=== PATIENT | male | born 1965 | race Caucasian/White ===

== ENCOUNTER → 2020-09-21 14:02 | Outpatient (BNVA) | payer MEDICAID, SELFPAY | PROVIDERS: PCP Family Medicine; Referring Provider Family Medicine; Visit Provider Nurse Practitioner | DX: Z76.89 Persons encountering health services in other specified circumstances (principal) ==

== ENCOUNTER → 2021-01-20 10:07 | Outpatient (BNVA) | payer MEDICAID, SELFPAY | PROVIDERS: PCP Family Medicine; Visit Provider Nurse Practitioner ==

== ENCOUNTER → 2021-02-10 10:04 | Outpatient (BNVA) | payer MEDICAID, SELFPAY | PROVIDERS: Visit Provider Nurse Practitioner ==

== ENCOUNTER 2021-04-21 14:21 | Outpatient (RCR) | payer MEDICAID, SELFPAY | END 2021-06-10 12:30 | disposition home or self-care (01) | LOC: HO.WCC 14:21 | PROVIDERS: Visit Provider Surgery | DX: I87.312 Chronic venous hypertension (idiopathic) with ulcer of left lower extremity (principal); L97.822 Non-pressure chronic ulcer of other part of left lower leg with fat layer exposed; Z79.899 Other long term (current) drug therapy | CPT/HCPCS: 11042; 29580; 97597; 99212; 99213 ==

== ENCOUNTER → 2021-07-19 10:28 | Outpatient (BNVA) | payer MEDICAID, SELFPAY | PROVIDERS: Visit Provider Nurse Practitioner | DX: K21.9 Gastro-esophageal reflux disease without esophagitis (principal); K59.00 Constipation, unspecified; R14.0 Abdominal distension (gaseous) | CPT/HCPCS: 99212 ==

== ENCOUNTER 2021-07-19 11:57 | Outpatient (REF) | payer MEDICAID, SELFPAY ==
[2021-07-19 12:26] LABS: COVID-19 Test Negative (Negative)
== END 2021-07-19 11:58 | disposition home or self-care (01) ==
LOC: HO.LAB 11:57
PROVIDERS: Visit Provider Internal Medicine
DX: Z20.822 Contact with and (suspected) exposure to COVID-19 (principal)
CPT/HCPCS: 36415; 87635; C9803

== ENCOUNTER → 2022-01-10 10:38 | Outpatient (BNVA) | payer MEDICAID, SELFPAY | PROVIDERS: PCP Nurse Practitioner Primary Care; Referring Provider Nurse Practitioner Primary Care; Visit Provider Nurse Practitioner | DX: K21.9 Gastro-esophageal reflux disease without esophagitis (principal); R14.0 Abdominal distension (gaseous); K59.00 Constipation, unspecified; Z79.899 Other long term (current) drug therapy | CPT/HCPCS: 99212 ==

== ENCOUNTER → 2022-02-15 10:46 | Outpatient (REF) | payer MEDICAID, SELFPAY ==
--- NOTE | 2022-02-15 10:57 | ECG_ITS ---
Test Reason : HTN Blood Pressure : / mmHG Vent. Rate : 063 BPM Atrial Rate : 063 BPM P-R Int : 146 ms QRS Dur : 082 ms QT Int : 400 ms P-R-T Axes : 043 074 043 degrees QTc Int : 409 ms Normal sinus rhythm Nonspecific ST abnormality Abnormal ECG When compared with ECG of 03-OCT-2019 05:08, Vent. rate has decreased BY [address] less depressed in Inferior leads T wave inversion no longer evident in Inferior leads T wave inversion no longer evident in Lateral leads Referred By: Lizabeth Felder Electronically Signed By:GILBERTO MILAN MD
== END ==
LOC: HO.CARD 10:46
PROVIDERS: PCP Nurse Practitioner Primary Care; Visit Provider Nurse Practitioner Primary Care
DX: I10 Essential (primary) hypertension (principal)
CPT/HCPCS: 93005

== ENCOUNTER 2022-03-02 15:41 | Emergency (ER) | payer MEDICAID, SELFPAY ==
--- NOTE | 2022-03-02 | ECG_ITS ---
Test Reason : syncope Blood Pressure : / mmHG Vent. Rate : 095 BPM Atrial Rate : 095 BPM P-R Int : 164 ms QRS Dur : 080 ms QT Int : 332 ms P-R-T Axes : 048 068 003 degrees QTc Int : 417 ms Normal sinus rhythm Nonspecific ST and T wave abnormality Abnormal ECG When compared with ECG of 15-FEB-2022 10:57, Vent. rate has increased BY 32 BPM Nonspecific T wave abnormality, worse in Inferior leads T wave amplitude has decreased in Anterior leads Referred By: Generic ED Physician Electronically Signed By:Logan Harrell
--- NOTE | ~2022-03-02 | CT_ITS ---
EXAMINATION: CT HEAD WITHOUT CONTRAST CT CERVICAL SPINE WITHOUT CONTRAST CLINICAL INFORMATION: Trauma. COMPARISON: None available. TECHNIQUE: Contiguous axial imaging was performed from the skull base to vertex without intravenous administration of contrast. Contiguous axial imaging was performed from the upper chest through the skull base without intravenous administration of contrast. Coronal and sagittal reformats were obtained at the acquisition workstation. This CT examination was performed using dose optimization techniques as appropriate, variously including the following: *Automated exposure control. *Adjustment of mA and/or kV according to patient size (this includes techniques or standardized protocols for targeted exams where dose is matched to indication/reason for exam; i.e. extremities or head). *Use of iterative reconstruction technique. DLP: 1266 mGy-cm FINDINGS: Head: There is no evidence of acute intracranial hemorrhage or edematous territorial infarction. There is no abnormal attenuation within the brain parenchyma. Fajardo-white matter differentiation is preserved. The ventricles are normal in size and configuration. Persistent cavums septum pellucidum, vergae, veli interpositi. No evidence for obstructive hydrocephalus. No abnormal mass effect or midline shift. No extra-axial fluid collections. Mild subgaleal hematoma along the right aspect of the frontal bone, measuring up to 0.3 cm in depth. No associated osseous abnormalities. Mild mucosal thickening of the paranasal sinuses. Moderate leftward nasal septal deviation. The mastoid air cells and middle ear cavities are clear. Moderate to advanced degenerative arthropathy of the temporomandibular joints. 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 The fracture fragment of the odontoid is fused to the anterior arch of C1. The atlantooccipital and atlantoaxial articulations remain relatively well aligned. There is anatomic alignment of the vertebral bodies and posterior elements. No evidence of acute fracture or subluxation. Bridging anterior osteophytosis from C3 to C5 and at C6-C7. Degenerative loss of the C3-C6 vertebral body heights. Advanced degenerative disc disease at C4-C5 and C6-C7. Moderate degenerative disc disease at all additional cervical levels. Facet and uncovertebral joint arthropathy leads osseous encroachment on the neural foramina from C2-C7. There is no prevertebral soft tissue swelling. The thyroid gland and remaining cervical soft tissues are normal in appearance. The lung apices demonstrate no abnormalities. CT/CT cervical spine wo con IMPRESSION: 1. No evidence of acute intracranial hemorrhage or edematous territorial infarction. 2. No evidence of acute fracture or traumatic subluxation of the cervical spine. 3. 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 The atlantooccipital and atlantoaxial articulations remain well aligned. 4. Moderate to advanced multilevel degenerative spondyloarthropathy of the cervical spine. 5. Small right frontal scalp hematoma. No associated osseous abnormalities.
[2022-03-02 15:47] VITALS: BP 116/65; BP 143/93; PULSE 107; PULSE 99; RESP 20; TEMP 37; O2SAT 100; O2SAT 98; BMI 31.3
--- NOTE | 2022-03-02 16:10 | ED.SEIZURE ---
HPI - Seizure General Chief Complaint: Syncope Stated Complaint: fall syncopal Time Seen by Provider: 03/02/22 15:58 Source: EMS Mode of arrival: EMS History of Present Illness HPI Narrative: This is 56 yo with hx of epilepsy on keppra/phenobarbital and valproic acid presented after seizure .EMS reported syncope but pt has sign of seizure (tongue biting),he was waiting for the bus then had seizure activity and fell to the ground. He feels well now,he is asking to go home. MD complaint: seizure Onset (ago): hour(s) (1) Description of Episode: tonic-clonic movement Witnessed: Yes - by Bystander Trauma: Yes (head /tongue) Seizure History: Yes Place: street Possible Precipitating Event: none Associated symptoms: denies other symptoms Related Data Home Medications Medication Instructions Recorded Confirmed folic acid 1 mg tablet 1 mg PO DAILY 01/20/21 levetiracetam 750 mg tablet 750 mg PO BID 01/20/21 (Keppra) loratadine 10 mg capsule 10 mg PO DAILY 01/20/21 phenobarbital 97.2 mg tablet 97.2 mg PO BID 01/20/21 prazosin 2 mg capsule 2 mg PO BEDTIME 01/20/21 spironolactone 100 mg tablet 100 mg PO DAILY 01/20/21 divalproex 500 mg tablet,delayed 1 tab PO BID 03/02/22 release docusate sodium 100 mg capsule 100 mg PO DAILY 03/02/22 (Colace) Previous Rx's Medication Instructions Recorded omeprazole 20 mg capsule,delayed 20 mg PO DAILY 30 Days #30 cap 01/10/22 release sennosides 8.6 mg tablet (Maryana-floyd) 17.2 mg PO BEDTIME #60 tab 01/10/22 simethicone 180 mg capsule 180 mg PO TID 30 Days #90 cap 01/10/22 Allergies Allergy/AdvReac Type Severity Reaction Status Date / Time No Known Drug Allergies Allergy Unknown UNKNOWN Verified 01/10/22 10:47 Review of Systems Review of Systems: Yes all other systems are reviewed and are negative Constitutional: Constitutional: Reports no additional constitutional complaints Cardiovascular: Cardiovascular: Reports no additional cardiovascular complaints Respiratory: Respiratory: Reports no additional respiratory complaints Musculoskeletal: Musculoskeletal: Reports no additional musculoskeletal complaints Neurologic: Reports system reviewed and no additional complaints, except as documented and Reports Abnormal speech present [facility] Past Medical History [facility] Narrative: HX of epilepsy Surgical History No significant past surgical history Family History Family History Family/Other Epilepsy Social History Social History Household Members: None Alcohol intake: current Alcohol intake frequency: does not drink Smoked in Last 30 Days: No Use of substances other than those prescribed or required for medical reasons: No Advance Directives: No Advance Directives Information Provided: No Current occupational status: disabled Physical Exam Vital Signs: Vital Signs: Last Vital Signs Temp 98.6 F 03/02/22 15:47 Pulse 88 03/02/22 18:37 Resp 16 03/02/22 18:37 BP 124/74 03/02/22 18:37 Pulse Ox 97 03/02/22 18:37 BMI result Body Mass Index 31.3 Const: General: cooperative, comfortable, no acute distress, well developed and alert Nutritional Appearance: average body habitus Orientation/consciousness: patient oriented x3 HEENT: Head: Yes other (Abrasion scalp present) Face and sinus: Yes normal facial exam Mouth: Normal oral and palatal mucosa present Teeth and gingiva: dentition normal and other (tongue biting present) Throat: Yes posterior oropharynx normal Neck: Neck: Yes normal visual inspection and Yes full ROM Thyroid: Thyroid normal Chest: Chest palpation & inspection: normal inspection of the chest Resp: Effort & Inspection: normal respiratory effort and able to speak in complete sentences Auscultation: clear to auscultation bilaterally Cardio: Jugular venous distension: no JVD Rate: regular rate Rhythm: regular rhythm GI: Inspection: Yes normal to inspection Palpation (GI): Soft to palpation, not firm, nontender and no guarding : General: Yes no CVA tenderness Back/Spine/Pelvis: Back: no CVA tenderness Skin: General skin exam: no rashes or lesions noted, elasticity normal and turgor normal Lesions: no lesions Rashes: no rashes Neuro: General: patient oriented x3 Cranial nerves: Yes CN's II-XII intact bilaterally Speech: Abnormal speech present Extrem: General: Yes normal to inspection Course Reevaluation(s) Reevaluation #1: ct negative,phenobarbital subtherapeutic extra dose given,will d/c home with follow up with his neurologist,I told the pt to take antiepileptic medicine as prescribe and no to miss doses MDM - Seizure MDM Narrative Medical decision making narrative: pt presented with seizure,states that did not take his meds Yesterday night,he is on depakote 500 BID,Keppra 750 BID and phenobarbital 97.2 daily.Will check labs I will give extra 500 keppra iv and 1 mg of ativan. Anticipate discharge if labs OK and pt continue to be asymptomatic Lab Data Result diagrams: 03/02/22 17:05 03/02/22 17:05 Labs: Lab Results 03/02/22 03/02/22 03/02/22 Range/Units 17: 17:05 17:05 WBC 4.9 (4.8-10.8) X10*3/uL RBC 3.71 L (4.60-5.80) X10*6/uL Hgb 12.2 L (14.0-18.0) g/dl Hct 36.4 L (42.0-52.0) % MCV 98.1 H (80.0-98.0) fL MCH 32.9 (27.0-33.0) pg MCHC 33.5 (31.0-36.0) g/dl RDW 12.3 (11.0-16.0) % Plt Count 149 L (160-400) X10*3/uL MPV 11.0 (9.4-12.4) fL Immature Gran % (Auto) 0.2 (0.0-0.4) % Neut % (Auto) 66.3 (45-73) % Lymph % (Auto) 22.0 (20-40) % Mcnairy % (Auto) 10.5 (2-11) % Eos % (Auto) 0.4 (0-4) % Baso % (Auto) 0.6 (0-2) % Lymph # (Auto) 1.1 L (1.2-4.9) X10*3/uL Mcnairy # (Auto) 0.5 (0.1-1.2) X10*3/uL Eos # (Auto) 0.0 (0.0-0.4) X10*3/uL Baso # (Auto) 0.0 (0.0-0.2) X10*3/uL Abs Immat Gran (auto) 0.01 (0.00-0.03) X10*3/uL Absolute Neuts (auto) 3.2 (2.0-8.3) x10*3/uL Absolute Nucleated RBC 0.000 (0.0-0.012) X10*3/uL Nucleated RBC % (auto) 0.0 (0.0-0.2) /100WBC Sodium 138 (135-145) mmol/L Potassium 4.0 (3.3-5.1) mmol/L Chloride 107 (96-108) mmol/L Carbon Dioxide 19 L (22-29) mmol/L Anion Gap 16 (12-20) BUN 17 H (9-16) mg/dL Creatinine 0.82 (0.5-1.4) mg/dL Estim Creat Clear Calc 107.0 Estimated GFR > 60 Random Glucose 85 (60-115) mg/dL Calcium 8.9 (8.4-10.2) mg/dL Magnesium 2.0 Cancelled (1.6-2.6) mg/dL Total Bilirubin 0.3 (0.0-1.0) mg/dL AST 19 (5-37) U/L ALT 18 (0-40) U/L Alkaline Phosphatase 53 (39-117) U/L Total Protein 7.4 (6.5-8.0) g/dL Albumin 4.2 (3.5-5.0) g/dL Valproic Acid 65.7 (50.0-100.0) mcg/mL Phenobarbital Cancelled 3.[address] head/cspine: Radiologist's impression: al soft tissue swelling. The thyroid gland and remaining cervical soft tissues are normal in appearance. The lung apices demonstrate no abnormalities. CT/CT head/brain wo con IMPRESSION: 1. No evidence of acute intracranial hemorrhage or edematous territorial infarction. ? 2. No evidence of acute fracture or traumatic subluxation of the cervical spine. ? 3. 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 The atlantooccipital and atlantoaxial articulations remain well aligned. ? 4. Moderate to advanced multilevel degenerative spondyloarthropathy of the cervical spine. ? 5. Small right frontal scalp hematoma. No associated osseous abnormalities. Dictated By: Juve Voss DO Signed By: <Electronically signed by Juve Voss DO in OV> 03/02/22 190 Discharge Plan Discharge Clinical Impression: Seizure disorder Patient Disposition: Home, Self-Care Instructions: Epilepsy (DC) Additional Instructions: Make sure you take your seizure meds every day,do not drive or operate machine for 6 Months Prescriptions: No Action divalproex 500 mg tablet,delayed release (DR/EC) 1 tab PO BID 0RF docusate sodium [Colace] 100 mg capsule 100 mg PO DAILY 0RF levetiracetam [Keppra] 750 mg tablet 750 mg PO BID 0RF phenobarbital 97.2 mg tablet 97.2 mg PO BID 0RF loratadine 10 mg capsule 10 mg PO DAILY 0RF folic acid 1 mg tablet 1 mg PO DAILY 0RF prazosin 2 mg capsule 2 mg PO BEDTIME 0RF spironolactone 100 mg tablet 100 mg PO DAILY 0RF omeprazole 20 mg capsule,delayed release(DR/EC) 20 mg PO DAILY 30 Days Qty: 30 6RF simethicone 180 mg capsule 180 mg PO TID 30 Days Qty: 90 6RF Rx Instructions: after meals sennosides [Maryana-floyd] 8.6 mg tablet 17.2 mg PO BEDTIME Qty: 60 6RF Referrals: Anita Jones MD [Physician] - Interventions: ED Discharge Assessment Last Done: 03/02/22 19:14 Discharge Date/Time: 03/02/22 19:14
[2022-03-02] MEDS: levETIRAcetam in NaCl (iso-os) 500 MG/100 ML PIGGYBACK 400 MG IV (16:41)
[2022-03-02] MEDS: LORazepam 1 MG TABLET PO (16:41)
[2022-03-02 17:10] LABS: MANUAL DIFF FLAG NO
[2022-03-02 17:17] LABS: Basophils Percent Auto 0.6 % (0-2); Eosinophils Percent Auto 0.4 % (0-4); Hematocrit 36.4 % (42.0-52.0); Hemoglobin 12.2 g/dl (14.0-18.0); Imm Gran Abs Auto 0.01 X10*3/uL (0.00-0.03); Imm Gran Pct Auto 0.2 % (0.0-0.4); Lymphocytes Absolute Auto 1.1 X10*3/uL (1.2-4.9); Mean Corpuscular HGB Conc 33.5 g/dl (31.0-36.0); Mean Corpuscular Hemoglobin 32.9 pg (27.0-33.0); Mean Corpuscular Volume 98.1 fL (80.0-98.0); Monocytes Absolute Auto 0.5 X10*3/uL (0.1-1.2); Monocytes Percent Auto 10.5 % (2-11); Neutrophils Absolute Auto 3.2 x10*3/uL (2.0-8.3); Neutrophils Percent Auto 66.3 % (45-73); Platelet Count 149 X10*3/uL (160-400); Red Blood Count 3.71 X10*6/uL (4.60-5.80); Red Cell Distribution Width 12.3 % (11.0-16.0); White Blood Count 4.9 X10*3/uL (4.8-10.8)
[2022-03-02 17:40] LABS: Alanine Aminotransferase 18 U/L (0-40); Albumin Level 4.2 g/dL (3.5-5.0); Alkaline Phosphatase 53 U/L (39-117); Anion Gap 16 (12-20); Aspartate Amino Transferase 19 U/L (5-37); Bilirubin Total 0.3 mg/dL (0.0-1.0); Blood Urea Nitrogen 17 mg/dL (9-16); Calcium 8.9 mg/dL (8.4-10.2); Carbon Dioxide 19 mmol/L (22-29); Chloride 107 mmol/L (96-108); Estimated Glomerular Filt Rate > 60; Glucose Random 85 mg/dL (60-115); Sodium 138 mmol/L (135-145); Total Protein 7.4 g/dL (6.5-8.0)
[2022-03-02 18:28] LABS: Valproate 65.7 mcg/mL (50.0-100.0)
[2022-03-02 18:37] VITALS: BP 124/74; PULSE 88; RESP 16; O2SAT 97
[2022-03-07 08:57] LABS: Levetiracetam Keppra 24.5 mcg/mL (12.0-46.0)
== END 2022-03-02 19:14 | disposition home or self-care (01) ==
PROVIDERS: Emergency Provider Emergency Medicine
DX: G40.909 Epilepsy, unspecified, not intractable, without status epilepticus (principal); Z79.899 Other long term (current) drug therapy
CPT/HCPCS: 36415; 70450; 72125; 80053; 80164; 80177; 80184; 83735; 85025; 93005; 96374; 99284; J1953

== ENCOUNTER → 2022-04-05 08:45 | Outpatient (BNVA) | payer MEDICAID, SELFPAY | PROVIDERS: PCP Nurse Practitioner Primary Care; Referring Provider Nurse Practitioner Primary Care; Visit Provider Internal Medicine Cardiovascular Disease | DX: R06.02 Shortness of breath (principal) | CPT/HCPCS: 99202 ==

== ENCOUNTER → 2022-04-28 08:03 | Outpatient (REF) | payer MEDICAID, SELFPAY ==
--- NOTE | ~2022-04-28 | NM_ITS ---
Exercise Myocardial perfusion study Indication: Chest pain to evaluate for myocardial ischemia Technique: The patient was brought in for an exercise perfusion study on 04/28/2022. Patient performed exercise as per Raul protocol and was injected 30 mCi of sestamibi was given intravenously one target HR was achieved. Images were obtained using the SPECT gamma camera interlaced with the gating device. Images were obtained in supine position. Resting perfusion study was performed on 05/02/2022. Patient was administered 30 mCi of sestamibi intravenously at rest. Images were then obtained in supine position. Images obtained with and without CT attenuation. Total DLP 96 mGy-cm. Images were processed with the software and compared side to side in short axis, horizontal long axis and vertical long axis views. Findings: The stress perfusion study showed non attenuated images show mildly reduced uptake in the basal. Wall of the LV myocardium. Remainder of the LV myocardium normally perfused. Attenuation corrected images show minimally reduced uptake in the apex of the LV myocardium.. The gated study shows normal LV systolic function with calculated LVEF of 60%. LV cavity is normal in size. The gated study shows normal systolic wall thickening and contraction of all segments. There is no transient ischemic dilation. Resting study shows intense subdiaphragmatic uptake interfering with nontender images show mildly to moderately reduced uptake in the inferior wall of the LV myocardium. Impression corrected images show mildly reduced uptake in the apex of the LV myocardium.. Gating at rest reveals normal systolic wall motion with ejection fraction at 56%. The findings are consistent with no clear reversible defect suggestive of ischemia. Likely normal myocardial perfusion. NM/NM cardiolite stress test Impression: 1. Normal myocardial perfusion 2. Gated LVEF is 60% 3. Transient ischemic dilatation not present Stress EKG is suggestive of ischemia
--- NOTE | 2022-04-28 08:06 | CA_ITS ---
Acquisition Time: 2022-04-28 08:18:19 Total Exercise Time: 00:06:00 Test Indications: ABN EKG Medications: SEE CHART Protocol: GOLDEN Max HR: 151 BPM 91% of Pred: 165 BPM Max BP: 148/048 mmHG Max Work Load: 7.2 METS Exercise stress test with exercise 6 min of Golden protocol, without anginal symptoms, with isolated PAC, with normotensive response to exercise, with EKG changes meeting criteria for ischemia: Horizontal ST depression, 2 mm inferiorly, 1 mm V4-V6 which becomes downsloping ST depression with gradual improvement back to baseline. Nuclear images pending. Test reviewed with Dr Bhatia Referred By: Abhinav Sanches Overread By: LEISA MOTLEY
== END ==
LOC: HO.CARD 08:03
PROVIDERS: Visit Provider Internal Medicine Cardiovascular Disease
DX: R06.02 Shortness of breath (principal); R07.9 Chest pain, unspecified
CPT/HCPCS: 78452; 93017; A9500

== ENCOUNTER 2022-05-10 14:03 | Outpatient (RCR) | payer MEDICAID, SELFPAY | END 2022-05-22 14:06 | disposition home or self-care (01) | LOC: HO.WCC 14:03 | PROVIDERS: Visit Provider Surgery | DX: I87.302 Chronic venous hypertension (idiopathic) without complications of left lower extremity (principal); I10 Essential (primary) hypertension; I73.9 Peripheral vascular disease, unspecified; Z87.891 Personal history of nicotine dependence; Z86.718 Personal history of other venous thrombosis and embolism; Z86.19 Personal history of other infectious and parasitic diseases | CPT/HCPCS: 99213 ==

== ENCOUNTER → 2022-07-11 11:44 | Outpatient (BNVA) | payer MEDICAID, SELFPAY | PROVIDERS: PCP Nurse Practitioner Primary Care; Visit Provider Nurse Practitioner | DX: R14.0 Abdominal distension (gaseous) (principal); K21.9 Gastro-esophageal reflux disease without esophagitis; K59.00 Constipation, unspecified | CPT/HCPCS: 99212 ==

== ENCOUNTER 2022-07-17 23:27 | Emergency (ER) | payer MEDICAID, SELFPAY ==
--- NOTE | ~2022-07-17 | CT_ITS ---
EXAMINATION: CT HEAD WITHOUT CONTRAST CLINICAL INFORMATION: Seizure, head trauma. COMPARISON: CT head dated from 03/02/2022. TECHNIQUE: Contiguous axial imaging was performed from the skull base to vertex without intravenous administration of contrast. This CT examination was performed using dose optimization techniques as appropriate, variously including the following: *Automated exposure control *Adjustment of mA and/or kV according to patient size (this includes techniques or standardized protocols for targeted exams where dose is matched to indication/reason for exam; i.e. extremities or head) *Use of iterative reconstruction technique DLP: 734 mGy-cm FINDINGS: There is no evidence of acute intracranial hemorrhage or edematous territorial infarction. There is no abnormal attenuation within the brain parenchyma. Fajardo-white matter differentiation is preserved. The ventricles are normal in size and configuration. No evidence for obstructive hydrocephalus. Persistent cavum septum pellucidum, vergae, veli interpositi. No abnormal mass effect or midline shift. No extra-axial fluid collections. No acute soft tissue or osseous abnormalities. The mastoid air cells and paranasal sinuses are clear. Degenerative changes of the temporomandibular joints. CT/CT head/brain wo IV con IMPRESSION: No evidence of acute intracranial hemorrhage or edematous territorial infarction.
--- NOTE | 2022-07-17 23:32 | ED_ITS ---
HPI - Headache General Chief Complaint: Seizure Stated Complaint: Headache Time Seen by Provider: 07/17/22 23:32 Source: patient and EMS Mode of arrival: EMS Limitations: language barrier History of Present Illness HPI Narrative: 57-year-old male presents via EMS for headache that he has had for 2 days, seizure activity and question of head trauma. Patient states he has has taking his medications as prescribed. Yesterday when he had the seizure, he did bite his tongue, and states that he is having a difficult time swallowing because of the tongue injuries. He does not report chest pain or pressure, palpitations, shortness of breath, abdominal pain, abdominal distention, dysuria, hematuria, changes in vision, or weakness. MD elicited complaint: headache Pertinent past history: other (Seizure disorder) Onset (ago): day(s) (2) Onset description: gradually Location: diffuse Severity: severe Pain scale (0-10): 9 Quality & Timing: throbbing and constant Exacerbating factors: light Relieving factors: nothing Context: recent head injury Associated symptoms: none and photophobia Treatments prior to arrival: none Related Data Home Medications Medication Instructions Recorded Confirmed folic acid 1 mg tablet 1 mg PO DAILY 01/20/21 04/05/22 levetiracetam 750 mg tablet 750 mg PO BID 01/20/21 04/05/22 (Keppra) loratadine 10 mg capsule 10 mg PO DAILY 01/20/21 04/05/22 phenobarbital 97.2 mg tablet 97.2 mg PO BID 01/20/21 04/05/22 prazosin 2 mg capsule 2 mg PO BEDTIME 01/20/21 04/05/22 spironolactone 100 mg tablet 100 mg PO DAILY 01/20/21 04/05/22 divalproex 500 mg tablet,delayed 1 tab PO BID 03/02/22 04/05/22 release ergocalciferol (vitamin D2) 1,250 1,250 mcg PO QWEEK 07/11/22 mcg (50,000 unit) capsule (Vitamin D2) ibuprofen 800 mg tablet 800 mg PO TID 07/11/22 Previous Rx's Medication Instructions Recorded docusate sodium 100 mg capsule 100 mg PO DAILY #30 caps 07/11/22 (Colace) omeprazole 20 mg capsule,delayed 20 mg PO DAILY 30 days #30 caps 07/11/22 release sennosides 8.6 mg tablet (Maryana-floyd) 17.2 mg PO BEDTIME #60 tabs 07/11/22 simethicone 180 mg capsule 180 mg PO TID 30 days #90 caps 07/11/22 Allergies Allergy/AdvReac Type Severity Reaction Status Date / Time No Known Drug Allergies Allergy Unknown UNKNOWN Verified 07/11/22 11:47 Review of Systems Review of Systems: Constitutional: Positive seizure disorder, No Fever, No Chills ENT/Mouth: Positive tongue pain, No Ear Pain, No Hoarseness, No sore throat Eyes: No Eye Pain, No Swelling, No Redness, No Foreign Body Cardiovascular: No Chest Pain, No SOB Respiratory: No Cough, No Dyspnea Gastrointestinal: No Nausea, No Vomiting, No Diarrhea, No abdominal Pain Genitourinary: No Dysuria, No Hematuria Musculoskeletal: No joint pain, No Myalgias, No Joint Swelling Skin: No Skin lacerations, No rash Neuro: No Weakness, No Numbness, No Paresthesias, No Loss of Consciousness, No Dizziness, positive Headache Psych: No Anxiety/Panic, No Depression Heme/Lymph: no easy bruising, no Lymphadenopathy Endocrine: No Polyuria, No Polydipsia Yes all other systems are reviewed and are negative PMFSH Past Medical History Attestation statement: The following information was validated with the patient. Source: old records reviewed Medical History Seizure disorder Surgical History No significant past surgical history Family History Family History Family/Other Epilepsy Social History Social History Household Members: None Alcohol intake: current Alcohol intake frequency: does not drink Patient Tobacco Use Status: Never used Tobacco Use of substances other than those prescribed or required for medical reasons: No Advance Directives: No Current occupational status: disabled Physical Exam Vital Signs: Vital Signs: Last Vital Signs Temp 98.2 F 07/18/22 00:03 Pulse 79 07/18/22 00:03 Resp 12 07/18/22 00:03 BP 122/59 L 07/18/22 00:03 Pulse Ox 97 07/18/22 00:03 O2 Del Method 07/18/22 00:03 BMI result Body Mass Index 24.2 Appearance: Alert. Oriented X3. No acute distress. Eyes: Pupils equal, round and reactive to light. No pain on extraocular movement. EOMI. ENT: Pharynx normal. Bite sparks to lateral aspects of the tongue on each side. Neck: Normal inspection. Neck supple. No vertebral tenderness or step-offs. No nuchal rigidity. No mastoid tenderness. CVS: Normal heart rate and rhythm. Pulses normal. Respiratory: No respiratory distress. Breath sounds normal. Abdomen: Soft and nontender. Skin: Skin warm and dry. Normal skin color. Normal skin turgor. Extremities: No lower extremity edema. Moves all extremities against resistance . Neuro: No motor deficit. No sensory deficit. Cranial nerves 2-12 intact. NIH Stroke Scale Internal: Initial- Upon Arrival Level of Consciousness: Alert Level of Consciousness Questions: Answers both questions correctly Level of Consciousness Commands: Performs both tasks correctly Best Gaze: Normal Visual: No visual loss Facial Palsy: Normal Motor Arm (Right): No drift Motor Arm (Left): No drift Motor Leg (Right): No drift Motor Leg (Left): No drift Limb Ataxia: Absent Sensory: Normal Best Language: No aphasia Dysarthia: Normal Extinction and Inattention: No abnormality Score: 0 Course Course Course Narrative: 57-year-old male presents via EMS for 2 days of headache, tongue pain, seizure activity with suspected head trauma. Patient stated he had a seizure yesterday, suspected to hit his head bit his tongue on both sides, and has not had any rel ief from his headache since. He has been taking his medications as directed. He does not report any ETOH or illicit drug use. Patient has a known seizure disorder, and takes Keppra, Depakote and phenobarbital. Patient is alert oriented x4, moves all extremities against resistance, NIH stroke scale is 0. Will order CT scan of the head, give lidocaine swish to assist with the tongue pain. Will give Keppra and order COVID and strep 00:56 CT scan of the head is negative, Keppra infusion complete, COVID and strep is negative. Will give Fioricet and discharged home. Patient verbalized under standing of and agrees to plan of care discharge home. Verbalized understanding of signs and symptoms indicating need for emergent intervention. MDM - Headache Differential Diagnosis Differential diagnosis: Likely migraine, tension headache, subarachnoid hemorrhage and headache Medical Records Attestation: I reviewed the patient's medical records. Lab Data Attestation: I reviewed the patient's lab results. Labs: Lab Results 07/18/22 07/18/22 Range/Units 00:11 00:16 COVID-19 ([facility]) Negative (Negative) COVID-19 Clin Com See Note S. pyogenes GrpA LESLEY Negative (Negative) Imaging Data CT scan - head: Attestation: I personally reviewed and interpreted this imaging study as follows: Radiologist's impression: EXAMINATION: CT HEAD WITHOUT CONTRAST CLINICAL INFORMATION: Seizure, head trauma.? COMPARISON: CT head dated from 03/02/2022. TECHNIQUE: Contiguous axial imaging was performed from the skull base to vertex without intravenous administration of contrast. This CT examination was performed using dose optimization techniques as appropriate, variously including the following: *Automated exposure control *Adjustment of mA and/or kV according to patient size (this includes techniques or standardized protocols for targeted exams where dose is matched to indication/reason for exam; i.e. extremities or head) *Use of iterative reconstruction technique DLP: 734 mGy-cm FINDINGS: There is no evidence of acute intracranial hemorrhage or edematous territorial infarction. There is no abnormal attenuation within the brain parenchyma. Fajardo-white matter differentiation is preserved. The ventricles are normal in size and configuration. No evidence for obstructive hydrocephalus. Persistent cavum septum pellucidum, vergae, veli interpositi. No abnormal mass effect or midline shift. No extra-axial fluid collections. No acute soft tissue or osseous abnormalities. The mastoid air cells and paranasal sinuses are clear. Degenerative changes of the temporomandibular joints. ? CT/CT head/brain wo IV con IMPRESSION: No evidence of acute intracranial hemorrhage or edematous territorial infarction. ? Discharge Plan Discharge Clinical Impression: Seizure, Headache Patient Disposition: Home, Self-Care Instructions: Acute Headache (ED), Recurrent Seizures in Adults (ED) Additional Instructions: Se le evalu? por dolor de beka y trastorno convulsivo. Contin?e tomando jason medicamentos seg?n las indicaciones. Le dimos 1000 mg de Keppra mientras estaba en el departamento de emergencias. Para tu dolor de beka te dimos Fioricet. Por favor, kalyan muchos l?quidos. Seguimiento con m?dico de atenci?n primaria. Kosta por elegir domenic departamento de emergencias para ojeda evaluaci?n. Por favor, colt un seguimiento con el m?dico de atenci?n primaria seg?n sea necesario. Regrese al departamento de emergencias por cualquier s?ntoma nuevo, preocupante o que empeore. You were evaluated for headache and seizure disorder. Continue to take her medications as directed. We gave you 1000 mg of Keppra while you were in the emergency department. For your headache we gave you Fioricet. Please drink plenty of fluids. Follow-up with primary care physician. Thank you for choosing this emergency department for evaluation. Please follow-up with primary care physician as needed. Return to the emergency department for any new, concerning, or worsening symptoms. Prescriptions: No Action divalproex 500 mg tablet,delayed release (DR/EC) 1 tab PO BID levetiracetam [Keppra] 750 mg tablet 750 mg PO BID phenobarbital 97.2 mg tablet 97.2 mg PO BID loratadine 10 mg capsule 10 mg PO DAILY folic acid 1 mg tablet 1 mg PO DAILY prazosin 2 mg capsule 2 mg PO BEDTIME spironolactone 100 mg tablet 100 mg PO DAILY ibuprofen 800 mg tablet 800 mg PO TID ergocalciferol (vitamin D2) [Vitamin D2] 1,250 mcg (50,000 unit) capsule 1,250 mcg PO QWEEK simethicone 180 mg capsule 180 mg PO TID 30 Days Qty: 90 6RF Rx Instructions: after meals sennosides [Maryana-floyd] 8.6 mg tablet 17.2 mg PO BEDTIME Qty: 60 6RF docusate sodium [Colace] 100 mg capsule 100 mg PO DAILY Qty: 30 6RF omeprazole 20 mg capsule,delayed release(DR/EC) 20 mg PO DAILY 30 Days Qty: 30 6RF
[2022-07-17 23:45] VITALS: PULSE 88; RESP 12; TEMP 36.8; O2SAT 97; BMI 24.2
[2022-07-17] MEDS: levETIRAcetam in NaCl (iso-os) 1,000 MG/100 ML PIGGYBACK 400 MG IV (23:56)
[2022-07-17] MEDS: Lidocaine HCl Viscous 2 % 15 ML SOLUTION MUCOUS MEM (23:57)
[2022-07-18 00:03] VITALS: BP 122/59; PULSE 79; RESP 12; TEMP 36.8; O2SAT 97
--- NOTE | 2022-07-18 00:19 | PC.NURSE ---
Pt aox4. Breaths are even and unlabored. Regular heart sounds. Abd is soft and nontender. [place] is warm pink and dry. Bilateral leg discoloration noted. Multiple lacerations noted on the tongue. Pt reports having a hx of seizures and having a seizure last night. Seizure precautions in place. MD at bedside. Pt aware of plan of care.
[2022-07-18 00:41] LABS: COVID-19 Test Negative (Negative); IDNOW Serial# 16C4AD1C
[2022-07-18 00:50] LABS: Strep A Nucleic Acid Negative (Negative)
[2022-07-18] MEDS: Butalb/Acetamin/Caff 50/325/40 TABLET 1 TAB PO (01:01)
--- NOTE | 2022-07-18 01:21 | PC.NURSE ---
Discharge instructions provided to pt. Pt verbalizes understanding.
== END 2022-07-18 01:22 | disposition home or self-care (01) ==
PROVIDERS: Nurse Practitioner Family; Emergency Provider Internal Medicine
DX: R56.9 Unspecified convulsions (principal); R51.9 Headache, unspecified; Z79.899 Other long term (current) drug therapy; Z20.822 Contact with and (suspected) exposure to COVID-19
CPT/HCPCS: 36415; 70450; 87635; 87651; 96365; 99284; J1953

== ENCOUNTER → 2022-09-19 08:50 | Outpatient (BNVA) | payer MEDICAID, SELFPAY | PROVIDERS: PCP Nurse Practitioner Primary Care; Referring Provider Nurse Practitioner Primary Care; Visit Provider Internal Medicine Cardiovascular Disease | DX: R94.31 Abnormal electrocardiogram [ECG] [EKG] (principal); G40.909 Epilepsy, unspecified, not intractable, without status epilepticus | CPT/HCPCS: 99212 ==

== ENCOUNTER 2022-11-30 09:31 | Outpatient (REF) | payer MEDICAID, SELFPAY ==
--- NOTE | ~2022-11-30 | US_ITS ---
EXAMINATION: US ABDOMEN COMPLETE CLINICAL INFORMATION: Chronic hepatitis C without hepatic coma. COMPARISON: Ultrasound of the abdomen complete 01/09/2019 and 04/01/2018. CT of the abdomen and pelvis without contrast 03/13/2016. MRI of the abdomen without and with contrast 11/06/2014. TECHNIQUE: Real-time imaging of the abdominal viscera. FINDINGS: PANCREAS: The pancreas appears unremarkable, without masses or ductal dilatation, with the exception of the tail which is obscured by bowel gas. ABDOMINAL AORTA: The proximal, mid, and distal segments are normal in caliber. INFERIOR VENA CAVA: Visualized portions are normal. LIVER: The liver is normal in size. The liver contour is normal. There is diffuse increased liver parenchymal echogenicity, consistent with hepatic steatosis. No focal hepatic lesion. There is no intrahepatic biliary duct dilatation seen. GALLBLADDER: The gallbladder is physiologically distended without evidence of stones, sludge, polyps, wall thickening or pericholecystic fluid. COMMON BILE DUCT: Normal in caliber measuring 0.3 cm in diameter. RIGHT KIDNEY: No hydronephrosis. No renal calculi or focal parenchymal lesions. The kidney measures 10.2 cm in maximum dimension. LEFT KIDNEY: A benign 1.2 cm simple cyst is present at the upper pole. No solid renal masses. No hydronephrosis or renal calculi. The kidney measures 10.1 cm in maximum dimension. SPLEEN: Normal. The spleen measures 9.3 cm in maximum dimension. FREE FLUID: None. US/US abdomen complete IMPRESSION: Hepatic steatosis. No focal liver mass.
== END 2022-11-30 09:32 | disposition home or self-care (01) ==
LOC: HO.US 09:31
PROVIDERS: Visit Provider Nurse Practitioner Primary Care
DX: B18.2 Chronic viral hepatitis C (principal)
CPT/HCPCS: 76700

== ENCOUNTER → 2023-04-12 14:10 | Outpatient (BNVA) | payer MEDICAID, SELFPAY | PROVIDERS: PCP Nurse Practitioner Primary Care; Visit Provider Nurse Practitioner | DX: R14.0 Abdominal distension (gaseous) (principal); K21.9 Gastro-esophageal reflux disease without esophagitis; K59.04 Chronic idiopathic constipation | CPT/HCPCS: 99212 ==

== ENCOUNTER 2023-05-09 08:44 | Outpatient (REF) | payer MEDICAID, SELFPAY ==
[2023-05-09 11:22] LABS: MANUAL DIFF FLAG NO
[2023-05-09 11:44] LABS: Basophils Absolute Auto 0.1 X10*3/uL (0.0-0.2); Eosinophils Absolute Auto 0.1 X10*3/uL (0.0-0.4); Hematocrit 36.8 % (42.0-52.0); Hemoglobin 12.3 g/dl (14.0-18.0); Imm Gran Abs Auto 0.01 X10*3/uL (0.00-0.03); Imm Gran Pct Auto 0.2 % (0.0-0.4); Lymphocytes Percent Auto 42.3 % (20-40); Mean Corpuscular HGB Conc 33.4 g/dl (31.0-36.0); Mean Corpuscular Hemoglobin 31.9 pg (27.0-33.0); Mean Corpuscular Volume 95.6 fL (80.0-98.0); Mean Platelet Volume 10.7 fL (9.4-12.4); Monocytes Absolute Auto 0.6 X10*3/uL (0.1-1.2); Monocytes Percent Auto 12.9 % (2-11); Neutrophils Absolute Auto 2.1 x10*3/uL (2.0-8.3); Neutrophils Percent Auto 42.6 % (45-73); Platelet Count 173 X10*3/uL (160-400); Red Blood Count 3.85 X10*6/uL (4.60-5.80); Red Cell Distribution Width 12.8 % (11.0-16.0); White Blood Count 4.8 X10*3/uL (4.8-10.8)
[2023-05-09 12:19] LABS: Alanine Aminotransferase 13 U/L (0-40); Albumin Level 4.1 g/dL (3.5-5.0); Alkaline Phosphatase 59 U/L (39-117); Aspartate Amino Transferase 16 U/L (5-37); Bilirubin Direct < 0.2 mg/dL (0.0-0.5); Bilirubin Total 0.2 mg/dL (0.0-1.0); Total Protein 7.5 g/dL (6.5-8.0)
[2023-05-09 12:25] LABS: Creatinine Urine 240.86 mg/dL; Microalbum/Creatinine Ratio Ur 4.9 ug/mg cr
== END 2023-05-09 08:45 | disposition home or self-care (01) ==
LOC: HO.HHCL 08:44
PROVIDERS: Visit Provider Nurse Practitioner Primary Care
DX: I10 Essential (primary) hypertension (principal); G40.909 Epilepsy, unspecified, not intractable, without status epilepticus
CPT/HCPCS: 36415; 80076; 82043; 85025

== ENCOUNTER 2023-12-31 13:25 | Outpatient (AMB) | payer MEDICAID, SELFPAY ==
--- NOTE | 2023-12-31 13:50 | A.OFFVIS_ITS ---
Intake Vital Signs 12/31/23 13:51 Height 5 ft 6 in Weight 213 lb 13.574 oz BMI 34.5 BP 110/70 Blood Pressure Location Lt brachial Position Sitting Pulse 62 Intake Visit Reasons: Follow up per PCP Intake Note: Over do follow-up Marine Services Technician Required: Yes Marine Services Technician Name: [facility] [place] Allergies No Known Drug Allergies Allergy (Unknown, Verified 11/07/23 17:16) UNKNOWN Medication List - Last Reconciled 12/31/23 by Abhinav Sanches MD divalproex 500 mg PO BID docusate sodium 100 mg PO DAILY ergocalciferol (vitamin D2) (Vitamin D2) 1,250 mcg PO QWEEK folic acid 1 mg PO DAILY ibuprofen 800 mg PO TID levetiracetam (Keppra) 750 mg PO BID loratadine 10 mg PO DAILY omeprazole 20 mg PO DAILY phenobarbital 97.2 mg PO BID prazosin 2 mg PO BEDTIME sennosides (Maryana-floyd) 17.2 mg (2 x 8.6 mg) PO BEDTIME simethicone 180 mg PO TID 30 days spironolactone 100 mg PO DAILY HPI HPI Comments History of Present Illness Details Jerome was referred here by your office. Patient is not sure as to why he is referred here. He has a poor historian despite use of mill oiler in the room. On further questioning he said he does occasionally get retrosternal chest discomfort when he is in stressful situation. Denies any clear chest discomfort with exercise. Denies any palpitations. Continues to have exertional shortness of breath. Takes all his medications. He said he had a seizure about couple of days ago. Does not remember the name of his neurologist. [facility] Medical History Seizure disorder Surgical History No significant past surgical history Family History Family/Other Epilepsy Social History Household Members: None Alcohol intake: current Alcohol intake frequency: does not drink Patient Tobacco Use Status: Never used Tobacco Current occupational status: disabled Review of Systems Const Denies chills, Denies fatigue, Denies fever(s), Denies frequent falls, Denies weakness, Denies weight gain and Denies weight loss ENT Denies dizziness Card Denies chest pain, Denies leg edema, Denies lightheadedness, Denies palpitations, Denies dyspnea, Denies dyspnea on exertion, Denies orthopnea and Denies other (loss of consciousness) Resp Denies cough, Denies dyspnea and Denies dyspnea on exertion GI Denies hematochezia and Denies change in stool character Musc Denies abnormal gait, Denies muscle weakness, Denies numbness, Denies radiating pain into limb and Denies tingling Neuro Denies Abnormal speech present, Denies abnormal gait, Denies dizziness, Denies frequent falls, Denies numbness, Denies tingling and Denies weakness Endo Denies fatigue and Denies palpitations Physical Exam Vital Signs: Last Vital Signs Pulse 62 12/31/23 13:51 BP 110/70 12/31/23 13:51 BMI result Body Mass Index 34.5 Const General: cooperative, comfortable, no acute distress, alert and awake Nutritional Appearance: overweight Limitations: no limitations Neck Neck: Yes trachea midline, Yes supple and Yes no JVD Resp Effort & Inspection: normal respiratory effort Auscultation: clear to auscultation bilaterally Cardio Jugular venous distension: no JVD Palpation: normal PMI Rate: regular rate Rhythm: regular rhythm Heart sounds: S1 normal heart sound present, S2 normal heart sound present, no click, no gallops, no murmurs and no rubs GI Auscultation: normal bowel sounds Neuro Speech: No Abnormal speech present Extrem General: No no clubbing, cyanosis or edema and Yes venous stasis dermatitis Assessment & Plan Assessment & Plan (1) Atypical chest pain: Code(s): R07.89 - Other chest pain Plan: Atypical chest pain with chest pain under stressful situation this middle-aged man with probable history of hypertension. He has a very poor historian. Very difficult to obtain history. EKG does not show any new changes. Would suggest a coronary CTA to evaluate for coronary artery disease as well as an echocardiogram to evaluate for hypertensive heart disease. These tests will be scheduled in near future. Follow up in the clinic after the same. His blood pressure is currently well optimized advised to continue current therapy. Thank you for allowing us to partake in his care Orders: Orders CA echo transthoracic complete Today R07.89 - Other chest pain CT Cardiac Coronary Angio 1 Week R07.89 - Other chest pain Coding Level of Care Code Est Pt Level 3 (30669) Diagnoses Atypical chest pain R07.89
[2023-12-31 13:51] VITALS: BP 110/70; PULSE 62; BMI 34.5
== END 2023-12-31 14:38 | disposition home or self-care (01) ==
PROVIDERS: PCP Nurse Practitioner Primary Care; Visit Provider Internal Medicine Cardiovascular Disease
DX: R07.89 Other chest pain (principal)
CPT/HCPCS: 99213

== ENCOUNTER → 2023-12-31 13:25 | Outpatient (BNVA) | payer MEDICAID, SELFPAY | PROVIDERS: PCP Nurse Practitioner Primary Care; Visit Provider Internal Medicine Cardiovascular Disease | DX: R07.89 Other chest pain (principal) | CPT/HCPCS: 99212 ==

== ENCOUNTER → 2024-01-15 12:53 | Outpatient (REF) | payer MEDICAID, SELFPAY ==
--- NOTE | 2024-01-15 12:55 | CA_ITS ---
Transthoracic Echocardiogram Patient (Last, First, Middle): Jerome Ledezma, Gender: Male Date of : 1965 Age: 58 Procedure Date: 01/15/2024 Procedure Type: Transthoracic Echocardiogram Location: OP Height: 172.72 cm Weight: 96.62 kg BSA: 2.10 m2 Heart Rate: bpm BP: 124 / 66 mmHg Shelter Director: LUZ Referring MD: Abhinav Sanches MD Granulating Blender: Abhinav Sanches MD Symptoms: R07.89 - Other chest pain Study Quality: Adequate with contrast ECG Rhythm: Sinus Conclusions: - Essentially normal study Findings Procedure Information Contrast agent, definity, is being given per protocol without apparent complications. Left Ventricle Normal left ventricular size, thickness, and systolic function. The visually estimated ejection fraction is between 55-60%. Diastolic function is normal for age. Right Ventricle Normal right ventricular cavity size and systolic function. Atria Both atria are normal in size. Interatrial shunt cannot be excluded. Aortic Valve The aortic valve structure and function is likely normal. There is no aortic valve stenosis. There is no aortic valve regurgitation. Mitral Valve Normal mitral valve structure and function. There is trace mitral valve regurgitation. There is no mitral valve stenosis. Pulmonic Valve The pulmonic valve is likely normal. There is trace pulmonic valve regurgitation. Tricuspid Valve Normal tricuspid valve structure. There is trace tricuspid valve regurgitation. The right ventricular systolic pressure is normal. The right ventricular systolic pressure is 22 mmHg. Normal right atrial pressure. There is no evidence of pulmonary hypertension. Great Vessels All visible segments of the aorta are normal in size. The pulmonary artery was not well visualized. Venous The inferior vena cava is normal in size and collapses greater than 50% with inspiration. Pericardium/Pleural There is no evidence of pericardial effusion. Measurements 2D Linear Measurements IVSd: 0.87 0.6-0.9/0.6-1.0 cm LVIDd: 4.62 3.9-5.3/4.2-5.9 cm LVIDd Index: 2.20 2.4-3.2/2.2-3.1 cm/m2 LVIDs: 2.87 2.0-3.6 cm LVPWd: 0.92 0.7-1.1 cm LA Diam: 3.00 2.7-3.8/3.0-4.0 cm LAIDs Index: 1.43 1.5-2.3 cm/m2 LV Mass: 171.23 67-162/88-224 g LV Mass Index: 81.54 43-95/49-115 g/m2 LVOT Diam: 2.30 3.0+(-)1.3 cm 2D Systolic Function EF 4C: 59.40 >55% EF 2C: 50.20 >55% EF BiP: 55.00 >55% Mitral Valve MV Pk E: 1.08 MV PK A: 0.76 MV Decel Time: 224.00 E/A: 1.40 E'Lateral: 10.00 E'Medial: 7.83 E/E' Med: 13.80 E/E' Lat: 10.80 PHT: 65.00 MVA PHT: 3.38 Decel Milam: 4.85 Aortic Valve AoV Pk Atul: 1.11 AoV Mn Atul: 0.75 AoV VTI: 0.23 AoV Pk Grad: 5.00 Aov Mn Grad: 3.00 HENRRY Cont.VTI: 3.75 LVOT LVOT Pk Atul: 1.01 LVOT Mn Atul: 0.69 LVOT VTI: 0.21 LVOT Pk Grad: 4.00 LVOT Mn Grad: 2.00 LVOT Diam: 2.30 LVOT Area: 4.15 Diastolic Function MV Pk E: 1.08 MV Pk A: 0.76 E/A: 1.40 E'Medial: 7.83 E/E' Med: 13.80 E' Laterial: 10.00 E/E' Lat: 10.80 Right Ventricle TAPSE (mm): 23.50 TVS' Atul: 12.30 Tricuspid Valve TR Pk Atul: 2.19 TR Pk Grad: 19.00 RA Press: 3.00 RVSP: 22.00 Great Vessels Aorta Sinus of Valsalva: 3.53 2.0-3.[address] [place]: 2.81 1.7-3.4 cm Ao Asc: 3.00 2.1-3.4 cm Updated in Other Vendor System with Status of Final Abhinav Sanches MD electronically signed on 01/16/2024 2:27:43 PM with status of Final
== END ==
LOC: HO.CARD 12:53
PROVIDERS: PCP Nurse Practitioner Primary Care; Visit Provider Internal Medicine Cardiovascular Disease
DX: R07.89 Other chest pain (principal)
CPT/HCPCS: 93306; Q9957

== ENCOUNTER → 2024-01-15 12:55 | Outpatient (BNV) | payer MEDICAID, SELFPAY | PROVIDERS: PCP Nurse Practitioner Primary Care; Visit Provider Internal Medicine Cardiovascular Disease | DX: R07.89 Other chest pain (principal) | CPT/HCPCS: 93306 ==

== ENCOUNTER 2024-02-04 15:15 | Outpatient (REF) | payer MEDICAID, SELFPAY ==
[2024-02-04 16:18] LABS: MANUAL DIFF FLAG NO
[2024-02-04 16:35] LABS: Estimated Average Glucose 120 mg/dL; Hemoglobin A1c % 5.8 % (<6.0)
[2024-02-04 16:46] LABS: Basophils Percent Auto 0.7 % (0-2); Eosinophils Percent Auto 0.7 % (0-4); Hematocrit 37.8 % (42.0-52.0); Imm Gran Abs Auto 0.01 X10*3/uL (0.00-0.03); Imm Gran Pct Auto 0.2 % (0.0-0.4); Lymphocytes Absolute Auto 2.1 X10*3/uL (1.2-4.9); Lymphocytes Percent Auto 38.8 % (20-40); Mean Corpuscular HGB Conc 34.4 g/dl (31.0-36.0); Mean Corpuscular Hemoglobin 32.7 pg (27.0-33.0); Mean Platelet Volume 10.2 fL (9.4-12.4); Monocytes Absolute Auto 0.7 X10*3/uL (0.1-1.2); Monocytes Percent Auto 12.6 % (2-11); Neutrophils Absolute Auto 2.5 x10*3/uL (2.0-8.3); Platelet Count 186 X10*3/uL (160-400); Red Blood Count 3.98 X10*6/uL (4.60-5.80); Red Cell Distribution Width 12.2 % (11.0-16.0); White Blood Count 5.4 X10*3/uL (4.8-10.8)
[2024-02-04 17:54] LABS: Valproate 67.1 mcg/mL (50.0-100.0)
[2024-02-04 18:23] LABS: Cholesterol 220 mg/dL (<200); HDL Cholesterol 40 mg/dL (>40); LDL Cholesterol Calculated 148 mg/dL (<100); Triglycerides 161 mg/dL (<150)
== END 2024-02-04 15:16 | disposition home or self-care (01) ==
LOC: HO.HHCL 15:15
PROVIDERS: Visit Provider Nurse Practitioner Primary Care
DX: Z00.00 Encounter for general adult medical examination without abnormal findings (principal); G40.909 Epilepsy, unspecified, not intractable, without status epilepticus; E78.5 Hyperlipidemia, unspecified; Z79.899 Other long term (current) drug therapy
CPT/HCPCS: 36415; 80061; 80164; 80184; 83036; 85025

== ENCOUNTER 2024-02-20 17:53 | Emergency (ER) | payer MEDICAID, SELFPAY ==
[2024-02-20 18:19] VITALS: BP 134/85; PULSE 110
--- NOTE | 2024-02-20 18:28 | ED.GENADULT ---
HPI - General Adult General Chief complaint: Seizure Stated complaint: 2 WITNESSED SEIZURES Time Seen by Provider: 02/20/24 18:26 History of Present Illness HPI narrative: This is a 58-year-old man with a past medical history of GERD, constipation, seizure disorder (on Keppra, Depakote and phenobarbital) who presents via EMS for evaluation of seizure. History obtained with in-person exhibit builder (Katiana). Patient states name, location. He states that he had 2 seizures today. He states that he believes his sister's called for an ambulance. He reports that he slid out of a recliner. He states that he did miss his epilepsy medications this morning. He states he sometimes otherwise forgets his medications. He states no fever, chills or cough. He states no chest pain or dyspnea. He states no headache, neck pain, vision changes, hearing changes or paresthesias. He states no neck pain. He states no extremity weakness. He states no changes in his bowel habits or any urinary symptoms. Patient states he does not drink alcohol, use drugs or smoke. Related Data Home Medications ?Medication ?Instructions ?Recorded ?Confirmed folic acid 1 mg tablet 1 mg PO DAILY 01/20/21 12/31/23 levetiracetam 750 mg tablet 750 mg PO BID 01/20/21 12/31/23 (Keppra) loratadine 10 mg capsule 10 mg PO DAILY 01/20/21 12/31/23 phenobarbital 97.2 mg tablet 97.2 mg PO BID 01/20/21 12/31/23 prazosin 2 mg capsule 2 mg PO BEDTIME 01/20/21 12/31/23 spironolactone 100 mg tablet 100 mg PO DAILY 01/20/21 12/31/23 ergocalciferol (vitamin D2) 1,250 1,250 mcg PO QWEEK 07/11/22 12/31/23 mcg (50,000 unit) capsule (Vitamin D2) ibuprofen 800 mg tablet 800 mg PO TID 07/11/22 12/31/23 divalproex 500 mg tablet,delayed 500 mg PO BID 09/19/22 12/31/23 release Previous Rx's ?Medication ?Instructions ?Recorded sennosides 8.6 mg tablet (Maryana-floyd) 17.2 mg (2 x 8.6 mg) PO BEDTIME 04/12/23 #60 tabs simethicone 180 mg capsule 180 mg PO TID 30 days #90 caps 04/12/23 docusate sodium 100 mg capsule 100 mg PO DAILY #30 ea 10/30/23 omeprazole 20 mg capsule,delayed 20 mg PO DAILY #30 caps 12/14/23 release Allergies Allergy/AdvReac Type Severity Reaction Status Date / Time No Known Drug Allergies Allergy Unknown UNKNOWN Verified 02/20/24 18:43 Review of Systems Review of Systems: ROS as per HPI [facility] Past Medical History Medical History Seizure disorder Surgical History No significant past surgical history Family History Family History Family/Other Epilepsy Social History Social History Household Members: None Alcohol intake: current Alcohol intake frequency: does not drink Patient Tobacco Use Status: Never used Tobacco Advance Directives: No Advance Directives Information Provided: No Current occupational status: disabled Physical Exam ED Vital Signs: Vital Signs - 24 hr 02/20/24 18:35 02/20/24 19:21 Temperature 98.3 F Pulse Rate 106 H 91 Respiratory Rate 15 18 Blood Pressure 138/82 143/89 H Pulse Oximetry 97 97 Oxygen Delivery Method Room Air Room Air BMI result Body Mass Index 33.2 Gen: NAD, AOx3 HEENT: NCAT, EOMI, normal conjunctiva, no periorbital or postauricular ecchymosis, superficial hemostatic bilateral lingual abrasion, no lingual laceration CV: RRR Pulm: CTAB, no increased work of breathing GI: Soft, NTND, no rebound, guarding or rigidity MSK: No midline vertebral tenderness to palpation, full range of motion with active neck flexion/extension and 45? lateral rotation Neuro: Cranial nerves 2-12 assessed individually and are intact, 5/5 bilateral upper and lower extremity strength, intact sensation to light touch in bilateral upper extremity and lower extremity dermatomes, no truncal ataxia, no dysmetria, no dysdiadochokinesia Medications Administered Discontinued Medications Generic Name Dose Route Start Last Admin Trade Name Freq PRN Reason Stop Dose Admin Levetiracetam 1,000 mg in 100 mls @ 400 mls/hr 02/20/24 18:57 02/20/24 19:35 Keppra IV 02/20/24 19:11 400 mls/hr ONCE ONE Administration Medical Decision Making Medical Decision Making [facility] Narrative: Differential diagnosis includes, but is not limited to seizure, medication noncompliance, hypoglycemia, electrolyte abnormality. Patient is afebrile and hemodynamically stable on room air. Exam is benign and reassuring. Patient has no focal neurological deficits. Patient does not have evidence of head trauma, is not less than 16 years of age, not take blood thinning medications. Neuro exam is reassuring as above. He does not have a suspected open or depressed skull fracture, signs of basilar skull fracture, greater than or equal to 2 episodes of vomiting and is not greater than or equal to 65 years of age. For this reason, CT imaging of the head/brain is not obtained. Patient was not breathing and equal to 67 years of age, does not have extremity paresthesias or dangerous mechanism. He has no risk factors of sitting position in the ED, no neck pain, no midline vertebral tenderness. He is able to actively rotate the neck 45? left and right. For these reasons, CT imaging of the cervical spine is not obtained. I reviewed and interpreted labs, which are noncontributory. Of note, patient demonstrates baseline anemia with hemoglobin 13.6 (previous 13.0), platelet 158 (per chart review patient ranges from 144 to 186). This is not secondary to hypoglycemia or hyponatremia. Patient is provided additional Keppra with 1 g IV Keppra. Valproic acid level is subtherapeutic and for this reason the patient is provided additional 500 mg p.o. valproic acid here in the ED. He is additionally provided 975mg po Tylenol for mild headache. I reviewed and interpreted EKG as below, which is unremarkable for any acute findings. On re-examination, patient is well-appearing and in no acute distress. There is no indication for further emergent evaluation in this otherwise well-appearing patient as above. ?Discharge instructions provided using in-person exhibit builder (Katiana). Patient is provided written and verbal instructions, educational materials, recommendations for outpatient follow-up, strict return precautions and teach back is performed. ?Patient states understanding and agreement with plan of care. ?Patient is discharged home in stable and improved condition. Admission/Observation Consideration of admission/observation: Escalation of care including admission/observation considered Lab Data MDM Lab Attestation statement: I reviewed the patient's lab results. 02/20/24 19:07 02/20/24 19:07 Labs: Lab Results 02/20/24 Range/Units 19:07 WBC 5.8 (4.8-10.8) X10*3/uL RBC 4.14 L (4.60-5.80) X10*6/uL Hgb 13.6 L (14.0-18.0) g/dl Hct 38.8 L (42.0-52.0) % MCV 93.7 (80.0-98.0) fL MCH 32.9 (27.0-33.0) pg MCHC 35.1 (31.0-36.0) g/dl RDW 12.3 (11.0-16.0) % Plt Count 158 L (160-400) X10*3/uL MPV 10.3 (9.4-12.4) fL Immature Gran % (Auto) 0.2 (0.0-0.4) % Neut % (Auto) 66.2 (45-73) % Lymph % (Auto) 18.0 L (20-40) % [place] % (Auto) 14.4 H (2-11) % Eos % (Auto) 0.5 (0-4) % Baso % (Auto) 0.7 (0-2) % Lymph # (Auto) 1.1 L (1.2-4.9) X10*3/uL [place] # (Auto) 0.8 (0.1-1.2) X10*3/uL Eos # (Auto) 0.0 (0.0-0.4) X10*3/uL Baso # (Auto) 0.0 (0.0-0.2) X10*3/uL Abs Immat Gran (auto) 0.01 (0.00-0.03) X10*3/uL Absolute Neuts (auto) 3.9 (2.0-8.3) x10*3/uL Absolute Nucleated RBC 0.000 (0.0-0.012) X10*3/uL Nucleated RBC % (auto) 0.0 (0.0-0.2) /100WBC Sodium 138 (135-145) mmol/L Potassium 4.1 (3.3-5.1) mmol/L Chloride 104 (96-108) mmol/L Carbon Dioxide 25 (22-29) mmol/L Anion Gap 13 (12-20) BUN 9 (9-16) mg/dL Creatinine 0.81 (0.5-1.4) mg/dL Estim Creat Clear Calc 112.5 Estimated GFR > 60 Random Glucose 101 (60-115) mg/dL Lactic Acid 1.8 (0.5-2.0) mmol/L Calcium 9.1 (8.4-10.2) mg/dL Valproic Acid 23.0 L (50.0-100.0) mcg/mL Independent Interpretation I performed an independent interpretation of an: EKG Interpretation: EKG demonstrates normal sinus rhythm at 90 beats per minute, normal axis, CO 156, QRS 82, QTC 423, no Brugada morphology, no epsilon wave, no dagger-like Q-waves Independent Historian History obtained using in person exhibit builder Discharge Plan Discharge Clinical Impression: Seizure Patient Disposition: Home, Self-Care Instructions: Recurrent Seizures in Adults (ED) Additional Instructions: You were seen and evaluated in the emergency room. Your blood work was reassuring. However, we did find your Depakote level to be low. You were given additional doses of Keppra and Depakote. Please continue taking your home medication as prescribed. Please follow-up with your primary care doctor in the next 5-7 days. ? Please return to the emergency room if you develop any worsening symptoms including, but not limited to seizures, headache, vomiting. Fue atendido y evaluado en la lori de emergencias. Tu an?lisis de vikash fue tranquilizador. Sin embargo, encontramos que ojeda nivel de Depakote es bajo. Le administraron dosis adicionales de Keppra y Depakote. Contin?e tomando jason medicamentos en casa seg?n lo recetado. Ashley un seguimiento con ojeda m?dico de atenci?n primaria en los pr?ximos 5 a 7 d?as. Regrese a la lori de emergencias si presenta alg?n s?ntoma que empeore, incluidos, entre otros, convulsiones, dolor de beka y v?mitos. Prescriptions: No Action docusate sodium 100 mg capsule 100 mg PO DAILY Qty: 30 6RF omeprazole 20 mg capsule,delayed release(DR/EC) 20 mg PO DAILY Qty: 30 6RF divalproex 500 mg tablet,delayed release (DR/EC) 500 mg PO BID levetiracetam [Keppra] 750 mg tablet 750 mg PO BID phenobarbital 97.2 mg tablet 97.2 mg PO BID loratadine 10 mg capsule 10 mg PO DAILY folic acid 1 mg tablet 1 mg PO DAILY prazosin 2 mg capsule 2 mg PO BEDTIME spironolactone 100 mg tablet 100 mg PO DAILY ibuprofen 800 mg tablet 800 mg PO TID ergocalciferol (vitamin D2) [Vitamin D2] 1,250 mcg (50,000 unit) capsule 1,250 mcg PO QWEEK sennosides [Maryana-floyd] 8.6 mg tablet 17.2 mg PO BEDTIME Qty: 60 6RF simethicone 180 mg capsule 180 mg PO TID 30 Days Qty: 90 6RF Rx Instructions: after meals Print Language: Greek
[2024-02-20 18:35] VITALS: BP 138/82; PULSE 106; RESP 15; O2SAT 97; BMI 33.2
--- NOTE | 2024-02-20 19:04 | ECG_ITS ---
Test Reason : SEIZURE Blood Pressure : / mmHG Vent. Rate : 090 BPM Atrial Rate : 090 BPM P-R Int : 156 ms QRS Dur : 082 ms QT Int : 346 ms P-R-T Axes : 050 074 034 degrees QTc Int : 423 ms Normal sinus rhythm Nonspecific ST abnormality Abnormal ECG When compared to the previous EKG of No significant changes seen Referred By: Wisam Liang Electronically Signed By:GILBERTO MILAN MD
[2024-02-20 19:19] LABS: MANUAL DIFF FLAG NO
[2024-02-20 19:21] VITALS: BP 143/89; PULSE 91; RESP 18; TEMP 36.8; O2SAT 97
[2024-02-20 19:27] LABS: Lactic Acid 1.8 mmol/L (0.5-2.0)
[2024-02-20 19:30] LABS: Anion Gap 13 (12-20); Blood Urea Nitrogen 9 mg/dL (9-16); Calcium 9.1 mg/dL (8.4-10.2); Carbon Dioxide 25 mmol/L (22-29); Chloride 104 mmol/L (96-108); Creatinine Clr Calc Pharmacy 112.5; Estimated Glomerular Filt Rate > 60; Glucose Random 101 mg/dL (60-115); Potassium 4.1 mmol/L (3.3-5.1); Sodium 138 mmol/L (135-145)
[2024-02-20] MEDS: levETIRAcetam in NaCl (iso-os) 1,000 MG/100 ML PIGGYBACK 400 MG IV (19:35)
[2024-02-20 19:40] LABS: Basophils Percent Auto 0.7 % (0-2); Eosinophils Percent Auto 0.5 % (0-4); Hematocrit 38.8 % (42.0-52.0); Hemoglobin 13.6 g/dl (14.0-18.0); Imm Gran Abs Auto 0.01 X10*3/uL (0.00-0.03); Imm Gran Pct Auto 0.2 % (0.0-0.4); Lymphocytes Absolute Auto 1.1 X10*3/uL (1.2-4.9); Mean Corpuscular HGB Conc 35.1 g/dl (31.0-36.0); Mean Corpuscular Hemoglobin 32.9 pg (27.0-33.0); Mean Corpuscular Volume 93.7 fL (80.0-98.0); Mean Platelet Volume 10.3 fL (9.4-12.4); Monocytes Absolute Auto 0.8 X10*3/uL (0.1-1.2); Monocytes Percent Auto 14.4 % (2-11); Neutrophils Absolute Auto 3.9 x10*3/uL (2.0-8.3); Neutrophils Percent Auto 66.2 % (45-73); Platelet Count 158 X10*3/uL (160-400); Red Blood Count 4.14 X10*6/uL (4.60-5.80); Red Cell Distribution Width 12.3 % (11.0-16.0); White Blood Count 5.8 X10*3/uL (4.8-10.8)
[2024-02-20] MEDS: Divalproex Sodium 500 MG TABLET.DR PO (21:16)
[2024-02-20] MEDS: Acetaminophen 325 MG TABLET 975 MG PO (21:16)
[2024-02-20 21:33] VITALS: BP 129/85; PULSE 91; RESP 17; TEMP 36.4; O2SAT 96
[2024-02-20 21:34] VITALS: BP 129/85; PULSE 91; RESP 17; TEMP 36.4; O2SAT 96
[2024-02-24 20:08] LABS: Levetiracetam Keppra 3.6 mcg/mL (6.0-46.0)
== END 2024-02-20 21:35 | disposition home or self-care (01) ==
PROVIDERS: Emergency Provider Emergency Medicine
DX: G40.909 Epilepsy, unspecified, not intractable, without status epilepticus (principal); Z79.899 Other long term (current) drug therapy; Z91.148 Patient's other noncompliance with medication regimen for other reason
CPT/HCPCS: 36415; 80048; 80164; 80177; 83605; 85025; 87255; 93005; 96365; 99284; 99285; J1953

== ENCOUNTER → 2024-02-20 19:04 | Outpatient (BNV) | payer MEDICAID, SELFPAY | PROVIDERS: Emergency Provider Emergency Medicine; Visit Provider Internal Medicine Cardiovascular Disease | DX: R94.31 Abnormal electrocardiogram [ECG] [EKG] (principal) | CPT/HCPCS: 93010 ==

== ENCOUNTER 2024-09-22 15:34 | Outpatient (REF) | payer MEDICAID, SELFPAY ==
--- OUTSIDE RECORDS SUMMARY | 2024-09-22 15:36 | XMS_ITS | Continuity of Care Document ---
Author Organization [facility] Address [address] [place] [address] Phone Care Team Providers Care Material Handling Supervisor Name Role Phone Meek QUILES FACS RVT Marylin BOBO Unavailable Unavailable Allergies, Adverse Reactions, Alerts Substance Reaction Status Criticality No Known Allergies Active No Inform ation Medications Medication Instructions Dosage Effective Dates (start - stop) Status Comments spironolactone 100 mg tablet - Active levetiracetam 750 mg tablet - Ac tive phenobarbital 97.2 mg tablet - Active Claritin Liqui-Gel 10 mg capsule - Active folic acid 1 mg tablet - Active divalproex 500 mg tablet,delayed release - Active Vitamin D2 1,250 mcg (50,000 unit) capsule - Active omeprazole 20 mg capsule,delayed release - Active prazosin 2 mg capsule - Active simethicone 180 mg capsule - Act jason docusate sodium 100 mg capsule - Active Maryana-floyd 8.6 mg tablet - Active Procedures Procedure Date Office/Outpt E&M Established 15 Mins Nov Advance Directives Directive Yes / No Effective Date File Name No Information Encounters Encounter Description Practice Location Reason(s) For Visit Diagnoses Date Provider Providers Copied on Encounter Office/Outpt E&M Established 15 Mins [facility], [address], [id number], [place] tel:[phone] [facility] Body mass index (BMI) 33.0-33.9, adultChronic venous hypertension w oth comp of l low extrem 3 Meek QUILES FACS RVT JERAMIE Metz. [address], [address], [facility] [place], [address], [place]. tel:[phone] Referring Provider: Katherine Painter, [address] [place] [address], [place], [address]. tel:[phone] Family History Family Member Type Diagnosis Age At Onset No Information Payers Payer name Insurance type Covered green party ID Authoriza tiallan(s) Medical Assistance [facility] [id number] Social History Type Description Quantity Date Captured Comments Alcohol Use Details No Caffeine Use Details Unknown Tobacco Use Status Current non-smoker Smoking Status Never smoker Non-Smoking Tobacco Use Details : No Details Available : No Details Available Sex Male Vital Signs Date / Time: Height Weight BMI Pulse Rate Blood Pressure Temperature Respiratory Rate Body Surface Area Head Circumference Head Circ. Percentile Wt./Kalpesh. Percentile BMI percentile Pulse Ox Inhaled Ox 11:53 AM 66.00 in 122/82 mm[Hg] Chief Complaint And Reason For Visit No Information Reason For Referral Reason For Referral No Information Plan Of Treatment Date Type Action Status Goal Weight-reducing diet educati on completed History Of Present Illness Encounter Date Complaint History Of Prese nt Illness No Information Functional Status Date Functional Assessmen t No Information Instructions Date Instruction Additional Infor mation Weight-reducing diet education R elated to Body mass index [BMI] 33.0-33.9, adult Assessments Type Assessment Date assessment Body mass index [BMI] 33.0-33.9, adult assessment Chronic venous hypertension w ot h comp of l low extrem Patient Care Teams Name Effective Dates (start - stop) Status Members No Information
[2024-09-22 16:25] LABS: MANUAL DIFF FLAG NO
[2024-09-22 16:35] LABS: Basophils Absolute Auto 0.1 X10*3/uL (0.0-0.2); Basophils Percent Auto 1.2 % (0-2); Eosinophils Absolute Auto 0.1 X10*3/uL (0.0-0.4); Eosinophils Percent Auto 1.3 % (0-4); Hematocrit 38.6 % (42.0-52.0); Hemoglobin 14.2 g/dl (14.0-18.0); Imm Gran Abs Auto 0.01 X10*3/uL (0.00-0.03); Imm Gran Pct Auto 0.2 % (0.0-0.4); Lymphocytes Absolute Auto 2.1 X10*3/uL (1.2-4.9); Lymphocytes Percent Auto 40.6 % (20-40); Mean Corpuscular HGB Conc 36.8 g/dl (31.0-36.0); Mean Corpuscular Hemoglobin 34.8 pg (27.0-33.0); Mean Corpuscular Volume 94.6 fL (80.0-98.0); Mean Platelet Volume 10.3 fL (9.4-12.4); Monocytes Absolute Auto 0.7 X10*3/uL (0.1-1.2); Monocytes Percent Auto 13.1 % (2-11); Neutrophils Absolute Auto 2.3 x10*3/uL (2.0-8.3); Neutrophils Percent Auto 43.6 % (45-73); Platelet Count 198 X10*3/uL (160-400); Red Blood Count 4.08 X10*6/uL (4.60-5.80); Red Cell Distribution Width 12.8 % (11.0-16.0); White Blood Count 5.2 X10*3/uL (4.8-10.8)
[2024-09-22 17:05] LABS: Estimated Average Glucose 123 mg/dL; Hemoglobin A1C 139.5963 umol/L; Hemoglobin A1c % 5.9 % (<6.0); Total Hemoglobin (HGBA1C) 3449.1442 umol/L
[2024-09-22 17:11] LABS: Alanine Aminotransferase 31 U/L (0-40); Albumin Level 4.2 g/dL (3.5-5.0); Alkaline Phosphatase 53 U/L (39-117); Aspartate Amino Transferase 36 U/L (5-37); Bilirubin Direct < 0.2 mg/dL (0.0-0.5); Bilirubin Total 0.1 mg/dL (0.0-1.0); Cholesterol 218 mg/dL (<200); HDL Cholesterol 41 mg/dL (>40); LDL Cholesterol Calculated 128 mg/dL (<100); Total Protein 7.8 g/dL (6.5-8.0); Triglycerides 246 mg/dL (<150)
[2024-09-22 17:28] LABS: TSH reflex Free T4 1.84 uIU/mL (0.32-4.0)
[2024-09-23 07:57] LABS: HIV AB/AG Nonreactive (Nonreactive); HIV Num 1 0.07 S/CO (0.00-0.99)
[2024-09-24 10:07] LABS: RPR Rapid Plasma Reagin NON-REACTIVE (NON-REACTIVE)
[2024-09-25 20:58] LABS: Levetiracetam Keppra 14.7 mcg/mL (6.0-46.0)
== END 2024-09-22 15:35 | disposition home or self-care (01) ==
LOC: HO.HHCL 15:34
PROVIDERS: Visit Provider Nurse Practitioner Primary Care
DX: F20.9 Schizophrenia, unspecified (principal); E78.00 Pure hypercholesterolemia, unspecified; G40.909 Epilepsy, unspecified, not intractable, without status epilepticus; K70.30 Alcoholic cirrhosis of liver without ascites; E03.9 Hypothyroidism, unspecified; Z11.3 Encounter for screening for infections with a predominantly sexual mode of transmission
CPT/HCPCS: 36415; 80061; 80076; 80164; 80177; 83036; 84443; 85025; 86592; 87389

== ENCOUNTER 2024-10-09 14:38 | Outpatient (AMB) | payer MEDICAID, SELFPAY ==
--- NOTE | 2024-10-09 14:43 | A.OFFVIS_ITS ---
Vital Signs 10/09/24 14:44 Height 5 ft 7 in Weight 216 lb 0.848 oz BMI 33.8 BP 120/68 Blood Pressure Location Lt brachial Position Sitting Pulse 89 Pulse Source Pulse Oximeter Intake Visit Reasons: followup Plastics Engineering Teacher Required: Yes Plastics Engineering Teacher Services: Plastics Engineering Teacher Offered & Declined Accompanied by: Spouse Allergies No Known Drug Allergies Allergy (Unknown, Verified 10/09/24 15:10) UNKNOWN Medication List - Last Reconciled 10/09/24 by Qasim Schuler NP divalproex 500 mg PO BID docusate sodium 100 mg PO DAILY ergocalciferol (vitamin D2) (Vitamin D2) 1,250 mcg PO QWEEK folic acid 1 mg PO DAILY ibuprofen 800 mg PO TID levetiracetam (Keppra) 750 mg PO BID loratadine 10 mg PO DAILY omeprazole 20 mg PO DAILY phenobarbital 97.2 mg PO BID prazosin 2 mg PO BEDTIME simethicone 180 mg PO TID 30 days spironolactone 100 mg PO DAILY HPI Comments Details: This is a 59-year-old male patient presenting for a follow-up visit. He declined a professional educational sign language interpreter and was accompanied by his girlfriend, who interpreted during the visit. The patient was previously seen in the office for shortness of breath and atypical chest pain. He reports experiencing mild shor tness of breath with exercise, which he attributes to recent weight gain. The patient also mentions having another seizure episode the day before but does not recall the name of his neurologist. Patient states he is compliant with all his medications. Today, he denies any exertional chest pain, dizziness, palpitations, presyncope, or syncope. [facility] Medical History Seizure disorder Surgical History No significant past surgical history Family History Family/Other Epilepsy Social History Household Members: None Alcohol intake: current Alcohol intake frequency: does not drink Patient Tobacco Use Status: Never used Tobacco Current occupational status: disabled Review of Systems Const Denies weakness ENT Denies dizziness Card Denies chest pain, Denies chest pain with activity, Denies syncope, Denies rapid heart rate, Denies pedal edema, Denies edema, Denies leg edema, Denies lightheadedness, Denies palpitations, Denies dyspnea, Denies dyspnea on exertion and Denies orthopnea Resp Denies cough, Denies dyspnea and Denies dyspnea on exertion GI Denies hematochezia and Denies change in stool character Musc Denies abnormal gait, Denies muscle cramps, Denies muscle weakness, Denies numbness, Denies radiating pain into limb and Denies tingling Neuro Denies abnormal gait, Denies dizziness, Denies syncope, Denies numbness, Denies tingling and Denies weakness Endo Denies palpitations Physical Exam Vital Signs: Last Vital Signs Pulse 89 10/09/24 14:44 BP 120/68 10/09/24 14:44 BMI result Body Mass Index 33.8 Const General: cooperative, healthy appearing, comfortable and no acute distress Orientation/consciousness: patient oriented x3 HEENT Head: Yes normal to inspection Neck Neck: Yes normal visual inspection, Yes trachea midline and Yes supple Chest Chest palpation & inspection: normal inspection of the chest Resp Effort & Inspection: normal respiratory effort Auscultation: clear to auscultation bilaterally, no crackles, no rales, no rhonchi and no wheezes Cardio Jugular venous distension: no JVD Palpation: normal PMI Rate: regular rate Rhythm: regular rhythm Heart sounds: S1 normal heart sound present, S2 normal heart sound present, no click, no gallops, no murmurs and no rubs Peripheral pulses: Peripheral pulses 2+ throughout GI Inspection: Yes normal to inspection Palpation (GI): Soft to palpation Auscultation: normal bowel sounds Skin General skin exam: no rashes or lesions noted Neuro General: patient oriented x3 Extrem General: Yes normal to inspection, No no pedal edema and No calf tenderness Psych Appearance: grossly normal Mental Status: mental status grossly normal Speech and movement: Normal speech and movement present Assessment & Plan Assessment & Plan (1) Hyperlipemia: Code(s): E78.5 - Hyperlipidemia, unspecified Category: Medical Qualifiers: Hyperlipidemia type: mixed hyperlipidemia Qualified Code(s): E78.2 - Mixed hyperlipidemia Plan 01/15/2024- echo showed normal EF 55-60%. 04/30/2024-CTA showed no significant coronary artery disease. Patient on spironolactone and prazosin, unclear why these medicines were pr escribed to him. Blood pressure today well-controlled. Patient's recent lipid panel showed elevated LDL 128, patient states this was nonfasting, would like to repeat before starting medication therapy. Discussed diet, exercise, and weight management. Patient will follow-up as needed. In the interim understands to call the office with any symptoms of exertional chest pain, worsening shortness of breath, palpitations, dizziness, presyncope, or syncope. Orders: Orders Lipid Panel Today E78.5 - Hyperlipidemia, unspecified Coding Level of Care Code Est Pt Level 3 (71379) Diagnoses Mixed hyperlipidemia E78.2 Hyperlipidemia type: mixed hyperlipidemia Time Spent (min) 24 Comment Time spent in reviewing the chart, test results, assessment, counseling and documentation.
[2024-10-09 14:44] VITALS: BP 120/68; PULSE 89; BMI 33.8
--- OUTSIDE RECORDS SUMMARY | 2024-10-09 16:12 | XMS_ITS | Continuity of Care Document ---
Author Organization [facility] Address [address] [place] [phone] Phone Care Team Providers Care Self Propelled Dredge Operator Name Role Phone Meek QUILES FACS RVT [...] E&M Established 15 Mins [facility], [address], [id number], [place] tel:[phone] [facility] Body mass index (BMI) 33.0-33.9, adultChronic venous hypertension w oth comp of l low extrem 3 Meek QUILES FACS RVT JERAMIE Metz. [address], [address], [facility] [place], [address], [place]. tel:[phone] Referring Provider: Katherine Painter, [address] [place] [address], [place], [address]. tel:[phone] Family History Family Member Type Diagnosis Age At Onset No Information Payers Payer name Insurance type Covered democrat ID Authoriza tiallan(s) Medical Assistance [facility] [id number] Social History Type Description Quantity Date Captured [...]
== END 2024-10-09 15:10 | disposition home or self-care (01) ==
LOC: HO.HCS 14:38
DX: E78.2 Mixed hyperlipidemia (principal)
CPT/HCPCS: 99213

== ENCOUNTER → 2024-10-09 14:38 | Outpatient (BNVA) | payer MEDICAID, SELFPAY | DX: E78.2 Mixed hyperlipidemia (principal) | CPT/HCPCS: 99212 ==

== ENCOUNTER 2024-10-13 13:12 | Outpatient (REF) | payer MEDICAID, SELFPAY ==
[2024-10-13 14:51] LABS: Cholesterol 213 mg/dL (<200); HDL Cholesterol 54 mg/dL (>40); LDL Cholesterol Calculated 134 mg/dL (<100); Triglycerides 126 mg/dL (<150)
--- OUTSIDE RECORDS SUMMARY | 2024-10-13 15:26 | XMS_ITS | Continuity of Care Document ---
Author Organization [facility] Address [address] [place] [phone] Phone Care Team Providers Care Resource Room Teacher Name Role Phone Meek QUILES FACS RVT [...] E&M Established 15 Mins [facility], [address], [id number], [place] tel:[phone] [facility] [facility] Body mass index (BMI) 33.0-33.9, adultChronic venous hypertension w oth comp of l low extrem 3 Meek QUILES FACS RVT JERAMIE Metz. [address], [address], [facility] [place], [address], [place]. tel:[phone] Referring Provider: Katherine Painter, [address] [place] [address], [place], [address]. tel:[phone] Family History Family Member Type Diagnosis Age At Onset No Information Payers Payer name Insurance type Covered libertarian ID Authoriza tiallan(s) Medical Assistance [facility] [id number] Social History Type Description Quantity Date Captured [...]
== END 2024-10-13 13:13 | disposition home or self-care (01) ==
LOC: HO.LAB 13:12
PROVIDERS: PCP Nurse Practitioner Primary Care
DX: E78.5 Hyperlipidemia, unspecified (principal)
CPT/HCPCS: 36415; 80061

== ENCOUNTER 2024-11-11 12:07 | Emergency (ER) | payer MEDICAID, SELFPAY ==
--- NOTE | ~2024-11-11 | XR_ITS ---
EXAMINATION: XR KNEE, RIGHT CLINICAL INFORMATION: atraumatic posterior knee pain COMPARISON: None available. TECHNIQUE: Four views of the right knee. FINDINGS: No fracture, dislocation, or suspicious bone lesion. Normal alignment. No subluxation. Minimal spurring of the tibial spines. Preservation of the joint spaces with minimal marginal osteophytic spurs. No evidence of joint effusion. Normal soft tissues. No popliteal fossa abnormalities. XR/XR knee RT 4V IMPRESSION: No acute findings right knee. Electronically signed by: Akash Ellington MD 11/11/2024 02:48 PM [facility]
--- NOTE | ~2024-11-11 | US_ITS ---
EXAMINATION: US TRIPLEX LOWER EXTREMITY, RIGHT CLINICAL INFORMATION: Right calf and posterior knee pain. COMPARISON: 01/30/2019. TECHNIQUE: Color-flow triplex imaging with spectral analysis and compression Doppler were performed on the right lower extremity. FINDINGS: Noncompressive partially occlusive thrombus is present within the right distal femoral vein, extending into the popliteal vein and gastrocnemius veins, as well as the anterior and mid posterior tibial vein. The right peroneal vein could not be visualized. The remainder of the deep venous structures are patent. There is no Santamaria's cyst. There is calf edema. US/US venous duplex LE RT IMPRESSION: Examination POSITIVE for DVT right lower extremity, involving the distal femoral vein, popliteal vein, and deep calf veins. Findings communicated to Kimmy Lockwood PA-C of the [facility] via secure text 5:08 PM, 11/11/2024. Electronically signed by: Akash Ellington MD 11/11/2024 05:09 PM [facility]
[2024-11-11 13:58] VITALS: BP 129/75; PULSE 78; RESP 16; TEMP 37; O2SAT 98; BMI 34.4
--- NOTE | 2024-11-11 14:00 | ED.LOWEXIN ---
HPI - Extremity Injury (Lower) General Chief Complaint: Extremity Problem Stated Complaint: Knee pain Time Seen by Provider: 11/11/24 17:27 Source: patient, RN notes reviewed, old records reviewed and interpreter translator Mode of arrival: ambulatory Limitations: language barrier History of Present Illness ED Provider: Niki HPI Narrative: 59-year-old male presents for evaluation of right lower leg pain. The patient reports his pain started about 3 or 4 days ago. He denies any injury to the pain pain His pain is worse to the upper calf and behind the knee History is somewhat difficult to obtain as the patient is not quite familiar with his medical history but states that he had some sort of surgery to his left lower leg after a trauma. He states that the surgery was ?for my circulation. ? It is unclear if he had a DVT previously but is not currently anticoagulated Related Data Home Medications ?Medication ?Instructions ?Recorded ?Confirmed folic acid 1 mg tablet 1 mg PO DAILY 01/20/21 12/31/23 levetiracetam 750 mg tablet 750 mg PO BID 01/20/21 12/31/23 (Keppra) loratadine 10 mg capsule 10 mg PO DAILY 01/20/21 12/31/23 phenobarbital 97.2 mg tablet 97.2 mg PO BID 01/20/21 12/31/23 prazosin 2 mg capsule 2 mg PO BEDTIME 01/20/21 12/31/23 spironolactone 100 mg tablet 100 mg PO DAILY 01/20/21 12/31/23 ergocalciferol (vitamin D2) 1,250 1,250 mcg PO QWEEK 07/11/22 12/31/23 mcg (50,000 unit) capsule (Vitamin D2) ibuprofen 800 mg tablet 800 mg PO TID 07/11/22 12/31/23 divalproex 500 mg tablet,delayed 500 mg PO BID 09/19/22 12/31/23 release Previous Rx's ?Medication ?Instructions ?Recorded simethicone 180 mg capsule 180 mg PO TID 30 days #90 caps 04/12/23 docusate sodium 100 mg capsule 100 mg PO DAILY #30 caps 06/30/24 omeprazole 20 mg capsule,delayed 20 mg PO DAILY #30 caps 08/29/24 release atorvastatin 20 mg tablet 20 mg PO BEDTIME #90 tabs 10/13/24 apixaban 5 mg (74 tabs) tablets in 5 mg PO BID #74 ea 11/11/24 a dose pack (Eliquis DVT-PE Treat 30D Start) Allergies Allergy/AdvReac Type Severity Reaction Status Date / Time No Known Drug Allergies Allergy Unknown UNKNOWN Verified 11/11/24 14:02 Review of Systems Constitutional: Constitutional: Denies body ache(s), Denies chills and Denies fever(s) Cardiovascular: Cardiovascular: Denies chest pain, Denies rapid heart rate and Denies dyspnea Respiratory: Respiratory: Denies cough and Denies dyspnea Musculoskeletal: Musculoskeletal: Denies back pain, Reports arthralgias, Reports joint swelling, Reports limited range of motion and Reports radiating pain into limb Integumentary/Breasts: Skin/Breast: Denies rash PMFSH Past Medical History Medical History (Updated 11/11/24 @ 18:47 by Scottie Prince) Hyperlipemia Seizure disorder Surgical History No significant past surgical history Family History Family History Family/Other Epilepsy Social History Social History Household Members: None Alcohol intake: current Alcohol intake frequency: does not drink Patient Tobacco Use Status: Never used Tobacco Smoked in Last 30 Days: No Use of substances other than those prescribed or required for medical reasons: No Advance Directives: No Advance Directives Information Provided: No Current occupational status: disabled Physical Exam Vital Signs: Vital Signs: Last Vital Signs Temp 98.6 F 11/11/24 19:03 Pulse 78 11/11/24 19:03 Resp 16 11/11/24 19:03 BP 129/75 11/11/24 19:03 Pulse Ox 98 11/11/24 19:03 O2 Del Method Room Air 11/11/24 19:03 BMI result Body Mass Index 34.4 Const: General: healthy appearing, comfortable, no acute distress, alert and awake Nutritional Appearance: well nourished Orientation/consciousness: patient oriented x3 HEENT: Head: Yes normocephalic and Yes atraumatic Eyes: Eyelids: Yes eyelids normal Conjunctivae: conjunctivae normal Sclerae: sclerae normal Corneas: corneas normal Pupils: Equal, round and reactive pupils present EOM: EOMs intact bilaterally Neck: Neck: Yes full ROM Resp: Effort & Inspection: normal respiratory effort, able to speak in complete sentences and not labored Cardio: Rate: regular rate Rhythm: regular rhythm Skin: General skin exam: elasticity normal Neuro: General: patient oriented x3 Cranial nerves: Yes Equal, round and reactive pupils present and Yes Bilaterally intact EOM present Cognition (Neuro): normal cognition Extrem: Other: Patient's right lower extremity is edematous up to the knee compared to the left, about 1+. He was tenderness to the right calf and popliteal fossa. Posterior tibialis pulses 2+ Course Course Course Narrative: This is a Rapid Medical Examination (RME) performed by Shanika Lockwood PA-C in triage. Full HPI, ROS, assessment and treatment plan per primary provider in the Main ED. 59 yo male hx of GERD, epilepsy, HDL here for eval of right calf pain radiating to posterior right knee which began last night while resting. No known fall, injury or trauma. No recent travel or long car rides. No history VTE. Denies chest pain, shortness of breath, palpitations. not on thinners. Plan: Venous duplex and x-ray ordered 1720 -- received message from radiology that patient has positive DVT to right lower extremity involving the distal femoral vein, popliteal vein and deep calf veins. scrap charger aware, patient will be brought back to main ED bed. Medications Administered Discontinued Medications Generic Name Dose Route Start Last Admin Trade Name Freq PRN Reason Stop Dose Admin Tramadol HCl 50 mg 11/11/24 17:52 11/11/24 18:02 Tramadol Hcl 50 Mg Tablet PO 11/11/24 17:53 50 mg ONCE ONE Administration Medical Decision Making Medical Decision Making [facility] Narrative: 59-year-old male presents for evaluation of atraumatic right knee pain. X-ray shows no evidence of fracture, ultrasound shows DVT in the right distal femoral, popliteal, gastrocnemius veins. I did discuss with vascular surgery, Dr. Avila. He feels that this is too distal to require surgical intervention and recommends discharge with [facility]. I did check basic labs, the patient has a very mild anemia but otherwise renal function within normal limits. He was sent from [facility] Differential Diagnosis Differential Diagnoses: The differential diagnosis associated with the presentation includes DVT Right knee pain Arthritis Cellulitis Santamaria's cyst Admission/Observation Consideration of admission/observation: Escalation of care including admission/observation considered Patient did not require surgical intervention for the right lower extremity DVT Lab Data MDM Lab Attestation statement: I reviewed the patient's lab results. 11/11/24 18:10 11/11/24 18:10 Labs: Lab Results 11/11/24 Range/Units 18:10 WBC 6.3 (4.8-10.8) X10*3/uL RBC 3.95 L (4.60-5.80) X10*6/uL Hgb 13.0 L (14.0-18.0) g/dl Hct 38.0 L (42.0-52.0) % MCV 96.2 (80.0-98.0) fL MCH 32.9 (27.0-33.0) pg MCHC 34.2 (31.0-36.0) g/dl RDW 12.7 (11.0-16.0) % Plt Count 145 L D (160-400) X10*3/uL MPV 9.7 (9.4-12.4) fL Immature Gran % (Auto) 0.3 (0.0-0.4) % Neut % (Auto) 45.9 (45-73) % Lymph % (Auto) 37.1 (20-40) % [place] % (Auto) 13.0 H (2-11) % Eos % (Auto) 2.9 (0-4) % Baso % (Auto) 0.8 (0-2) % Lymph # (Auto) 2.3 (1.2-4.9) X10*3/uL [place] # (Auto) 0.8 (0.1-1.2) X10*3/uL Eos # (Auto) 0.2 (0.0-0.4) X10*3/uL Baso # (Auto) 0.1 (0.0-0.2) X10*3/uL Abs Immat Gran (auto) 0.02 (0.00-0.03) X10*3/uL Absolute Neuts (auto) 2.9 (2.0-8.3) x10*3/uL Absolute Nucleated RBC 0.000 (0.0-0.012) X10*3/uL Nucleated RBC % (auto) 0.0 (0.0-0.2) /100WBC PT 12.8 H (10.9-12.4) SEC INR 1.1 (0.9-1.1) APTT 29.3 (26.0-36.8) SEC Sodium 143 (135-145) mmol/L Potassium 4.8 (3.3-5.1) mmol/L Chloride 104 (96-108) mmol/L Carbon Dioxide 28 (22-29) mmol/L Anion Gap 16 (12-20) BUN 13 (9-16) mg/dL Creatinine 0.80 (0.5-1.4) mg/dL Estim Creat Clear Calc 118.3 Estimated GFR > 60 Random Glucose 91 (60-115) mg/dL Calcium 8.7 (8.4-10.2) mg/dL Total Bilirubin 0.3 (0.0-1.0) mg/dL AST 38 H (5-37) U/L ALT 34 (0-40) U/L Alkaline Phosphatase 60 (39-117) U/L Total Protein 8.0 (6.5-8.0) g/dL Albumin 4.1 (3.5-5.0) g/dL Tests considered The following testing was considered but not selected: Consider CT angiography of the chest, however the patient has no chest pain, no shortness of breath or cough. He was not hypoxic, tachypneic or tachycardic. Discharge Plan Discharge Clinical Impression: Acute deep vein thrombosis (DVT) of right lower extremity Patient Disposition: Home, Self-Care Instructions: Deep Vein Thrombosis (ED), Blood Thinners (ED) Additional Instructions: The x-ray of your kne did not show any concerning abnormalities. The ultrasound of your right leg showed a blood clot in your leg For this reason we are starting you on a medication called Eliquis This is a blood thinner that will increase your chance of bleeding. It is important that you seek medical care if you have any black or bloody stool You may require a CT scan of your brain if you hit your head due to risk of bleeding Follow-up with your primary doctor regarding your blood clot Prescriptions: New Eliquis DVT-PE Treat 30D Start 5 mg (74 tabs) tablets,dose pack 5 mg PO BID Qty: 74 0RF No Action docusate sodium 100 mg capsule 100 mg PO DAILY Qty: 30 6RF omeprazole 20 mg capsule,delayed release(DR/EC) 20 mg PO DAILY Qty: 30 6RF atorvastatin 20 mg tablet 20 mg PO BEDTIME Qty: 90 1RF divalproex 500 mg tablet,delayed release (DR/EC) 500 mg PO BID levetiracetam [Keppra] 750 mg tablet 750 mg PO BID phenobarbital 97.2 mg tablet 97.2 mg PO BID loratadine 10 mg capsule 10 mg PO DAILY folic acid 1 mg tablet 1 mg PO DAILY prazosin 2 mg capsule 2 mg PO BEDTIME spironolactone 100 mg tablet 100 mg PO DAILY ibuprofen 800 mg tablet 800 mg PO TID ergocalciferol (vitamin D2) [Vitamin D2] 1,250 mcg (50,000 unit) capsule 1,250 mcg PO QWEEK simethicone 180 mg capsule 180 mg PO TID 30 Days Qty: 90 6RF Rx Instructions: after meals Interventions: ED Discharge Assessment Last Done: 11/11/24 19:03 Discharge Date/Time: 11/11/24 19:05 Print Language: Kyrgyz
[2024-11-11] MEDS: traMADoL HCL 50 MG TABLET PO (18:02)
[2024-11-11 18:14] LABS: MANUAL DIFF FLAG NO
[2024-11-11 18:15] LABS: Basophils Absolute Auto 0.1 X10*3/uL (0.0-0.2); Basophils Percent Auto 0.8 % (0-2); Eosinophils Absolute Auto 0.2 X10*3/uL (0.0-0.4); Eosinophils Percent Auto 2.9 % (0-4); Imm Gran Abs Auto 0.02 X10*3/uL (0.00-0.03); Imm Gran Pct Auto 0.3 % (0.0-0.4); Lymphocytes Absolute Auto 2.3 X10*3/uL (1.2-4.9); Lymphocytes Percent Auto 37.1 % (20-40); Mean Corpuscular HGB Conc 34.2 g/dl (31.0-36.0); Mean Corpuscular Hemoglobin 32.9 pg (27.0-33.0); Mean Corpuscular Volume 96.2 fL (80.0-98.0); Mean Platelet Volume 9.7 fL (9.4-12.4); Monocytes Absolute Auto 0.8 X10*3/uL (0.1-1.2); Neutrophils Absolute Auto 2.9 x10*3/uL (2.0-8.3); Neutrophils Percent Auto 45.9 % (45-73); Platelet Count 145 X10*3/uL (160-400); Red Blood Count 3.95 X10*6/uL (4.60-5.80); Red Cell Distribution Width 12.7 % (11.0-16.0); White Blood Count 6.3 X10*3/uL (4.8-10.8)
[2024-11-11 18:21] LABS: INTERNATIONAL NORM RATIO 1.1 (0.9-1.1); Prothrombin Time 12.8 SEC (10.9-12.4)
[2024-11-11 18:24] LABS: Partial Thromboplastin Time 29.3 SEC (26.0-36.8)
[2024-11-11 18:30] LABS: Alanine Aminotransferase 34 U/L (0-40); Albumin Level 4.1 g/dL (3.5-5.0); Alkaline Phosphatase 60 U/L (39-117); Anion Gap 16 (12-20); Aspartate Amino Transferase 38 U/L (5-37); Bilirubin Total 0.3 mg/dL (0.0-1.0); Blood Urea Nitrogen 13 mg/dL (9-16); Calcium 8.7 mg/dL (8.4-10.2); Carbon Dioxide 28 mmol/L (22-29); Chloride 104 mmol/L (96-108); Creatinine Clr Calc Pharmacy 118.3; Estimated Glomerular Filt Rate > 60; Glucose Random 91 mg/dL (60-115); Potassium 4.8 mmol/L (3.3-5.1); Sodium 143 mmol/L (135-145)
[2024-11-11 19:03] VITALS: BP 129/75; PULSE 78; RESP 16; TEMP 37; O2SAT 98
== END 2024-11-11 19:05 | disposition home or self-care (01) ==
PROVIDERS: Physician Assistant; Emergency Provider Emergency Medicine; PCP Nurse Practitioner Primary Care
DX: I82.412 Acute embolism and thrombosis of left femoral vein (principal); I82.462 Acute embolism and thrombosis of left calf muscular vein; I82.432 Acute embolism and thrombosis of left popliteal vein; M79.661 Pain in right lower leg; R60.0 Localized edema; E78.5 Hyperlipidemia, unspecified; Z79.899 Other long term (current) drug therapy
CPT/HCPCS: 36415; 73564; 80053; 85025; 85610; 85730; 93971; 99284

== ENCOUNTER → 2024-11-11 13:59 | Outpatient (BNV) | payer MEDICAID, SELFPAY | PROVIDERS: PCP Nurse Practitioner Primary Care; Visit Provider Radiology Diagnostic Radiology | DX: I82.411 Acute embolism and thrombosis of right femoral vein (principal); I82.431 Acute embolism and thrombosis of right popliteal vein; I82.461 Acute embolism and thrombosis of right calf muscular vein; M25.561 Pain in right knee | CPT/HCPCS: 73564; 93971 ==

== ENCOUNTER 2024-12-08 10:01 | Emergency (ER) | payer MEDICAID, SELFPAY ==
--- NOTE | ~2024-12-08 | XR_ITS ---
.EXAMINATION: XR SHOULDER, RIGHT CLINICAL INFORMATION: pain s/p fall COMPARISON: Right humerus x-ray dated May 01, 2008. TECHNIQUE: AP external rotation, Grashey, scapular Y, and axillary views of the right shoulder. FINDINGS: Degenerative changes in the acromioclavicular joint with a diagonally oriented cortical irregularity in the clavicle at the acromioclavicular joint. No malalignment. The scapula and humerus are intact. XR/XR shoulder RT min 2V IMPRESSION: Degenerative changes in the acromioclavicular joint with questionable nondisplaced fracture at the distal clavicle. Electronically signed by: Justus Lanier MD 12/08/2024 11:33 AM [facility]
--- NOTE | ~2024-12-08 | CT_ITS ---
EXAMINATION: CT HEAD WITHOUT IV CONTRAST HISTORY: fall, on AC. TECHNIQUE: Unenhanced helical CT of the head was performed per standard departmental protocol. Coronal and sagittal reformats of the head were also evaluated. One or more of the following techniques was used for dose reduction: Automated exposure control, adjustment of the mA and/or kV according to patient size, use of iterative reconstruction technique. DLP: 767.95 mGy-cm COMPARISON: Comparison is made with the prior examination dated 07/17/2022. FINDINGS: BRAIN: The brain parenchyma is unremarkable. There is normal schneider/white differentiation. The ventricular system is normal in size and configuration. There is a cavum septum pellucidum and cavum septum vergae, both normal variants. There is no mass effect or midline shift. No intra- or extra-axial fluid collections are identified. SINUSES: The visualized paranasal sinuses are clear. The mastoid air cells and middle ear cavities are well pneumatized. ORBITS: The visualized orbits are unremarkable. BONES/SOFT TISSUES: The extracranial soft tissues are unremarkable. The calvarium is intact. No suspicious lytic or sclerotic lesions. CT/CT head/brain wo IV con IMPRESSION: No acute intracranial abnormality. Electronically signed by: Moe Thompson MD 12/08/2024 12:48 PM [facility]
--- NOTE | ~2024-12-08 | CT_ITS ---
EXAMINATION: CT CERVICAL SPINE WITHOUT IV CONTRAST HISTORY: fall, on AC. TECHNIQUE: Helical CT of the cervical spine was performed per standard departmental protocol. Coronal and sagittal reformatted images were also evaluated. One or more of the following techniques was used for dose reduction: Automated exposure control, adjustment of the mA and/or kV according to patient size, use of iterative reconstruction technique. DLP: 582.72 mGy-cm COMPARISON: There is an is made with the prior examination dated 03/02/2022. FINDINGS: CERVICAL SPINE: Osseous mineralization is normal. Again seen is an old ununited fracture of the odontoid process of C2. No acute fracture is seen. There is no subluxation. There is diffuse moderate to severe degenerative disc disease with disc space narrowing and osteophyte formation. There is diffuse facet osteoarthritis and uncovertebral joint hypertrophy causing multilevel bilateral neural foraminal stenosis. Evaluation for disc pathology is limited by lack of intrathecal contrast material, however. BRAIN: The visualized portion of the brain is unremarkable. SINUSES: The visualized paranasal sinuses, mastoid air cells and middle ear cavities are unremarkable. LUNG APICES: The visualized lung apices are clear. SOFT TISSUES: The visualized paraspinal soft tissues are unremarkable. 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 No evidence of acute fracture or subluxation. Moderate to severe degenerative disc disease. Electronically signed by: Moe Thompson MD 12/08/2024 12:55 PM [facility]
[2024-12-08 10:12] VITALS: BP 174/92; PULSE 80; O2SAT 98
[2024-12-08 10:33] VITALS: BP 130/79; PULSE 76; RESP 18; TEMP 36; O2SAT 98; BMI 33.4
--- NOTE | 2024-12-08 20:40 | ED_ITS ---
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 Patient states that he turned wrong and fell out of bed this morning, hitting his right sided on the ground. Patient states that his right shoulder, upper arm, and head hurt. Patient denies any loss of consciousness with the incident. Patient denies any dizziness, lightheadedness, abdominal pain, nausea, vomiting, fever, chills, blurry vision, double vision, loss of vision, chest pain, difficulty breathing, shortness of breath, back pain, night sweats, pain with urination, increased urinary frequency, increased urinary urgency, blood in his urine or stool, syncope or a near syncopal episode, bowel incontinence, bladder incontinence, or any other complaints at this time. Location: head, right and upper extremity Relieving factors: none Exacerbating factors: movement (of the right shoulder / arm) Associated symptoms: denies other symptoms Treatments prior to arrival: none Related Data Home Medications ?Medication ?Instructions ?Recorded ?Confirmed folic acid 1 mg tablet 1 mg PO DAILY 01/20/21 12/01/24 levetiracetam 750 mg tablet 750 mg PO BID 01/20/21 12/01/24 (Keppra) loratadine 10 mg capsule 10 mg PO DAILY 01/20/21 12/01/24 phenobarbital 97.2 mg tablet 97.2 mg PO BID 01/20/21 12/01/24 prazosin 2 mg capsule 2 mg PO BEDTIME 01/20/21 12/01/24 spironolactone 100 mg tablet 100 mg PO DAILY 01/20/21 12/01/24 ergocalciferol (vitamin D2) 1,250 1,250 mcg PO QWEEK 07/11/22 12/01/24 mcg (50,000 unit) capsule (Vitamin D2) ibuprofen 800 mg tablet 800 mg PO TID 07/11/22 12/01/24 divalproex 500 mg tablet,delayed 500 mg PO BID 09/19/22 12/01/24 release Previous Rx's ?Medication ?Instructions ?Recorded simethicone 180 mg capsule 180 mg PO TID 30 days #90 caps 04/12/23 docusate sodium 100 mg capsule 100 mg PO DAILY #30 caps 06/30/24 omeprazole 20 mg capsule,delayed 20 mg PO DAILY #30 caps 08/29/24 release atorvastatin 20 mg tablet 20 mg PO BEDTIME #90 tabs 10/13/24 apixaban 5 mg (74 tabs) tablets in 5 mg PO BID #74 ea 11/11/24 a dose pack (Eliquis DVT-PE Treat 30D Start) Allergies Allergy/AdvReac Type Severity Reaction Status Date / Time No Known Drug Allergies Allergy Unknown UNKNOWN Verified 12/08/24 10:37 Review of Systems Constitutional: Constitutional: Reports no additional constitutional complaints, Denies chills, Denies fever(s), Reports headache(s) and Denies night sweats Eyes: Eyes: Reports no additional eye complaints, Denies blurry vision, Denies change in vision, Denies diplopia, Denies eye discharge, Denies loss of vision and Denies eye pain ENT: Denies dizziness and Reports headache(s) Cardiovascular: Cardiovascular: Reports no additional cardiovascular complaints, Denies chest pain, Denies lightheadedness, Denies Loss of Consciousness and Denies dyspnea Respiratory: Respiratory: Reports no additional respiratory complaints and Denies dyspnea Gastrointestinal: Gastrointestinal: Reports no additional gastrointestinal complaints, Denies abdominal pain, Denies melena, Denies hematochezia, Denies change in bowel habits and Denies change in stool character Genitourinary: Genitourinary: Reports no additional male genitourinary complaints, Denies hematuria, Denies oliguria, Denies difficulty urinating, Denies dysuria, Denies urinary frequency, Denies urinary hesitancy, Denies urinary incontinence and Denies urinary urgency Musculoskeletal: Musculoskeletal: Reports no additional musculoskeletal complaints, Denies numbness and Denies tingling Comments: right shoulder pain Neurologic: Denies dizziness, Reports headache(s), Denies loss of vision, Denies numbness and Denies tingling Psychiatric: Psychiatric: Reports no additional psychiatric complaints Endocrine: Endocrine: Reports no additional endocrine complaints Hematologic/Lymphatic: Hematologic/Lymphatic: Reports no additional hematologic/lymphatic complaints Allergic/Immunologic: Allergic/Immunologic: Reports no additional allergic/immunologic complaints PMFSH Past Medical History Attestation statement: The following information was validated with the patient. Source: old records reviewed and nursing notes reviewed Medical History Hyperlipemia Seizure disorder Surgical History No significant past surgical history Family History Family History Family/Other Epilepsy Social History Social History Household Members: None Housing: Apartment Are you a primary health care sanitary technician to a significant other at home: No Do you presently have visiting nurse or other home services: No Alcohol intake: current Alcohol intake frequency: does not drink Patient Tobacco Use Status: Never used Tobacco service: No Current occupational status: disabled Physical Exam ED Vital Signs: Vital Signs - 24 hr 12/08/24 20:45 Temperature 98.3 F Pulse Rate 71 Respiratory Rate 18 Blood Pressure 144/79 H Pulse Oximetry 98 Oxygen Delivery Method Room Air BMI result Body Mass Index 33.4 Const General: cooperative, no acute distress, alert and awake Nutritional Appearance: well nourished Orientation/consciousness: patient oriented x3 Limitations: no limitations HENMT Head: Yes normal to inspection and Yes atraumatic Ears: hearing grossly normal bilaterally and external ears normal General nose exam: Normal external nose present, no nasal discharge noted and no epistaxis Face and sinus: Yes normal facial exam, No abrasion and No laceration Mouth: Normal oral and palatal mucosa present, no drooling and no muffled voice Eyes General: appearance normal, both eyes and all related structures Periorbital: periorbital findings normal Eyelids: Yes eyelids normal Conjunctivae: conjunctivae normal Pupils: Equal, round and reactive pupils present EOM: EOMs intact bilaterally Neck Neck: Yes normal visual inspection, Yes full ROM and Yes no lymphadenopathy Chest Chest palpation & inspection: normal inspection of the chest Resp Effort & Inspection: normal respiratory effort and able to speak in complete sentences GI Inspection: Yes normal to inspection Neuro General: patient oriented x3, moves all extremities and CN's II-XI intact bilaterally Cranial nerves: Yes Equal, round and reactive pupils present Cognition (Neuro): normal cognition Extrem Other: decreased ROM of the right shoulder secondary to pain Pain with palpation of the right distal clavicle General: Yes normal to inspection and Yes capillary refill normal Psych Appearance: grossly normal Mental Status: mental status grossly normal Affect: normal affect Attitude: cooperative Thought process: Normal thought process present Thought content: Normal thought content present Insight: Good insight present (Psych) Procedures Orthopedic Splinting/Casting Injury #1: Side: right Upper Extremity Injury Location: clavicle Upper Extremity Immobilizer: sling/shoulder immobilizer Medical Decision Making Medical Decision Making MDM Narrative: Patient is a 59 year old assigned male at with a history of GERD, HLD, and seizures presenting to the emergency department today with a headache and right shoulder / arm pain after a fall. Patient's physical exam was as noted in the physical exam portion of this note. Patient's head and c-spine CTs showed no acute process. Patient's shoulder XR showed evidence of a non displaced fracture of the distal clavicle. I explained my physical exam findings as well as all test results to the patient. I answered all questions asked by the patient. Patient's right upper extremity was placed in a sling, without incident. Patient's PMS was intact prior to and after sling placement. I stressed the importance of the patient taking his medication as directed (either prescribed or as the over the counter packaging recommends). I stressed the importance of the patient following up with his primary care provider and an orthopedic provider. I stressed the importance of the patient returning to the emergency department immediately if his symptoms were to worsen or if he were to develop any dizziness, shortness of breath, difficulty breathing, chest pain, blurry vision, loss of vision, nausea, vomiting, abdominal pain, fever, chills, back pain, or any other complaints. Patient verbalized agreement and understanding with this treatment plan and discharge. Differential Diagnosis Differential Diagnoses: The differential diagnosis associated with the presentation includes R clavicle fracture Fall Admission/Observation Consideration of admission/observation: Escalation of care including admission/observation considered Patient would have been admitted to the hospital had his work up had any findings where hospital admission was appropriate and his clinical presentation warranted hospital admission. Independent Interpretation I performed an independent interpretation of an: Plain X-Ray and CT Scan Interpretation: My interpretation is in agreement with the radiologist's impression of these imaging studies. Report Number: [id number]: Total DLP = 777.00 mGy-cm EXAMINATION: CT HEAD WITHOUT IV CONTRAST HISTORY: fall, on AC. TECHNIQUE: Unenhanced helical CT of the head was performed per standard departmental protocol. Coronal and sagittal reformats of the head were also evaluated. One or more of the following techniques was used for dose reduction: Automated exposure control, adjustment of the mA and/or kV according to patient size, use of iterative reconstruction technique. DLP: 767.95 mGy-cm COMPARISON: Comparison is made with the prior examination dated 07/17/2022. FINDINGS: BRAIN: The brain parenchyma is unremarkable. There is normal schneider/white differentiation. The ventricular system is normal in size and configuration. There is a cavum septum pellucidum and cavum septum vergae, both normal variants. There is no mass effect or midline shift. No intra- or extra-axial fluid collections are identified. SINUSES: The visualized paranasal sinuses are clear. The mastoid air cells and middle ear cavities are well pneumatized. ORBITS: The visualized orbits are unremarkable. BONES/SOFT TISSUES: The extracranial soft tissues are unremarkable. The calvarium is intact. No suspicious lytic or sclerotic lesions. CT/CT head/brain wo IV con IMPRESSION: No acute intracranial abnormality. Electronically signed by: Moe Thompson MD 12/08/2024 12:48 PM [facility] Dictated By: Moe Thompson MD Signed By: Electronically signed by Moe Thompson MD 12/08/24 1248 EXAMINATION: XR SHOULDER, RIGHT CLINICAL INFORMATION: pain s/p fall COMPARISON: Right humerus x-ray dated May 01, 2008. TECHNIQUE: AP external rotation, Grashey, scapular Y, and axillary views of the right shoulder. FINDINGS: Degenerative changes in the acromioclavicular joint with a diagonally oriented cortical irregularity in the clavicle at the acromioclavicular joint. No malalignment. The scapula and humerus are intact. XR/XR shoulder RT min 2V IMPRESSION: Degenerative changes in the acromioclavicular joint with questionable nondisplaced fracture at the distal clavicle. Electronically signed by: Justus Lanier MD 12/08/2024 11:33 AM [facility] Dictated By: Justus Duggan MD Signed By: Electronically signed by Justus Solis MD 12/08/24 1133 Report Number: [id number]: Total DLP = 582.00 mGy-cm EXAMINATION: CT CERVICAL SPINE WITHOUT IV CONTRAST HISTORY: fall, on AC. TECHNIQUE: Helical CT of the cervical spine was performed per standard departmental protocol. Coronal and sagittal reformatted images were also evaluated. One or more of the following techniques was used for dose reduction: Automated exposure control, adjustment of the mA and/or kV according to patient size, use of iter ative reconstruction technique. DLP: 582.72 mGy-cm COMPARISON: There is an is made with the prior examination dated 03/02/2022. FINDINGS: CERVICAL SPINE: Osseous mineralization is normal. Again seen is an old ununited fracture of the odontoid process of C2. No acute fracture is seen. There is no subluxation. There is diffuse moderate to severe degenerative disc disease with disc space narrowing and osteophyte formation. There is diffuse facet osteoarthritis and uncovertebral joint hypertrophy causing multilevel bilateral neural foraminal stenosis. Evaluation for disc pathology is limited by lack of intrathecal contrast material, however. BRAIN: The visualized portion of the brain is unremarkable. SINUSES: The visualized paranasal sinuses, mastoid air cells and middle ear cavities are unremarkable. LUNG APICES: The visualized lung apices are clear. SOFT TISSUES: The visualized paraspinal soft tissues are unremarkable. 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 No evidence of acute fracture or subluxation. Moderate to severe degenerative disc disease. Electronically signed by: Moe Thompson MD 12/08/2024 12:55 PM EST Dictated By: Moe Thompson MD Signed By: Electronically signed by Moe Thompson MD 12/08/24 1255 Radiology Impression Discussion of test interpretation with radiology: I have reviewed the radiologist's reading. Discharge Plan Discharge Clinical Impression: Fall, Clavicle fracture Patient Disposition: Home, Self-Care Instructions: Clavicle Fracture (ED), Fall Prevention (ED) Additional Instructions: Follow up with your primary care provider and an orthopedic provider. Every 1 hour, take your sling off to move your right ELBOW for 10 minutes to avoid nega tive effects to your elbow. Return to the emergency department immediately if your symptoms worsen or if you develop any dizziness, shortness of breath, difficulty breathing, chest pain, blurry vision, loss of vision, nausea, vomiting, abdominal pain, fever, chills, back pain, or any other complaints. Colt un seguimiento con ojeda m?dico de cabecera y un traumat?logo. Cada 1 hora, qu?tese el cabestrillo para station supervisor el CODO derecho ren 10 minutos para evitar efectos negativos en el codo. Acuda inmediatamente al servicio de urgencias si jason s?ntomas empeoran o si presenta mareos, falta de aliento, dificultad para respirar, dolor tor?cico, visi?n borrosa, p?rdida de visi?n, n?useas, v?mitos, dolor abdominal, fiebre, escalofr?os, dolor de espalda o cualquier otra molestia. Prescriptions: No Action docusate sodium 100 mg capsule 100 mg PO DAILY Qty: 30 6RF omeprazole 20 mg capsule,delayed release(DR/EC) 20 mg PO DAILY Qty: 30 6RF atorvastatin 20 mg tablet 20 mg PO BEDTIME Qty: 90 1RF divalproex 500 mg tablet,delayed release (DR/EC) 500 mg PO BID Eliquis DVT-PE Treat 30D Start 5 mg (74 tabs) tablets,dose pack 5 mg PO BID Qty: 74 0RF levetiracetam [Keppra] 750 mg tablet 750 mg PO BID phenobarbital 97.2 mg tablet 97.2 mg PO BID loratadine 10 mg capsule 10 mg PO DAILY folic acid 1 mg tablet 1 mg PO DAILY prazosin 2 mg capsule 2 mg PO BEDTIME spironolactone 100 mg tablet 100 mg PO DAILY ibuprofen 800 mg tablet 800 mg PO TID ergocalciferol (vitamin D2) [Vitamin D2] 1,250 mcg (50,000 unit) capsule 1,250 mcg PO QWEEK simethicone 180 mg capsule 180 mg PO TID 30 Days Qty: 90 6RF Rx Instructions: after meals Referrals: [facility] [Provider Group] (Call to establish and follow up with a primary care provider. If you already have a primary care provider, please follow up with them. Llame para establecer y hacer un seguimiento con un proveedor de atenci?n primaria. Si ya tiene un proveedor de atenci?n primaria, colt un seguimiento con ?l.) [facility], [facility] [Provider Group] (Call to establish and follow up with a primary care provider. If you already have a primary care provider, please follow up with them. Llame para establecer y hacer un seguimiento con un proveedor de atenci?n primaria. Si ya tiene un proveedor de atenci?n primaria, colt un seguimiento con ?l.) [facility] Care[facility] [Provider Group] (Call to establish and follow up with a primary care provider. If you already have a primary care provider, please follow up with them. Llame para establecer y hacer un seguimiento con un proveedor de atenci?n primaria. Si ya tiene un proveedor de atenci?n primaria, colt un seguimiento con ?l.) [facility] Care, Nawaf Barriga [Provider Group] (Call to establish and follow up with a primary care provider. If you already have a primary care provider, please follow up with them. Llame para establecer y hacer un seguimiento con un proveedor de atenci?n primaria. Si ya tiene un proveedor de atenci?n primaria, colt un seguimiento con ?l.) [facility] [Provider Group] (Call to establish and follow up with an orthopedic provider for you right clavicle fracture. Llame para establecer y seguir con un proveedor de ortopedia para ojeda fractura de clav?cula derecha.) Interventions: ED Discharge Assessment Last Done: 12/08/24 20:45 Discharge Date/Time: 12/08/24 20:57 Print Language: Paraguayan
[2024-12-08 20:45] VITALS: BP 144/79; PULSE 71; RESP 18; TEMP 36.8; O2SAT 98
== END 2024-12-08 20:57 | disposition home or self-care (01) ==
LOC: HO.ED 20:54
PROVIDERS: Emergency Provider Student in an Organized Health Care Education/Training Program
DX: S42.009A Fracture of unspecified part of unspecified clavicle, initial encounter for closed fracture (principal); M25.511 Pain in right shoulder; M79.601 Pain in right arm; W06.XXXA Fall from bed, initial encounter; Y93.9 Activity, unspecified; Y92.003 Bedroom of unspecified non-institutional (private) residence as the place of occurrence of the external cause; Y99.9 Unspecified external cause status
CPT/HCPCS: 70450; 72125; 73030; 99282; 99284

== ENCOUNTER → 2024-12-08 10:39 | Outpatient (BNV) | payer MEDICAID, SELFPAY | PROVIDERS: Visit Provider Radiology Diagnostic Radiology | DX: M54.2 Cervicalgia (principal); R51.9 Headache, unspecified; M25.511 Pain in right shoulder; W06.XXXA Fall from bed, initial encounter | CPT/HCPCS: 70450; 72125; 73030 ==

== ENCOUNTER 2024-12-24 10:23 | Outpatient (AMB) | payer MEDICAID, SELFPAY ==
--- NOTE | 2024-12-24 10:44 | MHC.OFFVIS ---
Vital Signs 12/24/24 10:58 Height 5 ft 8 in Weight 220 lb BMI 33.4 Intake Visit Reasons: FC-nondisplaced distal clavicle, FX R shoulder Intake Note: Jerome is a 59 year old right hand dominant male who present today as a new patient for a fracture care visit of his right clavicle fx s/p fall. Patient presented to [facility] ED on 12/08/24 s/p fall out of bed. States that he turned wrong causing him to fall on the floor out of his bed, landing on his right side. Currently his pain radiates down his arm from his shoulder. His pain level is a 9 out of 10. No numbness or tingling. Finds relief with Tylenol. Bearingizer Required: Yes Bearingizer Services: Bearingizer Present Bearingizer Name: Zac ID#[id number] Allergies No Known Drug Allergies Allergy (Unknown, Verified 12/24/24 11:02) UNKNOWN HPI HPI FC-nondisplaced distal clavicle, FX R shoulder: Details: 59-year-old gentleman presents to the office today for an injury he sustained to his right clavicle on 12/08/2024. He states he fell out of bed injuring the arm. He was seen in the emergency department where he was found to have a nondisplaced distal clavicle fracture. He was placed in a sling and referred to our office for ortho eval. Patient complains of minimal discomfort. [facility] Medical History Hyperlipemia Seizure disorder Surgical History No significant past surgical history Family History Family/Other Epilepsy Social History Household Members: None Housing: Apartment Are you a primary senior care specialist to a significant other at home: No Do you presently have visiting nurse or other home services: No Alcohol intake: current Alcohol intake frequency: does not drink Patient Tobacco Use Status: Never used Tobacco service: No Current occupational status: disabled Current occupation: right hand dominant Review of Systems Const All systems reviewed & are unremarkable except as noted in HPI and below Physical Exam Vital Signs: BMI result Body Mass Index 33.4 Const General: cooperative and no acute distress Orientation/consciousness: patient oriented x3 Resp Effort & Inspection: normal respiratory effort and able to speak in complete sentences Cardio Peripheral pulses: Peripheral pulses 2+ throughout Neuro General: patient oriented x3 Extrem Other: Right Clavicle No tenting. No skin breakdown. There is scant tenderness over the fracture site. Neurovascularly intact. Office Procedures AMB Fracture Care Fracture Billing Code: Fracture Billing Code Results Reviewed Results Reviewed: X-rays of the right shoulder obtained in the emergency department on 12/08/2024 show a nondisplaced distal clavicle fracture. Assessment & Plan Assessment & Plan (1) Right clavicle fracture: Code(s): S42.001A - Fracture of unspecified part of right clavicle, initial encounter for closed fracture Category: Medical Plan: He can progress activities as tolerated however I recommend he avoid overhead reaching or lifting in the setting of pain. I explained overall this can take 6-12 weeks to fully recover. I did recommend a course of physical therapy to work on scapular stabilization and gentle motion. We will see me back in 8 weeks with x-rays, sooner if needed. Coding Level of Care Code New Pt Level 3 (25593) Complex EM visit Add On G2211 Diagnoses Right clavicle fracture S42.001A CPT Codes Fracture Care - Fracture Billing Code: Fracture Billing Code ([id number])
[2024-12-24 10:58] VITALS: BMI 33.4
== END 2024-12-24 11:35 | disposition home or self-care (01) ==
LOC: HO.HOS 10:24
PROVIDERS: Visit Provider Physician Assistant
DX: S42.001A Fracture of unspecified part of right clavicle, initial encounter for closed fracture (principal)
CPT/HCPCS: 99203

== ENCOUNTER → 2024-12-24 10:23 | Outpatient (BNVA) | payer MEDICAID, SELFPAY | PROVIDERS: Visit Provider Physician Assistant | DX: S42.001A Fracture of unspecified part of right clavicle, initial encounter for closed fracture (principal) | CPT/HCPCS: 99212 ==

== ENCOUNTER 2025-01-06 10:52 | Outpatient (AMB) | payer MEDICAID, SELFPAY ==
--- NOTE | 2025-01-06 11:11 | A.OFFVIS_ITS ---
Vital Signs 01/06/25 11:13 Height 5 ft 8 in Weight 231 lb 7.766 oz BMI 35.2 BP 117/72 Blood Pressure Location Rt brachial Position Sitting Pulse 70 Intake Visit Reasons: Follow up medication Sulfonation Equipment Operator Required: Yes Allergies No Known Drug Allergies Allergy (Unknown, Verified 01/06/25 11:14) UNKNOWN HPI HPI Follow up medication: Details: Assessment & Plan (1) GERD (gastroesophageal reflux disease): Code(s): K21.9 - Gastro-esophageal reflux disease without esophagitis Plan: ARGENTINE #[id number] Denise He tells me that he continues to do well with his GI regimen. He uses senna/colace for CIC bloating with simethicone and has had no subjective bloating. He takes omeprazole with good control of his GERD. Currently, he is having a problem because his neurologist stopped prescribing one of his seizure medications r/t missed appointments. He says that his PCP and the [facility] are working to get him a new neurologist. His PCP is prescribing it in the meantime. ROV 6 mos. DUe for rescope in 2023 (2) Constipation: Code(s): K59.00 - Constipation, unspecified (3) Abdominal bloating: Code(s): R14.0 - Abdominal distension (gaseous) Medications: Refilled docusate sodium (Colace) 100 mg PO DAILY 30 caps 6RF omeprazole 20 mg PO DAILY 30 days 30 caps 6RF K21.9 - Gastro-esophageal reflux disease without esophagitis sennosides (Maryana-floyd) 17.2 mg (2 x 8.6 mg) PO BEDTIME 60 tabs 6RF K59.00 - Constipation, unspecified simethicone after meals 180 mg PO TID 30 days 90 caps 6RF R14.0 - Abdominal distension (gaseous) Laboratory Tests 12/01/24 12/01/24 00:13 11:33 WBC 5.3 RBC 3.81 L Hgb 12.6 L Hct 36.1 L MCV 94.8 MCH 33.1 H Plt Count 170 Estimated GFR > 60 Total Bilirubin 0.2 AST 31 ALT 27 Alkaline Phosphatase 53 TODAY'S VISIT ARGENTINE #AKOSUA live He tells me that he continues to do well with his GI regimen. He uses senna/colace for CIC bloating with simethicone and has had no subjective bloating. He takes omeprazole with good control of his GERD. He is due for a repeat colonoscopy this year. BUT he just was dx'ed with a DVT a few weeks ago and is not on Eliquis. Since he needs to stay on this for 6 mos we will discuss this again later. It is prescribed by the ER so far as I can tell, the patient has seen his PCP after the clot so I assume they are the prescriber. ROV 6 mos. The patient has memory problems and has trouble with the history. PFSH Medical History Hyperlipemia Seizure disorder Surgical History No significant past surgical history Family History Family/Other Epilepsy Social History Household Members: None Housing: Apartment Are you a primary care transitions nurse to a significant other at home: No Do you presently have visiting nurse or other home services: No Alcohol intake: current Alcohol intake frequency: does not drink Patient Tobacco Use Status: Never used Tobacco service: No Current occupational status: disabled Current occupation: right hand dominant Review of Systems Const Denies fatigue, Denies fever(s), Denies night sweats, Denies poor appetite and Denies weight loss ENT Reports Normal hearing present, Denies dental pain, Denies dysphagia, Denies hearing loss, Denies mouth pain, Denies odynophagia, Denies throat swelling, Denies tongue swelling and Reports other (Dentition adequate) Card Reports no additional complaints Resp Reports no additional complaints GI Details: Denies abdominal pain, Denies melena, Denies bloating, Denies hematochezia, Reports constipation, Denies GI cramping, Denies dysphagia, Denies excessive flatus, Denies early satiety, Reports heartburn, Denies diarrhea, Denies nausea, Denies odynophagia, Denies vomiting and Denies hematemesis Skin/Breast Denies pruritus, Denies lesions, Denies rash and Denies jaundice Neuro Reports Normal hearing present and Denies Abnormal speech present Endo Denies fatigue Aller/Immun Denies throat swelling and Denies tongue swelling Physical Exam Vital Signs: Last Vital Signs Pulse 70 01/06/25 11:13 BP 117/72 01/06/25 11:13 BMI result Body Mass Index 35.2 Const General: cooperative, no acute distress, well developed and well groomed Nutritional Appearance: well nourished and overweight Orientation/consciousness: oriented to person, oriented to place and oriented to time Limitations: language barrier HEENT Head: Yes normocephalic and Yes atraumatic Eyes General: appearance normal, both eyes and all related structures Pupils: Equal, round and reactive pupils present Neck Neck: Yes normal visual inspection and Yes no lymphadenopathy Thyroid: Thyroid normal Resp Effort & Inspection: normal respiratory effort and able to speak in complete sentences Auscultation: clear to auscultation bilaterally Cardio Rate: regular rate Rhythm: regular rhythm Heart sounds: Normal, physiologic split S2 sound present Peripheral pulses: radial pulses present and posterior tibial pulses present GI Inspection: No distended, No Abdominal panniculus present and Yes obesity Palpation (GI): Soft to palpation, nontender, no guarding, not rigid and No hepatosplenomegaly present Percussion: Yes normal to percussion Auscultation: normal bowel sounds Rectal Exam - Male: Yes deferred Skin General skin exam: no rashes or lesions noted, turgor normal, skin not dry, no jaundice, No spider nevi and no striae Rashes: no rashes Nails: normal Neuro General: oriented to person, oriented to place and oriented to time Cranial nerves: Yes Equal, round and reactive pupils present and Yes Normal hearing present Speech: No Abnormal speech present Extrem General: Yes normal to inspection Psych Appearance: grossly normal and well kempt Mental Status: mental status grossly normal Speech and movement: Normal speech and movement present Affect: normal affect Attitude: cooperative Thought process: not confabulating and Impoverished thought process present Thought content: Normal thought content present Insight: Limited insight present (Psych) Judgement: Limited judgement present (Psych) Assessment & Plan Assessment & Plan (1) GERD (gastroesophageal reflux disease): Code(s): K21.9 - Gastro-esophageal reflux disease without esophagitis Category: Medical (2) Constipation: Code(s): K59.00 - Constipation, unspecified Category: Medical (3) Colon cancer screening: Comment: FIT test was negative. Due for rescope in 2023. Delayed because of diagnose of DVT and on Eliquis Code(s): Z12.11 - Encounter for screening for malignant neoplasm of colon Category: Medical (4) Abdominal bloating: Code(s): R14.0 - Abdominal distension (gaseous) Category: Medical Plan ARGENTINE #AKOSUA live He tells me that he continues to do well with his GI regimen. He uses marlin a/colace for CIC bloating with simethicone and has had no subjective bloating. He takes omeprazole with good control of his GERD. He is due for a repeat colonoscopy this year. BUT he just was dx'ed with a DVT a few weeks ago and is not on Eliquis. Since he needs to stay on this for 6 mos we will discuss this again later. It is prescribed by the ER so far as I can tell, the patient has seen his PCP after the clot so I assume they are the prescriber. ROV 6 mos. The patient has memory problems and has trouble with the history. Medications: New bisacodyl (Dulcolax (bisacodyl)) 10 mg (2 x 5 mg) PO BEDTIME 4 tabs 0RF 2 days sennosides (senna) 17.2 mg (2 x 8.6 mg) PO BEDTIME 60 tabs 6RF peg 3350-electrolytes 236-22.74-6.74 -5.86 gram (Golytely) until fecal effluent is clear; do not exceed a total volume of 2,000 mL 240 mL PO Q10M 4,000 mL 0RF 1 day Z12.11 - Encounter for screening for malignant neoplasm of colon Refilled omeprazole 20 mg PO DAILY 30 caps 6RF K21.9 - Gastro-esophageal reflux disease without esophagitis simethicone after meals 180 mg PO TID 90 caps 6RF 30 days R14.0 - Abdominal distension (gaseous) Coding Level of Care Code Est Pt Level 3 (87586) Diagnoses GERD (gastroesophageal reflux disease) K21.9 Constipation K59.00 Colon cancer screening Z12.11 Abdominal bloating R14.0
[2025-01-06 11:13] VITALS: BP 117/72; PULSE 70; BMI 35.2
--- OUTSIDE RECORDS SUMMARY | 2025-01-06 13:04 | XMS_ITS | Clinical Summary ---
Author Organization [facility] Address [address] [place] [address] Care Team Providers Care Colorman Name Role Phone Unavailable Primary Care Provider Unavailabl e Source Comments PLEASE NOTE, if this patient is a minor, it may be UNLAWFUL to discuss sensitive information that is contained in these records (such as FAMILY PLANNING, MENTAL HEALTH or SUBSTANCE ABUSE) with the minor patient's parent or other person without the patient's specific authorization.[facility] Immunizations Immunization Administration Dates Next Due Moderna COVID-19 Vaccine, re d cap blue label, 12+ Primary Series 02/22/2021,01/25/2021 Social History Tobacco Use Types Packs/Day Years Used Date Smoking Tobacco: Never Assessed Social Connections Answer Date Recorded Social Connections and Isolation 0 01/25/2021 Financial Resource Strain Answer Date R ecorded Financial Resource Strain 0 2020 Stress Answer Date Recorded Stress 0 01/25/2021 Physical Activity Answer Date Recorded Physical Activity 0 01/25/2021 Food Insecurity Answer Date Recorded Food 0 01/25/2021 Transportation Needs Answer Date Record ed Transportation 0 01/25/2021 Housing Stability Answer Date Recorded Housing 0 01/25/2021 Safety and Environment Answer Date Gurpreet rded Safety 0 01/25/2021 Utilities Answer Date Recorded Utilities 0 01/25/2021 Employment Answer Date Recorded Employment 0 01/25/2021 Sex and Gender Information Value Date Recorded Sex Assigned at Not on file Legal Sex Male 8:28 AM PDT Gender Identity Not on file Sexual Orientation Not on file Plan of Treatment Health Maintenance Due Date Last Done Comments Diabetes Screening 1967 Hepatitis C Screening 1967 Lipid Screening 1967 Tobacco Screening 1967 HIV Screening 1982 Hypertension Screening (#1) 1985 CT Colonography 2012 Colonoscopy 2012 Colorectal Cancer Screening 2012 FIT/gFOBT 2012 Fecal DNA 2012 Flexible Sigmoidoscopy 2012 Imm-Hepatitis B (2 of 3 - He p B Twinrix 3-dose series) 01/29/2013 01/01/2013 Imm-Zoster, Recombinant (1 of 2) 2017 Imm-DTaP/Tdap/Td (3 - Td or Tdap) 11/03/2020 011, 11/03/2010 [id number] ( - season) 2024 021, 01/25/2021 Imm-Influenza (#1) 2024 08/06/2020, 0 07/03/2019, 07/08/2018, Additional history exists Alcohol and Drug Screen 10/08/2024 Depression Annual Screen 10/08/[address] [employer]
== END 2025-01-06 12:31 | disposition home or self-care (01) ==
LOC: HO.HGI 10:53
PROVIDERS: Visit Provider Nurse Practitioner
DX: K21.9 Gastro-esophageal reflux disease without esophagitis (principal); K59.00 Constipation, unspecified; R14.0 Abdominal distension (gaseous)
CPT/HCPCS: 99213

== ENCOUNTER → 2025-01-06 10:52 | Outpatient (BNVA) | payer MEDICAID, SELFPAY | PROVIDERS: Visit Provider Nurse Practitioner | DX: Z12.11 Encounter for screening for malignant neoplasm of colon (principal); K21.9 Gastro-esophageal reflux disease without esophagitis; K59.00 Constipation, unspecified; R14.0 Abdominal distension (gaseous) | CPT/HCPCS: 99212 ==

== ENCOUNTER 2025-02-03 13:07 | Outpatient (REF) | payer MEDICAID, SELFPAY ==
--- NOTE | ~2025-02-03 | US_ITS ---
EXAMINATION: US TRIPLEX LOWER EXTREMITY, BILATERAL CLINICAL INFORMATION: Positive DVT from the distal right femoral vein to the popliteal vein. Edema right lower extremity. COMPARISON: None available. TECHNIQUE: Color-flow triplex imaging with spectral analysis and compression Doppler were performed on the bilateral lower extremities. FINDINGS: Respiratory variation, normal compression and augmented flow are noted throughout the interrogated visualized common femoral vein, superficial femoral vein, profunda femoral vein, popliteal vein and midcalf peroneal and posterior tibial venous segments in the left lower extremity. There is an intraluminal hyperechoic abnormality in the right popliteal vein with partial compressibility and partial and augmentation. The remaining interrogated veins, right lower extremity demonstrated normal phasic flow and compressibility. There is no Santamaria's cyst. US/US venous duplex LE BI IMPRESSION: Persistent nonocclusive thrombus, right popliteal vein. Overall improved since prior exam. No acute DVT left lower extremity. Findings communicated to the requesting provided by the technologist at the time of the examination, 2:30 PM on February 03, 2025. Electronically signed by: Justus Lanier MD 02/03/2025 03:43 PM EDT
--- OUTSIDE RECORDS SUMMARY | 2025-02-03 15:08 | XMS_ITS | Encounter Summary ---
Author Organization [employer] Address [address] [place] [address] Care Team Providers Care Java Designer Name Role Phone Lizabeth Felder Primary Care Provider [phone] Reason for Visit * Reason Onset Date Comments CHART PREP 01/29/2025 Encounter Details Date Type Department Care Team (Late st Contact Info) Description 01/29/2025 Telephone [facility] MED[facility]INE [address] [place] [address] Kandy Flores MA CHART PREP Social History Tobacco Use Types Packs/Day Years Used Date Smoking Tobacco: Never Passive Smoke Exposure: Never Smokeless Tobacco: Never Alcohol Use Standard Drinks/Week Comments Never 0 (1 standard drink = 0.6 oz pur e alcohol) Depression Answer Date Recorded Patient Health Questionnaire-9 Score 0 12/16/2024 Patient Health Questionnaire-9 Score 0 12/16/2024 Last PHQ-9: Questionnaire Data Not on file 0 12/16/2024 Housing Stability Answer Date Recorded What is your housing situation today? I have bridgette mena 07/24/[address] you li ve. Do you have problems with any of the following? None of the above 07/24/2023 Food Insecurity Answer Date Recorded Within the past 12 months, y ou worried that your food would run out before you got money to buy more: Never True 2024 Within the past 12 months,th e food you bought just didn't last and you didn't have enough money to get more: Sometimes True 12/16/2024 Transportation Answer Date Recorded In the past 12 months, has l ack of transportation kept you from medical appts, meetings, work or from getting things needed for daily living? No 07/24/2023 Utilities Answer Date Recorded In the past 12 months, has t he electric, gas, oil or water company threatened to shut off services in your home? No 07/24/2023 Depression Answer Date Recorded Patient Health Questionnaire-2 Score 0 12/16/2024 Internet Access Answer Date Recorded Internet Access Q1 Yes 08/21/2024 Internet Access Q2 Not on file 08/21/2024 Sex and Gender Information Value Date Recorded Sex Assigned at Male 08/07/2022 10:14 AM EDT Legal Sex Male 10:14 AM EDT Gender Identity Male 08/07/2022 10:14 AM EDT Sexual Orientation Straight 08/07/2022 10 :14 AM EDT documented as of this encounter Miscellaneous Notes * Telephone Encounter - Kandy Flores MA - 01/29/2025 3:44 PM EDT ..Chart Prep Labs: done Images: done Vaccines due: Shingles in pharmacy Due Referrals: Oncology Requested notes by Fax. Waiting for notes. Screenings: Colonoscopy Overdue care gaps: Disability documented in this encounter Plan of Treatment Upcoming Encounters Date Type Department Care Team (Late st Contact Info) Description 03/20/2025 11:15 AM EDT Office Visit [facility] MEDICINE [address] [place] [address] Lizabeth Felder ANP [address] [place] [address] documented as of this encounter Visit Diagnoses Not on filedocumented in this encounter Additional Health Concerns Assessment Noted Time PHQ-9 Depression Total Score: 0 12/17/19 25 11:38 AM EDT documented as of this encounter Care Teams Java Designer Relationship Specialty Start Date End Date Lizabeth Felder ANP [address] [place] [address] PCP - General Family Medicine 05/04/21 [facility] 08/22/24 documented as of this encounter
--- OUTSIDE RECORDS SUMMARY | 2025-02-03 15:08 | XMS_ITS ---
Author Organization [employer] Address [address] [place] [address] Care Team Providers Care Regional Climate Change Analyst Name Role Phone Lizabeth Felder Primary Care Provider [phone] Complex Status:Outreach In Progress (Enrolling) Start date:01/28/2025 Enrollment reason:ADT Feed Overview ED- Pt went to [facility] ED on 01/27/25. Case Team Name Relationship Phone Gail Mendes RN Registered Nurse(Responsible S taff) Continued Care and Services Coordination
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
--- OUTSIDE RECORDS SUMMARY | 2025-02-03 15:08 | XMS_ITS | Clinical Summary ---
Author Organization [facility] Address [address] [place] [address] Care Team Providers Care Icing Maker Name Role Phone Unavailable Primary Care Provider [...] Health Maintenance Due Date Last Done Comments Anxiety Screening 1965 Diabetes Screening 1965 Hepatitis C Screening 1965 [...] - Td or Tdap) 11/03/2020 011, 11/03/2010 [id number] ( season) 2024 021, 01/25/2021 Imm-Influenza (#1) 2024 08/06/2020, 0 07/03/2019, 07/08/2018, Additional history exists Alcohol and Drug Screen 10/08/2024 Depression Annual Screen 10/08/[address] [employer]
--- OUTSIDE RECORDS SUMMARY | 2025-02-03 15:08 | XMS_ITS | Clinical Summary ---
Author Organization [employer] Address [address] [facility] [address] [place] [address] Care Team Providers Care Port Captain Name Role Phone Mauricio Coulter Primary Care Provider [phone] Allergies No known active allergies Medications fluticasone (Flonase) 50 MCG/ACT nasal spray spray 1 spray by nasal route 2 times every day as needed 1 Active Simethicone Ultra Strength 180 MG capsule TAKE 1 CAPSULE BY MOUTH 3 (THREE) TIMES A DAY AFTER MEALS Active omeprazole (PriLOSEC) [address] capsuleIndication s:Heartburn TAKE 1 CAPSULE BY MOUTH ONCE DAILY 30 capsule 6 4 Active atorvastatin (Lipitor) 20 MG tabletIndications :High cholesterol,Cardi ovascular event risk Take 1 tablet (20 mg) by mouth Once per day. 90 tablet 3 4 09/22/20 25 Active ibuprofen 800 MG tabletIndications :Pain TAKE 1 TABLET BY MOUTH THREE TIMES A DAY NEEDED FOR PAIN TAKE WITH FOOD 60 tablet 2 5 Active spironolactone (Aldactone) 100 MG tabletIndications :Venous insufficiency of lower extremity, unspecified laterality TAKE 1 TABLET BY MOUTH ONCE DAILY NEEDED 90 tablet 1 5 Active folic acid (Folvite) 1 MG tabletIndications :Chronic alcoholism in remission (CMS/HCC) TAKE 1 TABLET BY MOUTH EVERY MORNING 90 tablet 1 5 Active prazosin (Minipress) 2 MG capsuleIndication s:Benign hypertension TAKE 1 CAPSULE BY MOUTH EVERY NIGHT AT BEDTIME 90 capsule 1 5 Active acetaminophen (Tylenol 8 Hour) 650 MG ER tabletIndications :Pain TAKE 2 TABLETS BY MOUTH EVERY 8 HOUR NEEDED 30 tablet 2 5 Active loratadine (Claritin) 10 MG tabletIndications :Seasonal allergies TAKE 1 TABLET BY MOUTH ONCE DAILY NEEDED FOR ALLERGY 90 tablet 1 5 Active divalproex (Depakote) 500 MG EC tabletIndications :Epilepsy, not refractory (CMS/HCC) TAKE 1 TABLET BY MOUTH two (2) times a day 60 tablet 4 5 Active levETIRAcetam (Keppra) 750 MG tabletIndications :Epilepsy, not refractory (CMS/HCC) TAKE 1 TABLET BY MOUTH two (2) times a day 60 tablet 3 5 Active PHENobarbital 97.2 MG tabletIndications :Epilepsy, not refractory (CMS/HCC) Take 1 tablet by mouth once daily at bedtime 30 tablet 3 5 Active apixaban (Eliquis) 5 MG tabletIndications :Acute deep vein thrombosis (DVT) of distal vein of right lower extremity (CMS/HCC) Take 1 tablet (5 mg) by mouth 2 times daily. 60 tablet 1 5 Active lidocaine (Lidoderm) 5 % patchIndications: Acute midline low back pain without sciatica Apply 1 patch topically Once per day. Remove & discard patch within 12 hours or as directed by MD. 30 patch 2 5 Active mupirocin (Bactroban) 2 % ointmentIndicatio ns:Cellulitis of left lower extremity Apply topically in the morning, at noon, and at bedtime for 10 days. 60 g 5 01/27/20 25 triamcinolone (Kenalog) 0.1 % cream Apply topically if needed in the morning and at bedtime (pain and swelling) for up to 14 days. 30 g 5 01/31/20 25 Active Problems Problem Noted Date Diagnosed Date Left leg pain 01/16/2025 Cellulitis of left lower extremity 01/16/2025 Assessment & Plan (01/16/2025 1:59 PM EDT): Hx of surgical repair (per pt estimated 4 years ago) thickening and slough visible on anterior martin No exudate Minimal tenderness Colon cancer screening 09/24/2024 Overview (09/24/2024): Referred to GI 05/2024 and gave info to schedule again 09/2024 Positive cardiac stress test 04/17/2024 Overview (09/24/2024): Did have visit 12/31/[address] Sanches who ordered coronary CTA to evaluate for coronary artery disease as well as an echocardiogram to evaluate for hypertensive heart disease. CTA was done at [facility] 04/30/24 and showed no hemodynamically significant CAD. [facility] [place] outreach pt for follow-up. High cholesterol 02/04/2024 Cardiovascular event risk 05/07/2023 Overview (04/17/2024): ASCVD risk 10.6. Declined statin despite discussion and h/o positive stress test. 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 Does not follow w/ neurologist, have referred 10/2023. Meds incl phenobarbital 97.2 at bedtime, depakote 500mg BID, keppra 750mg BID Periodically needs depakote level and phenobarb monitoring, LFTs, renal function, CBC, & monitor for any skin issues. Schizophrenia 07/08/2018 Seasonal allergies 07/08/2018 Venous insufficiency of leg 07/08/2018 Viral hepatitis C 07/08/2018 Encounters Date Type Department Care Team Description 02/03/2025 Telephone [facility] PEDIATR[facility] [address] [place] [address] Mauricio Coulter ANP ultrasound report/ DVT 02/03/2025 Patient Outreach [facility] MEDICINE [address] [place] [address] Mauricio Coulter ANP Care Coordination (CM/CHW outreach) 01/30/2025 11:30 AM EDT Office Visit [address] [address] Mauricio Coulter ANP Acute pain of right shoulder (Primary Dx); Edema of both legs; Daytime somnolence; Acute midline low back pain without sciatica; Onychomycosis 01/30/2025 11:15 AM EDT Office Visit [address] [address] Mauricio Coulter ANP Acute pain of right shoulder (Primary Dx); Acute midline low back pain without sciatica 01/30/2025 Travel 01/29/[address] [address] Kandy Flores [place] CHART PREP 01/29/[address] [address] Mauricio Coulter ANP 01/29/[address] [address] Mauricio Coulter ANP ER Follow-up 01/29/2025 Patient Outreach [address] [address] Mauricio Coulter ANP Care Coordination (CM/CHW outreach) 01/28/2025 Patient Outreach [address] [address] Mauricio Coulter ANP Care Coordination (CHW Chart Review) 01/28/2025 Patient Outreach [address] [address] Mauricio Coulter ANP Care Management (C3CM- chart review) 01/28/2025 Patient Outreach [address] [address] Mauricio Coulter ANP 01/16/2025 1:40 PM EDT Office Visit [facility] WALK-IN CENTER [address] [place] [address] Karyn Walker NP Left leg pain (Primary Dx); Cellulitis of left lower extremity 01/16/2025 Travel 01/09/2025 1:30 PM EDT Office Visit [facility] ADULT DENTAL [address] [place] [address] Elieser Erwin, KADY 01/07/2025 9:00 AM EDT Office Visit [facility] ADULT [facility] [address] [place] [address] Christopher Patel, TATIANNA 12/19/2024 Population Health Risk Score [facility] () Department [address] [place] [phone] Provider, Population Health Generic 12/16/2024 11:15 AM EDT Office Visit [facility] MEDICINE [address] [place] [address] Mauricio Coulter ANP Closed nondisplaced fracture of acromial end of right clavicle with routine healing, subsequent encounter (Primary Dx); Epilepsy, not refractory (CMS/HCC); Acute deep vein thrombosis (DVT) of distal vein of right lower extremity (CMS/HCC) 12/16/2024 Travel 12/08/2024 Telephone [facility] MEDICINE [address] [place] [address] Mauricio Coulter ANP FYI 11/19/2024 Refill [facility] [address] [place] [address] Mauricio Coulter ANP Seasonal allergies 11/17/2024 Telephone [facility] [address] [place] [address] Mauricio Coulter ANP ER Follow-up 11/13/2024 Orders Only [facility] [address] [place] [address] Mauricio Coulter ANP Acute deep vein thrombosis (DVT) of other specified vein of right lower extremity (CMS/HCC) (Primary Dx) 11/12/2024 Telephone [facility] [address] [place] [address] Mauricio Coulter ANP ER Follow-up 11/11/2024 Orders Only [facility] External Provider, [facility] 11/11/2024 Refill [facility] MED[facility] [address] [place] [address] Mauricio Coulter ANP Chronic alcoholism in remission (CMS/HCC); Benign hypertension; Pain from Last 3 Months Immunizations Name Administration Dates Next Due DTaP 11/03/2010 Hep A / Hep B 01/01/2013 Hep A, Adult 07/08/2018,06/03/2014 Hep B, adult 07/08/2018,06/03/2014 Influenza Injectable Quadriv alant Preservative Free IIV4 MDCK 08/06/2020 Influenza injectable quadriv alent IIV4 with preservative 06/26/2016,06/29/2015 Influenza injectable quadriv alent preservative free 08/20/2023,09/21/2022,07/03/2019,07/08 Influenza, IIV3, injectable 06/16/2011, 0 Influenza, Split (incl. sangeetha fied surface antigen) 06/27/2013,10/18/2012 Influenza, intradermal, quad rivalent, preservative free 07/17/2017,07/09/2014 Influenza, seasonal, injecta ble, preservative free 07/10/2024,07/17/2017,07/09/2014 Moderna Covid-19 Vaccine 12+ 10/18/2021, 02/22/2021,01/25/2021,12/06 Pfizer Covid-19 Vaccine 12+ 07/10/2024, Pfizer Covid-19 Vaccine 12+ Bivalent 07/28/2022 Pneumococcal Conjugate PCV 13 11/04/2013 Pneumococcal Conjugate PCV 20 11/02/2023 Pneumococcal Polysaccharide PPSV23 11/04/2013 TD (adult), 2 Lf tetanus tox oid, preservative free, adsorbed 05/03/2021 Tdap 11/03/2010 Zoster, Recombinant 09/23/2024 Social History Tobacco Use Types Packs/Day Years Used Date Smoking Tobacco: Never Passive Smoke Exposure: Never Smokeless Tobacco: Never Tobacco Cessation:Counseling Given: Not Answered Alcohol Use Standard Drinks/Week Comments Never 0 [...] Orientation Straight 08/07/2022 10 :14 AM EDT Last Filed Vital Signs Vital Sign Reading Time Taken Comments Blood Pressure 142/80 01/30/2025 12:03 PM EDT Pulse 74 01/30/2025 12:03 PM EDT Temperature 35.7 ??C (96.3 ??F) 01/16/2025 1:35 PM ED T Respiratory Rate 20 01/30/2025 12:03 PM EDT Oxygen Saturation 98% 01/16/2025 1:35 PM EDT Inhaled Oxygen Concentration - - Weight 108 kg (237 lb) 01/30/2025 12:03 PM EDT Height 167.6 cm (5' 6 ) 01/30/2025 12:03 PM EDT Body Mass Index 38.25 01/30/2025 12:03 PM EDT Plan of Treatment Upcoming Encounters Date Type Department Care Team (Late st Contact Info) Description 03/20/2025 11:15 AM EDT Office Visit [facility] MEDICINE [address] [place] [address] Mauricio Coulter ANP [address] [place] [address] Health Maintenance Due Date Last Done Comments CT Colonography 1965 Colonoscopy 1965 FIT DNA/Cologuard 1965 FOBT 1965 Sigmoidoscopy 1965 Colorectal Cancer Screening 09/21/2024 FIT 09/21/2024 09/21/2020 Zoster Vaccines (2 of 2) 11/18/2024 09/23/2024 Dental Oral Exam 12/11/2024 06/12/2024, 08/11/2020 Dental Prophylaxis 12/11/2024 06/12/2024 Dental X-Ray: Bitewings 06/13/2025 06/12/20 24, 09/27/2023, 05/18/2021, Additional history exists Alcohol/Substance Use Screening 09/22/2025 09/22/2024 Diabetes: Hemoglobin A1C 09/22/2025 09/22/2024, 042 06/2024 Depression Screening 12/16/2025 12/16/2024, 12/17/19 SDOH Screening 12/16/2025 12/16/2024 Tobacco Screening 01/30/2026 01/30/2025 Dental X-Ray: Full Mouth 06/13/2027 06/12/2024, 01/2020 Lipid Panel 10/13/2029 10/13/2024, 09/07, 02/04/2024, Additional history exists DTaP/Tdap/Td Vaccines (4 - Td or Tdap) 05/03/2031 05/03/2021, 11/03/2010, 11/03/2010 RSV Patients and Patients Aged 60 years or older (1 - 1-dose 75+ series) 2042 Hepatitis A Vaccines Completed 07/08/2018, 06/03/2014, 01/01/2013 Hepatitis B Vaccines Completed 07/08/2018, 06/03/2014, 01/01/2013 Pneumococcal Vaccine: 50+ Years Completed 11/02/2023, 11/04/2013, 11/04/2013 COVID-19 Vaccine Completed 07/10/2024, , 07/28/2022, Additional history exists Influenza Vaccine Completed 07/10/2024, , 09/21/2022, Additional history exists HIV Screening Completed 09/22/2024 HIB Vaccines Aged Out No longer eligi ble based on patient's age to complete this topic HPV Vaccines Aged Out No longer eligi ble based on patient's age to complete this topic IPV Vaccines Aged Out No longer eligi ble based on patient's age to complete this topic Meningococcal Vaccine Aged Out No natalie tom eligible based on patient's age to complete this topic RSV under 20 months Aged Out No longe r eligible based on patient's age to complete this topic Rotavirus Vaccines Aged Out No longer eligible based on patient's age to complete this topic Procedures Procedure Name Priority Date/Time Associated Diagnosis Comments NO CHARGE VISIT Routine 01/09/2025 1:30 PM EDT LIMITED ORAL EVALUATION - PROBLEM FOCUSED Routine 01/07/2025 9:00 AM EDT COMPREHENSIVE METABOLIC PANEL Routine 11/11/2024 6:10 PM EST APTT Routine 11/11/2024 6:10 PM EST PROTHROMBIN TIME-INR Routine 11/11/2024 6:10 PM EST CBC WITH AUTO DIFFERENTIAL Routine 11/11/2024 6:10 PM EST US VENOUS DUPLEX LE RT Routine 5 4:08 PM EST XR KNEE 4+ VIEWS RIGHT Routine 5 1:59 PM EST LIPID PANEL, STANDARD Routine 10/13/2024 1:45 PM EST HIV 1/2 ANTIGEN/ANTIBODY, FOURTH GENERATION W/RFL Routine 09/22/2024 3:37 PM EST Screening examination for STI HEMOGLOBIN A1C Routine 09/22/2024 3:37 PM EST High cholesterol PROPHYLAXIS - ADULT Routine 06/12/2024 1 1:00 AM EDT INTRAORAL - COMPLETE SERIES OF RADIOGRAPHIC IMAGES Routine 06/12/2024 11:00 AM EDT PERIODIC ORAL EVALUATION - ESTABLISHED PATIENT Routine 06/12/2024 11:00 AM EDT FECAL IMMUNOCHEMICAL TEST Routine 09/21/2020 from Last 3 Months or Most Recently Relevant to Health Maintenance Results * (ABNORMAL) CBC auto differential (11/11/2024 6:10 PM EST) White Blood Count 6.3 4.8 - 10.8 X10*3/uL [facility] Red Blood Count 3.95(L) 4.60 - 5.80 X10*6/uL [facility] Hemoglobin 13.0(L) 14.0 - 18.0 g/dl [facility] Hematocrit 38.0(L) 42.0 - 52.0 % [facility] Mean Corpuscular Volume 96.2 80.0 - 98.0 fL [facility] Mean Corpuscular Hemoglobin 32.9 27.0 - 33.0 pg [facility] Mean Corpuscular HGB Conc 34.2 31.0 - 36.0 g/dl [facility] Red Cell Distribution Width 12.7 11.0 - 16.0 % [facility] Platelet Count 145(L) 160 - 400 X10*3/uL [facility] Mean Platelet Volume 9.7 9.4 - 12.4 fL [facility] Neutrophils Percent Auto 45.9 45 - 73 % [facility] Imm Gran Pct Auto 0.3 0.0 - 0.4 % [facility] Lymphocytes Percent Auto 37.1 20 - 40 % [facility] Monocytes Percent Auto 13.0(H) 2 - 11 % [facility] Eosinophils Percent Auto 2.9 0 - 4 % [facility] Basophils Percent Auto 0.8 0 - 2 % [facility] NRBC Pct Auto 0.0 0.0 - 0.2 /100WBC [facility] Neutrophils Absolute Auto 2.9 2.0 - 8.3 x10*3/uL [facility] Imm Gran Abs Auto 0.02 0.00 - 0.03 X10*3/uL [facility] Lymphocytes Absolute Auto 2.3 1.2 - 4.9 X10*3/uL [facility] Monocytes Absolute Auto 0.8 0.1 - 1.2 X10*3/uL [facility] Eosinophils Absolute Auto 0.2 0.0 - 0.4 X10*3/uL [facility] Basophils Absolute Auto 0.1 0.0 - 0.2 X10*3/uL [facility] NRBC Abs Auto 0.000 0.0 - 0.012 X10*3/uL [facility] 11/11/2024 6:10 PM EST 11/11/2024 6:13 PM EST Generic External Data Provider LAB BLOOD ORDERAB LES Final Result Performing Organization Address [facility] Co de Phone Number [facility] [address] [place] [phone] * Partial Thromboplastin Time, Activated (APTT) (11/11/2024 6:10 PM EST) Partial Thromboplastin Time 29.3 26.0 - 36.8 SEC [facility] Comment:For information rega rding the monitoring of direct thrombininhibitors, please refer to Pharmacy. 11/11/2024 6:10 PM EST 11/11/2024 6:13 PM EST Generic External Data Provider LAB BLOOD ORDERAB LES Final Result Performing Organization Address [facility] Co de Phone Number [facility] [address] [place] [phone] * (ABNORMAL) Prothrombin Time-INR (11/11/2024 6:10 PM EST) Prothrombin Time 12.8(H) 10.9 - 12.4 SEC [facility] INTERNATIONAL NORM RATIO 1.1 0.9 - 1.1 [facility] Comment:INTERNATIONAL NORMAL IZED RATIO (INR) REFERENCE RANGES Reference RangeFor patients not on anticoagulant therapy: 0.9 - 1.1INR ranges for oral anticoagulanttherapy:For prevention and treatment of venous thrombosis and pulmonary embolism: 2.0 - 3.0For acute myocardial infarction with aspirin therapy: 2.0 - 3.0For acute myocardial infarction without aspirin therapy: 3.0 - 4.0For patients with mechanical prosthetic heart valves: 2.5 - 3.5 11/11/2024 6:10 PM EST 11/11/2024 6:13 PM EST us Generic External Data Provider LAB BLOOD ORDERAB LES Final Result [facility] [address] [place], [place] [phone] * (ABNORMAL) Comprehensive Metabolic Panel (11/11/2024 6:10 PM EST) Sodium 143 135 - 145 mmol/L [facility] Potassium 4.8 3.3 - 5.1 mmol/L [facility] Chloride 104 96 - 108 mmol/L [facility] Carbon Dioxide 28 22 - 29 mmol/L [facility] Anion Gap 16 12 - 20 [facility] Urea Nitrogen (BUN) 13 9 - 16 mg/dL [facility] Creatinine, Serum 0.80 0.5 - 1.4 mg/dL [facility] Creatinine Clr Calc Pharmacy 118.3 [facility] Comment:eGFR (calculated fro m the MDRD study equation) and eCrCl(calculated from the Cockcroft-Gault equation) are based ondifferent parameters and may not yield comparable results.If eCrCl result is absurd, please check patient'sheight/weight. Estimated Glomerular Filt Rate >60 [facility] Comment:Chronic Kidney Disea se: Estimated GFR < 60 mL/min/1.04x1Jilzfm Kidney Disease: Estimated GFR < 15 mL/min/1.73m2 Glucose 91 60 - 115 mg/dL [facility] Calcium 8.7 8.4 - 10.2 mg/dL [facility] Bilirubin, Total 0.3 0.0 - 1.0 mg/dL [facility] Aspartate Amino Transferase 38(H) 5 - 37 U/L [facility] Alanine Aminotransferase 34 0 - 40 U/L [facility] Total Protein 8.0 6.5 - 8.0 g/dL [facility] Albumin Level 4.1 3.5 - 5.0 g/dL [facility] Alkaline Phosphatase 60 39 - 117 U/L [facility] 11/11/2024 6:10 PM EST 11/11/2024 6:13 PM EST us Generic External Data Provider LAB BLOOD ORDERAB LES Final Result [facility] [address] [place] [address] [phone] * US VENOUS DUPLEX LE RT (11/11/2024 4:08 PM EST) Anatomical Region Laterality Modality Abdomen Ultrasound 11/11/2024 4:08 PM EST Narrative 11/11/2024 5:13 PM EST ? [facility] ?[address] ?[place] [address] ? Ultrasound Report ? Signed ? Patient: Jerome Ledezma ?MR#: ?? [id number] ? : 1965 ?Acct:[id number] ? Age/Sex: 59 / M ?ADM Date: 11/11/24 ? Loc: HO.ED ? Attending Dr: ? Ordering Physician: Kimmy Lockwood ?? Date of Service: 11/11/24 ?? Procedure(s): US venous duplex LE RT ?? Accession Number(s): [id number] ? cc: Kimmy Lockwood; MAURICIO COULTER NP ? EXAMINATION: ?? US TRIPLEX LOWER EXTREMITY, RIGHT ? CLINICAL INFORMATION: ?? Right calf and posterior knee pain. ? COMPARISON: ?? 01/30/2019. ? TECHNIQUE: ?? Color-flow triplex imaging with spectral analysis and compression ?? Doppler were performed on the right lower extremity. ? FINDINGS: ?? Noncompressive partially occlusive thrombus is present within the right ?? distal femoral vein, extending into the popliteal vein and ?? gastrocnemius veins, as well as the anterior and mid posterior tibial ?? vein. ?? The right peroneal vein could not be visualized. ? The remainder of the deep venous structures are patent. ? There is no Santamaria's cyst. There is calf edema. ? US/ venous duplex LE RT ?? IMPRESSION: ?? Examination POSITIVE for DVT right lower extremity, involving the ?? distal femoral vein, popliteal vein, and deep calf veins. ? Findings communicated to Kimmy Lockwood PA-C of the [place] [facility] ?? Department via secure text 5:08 PM, 11/11/2024. ? Electronically signed by: ??Akash Ellington MD ??11/11/2024 05:09 PM EST RP ? Dictated By: ?Akash Ellington MD ? Signed By: ?<Electronically signed by Akash Ellington MD in OV> ?11/11/241708 ? DD/ 1608 ? TD/TT: 11/11/24 1626 ? Photographer'S Assistant: ? Procedure Note Teri López - 11/11/2024 [place] [address] Ultrasound Report Signed Patient: Tolu LedezmaR#: [id number] : 1965Acct:[id number] Age/Sex: 59 / MADM Date: 11/11/24 Loc: HO.ED Attending Dr: Ordering Physician: Kimmy Lockwood Date of Service: 11/11/24 Procedure(s): US venous duplex LE RT Accession Number(s): [id number] cc: Kimmy Lockwood; MAURICIO COULTER NP EXAMINATION: US TRIPLEX LOWER EXTREMITY, RIGHT CLINICAL INFORMATION: Right calf and posterior knee pain. COMPARISON: 01/30/2019. TECHNIQUE: Color-flow triplex imaging with spectral analysis and compression Doppler were performed on the right lower extremity. FINDINGS: Noncompressive partially occlusive thrombus is present within the right distal femoral vein, extending into the popliteal vein and gastrocnemius veins, as well as the anterior and mid posterior tibial vein. The right peroneal vein could not be visualized. The remainder of the deep venous structures are patent. There is no Santamaria's cyst. There is calf edema. US/US venous duplex LE RT IMPRESSION: Examination POSITIVE for DVT right lower extremity, involving the distal femoral vein, popliteal vein, and deep calf veins. Findings communicated to Kimmy Lockwood PA-C of the [place] [facility] via secure text 5:08 PM, 11/11/2024. Electronically signed by: Akash Ellington MD 11/11/2024 05:09 PM EST RP Dictated By: kAash Ellington MD Signed By: <Electronically signed by Akash Ellington MD in OV> 11/11/24 1709 DD/ 1608 TD/TT: 11/11/24 1626 Photographer'S Assistant: [facility] External Provider IMG US PROCEDURES Final Result * XR Knee 4+ Views Right (11/11/2024 1:59 PM EST) Anatomical Region Laterality Modality Lower Extremities, Knee Right Radiogra phic Imaging 11/11/2024 1:59 PM EST Narrative 11/11/2024 2:51 PM EST ? [facility] ?[address] ?[place] [address] ?XRay Report ? Signed ? Patient: Jerome Ledezma ?MR#: ?? [id number] ? : 1965 ?Acct:[id number] ? Age/Sex: 59 / M ?ADM Date: 11/11/24 ? Loc: HO.ED ? Attending Dr: ? Ordering Physician: Kimmy Lockwood ?? Date of Service: 11/11/24 ?? Procedure(s): XR knee RT 4V ?? Accession Number(s): [id number] ? cc: Kimmy Lockwood; MAURICIO COULTER NP ? EXAMINATION: ?? XR KNEE, RIGHT ? CLINICAL INFORMATION: ?? atraumatic posterior knee pain ? COMPARISON: ?? None available. ? TECHNIQUE: ?? Four views of the right knee. ? FINDINGS: ?? No fracture, dislocation, or suspicious bone lesion. Normal alignment. ?? No subluxation. ?? Minimal spurring of the tibial spines. ?? Preservation of the joint spaces with minimal marginal osteophytic ?? spurs. ? No evidence of joint effusion. Normal soft tissues. ??No popliteal fossa ?? abnormalities. ? XR/XR knee RT 4V ?? IMPRESSION: ?? No acute findings right knee. ? Electronically signed by: ??Akash Ellington MD ??11/11/2024 02:48 PM EST RP ? Dictated By: ?Akash Ellington MD ? Signed By: ?<Electronically signed by Akash Ellington MD in OV> ?11/11/24 1448 ? DD/ 1359 ? TD/TT: 11/11/24 1438 ? Photographer'S Assistant: ? Procedure Note Teri López - 11/11/[address] [address] XRay Report Signed Patient: Tolu LedezmaR#: [id number] : 1965Acct:[id number] Age/Sex: 59 / MADM Date: 11/11/24 Loc: HO.ED Attending Dr: Ordering Physician: Kimmy Lockwood Date of Service: 11/11/24 Procedure(s): XR knee RT 4V Accession Number(s): [id number] cc: Kimmy Lockwood; MAURICIO COULTER NP EXAMINATION: XR KNEE, RIGHT CLINICAL INFORMATION: atraumatic posterior knee pain COMPARISON: None available. TECHNIQUE: Four views of the right knee. FINDINGS: No fracture, dislocation, or suspicious bone lesion. Normal alignment. No subluxation. Minimal spurring of the tibial spines. Preservation of the joint spaces with minimal marginal osteophytic spurs. No evidence of joint effusion. Normal soft tissues. No popliteal fossa abnormalities. XR/XR knee RT 4V IMPRESSION: No acute findings right knee. Electronically signed by: Akash Ellington MD 11/11/2024 02:48 PM EST Dictated By: Akash Ellington MD Signed By: <Electronically signed by Akash Ellington MD in OV> 11/11/24 1448 DD/ 1359 TD/TT: 11/11/24 1438 Photographer'S Assistant: [facility] External Provider IMG XR PROCEDURES Final Result * (ABNORMAL) Lipid Panel, Standard (10/13/2024 1:45 PM EST) Triglycerides 126 <150 mg/dL [facility] Comment:Desirable Triglyceri de: less than 150 mg/dLBorderline High Triglyceride 150-199 mg/dLHigh Triglyceride: 200-499 mg/dLVery High Triglyceride: greater than or equal to 5OO mg/dL Cholesterol 213(H) <200 mg/dL [facility] Comment:Desirable Cholestero l: less than 200 mg/dLBorderline High Cholesterol: 200-239 mg/dLHigh Cholesterol: greater than 239 mg/dL LDL Cholesterol Calculated 134(H) <100 mg/dL [facility] Comment:Desirable LDL: less than 100 mg/dLNear Optimal/Above Optimal LDL: 110- 129 mg/dLBorderline High LDL: 130-159 mg/dLHigh LDL: 160-189 mg/dLVery High LDL: greater than or equal to 190 mg/dL HDL Cholesterol 54 >40 mg/dL [facility] Comment:Desirable HDL: great er than 40 mg/dL Note: This HDL assay may give artificially low results in patients with liver disease. 10/13/2024 1:45 PM EST 10/13/2024 1:45 PM EST Generic External Data Provider LAB BLOOD ORDERAB LES Final Result [facility] [address] [place] [address] [phone] * HIV-1/2 Antigen and Antibodies, Fourth Generation, with Reflexes (09/22/2024 3:37 PM EST) HIV AB/AG Nonreactive Nonreactive [facility] Comment:HIV-1 p24 Ag and/or HIV-1/HIV-2 Ab not detected.A test result that is nonreactive does not exclude thepossibility of exposure to or infection with HIV-1 and/orHIV-2. Nonreactive results in this assay for individualswith prior exposure to HIV-1 and/or HIV-2 may be due toantigen and antibody levels that are below the limit ofdetection of this assay.The [employer] HIV Ag/Ab Combo assay result andsupplemental assay results should be interpreted inconjunction with the patient's clinical presentation,history and other laboratory results. If the results areinconsistent with clinical evidence, additional testing issuggested to confirm the result. Blood Venous blood specimen / Unknown 09/22/2024 3:37 PM EST 09/22/2024 4:23 PM EST Mauricio Coulter [facility] BLOOD ORDERABLES Final Resul t Performing Organization Address [facility] de Phone Number [facility] [address] [place] [phone] * Hemoglobin A1c (09/22/2024 3:37 PM EST) Hemoglobin A1c 5.9 <6.0 % [facility] Comment:Hemoglobin A1C Refer ence Range Adults: 4.8 - 6.0 % Non diabetic: < 6.0 % Goal: < 7.0 %Additional Action Suggested: > 8.0 %Note: Hemoglobin A1c results are invalid for patients with abnormal amounts of HbF. Blood transfusions may impact the HbA1c concentration in the patient sample. Estimated Average Glucose 123 mg/dL [facility] Comment:eAG = Estimated ave rage glucose which is %A1C expressed asaverage glucose, using the formula of the S9A-FhnwpkzPbuavur Glucose study (ADAG), Diabetes Care, Vol.31,#8,May. 2007 Blood Venous blood specimen / Unknown 09/22/2024 3:37 PM EST 09/22/2024 4:23 PM EST Mauricio Coulter [facility] BLOOD ORDERABLES Final Resul t Performing Organization Address [facility] Co de Phone Number [facility] [address] [place] [phone] * HM Fecal Immunochemical Test (09/21/2020) Fecal Immunochemical Test Nonreactive Borderline, Nonreactive , Weakly Reactive Stool Rectal contents / Unknown 09/21/2020 Historical Provider MD HEALTH MAINTENANCE Final Result from Last 3 Months or Most Recently Relevant to Health Maintenance Insurance [facility] C3 DENTAL-[facility] MEDICAID ST[place] Care Teams [place] Relationship Specialty Start Date End Date Mauricio Coulter ANP [address] [place] [phone] PCP - General Family Medicine 05/04/21 Home Care [facility] 08/22/24
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
--- OUTSIDE RECORDS SUMMARY | 2025-02-03 15:08 | XMS_ITS | Encounter Summary ---
Author Organization [employer] Address [address] [facility] 7t [place] [address] Care Team Providers Care Psychiatric Technician Name Role Phone Lizabeth Felder Primary Care Provider [phone] Reason for Visit * Reason Onset Date Comments ultrasound report/ DVT 02/03/2025 Encounter Details Date Type Department Care Team ([facility] st Contact Info) Description 02/03/2025 Telephone [facility] [address] [place] [address] Lizabeth Felder ANP [address] [place] [address] ultrasound report/ DVT Social History Tobacco Use Types Packs/Day Years [...] encounter Miscellaneous Notes * Telephone Encounter - Clara Biswas RN - 02/03/2025 2:48 PM EDT TC received from Ultrasound dept, pt had ultrasound to r/o DVT. Tech states pt previously had DVT length of right leg, now still has DVT just in popliteal vein, she reports pt is taking his Elaquis twice a day, states she told pt to expect a call from pcp office with any further instructions. Will forward to pcp as FYI, since he is on vacation, unsure which provider is covering. documented in this encounter Plan of Treatment Upcoming Encounters Date Type Department Care Team (Late st Contact Info) Description 03/20/2025 11:15 AM EDT Office Visit [facility] [address] [place] [address] Lizabeth Felder ANP [address] [place] [address] documented as of this encounter Visit Diagnoses Not on filedocumented in this encounter Additional Health Concerns Assessment Noted Time PHQ-9 Depression Total Score: 0 12/17/19 25 11:38 AM EDT documented as of this encounter Care Teams Psychiatric Technician Relationship Specialty Start Date End Date Lizabeth Felder ANP [address] [place] [address] PCP - General Family Medicine 05/04/21 Home Care A 08/22/24 documented as of this encounter
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
--- OUTSIDE RECORDS SUMMARY | 2025-02-03 15:08 | XMS_ITS ---
Author Organization [employer] Address [address] [facility] 7[address] [place] [address] Care Team Providers Care Explosive Ordnance Specialist Name Role Phone Lizabeth Felder Primary Care Provider [phone] CHW Complex Status:Outreach In Progress (Enrolling) Start date:01/28/2025 Enrollment reason:ADT Feed Overview ED- Pt went to [facility] ED on 01/27/25. Please outreach for enrollment. Case Team Name Relationship Phone Isadora Aburto (Responsible Staff) Continued Care and Services Coordination
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
--- OUTSIDE RECORDS SUMMARY | 2025-02-03 15:08 | XMS_ITS | Encounter Summary ---
Author Organization [employer] Address [address] [facility] 7t [place] [address] Care Team Providers Care Cokeman Name Role Phone Lizabeth Felder Primary Care Provider [phone] Encounter Details Date Type Department Care Team (Latest Contact Info) Description 01/30/2025 Travel Social History Tobacco Use Types Packs/Day Years [...] AM EDT documented as of this encounter Plan of Treatment Upcoming Encounters Date Type Department Care Team (Late st Contact Info) Description 03/20/2025 11:15 AM EDT Office Visit [facility] MEDICINE [address] [place] [address] Lizabeth Felder ANP [address] [place] [address] documented as of this encounter Visit Diagnoses Not on filedocumented in this encounter Additional Health Concerns Assessment Noted Time PHQ-9 Depression Total Score: 0 12/17/19 25 11:38 AM EDT documented as of this encounter Care Teams Cokeman Relationship Specialty Start Date End Date Lizabeth Felder ANP [address] [place] [address] PCP - General Family Medicine 05/04/21 Home [facility] 08/22/24 documented as of this encounter
--- OUTSIDE RECORDS SUMMARY | 2025-02-03 15:08 | XMS_ITS | Encounter Summary ---
Author Organization [employer] Address [address] [facility] 7t [place] [address] Care Team Providers Care Hse Manager Name Role Phone Lizabeth Felder Primary Care Provider [phone] Encounter Details Date Type Department Care Team (Late st Contact Info) Description 04/03/2024 Telephone [facility] MEDICINE [address] [place] [address] Lizabeth Felder ANP [address] [place] [address] Social History Tobacco Use Types Packs/Day Years Used Date Smoking Tobacco: Never Passive Smoke Exposure: Never Smokeless Tobacco: Never Alcohol Use Standard Drinks/Week Comments Never 0 (1 standard drink = 0.6 oz pur e alcohol) Depression Answer Date Recorded Patient Health Questionnaire-9 Score 2 02/04/2024 Patient Health Questionnaire-9 Score 2 02/04/2024 Last PHQ-9: Questionnaire Data Not on file 0 02/04/2024 Housing Stability Answer Date Recorded What is [...] got money to buy more: Never True 07/24/2023 Within the past 12 months,th e food you bought just didn't last and you didn't have enough money to get more: Never True Transportation Answer Date Recorded In the past [...] Date Recorded Patient Health Questionnaire-2 Score 0 02/04/2024 Sex and Gender Information Value Date Recorded Sex Assigned at Male 08/07/2022 10:14 AM EDT Legal Sex Male 10:14 AM EDT Gender Identity Male 08/07/2022 10:14 AM EDT Sexual Orientation Straight 08/07/2022 10 :14 AM EDT documented as of this encounter Plan of Treatment Upcoming Encounters Date Type Department Care Team (Late st Contact Info) Description 03/20/2025 11:15 AM EDT Office Visit [facility] MEDICINE [address] [place] [address] Lizabeth Felder ANP [address] [place] [address] documented as of this encounter Visit Diagnoses Not on filedocumented in this encounter Additional Health Concerns Assessment Noted Time PHQ-9 Depression Total Score: 2 02/04/20 24 2:14 PM EDT documented as of this encounter Care Teams Hse Manager Relationship Specialty Start Date End Date Lizabeth Felder ANP [address] [place] [address] PCP - General Family Medicine 05/04/21 Home [facility] 08/22/24 documented as of this encounter
--- OUTSIDE RECORDS SUMMARY | 2025-02-03 15:08 | XMS_ITS | Encounter Summary ---
Author Organization [employer] Address 75 [facility] 7t [place] [address] Care Team Providers Care Doctor Of Naprapathic Medicine Name Role Phone Lizabteh Felder Primary Care Provider [phone] Reason for Visit * Reason Comments Care Coordination CM/CHW outreach Encounter Details Date Type Department Care Team (Latest Contact Info) Description 02/03/2025 Patient Outreach [facility] MEDICINE [address] [place] [address] Lizabeth Felder ANP [address] [place] [address] Care Coordination (CM/CHW outreach) Social History Tobacco Use Types Packs/Day Years [...] as of this encounter Progress Notes * Isadora Aburto - 02/03/2025 10:43 AM EDT CHW Isadora Aburto, placed outbound call to patient in regards to help with SDOH services and to introduce Adult Complex Care Program CHW LVM introducing herself from [facility] CM Department with CHW's name, department and direct contact number requesting call back. Will re-attempt to contact within 5 days. and address not confirmed. documented in this encounter Plan of Treatment Upcoming Encounters Date Type Department Care Team (Late st Contact Info) Description 03/20/2025 11:15 AM EDT Office Visit [facility] MEDICINE [address] [place] [address] Lizabeth Felder ANP [address] [place] [address] documented as of this encounter Visit Diagnoses Not on filedocumented in this encounter Additional Health Concerns Assessment Noted Time PHQ-9 Depression Total Score: 0 12/17/19 25 11:38 AM EDT documented as of this encounter Care Teams Doctor Of Naprapathic Medicine Relationship Specialty Start Date End Date Lizabeth Felder ANP [address] [place] [address] PCP - General Family Medicine 7/28/21 Home Care [facility] 08/22/24 documented as of this encounter
--- OUTSIDE RECORDS SUMMARY | 2025-02-03 15:08 | XMS_ITS | Encounter Summary ---
Author Organization [employer] Address 75 [facility] 7t [place] [address] Care Team Providers Care Nurse Transplant Name Role Phone Lizabeth Felder Primary Care Provider [phone] Reason for Visit * Reason Comments Med Refill Encounter Details Date Type Department Care Team ([facility] st Contact Info) Description 08/01/2023 Refill [facility] MEDICINE [address] [place] [address] Lizabeth Felder ANP [address] [place] [address] Pain Social History Tobacco Use Types Packs/Day Years Used Date Smoking Tobacco: Never Passive Smoke Exposure: Never Smokeless Tobacco: Never Alcohol Use Standard Drinks/Week Comments Not Currently 0 (1 standard drink = 0.6 oz pur e alcohol) PHQ-2 Answer Date Recorded Patient Health Questionnaire-2 Score 0 09/21/2022 Housing Stability Answer Date Recorded What is [...] Date Recorded Patient Health Questionnaire-2 Score 0 09/21/2022 Sex and Gender Information Value Date Recorded Sex Assigned at Male 08/07/2022 10:14 AM EDT Legal Sex Male 10:14 AM EDT Gender Identity Male 08/07/2022 10:14 AM EDT Sexual Orientation Straight 08/07/2022 10 :14 AM EDT documented as of this encounter Plan of Treatment Upcoming Encounters Date Type Department Care Team (Late st Contact Info) Description 03/20/2025 11:15 AM EDT Office Visit [facility] MEDICINE [address] [place] [address] Lizabeth Felder ANP [address] [place] [address] documented as of this encounter Visit Diagnoses Diagnosis Pain Generalized pain documented in this encounter Care Teams Nurse Transplant Relationship Specialty Start Date End Date Lizabeth Felder ANP [address] [place] [address] PCP - General Family Medicine 05/04/21 Home Care [facility] 08/22/24 documented as of this encounter
--- OUTSIDE RECORDS SUMMARY | 2025-02-03 15:08 | XMS_ITS | Encounter Summary ---
Author Organization [employer] Address [address] [facility] 7t [place] [address] Care Team Providers Care Auditor In Charge Name Role Phone Lizabeth Felder Primary Care Provider [phone] Reason for Visit * Reason Onset Date Comments case delivery appt 07/24/2024 Encounter Details Date Type Department Care Team ([facility] st Contact Info) Description 07/24/2024 Telephone [facility] ADULT DENTAL [address] [place], [place] [phone] Juan Carlos Mooney, DMD [address] [place], [place] [phone] case delivery appt Social History Tobacco Use Types Packs/Day Years [...] encounter Miscellaneous Notes * Telephone Encounter - Saadia James - 07/24/2024 9:12 AM EDT Patient called in confirming that he should be in the office today for 1pm for denture delivery. There is no appt scheduled for 1pm. Upon confirming with [facility] front end ui developer, it was explained that when case arrives from lab, he will receive a call to be scheduled. He was concerned about having been toldotherwise. I explained that sometimes days and times are projected but always arrival time and phone call is what patient must go by. Patient understood. DR documented in this encounter Plan of Treatment Upcoming Encounters Date Type Department Care Team (Late st Contact Info) Description 03/20/2025 11:15 AM EDT Office Visit [facility] MEDICINE [address] [place] [address] Lizabeth Felder ANP [address] [place] [address] documented as of this encounter Visit Diagnoses Not on filedocumented in this encounter Additional Health Concerns Assessment Noted Time PHQ-9 Depression Total Score: 2 02/04/20 24 2:14 PM EDT documented as of this encounter Care Teams Auditor In Charge Relationship Specialty Start Date End Date Lizabeth Felder ANP [address] [place] [address] PCP - General Family Medicine 7/28/21 Home [facility] 08/22/24 documented as of this encounter
--- OUTSIDE RECORDS SUMMARY | 2025-02-03 15:08 | XMS_ITS | Encounter Summary ---
Author Organization [employer] Address [address] [facility] 7t [place] [address] Care Team Providers Care Eyelet Maker Name Role Phone Lizabeth Felder Primary Care Provider [phone] Reason for Visit * Reason Comments Care Coordination CM/CHW outreach Encounter Details Date Type Department Care Team (Latest Contact Info) Description 01/29/2025 Patient Outreach [facility] MEDICINE [address] [place] [address] Lizabeth Felder ANP [address] [place] [address] Care Coordination (CM/CHW outreach) Social History Tobacco [...] encounter Progress Notes * Isadora Aburto - 01/29/2025 9:36 AM EDT CHW Isadora Aburto, placed outbound call to patient in regards to offer Adult Complex Care Program and SDOH services. No answer at this time. CHW LVM introducing herself from [facility] with CHW's name, department and direct contact number requesting call back. Will re-attempt to contact within 5 days. and address not confirmed documented in this encounter Plan of Treatment Upcoming Encounters Date Type Department Care Team (Late st Contact Info) Description 03/20/2025 11:15 AM EDT Office Visit [facility] MEDICINE [address] [place] [address] Lizabeth Felder ANP [address] [place] [address] documented as of this encounter Visit Diagnoses Not on filedocumented in this encounter Additional Health Concerns Assessment Noted Time PHQ-9 Depression Total Score: 0 12/17/19 25 11:38 AM EDT documented as of this encounter Care Teams Eyelet Maker Relationship Specialty Start Date End Date Lizabeth Felder ANP [address] [place] [address] PCP - General Family Medicine 05/04/21 Home Care [facility] 08/22/24 documented as of this encounter
--- OUTSIDE RECORDS SUMMARY | 2025-02-03 15:08 | XMS_ITS | Encounter Summary ---
Author Organization [employer] Address [address] [facility] 7t [place] [address] Care Team Providers Care Soldering Machine Operator Helper Name Role Phone Lizabeth Felder Primary Care Provider Reason for Visit * Reason Onset Date Comments returning call for os appt 10/29/2024 Encounter Details Date Type Department Care Team ([facility] st Contact Info) Description 10/29/2024 Telephone [facility] ADULT DENTAL [address] [place], [place] [phone] Christopher Patel, DMD [address] [place], [place] [phone] returning call for os appt Social History Tobacco Use Types Packs/Day [...] Recorded Patient Health Questionnaire-2 Score 0 02/04/2024 Internet Access Answer Date Recorded Internet Access [...] * Telephone Encounter - Saadia James - 10/29/2024 2:02 PM EST Patient is returning calling for rescheduling Oral Surgery appt because provider will be out on 10/29. He states a message was left offering 11/04.. However he has an appt on that same day and cannottake that appt time. Please reach out to patient with new appt date. documented in this encounter Plan of Treatment Upcoming Encounters Date Type Department Care Team (Late st Contact Info) Description 03/20/2025 11:15 AM EDT Office Visit [facility] MEDICINE [address] [place] [address] Lizabeth Felder ANP [address] [place] [address] documented as of this encounter Visit Diagnoses Not on filedocumented in this encounter Additional Health Concerns Assessment Noted Time PHQ-9 Depression Total Score: 2 02/04/20 24 2:14 PM EDT documented as of this encounter Care Teams Soldering Machine Operator Helper Relationship Specialty Start Date End Date Lizabeth Felder ANP [address] [place] [address] PCP - General Family Medicine 05/04/21 Home Care [facility] 08/22/24 documented as of this encounter
== END 2025-02-03 13:08 | disposition home or self-care (01) ==
LOC: HO.US 13:07
PROVIDERS: PCP Nurse Practitioner Primary Care; Visit Provider Nurse Practitioner Primary Care
DX: R60.0 Localized edema (principal)
CPT/HCPCS: 93970

== ENCOUNTER → 2025-02-03 13:11 | Outpatient (BNV) | payer MEDICAID, SELFPAY | PROVIDERS: PCP Nurse Practitioner Primary Care; Visit Provider Radiology Diagnostic Radiology | DX: I82.431 Acute embolism and thrombosis of right popliteal vein (principal) | CPT/HCPCS: 93970 ==

== ENCOUNTER → 2025-02-18 14:40 | Outpatient (BNV) | payer MEDICAID, SELFPAY | PROVIDERS: PCP Nurse Practitioner Primary Care; Visit Provider Nurse Practitioner Family | DX: Z86.718 Personal history of other venous thrombosis and embolism (principal) | CPT/HCPCS: 99204; 99213 ==

== ENCOUNTER 2025-02-19 09:41 | Outpatient (AMB) | payer MEDICAID, SELFPAY ==
--- NOTE | 2025-02-19 09:49 | MHC.OFFVIS ---
Vital Signs 02/19/25 09:49 Height 5 ft 8 in Intake Visit Reasons: 8wk f/u rt clavicle fx w xrays Intake Note: Jerome is a 59 year old right hand dominant male who present today for a follow up of right clavicle fx s/p fall. At patient last visit he was recommended to avoid overhead reaching or lifting in the setting of pain. He should attend physical therapy to work on scapular stabilization and gentle motion and follow up in office in 8 weeks with x-rays. Patient reports has not started PT. Still having pain(7-8) Strong pain that still can not left arm. Curb Attendant Required: Yes Curb Attendant Services: Curb Attendant Present Curb Attendant Name: Viry [id number] Information Interpreted: non-clinical & clinical Allergies No Known Drug Allergies Allergy (Unknown, Verified 02/19/25 09:54) UNKNOWN Medication List - Last Reconciled 02/19/25 by Ashley Paulino PA-C apixaban (Eliquis DVT-PE Treat 30D Start) 5 mg PO BID atorvastatin 20 mg PO BEDTIME bisacodyl (Dulcolax (bisacodyl)) 10 mg (2 x 5 mg) PO BEDTIME 2 days divalproex 500 mg PO BID ibuprofen 800 mg PO TID levetiracetam (Keppra) 750 mg PO BID loratadine 10 mg PO DAILY PRN omeprazole 20 mg PO DAILY peg 3350-electrolytes 236-22.74-6.74 -5.86 gram (Golytely) 240 mL PO Q10M 1 day phenobarbital 97.2 mg PO BID prazosin 2 mg PO BEDTIME sennosides (senna) 17.2 mg (2 x 8.6 mg) PO BEDTIME simethicone 180 mg PO TID 30 days spironolactone 100 mg PO DAILY [facility] Medical History Hyperlipemia Seizure disorder Surgical History No significant past surgical history Family History Family/Other Epilepsy Social History Household Members: None Housing: Apartment Are you a primary campground caretaker to a significant other at home: No Do you presently have visiting nurse or other home services: No Alcohol intake: current Alcohol intake frequency: does not drink Patient Tobacco Use Status: Never used Tobacco service: No Current occupational status: disabled Current occupation: right hand dominant Review of Systems Const All systems reviewed & are unremarkable except as noted in HPI and below Physical Exam Extrem Other: Right shoulder mild tenderness over the ac joint. FF to 140 deg. NVI. Results Reviewed Results Reviewed: Xrays were obtained in the office today and personally reviewed by me of the right clavicle show interval healing with acj oa Assessment & Plan Assessment & Plan (1) Right clavicle fracture: Code(s): S42.001A - Fracture of unspecified part of right clavicle, initial encounter for closed fracture Category: Medical Qualifiers: Encounter type: subsequent encounter Clavicle location: lateral end Fracture type: closed Fracture healing: with routine healing Plan: I did give him the information for PT to make an appt to work on ROM, RTC and periscap stabilization. 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 He will see me back prn unless symptoms persist or worsen. Orders: Orders PT Evaluation and Treatment Today S42.001A - Fracture of unspecified part of right clavicle, initial encounter for closed fracture XR clavicle RT Today S42.009A - Fracture of unspecified part of unspecified clavicle, initial encounter for closed fracture Coding Level of Care Code Global (38627) Diagnoses Right clavicle fracture S42.001A Encounter type: subsequent encounter Clavicle location: lateral end Fracture type: closed Fracture healing: with routine healing
--- OUTSIDE RECORDS SUMMARY | 2025-02-19 10:33 | XMS_ITS | Encounter Summary ---
Author Organization [employer] Address [address] [facility] 7t [place] [address] Care Team Providers Care Restaurant Inspector Name Role Phone Lizabeth Felder Primary Care Provider [phone] Reason for Referral * Consultation (Routine) - Pending Review Specialty Diagnoses / Procedures Referred By Aleksandr mcdowell Referred To Contact Wound Care Diagnoses Chronic ulcer of lower extremity, left, with unspecified severity (CMS/HCC) Lizabeth Felder ANP [address] [place] [address] Phone: tel: fax: Referral ID Status Reason Start Date Expiration Date Visits Requested Visits Authorized [id number] Pending Review Specialty Services Required 02/19/2025 02/19/2026 1 1 Reason for Visit * Reason Onset Date Comments Referral 02/17/2025 Encounter Details Date Type Department Care Team ([facility] st Contact Info) Description 02/17/2025 Telephone [facility] [address] [place] [address] Lizabeth Felder ANP [address], [place] [phone] Referral Social History Tobacco Use Types Packs/Day Years [...] your housing situation today? I have bridgette sing 07/24/[address] you li [...] encounter Miscellaneous Notes * Telephone Encounter - ABDIFATAH Forde - 02/19/2025 8:49 AM EDT Ah ok, will place referral to [facility] wound clinic * Telephone Encounter - ABDIFATAH Forde - 02/17/2025 4:48 PM EDT Yes, agree-patient is very much not medically literate. And requires lots of assistance. I can place referral for wound care as into the wound care clinic but does she mean to place VNA orders for wound care which would justify more frequent VNA visits? * Telephone Encounter - Orin Solis RN - 02/17/2025 1:33 PM EDT Telephone call returned to H[facility]ctor [facility]AArpit from [facility]. She reports that pt has recurrent vascular ulcer of left martin. She has been trying to provide wound care as best she can but pt's insurance cut his VNA days down so she no longer sees him everyday and he hasn't been very receptive to wound care teaching. She states that she feels he is forgetful and not very medically literate. He has ap pt with hematology tomorrow which she has been encouraging him to attend. He thinks that they will fix his leg wound at the appt and that the eliquis is for his leg wound. She states that she has explained multiple times that it is for his DVT. She is requesting referral to wound care as she feels like pt is unable to care for his wound on the days she doesn't see him. Informed I would send request. * Telephone Encounter - Kiya Membreno - 02/17/2025 12:01 PM EDT Tc from pt visitng nurse Héctor requesting a call back to discuss reoccurrence of vascular ulcer Contact héctor at [phone] documented in this encounter Plan of Treatment Upcoming Encounters Date Type Department Care Team (Late st Contact Info) Description 03/20/2025 11:15 AM EDT Office Visit [facility] [address] [place] [address] Lizabeth Felder ANP [address] [place] [address] Scheduled Referrals Name Type Priority Associated Diagnoses Orde r Schedule Referral to Wound Clinic Outpatient Referral Routine Chronic ulcer of lower extremity, left, with unspecified severity (CMS/HCC) Expected: 02/19/2025 (Approximate), Expires: 02/19/2026 documented as of this encounter Visit Diagnoses Diagnosis Chronic ulcer of lower extremity, left, with unspecified severity (CMS/HCC)- Primary documented in this encounter Additional Health Concerns Assessment Noted Time PHQ-9 Depression Total Score: 0 12/17/19 25 11:38 AM EDT documented as of this encounter Care Teams Restaurant Inspector Relationship Specialty Start Date End Date Lizabeth Felder ANP [address] [place] [address] PCP - General Family Medicine 05/04/21 Home Care VNA 08/22/24 documented as of this encounter
--- OUTSIDE RECORDS SUMMARY | 2025-02-19 10:33 | XMS_ITS | Encounter Summary ---
Author Organization [employer] Address [address] [facility] 7t [place] [address] Care Team Providers Care Pin Or Clip Fastener Name Role Phone Lizabeth Felder ABDIFATAH Primary Care Provider [phone] Reason for Visit * Reason Onset Date Comments returning call for os appt 10/29/2024 Encounter Details Date Type Department Care Team (Late st Contact Info) Description 10/29/2024 Telephone [facility] ADULT [facility] [address] [place], [place] [phone] Christopher Patel, DMD [address] [place], [place] [phone] returning call for os appt Social History [...] 11:15 AM EDT Office Visit [facility] [address] [place] [phone] Lizabeth Felder ANP [address] [place] [address] documented as of this encounter Visit Diagnoses Not on filedocumented in this encounter Additional Health Concerns Assessment Noted Time PHQ-9 Depression Total Score: 2 02/04/20 24 2:14 PM EDT documented as of this encounter Care Teams Pin Or Clip Fastener Relationship Specialty Start Date End Date Lizabeth Felder ANP [address] [place] [phone] PCP - General Family Medicine 05/04/21 Home Care [facility] 08/22/24 documented as of this encounter
--- OUTSIDE RECORDS SUMMARY | 2025-02-19 10:33 | XMS_ITS | Clinical Summary ---
Author Organization [employer] Address [address] [facility] 7t [place] [address] Care Team Providers Care Community Outreach Director Name Role Phone Mauricio Coulter Primary Care Provider [phone] Allergies No known active allergies Medications fluticasone (Flonase) 50 MCG/ACT nasal spray spray 1 spray by nasal route 2 times every day as needed 02/29/20 21 Active Simethicone Ultra Strength 180 MG capsule TAKE 1 CAPSULE BY MOUTH 3 (THREE) TIMES A DAY AFTER MEALS Active omeprazole (PriLOSEC) [address] capsuleIndication s:Heartburn TAKE 1 CAPSULE BY MOUTH ONCE DAILY 30 capsule 6 08/26/20 24 Active atorvastatin (Lipitor) 20 MG tabletIndications :High cholesterol,Cardi ovascular event risk Take 1 tablet (20 mg) by mouth Once per day. 90 tablet 3 09/22/20 24 025 Active spironolactone (Aldactone) 100 MG tabletIndications :Venous insufficiency of lower extremity, unspecified laterality TAKE 1 TABLET BY MOUTH ONCE DAILY NEEDED 90 tablet 1 10/29/19 25 Active folic acid (Folvite) 1 MG tabletIndications :Chronic alcoholism in remission (CMS/HCC) TAKE 1 TABLET BY MOUTH EVERY MORNING 90 tablet 1 11/12/19 25 Active prazosin (Minipress) 2 MG capsuleIndication s:Benign hypertension TAKE 1 CAPSULE BY MOUTH EVERY NIGHT AT BEDTIME 90 capsule 1 11/12/19 25 Active acetaminophen (Tylenol 8 Hour) 650 MG ER tabletIndications :Pain TAKE 2 TABLETS BY MOUTH EVERY 8 HOUR NEEDED 30 tablet 2 11/12/19 25 Active loratadine (Claritin) 10 MG tabletIndications :Seasonal allergies TAKE 1 TABLET BY MOUTH ONCE DAILY NEEDED FOR ALLERGY 90 tablet 1 11/19/19 25 Active divalproex (Depakote) 500 MG EC tabletIndications :Epilepsy, not refractory (CMS/HCC) TAKE 1 TABLET BY MOUTH two (2) times a day 60 tablet 4 12/17/19 25 Active levETIRAcetam (Keppra) 750 MG tabletIndications :Epilepsy, not refractory (CMS/HCC) TAKE 1 TABLET BY MOUTH two (2) times a day 60 tablet 3 12/17/19 25 Active PHENobarbital 97.2 MG tabletIndications :Epilepsy, not refractory (CMS/HCC) Take 1 tablet by mouth once daily at bedtime 30 tablet 3 12/17/19 25 Active apixaban (Eliquis) 5 MG tabletIndications :Acute deep vein thrombosis (DVT) of distal vein of right lower extremity (CMS/HCC) Take 1 tablet (5 mg) by mouth 2 times daily. 60 tablet 1 12/17/19 25 Active lidocaine (Lidoderm) 5 % patchIndications: Acute midline low back pain without sciatica Apply 1 patch topically Once per day. Remove & discard patch within 12 hours or as directed by MD. 30 patch 2 01/31/20 25 Active ibuprofen 800 MG tabletIndications :Pain TAKE 1 TABLET BY MOUTH THREE TIMES A DAY NEEDED FOR PAIN TAKE WITH FOOD 60 tablet 2 02/11/20 25 Active ibuprofen 800 MG tabletIndications :Pain TAKE 1 TABLET BY MOUTH THREE TIMES A DAY NEEDED FOR PAIN TAKE WITH FOOD 60 tablet 2 10/28/19 25 025 Discontinued mupirocin (Bactroban) 2 % ointmentIndicatio ns:Cellulitis of left lower extremity Apply topically in the morning, at noon, and at bedtime for 10 days. 60 g 01/17/20 25 025 triamcinolone (Kenalog) 0.1 % cream Apply topically if needed in the morning and at bedtime (pain and swelling) for up to 14 days. 30 g 01/17/20 25 025 Active Problems Problem Noted Date Diagnosed Date [...] hypertensive heart disease. CTA was done at [facility] 04/30/24 and showed no hemodynamically significant CAD. [facility] cards will outreach pt for follow-up. High [...] Encounters Date Type Department Care Team Description 02/19/2025 Orders Only [facility] [address] [place] [address] Mauricio Coulter ANP History of hepatitis C (Primary Dx) 02/18/2025 Telephone [facility] [address] [place] [address] Mauricio Coulter ANP 02/17/[address] [address] Mauricio Coulter ANP Referral 02/13/2025 Telephone [facility] [address] [place] [address] Mauricio Coulter ANP Follow-up 02/12/2025 Telephone [facility] [address] [place] [address] Shila Mckeon RN 02/11/2025 Patient Outreach [address] [address] Mauricio Coulter ANP 02/11/2025 Patient Outreach [address] [address] Mauricio Coulter ANP 02/09/2025 Refill [facility] [address] [place] [address] Mauricio Coulter ANP Pain 02/04/2025 Patient Outreach [address] [address] Mauricio Coulter ANP 02/04/2025 Patient Outreach [address] [address] Mauricio Coulter ANP 02/03/2025 Telephone [facility] [address] [place] [phone] Mauricio Coulter ANP ultrasound report/ DVT 02/03/2025 Patient Outreach [address] [address] Mauricio Coulter ANP Care Coordination (CM/CHW outreach) 01/30/2025 11:30 AM EDT Office Visit [address] [address] Mauricio Coulter ANP Acute pain of right shoulder (Primary Dx); Edema of both legs; Daytime somnolence; Acute midline low back pain without sciatica; Onychomycosis 01/30/2025 11:15 AM EDT Office Visit [address] [address] Mauricio Coulter ANP Acute pain of right shoulder (Primary Dx); Acute midline low back pain without sciatica 01/30/2025 Travel 01/29/[address] [address] Kandy Flores [place] CHART PREP 01/29/[address] [address] Mauricio Coulter ANP 01/29/[address] [address] Mauricio Coulter ANP ER Follow-up 01/29/2025 Patient Outreach [address] [address] Mauricio Coulter ANP Care Coordination (CM/CHW outreach) 01/28/2025 Patient Outreach [address] [address] Mauricio Coulter ANP Care Coordination (CHW Chart Review) 01/28/2025 Patient Outreach [address] [address] Mauricio Coulter ANP Care Management (C3CM- chart review) 01/28/2025 Patient Outreach [address] [address] Mauricio Coulter ANP 01/16/2025 1:40 PM EDT Office Visit [facility] [address] [place] [address] Karyn Walker NP Left leg pain (Primary Dx); Cellulitis of left lower extremity 01/16/2025 Travel 01/09/2025 1:30 PM EDT Office Visit [facility] [address] [place] [address] Elieser Erwin DDS 01/07/2025 9:00 AM EDT Office Visit [facility] ADULT D[facility] [address] [place] [address] Christopher Patel DMD 12/19/2024 Population Health Risk Score Community [facility] () Department [address] [place] [phone] Provider, Population Health Generic 12/16/2024 11:15 AM EDT Office Visit [facility] [address] [place] [address] Mauricio Coulter ANP Closed nondisplaced fracture of acromial end of right clavicle with routine healing, subsequent encounter (Primary Dx); Epilepsy, not refractory (CMS/HCC); Acute deep vein thrombosis (DVT) of distal vein of right lower extremity (CMS/HCC) 12/16/2024 Travel 12/08/2024 Telephone [facility] [address] [place] [address] Mauricio Coulter ANP FYI from Last 3 Months Immunizations Immunization Administration Dates Next Due DTaP 11/03/2010 Hep [...] Description 03/20/2025 11:15 AM EDT Office Visit [facility] [address] [place], [place] [phone] Mauricio Coulter ANP [address] [place], [place] [phone] Health Maintenance Due Date Last Done Comments [...] 09/22/2025 09/22/2024 Diabetes: Hemoglobin A1C 09/22/2025 09/22/2024, 04/2 06/2024 Depression Screening 12/16/2025 12/16/2024, 12/17/19 25 SDOH Screening 12/16/2025 12/16/2024 Tobacco Screening 01/30/2026 01/30/2025 Dental X-Ray: Full Mouth 06/13/2027 06/12/2024, 11/01/2020 Lipid Panel 10/13/2029 10/13/2024, 09/07, 02/04/2024, Additional [...] patient's age to complete this topic Meningococcal B Vaccine Aged Out No l onger eligible based on patient's age to complete [...] Procedure Name Priority Date/Time Associated Diagnosis Comments VASC US LOWER EXTREMITY VENOUS DUPLEX BILATERAL Urgent 02/03/2025 1:33 PM EDT Edema of both legs NO CHARGE VISIT Routine 01/09/2025 1:30 PM EDT LIMITED ORAL EVALUATION - PROBLEM FOCUSED Routine 01/07/2025 9:00 AM EDT LIPID PANEL, STANDARD Routine 10/13/2024 1:45 PM [...] ESTABLISHED PATIENT Routine 06/12/2024 11:00 AM EDT HM FECAL IMMUNOCHEMICAL TEST Routine 09/21/2020 from Last 3 Months or Most Recently Relevant to Health Maintenance Results * VASC US Lower Extremity Venous Duplex Bilateral (02/03/2025 1:33 PM EDT) 02/03/2025 1:33 PM EDT Narrative [facility] - 02/03/2025 3:46 PM EDT ? [facility] ?[address] ?[place] [address] ? Ultrasound Report ? Signed ? Patient: Jerome Ledezma ?MR#: ?? [id number] ? : 1965 ?Acct:[id number] ? Age/Sex: 59 / M ?ADM Date: 02/03/25 ? Loc: HO.US ? Attending Dr: Mauricio Coulter NP ? Ordering Physician: MAURICIO COULTER NP ?? Date of Service: 02/03/25 ?? Procedure(s): US venous duplex LE BI ?? Accession Number(s): [id number] ? cc: MAURICIO COULTER NP ? EXAMINATION: ?? US TRIPLEX LOWER EXTREMITY, BILATERAL ? CLINICAL INFORMATION: ?? Positive DVT from the distal right femoral vein to the popliteal vein. ?? Edema right lower extremity. ? COMPARISON: ?? None available. ? TECHNIQUE: ?? Color-flow triplex imaging with spectral analysis and compression ?? Doppler were performed on the bilateral lower extremities. ? FINDINGS: ?? Respiratory variation, normal compression and augmented flow are noted ?? throughout the interrogated visualized common femoral vein, superficial ?? femoral vein, profunda femoral vein, popliteal vein and midcalf ?? peroneal and posterior tibial venous segments in the left lower ?? extremity. There is an intraluminal hyperechoic abnormality in the ?? right popliteal vein with partial compressibility and partial and ?? augmentation. The remaining interrogated veins, right lower extremity ?? demonstrated normal phasic flow and compressibility. ? There is no Santamaria's cyst. ? US/US venous duplex LE BI ?? IMPRESSION: ?? Persistent nonocclusive thrombus, right popliteal vein. Overall ?? improved since prior exam. ?? No acute DVT left lower extremity. ? Findings communicated to the requesting provided by the technologist at ?? the time of the examination, 2:30 PM on February 03, 2025. ? Electronically signed by: ??Justus Lanier MD ??02/03/2025 03:43 PM ?? EDT RP ? Dictated By: ?Justus Duggan MD ? Signed By: ?<Electronically signed by Justus Solis MD in OV> ? 02/03/25 1543 ? DD/ 1333 ? TD/TT: 02/03/25 1408 ? Coal Loader: ? Procedure Note Rene, Image - 02/03/2025 [place] [address] Ultrasound Report Signed Patient: Mukul Ledezma#: [id number] : 1965Acct:[id number] Age/Sex: 59 / MADM Date: 02/03/25 Loc: HO.US Attending Dr: Mauricio Coulter NP Ordering Physician: MAURICIO COULTER NP Date of Service: 02/03/25 Procedure(s): US venous duplex LE BI Accession Number(s): [id number] cc: MAURICIO COULTER NP EXAMINATION: US TRIPLEX LOWER EXTREMITY, BILATERAL CLINICAL INFORMATION: Positive DVT from the distal right femoral vein to the popliteal vein. Edema right lower extremity. COMPARISON: None available. TECHNIQUE: Color-flow triplex imaging with spectral analysis and compression Doppler were performed on the bilateral lower extremities. FINDINGS: Respiratory variation, normal compression and augmented flow are noted throughout the interrogated visualized common femoral vein, superficial femoral vein, profunda femoral vein, popliteal vein and midcalf peroneal and posterior tibial venous segments in the left lower extremity. There is an intraluminal hyperechoic abnormality in the right popliteal vein with partial compressibility and partial and augmentation. The remaining interrogated veins, right lower extremity demonstrated normal phasic flow and compressibility. There is no Santamaria's cyst. US/US venous duplex LE BI IMPRESSION: Persistent nonocclusive thrombus, right popliteal vein. Overall improved since prior exam. No acute DVT left lower extremity. Findings communicated to the requesting provided by the technologist at the time of the examination, 2:30 PM on February 03, 2025. Electronically signed by: Justus Lanier MD 02/03/2025 03:43 PM EDT RP Dictated By: Justus Duggan MD Signed By: <Electronically signed by Justus Solis MDin OV> 02/03/25 1543 DD/ 1333 TD/TT: 02/03/25 1408 Coal Loader: us Mauricio GARDINER CV VASCULAR PROCEDURES Final Res ult [facility] [address] [place] [phone] * (ABNORMAL) Lipid Panel, Standard (10/13/2024 1:45 PM EST) Triglycerides 126 <150 mg/dL [facility] Comment:Desirable Triglyceri de: less than 150 mg/dLBorderline High Triglyceride 150-199 mg/dLHigh Triglyceride: 200-499 mg/dLVery High Triglyceride: greater than or equal to 5OO mg/dL Cholesterol 213(H) <200 mg/dL [facility] Comment:Desirable Cholestero l: less than 200 mg/dLBorderline High Cholesterol: 200-239 mg/dLHigh Cholesterol: greater than 239 mg/dL LDL Cholesterol Calculated 134(H) <100 mg/dL [facility] Comment:Desirable LDL: less than 100 mg/dLNear Optimal/Above Optimal LDL: 110- 129 mg/dLBorderline High LDL: 130-159 mg/dLHigh LDL: 160-189 mg/dLVery High LDL: greater than or equal to 190 mg/dL HDL Cholesterol 54 >40 mg/dL [facility] Comment:Desirable HDL: grea ter than 40 mg/dL Note: This HDL assay may give artificially low results in patients with liver disease. 10/13/2024 1:45 PM EST 10/13/2024 1:45 PM EST Generic External Data Provider LAB BLOOD ORDERAB LES Final Result Performing Organization Address [facility] Co de Phone Number [facility] [address] [place] [phone] * HIV-1/2 Antigen and Antibodies, Fourth Generation, with Reflexes (09/22/2024 3:37 PM EST) HIV AB/AG Nonreactive Nonreactive [facility] Comment:HIV-1 p24 Ag and/or HIV-1/HIV-2 Ab not detected.A test result that is nonreactive does not exclude thepossibility of exposure to or infection with HIV-1 and/orHIV-2. Nonreactive results in this assay for individualswith prior exposure to HIV-1 and/or HIV-2 may be due toantigen and antibody levels that are below the limit ofdetection of this assay.The [employer] HIV Ag/Ab Combo assay result andsupplemental assay results should be interpreted inconjunction with the patient's clinical presentation,history and other laboratory results. If the results areinconsistent with clinical evidence, additional testing issuggested to confirm the result. Blood Venous blood specimen / Unknown 09/22/2024 3:37 PM EST 09/22/2024 4:23 PM EST [facility] LAB BLOOD ORDERABLES Final Resul t Performing Organization Address [facility] Co de Phone Number [facility] [address] [place] [phone] * Hemoglobin A1c (09/22/2024 3:37 PM EST) Hemoglobin A1c 5.9 <6.0 % [facility] Comment:Hemoglobin A1C Refer ence Range Adults: 4.8 - 6.0 % Non diabetic: < 6.0 % Goal: < 7.0 %Additional Action Suggested: > 8.0 %Note: Hemoglobin A1c results are invalid for patients with abnormal amounts of HbF. Blood transfusions may impact the HbA1c concentration in the patient sample. Estimated Average Glucose 123 mg/dL [facility] Comment:eAG = Estimated ave rage glucose which is %A1C expressed asaverage glucose, using the formula of the [id number] Glucose study (ADAG), Diabetes Care, Vol.31,#8,2007 Blood Venous blood specimen / Unknown 09/22/2024 3:37 PM EST 09/22/2024 4:23 PM EST [facility] LAB BLOOD ORDERABLES Final Resul t [facility] [address] [place] [phone] [phone] * Fecal Immunochemical Test (09/21/2020) Fecal Immunochemical Test Nonreactive Borderline, Nonreactive , Weakly Reactive Stool Rectal contents / Unknown 09/21/2020 Historical Provider HEALTH MAINTENANCE Final Result from Last 3 Months or Most Recently Relevant to Health Maintenance Insurance [facility] C3 DENTAL-[facility] MEDICAID STAND ADULT [place] Care Teams Community Outreach Director Relationship Specialty Start Date End Date Mauricio Coulter ANP [address] [place] [address] PCP - General Family Medicine 05/04/21 Home Care [facility]NA 08/22/24
--- OUTSIDE RECORDS SUMMARY | 2025-02-19 10:33 | XMS_ITS | Continuity of Care Document ---
Author Organization [facility] Address [address] [facility] [address] [place] [address] Phone Care Team Providers Care Assistant Auto Center Manager Name Role Phone Mike QUILES, RVT, JERAMIE, [...] Providers Copied on Encounter [facility], [address] [place] [address] Dr [address]Suite Antoine Shah [place], [id number], [place] tel:[phone] CVR - [place] [facility] No Information 5 Mike QUILES RVT, JERAMIE Rosa. [address] [place] [address], [place], [place], [id number] , [place]. tel:[phone] Office/Outpt E&M Established 25 Mins- CT & [place] [facility], [address] [place] [address] Dr [address] [address]Anto[place], [id number], [place] tel:[phone] CVR - [place] [facility] Acute embolism and thrombosis of unspecified deep veins of right lower extremityEssent ial (primary) hypertension 5 Mike QUILES RVT, JERAMIE Rosa. [address] [place] [address], [place], [place], [id number] , [place]. tel:[phone] Referring Provider: Katherine Painter, [address] [place] [address], [place], [address]. tel:[phone] [facility], [address] [place] [address] [place] [address]Anto[place], [id number], [place] tel:[phone] CVR - [facility] Pain in right legCompression of vein 5 Mike QUILES RVT, JERAMIE Rosa. [address] [place] [address], [place], [place], [id number] , [place]. tel:[phone] Referring Provider: Katherine Painter, [address] [facility], [place], [address]. tel:[phone] Office/Outpt E&M Established 15 Mins [facility], [address] [place] [address] Dr [address] [address] [place], [id number], [place] tel:[phone] CVR - [place] [facility] Body mass index (BMI) 33.0-33.9, adultChronic venous hypertension w oth comp of l low extrem 3 Meek QUILES FACS MULUGETA Metz. [address] [facility], [address], [facility] BOS[place]AN vasquez, [address], [place]. tel:[phone] Referring Provider: Katherine Paintre, [address] [place] [address], [place], [address]. tel:[phone] Family History Family Member Type Diagnosis Age At Onset No Information Payers Payer name Insurance type Covered alliance party ID Authoriza tiallan(s) Medical Assistance [facility] [id number] Social History Type Description Quantity Date Captured [...]
--- OUTSIDE RECORDS SUMMARY | 2025-02-19 10:33 | XMS_ITS ---
Author Organization [employer] Address [address] [facility] 7t [place] [address] Care Team Providers Care Frame Carver Spindle Name Role Phone Lizabeth eFlder Primary Care Provider [phone] CHW Complex Status:Outreach In Progress (Enrolling) Start date:01/28/2025 Enrollment reason:ADT Feed Overview ED- Pt went to [facility] ED on 01/27/25. Please outreach for enrollment. Case Team Name Relationship Phone Isadora Aburto(Responsible Staff) [phone] Continued Care and Services Coordination
--- OUTSIDE RECORDS SUMMARY | 2025-02-19 10:33 | XMS_ITS | Encounter Summary ---
Author Organization [employer] Address 75 [facility] 7t [place] [address] Care Team Providers Care Talent Specialist Name Role Phone Lizabeth Felder Primary Care Provider [phone] Encounter Details Date Type Department Care Team (Late st Contact Info) Description 02/18/2025 Telephone [facility] MEDICINE 230 [place], [place] [phone] Lizabeth Felder ANP 230 [place] [address] Social History Tobacco Use Types Packs/Day Years [...] encounter Miscellaneous Notes * Telephone Encounter - Mary Watts - 02/18/2025 4:07 PM EDT Tc [facility] with [facility] regarding pt visit to [facility]. [facility] is requisting to speak with Lizabeth Felder abou pt visit. Contact at [phone] documented in this encounter Plan of Treatment Upcoming Encounters Date Type Department Care Team (Late st Contact Info) Description 03/20/2025 11:15 AM EDT Office Visit [facility] MEDICINE [address] [place] [address] Lizabeth Felder ANP 230 [place] [address] documented as of this encounter Visit Diagnoses Not on filedocumented in this encounter Additional Health Concerns Assessment Noted Time PHQ-9 Depression Total Score: 0 12/17/19 25 11:38 AM EDT documented as of this encounter Care Teams Talent Specialist Relationship Specialty Start Date End Date Lizabeth Felder ANP [address] [place] [address] PCP - General Family Medicine 05/04/21 Home Care [facility] 08/22/24 documented as of this encounter
--- OUTSIDE RECORDS SUMMARY | 2025-02-19 10:33 | XMS_ITS | Encounter Summary ---
Author Organization [employer] Address 75 [facility] 7t [place] [address] Care Team Providers Care Hadoop Software Engineer Name Role Phone Lizabeth Felder Primary Care Provider Encounter Details Date Type Department Care Team (Late st Contact Info) Description 04/03/2024 Telephone [facility] MEDICINE 230 [place], [place] [phone] Lizabeth Felder ANP 230 [place] [address] Social History Tobacco Use Types Packs/Day Years [...] 03/20/2025 11:15 AM EDT Office Visit [facility]INE [address] [place] [address] Lizabeth Felder ANP [address] [place] [address] documented as of this encounter Visit Diagnoses Not on filedocumented in this encounter Additional Health Concerns Assessment Noted Time PHQ-9 Depression Total Score: 2 02/04/20 24 2:14 PM EDT documented as of this encounter Care Teams Hadoop Software Engineer Relationship Specialty Start Date End Date Lizabeth Felder ANP [address] [place] [address] PCP - General Family Medicine 05/04/21 [facility] 08/22/24 documented as of this encounter
--- OUTSIDE RECORDS SUMMARY | 2025-02-19 10:33 | XMS_ITS | Encounter Summary ---
Author Organization [employer] Address [address] [facility] 7t [place] [address] Care Team Providers Care Welcome Wagon Hostess Name Role Phone Lizabeth Felder Primary Care Provider [phone] Reason for Visit * Reason Onset Date Comments case delivery appt 07/24/2024 Encounter Details Date Type Department Care Team ([facility] st Contact Info) Description 07/24/[address] [facility] CHC ADULT DENTAL [address] [place], [place] [phone] Juan Carlos Mooney, DMD 505 [place], [place] [phone] case delivery appt Social History Tobacco Use [...] appt scheduled for 1pm. Upon confirming with [facility] front end developer designer, it was explained that when case arrives from lab, he will receive a call to be scheduled. He was concerned about having been toldotherwise. I explained that sometimes days and times are projected but always arrival time and phone call is what patient must go by. Patient understood. documented in this encounter Plan of Treatment Upcoming Encounters Date Type Department Care Team (Late st Contact Info) Description 03/20/2025 11:15 AM EDT Office [address] [facility] MEDICINE 230 [place] [address] Lizabeth Felder ANP 230 [place] [address] documented as of this encounter Visit Diagnoses Not on filedocumented in this encounter Additional Health Concerns Assessment Noted Time PHQ-9 Depression Total Score: 2 02/04/20 24 2:14 PM EDT documented as of this encounter Care Teams Welcome Wagon Hostess Relationship Specialty Start Date End Date Lizabeth Felder ANP [address] [place] [address] PCP - General Family Medicine 05/04/21 Home Care [facility] 08/22/24 documented as of this encounter
--- OUTSIDE RECORDS SUMMARY | 2025-02-19 10:33 | XMS_ITS ---
Author Organization [employer] Address [address] [facility] 7t [place] [address] Care Team Providers Care Chemist Pharmaceutical Name Role Phone Lizabeth Felder Primary Care Provider [phone] Complex Status:Outreach In Progress (Enrolling) Start date:01/28/2025 Enrollment reason:ADT Feed Overview ED- Pt went to [facility] ED on 01/27/25. Case Team Name Relationship Phone Gail Mendes RN(Responsible Staff) Registered Nurse [phone] Continued Care and Services Coordination
--- OUTSIDE RECORDS SUMMARY | 2025-02-19 10:33 | XMS_ITS | Encounter Summary ---
Author Organization [employer] Address 75 [facility] 7t [place] [address] Care Team Providers Care Fence Builder Name Role Phone Lizabeth Felder Primary Care Provider [phone] Encounter Details Date Type Department Care Team (Late st Contact Info) Description 02/19/2025 Orders Only [facility] MEDICINE 230 [place] [address] Lizabeth Felder ANP 230 [place] [address] History of hepatitis C (Primary Dx) Social History Tobacco Use Types Packs/Day Years [...] encounter Progress Notes * ABDIFATAH Forde - 02/19/2025 8:52 AM EDT HCV VL/ next labs. Tx'd in past w/ maddie. documented in this encounter Plan of Treatment Upcoming Encounters Date Type Department Care Team (Late st Contact Info) Description 03/20/2025 11:15 AM EDT Office Visit [facility] MEDICINE [address] [place] [address] Lizabeth Felder ANP [address] [place] [address] Scheduled Orders Name Type Priority Associated Diagnoses Orde r Schedule Hepatitis C Viral RNA, Quantitative, Real-Time PCR Lab Routine History of hepatitis C Expected: 02/19/2025 (Approximate), Expires: 02/19/2026 documented as of this encounter Visit Diagnoses Diagnosis History of hepatitis C- Primary Personal history of other infectious and parasitic disease documented in this encounter Additional Health Concerns Assessment Noted Time PHQ-9 Depression Total Score: 0 12/17/19 25 11:38 AM EDT documented as of this encounter Care Teams Fence Builder Relationship Specialty Start Date End Date Lizabeth Felder ANP [address] [place] [address] PCP - General Family Medicine 05/04/21 Home Care [facility] 08/22/24 documented as of this encounter
--- OUTSIDE RECORDS SUMMARY | 2025-02-19 10:33 | XMS_ITS | Encounter Summary ---
Author Organization [employer] Address 75 [facility] 7t [place] [address] Care Team Providers Care Signal Constructor Name Role Phone Lizabeth Felder Primary Care Provider [phone] Reason for Visit * Reason Comments Med Refill Encounter Details Date Type Department Care Team ([facility] st Contact Info) Description 08/01/2023 Refill [facility] MEDICINE 230 [place] [address] Lizabeth Felder ANP 230 [place] [address] Pain Social History Tobacco Use Types Packs/Day [...] the past 12 months, has t he [employer], gas, oil or water company threatened to [...] Description 03/20/2025 11:15 AM EDT Office Visit [facility] MEDICINE [address] [place] [address] Lizabeth Felder ANP [address] [place] [address] documented as of this encounter Visit Diagnoses Diagnosis Pain Generalized pain documented in this encounter Care Teams Signal Constructor Relationship Specialty Start Date End Date Lizabeth Felder ANP [address] [place] [address] PCP - General Family Medicine 05/04/21 Home Care [facility] 08/22/24 documented as of this encounter
--- OUTSIDE RECORDS SUMMARY | 2025-02-19 10:33 | XMS_ITS | Clinical Summary ---
Author Organization [facility] Address [address] [place] [address] Care Team Providers Care Dispatcher Clerk Name Role Phone Unavailable Primary Care Provider [...] - Td or Tdap) 11/03/2020 011, 11/03/2010 [id number] ( season) 2024 021, 01/25/2021 Imm-Influenza (#1) 2024 08/06/2020, 0 07/03/2019, 07/08/2018, Additional history exists Alcohol and Drug Screen 10/08/2024 Depression Annual Screen 10/08/[address] [employer]
== END 2025-02-19 10:20 | disposition home or self-care (01) ==
LOC: HO.HOS 09:42
PROVIDERS: Visit Provider Physician Assistant
DX: S42.001A Fracture of unspecified part of right clavicle, initial encounter for closed fracture (principal)
CPT/HCPCS: 99213

== ENCOUNTER → 2025-02-19 09:43 | Outpatient (BNV) | payer MEDICAID, SELFPAY | PROVIDERS: Visit Provider Radiology Diagnostic Radiology | DX: S42.001A Fracture of unspecified part of right clavicle, initial encounter for closed fracture (principal) | CPT/HCPCS: 73000 ==

== ENCOUNTER 2025-02-19 12:18 | Outpatient (REF) | payer MEDICAID, SELFPAY ==
--- NOTE | ~2025-02-19 | XR_ITS ---
EXAMINATION: XR CLAVICLE RIGHT HISTORY: S42.009A - Fracture of unspecified part of unspecified clavicle, initial... COMPARISON: Correlation is made with plain films of the right shoulder dated 12/08/2024. FINDINGS: Two views of the right clavicle are submitted. Osseous mineralization is normal. There is evidence of healing of the previously noted oblique fracture of the distal clavicle with callus formation. 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 The soft tissues are unremarkable. XR/XR clavicle RT IMPRESSION: Healing oblique fracture of the distal clavicle. Electronically signed by: Moe Thompson MD 02/19/2025 10:50 AM EDT
--- OUTSIDE RECORDS SUMMARY | 2025-02-23 12:45 | XMS_ITS | Encounter Summary ---
Author Organization [employer] Address [address] [facility] 7t [place] [address] Care Team Providers Care Window Unit Air Conditioning Mechanic Name Role Phone Lizabeth Felder Primary Care Provider [phone] Reason for Referral * Consultation (Routine) - Authorized Specialty Diagnoses / Procedures Referred By Contwilliam t Referred To Contact Wound Care Diagnoses Chronic ulcer of lower extremity, left, with unspecified severity (CMS/HCC) Lizabeth Felder ANP 230 [place] [address] Phone: tel: fax: [facility] [address] [place] [address] Phone: tel: fax: Referral ID Status Reason Start Date Expiration Date Visits Requested Visits Authorized [id number] Authorized Specialty Services Required 02/19/2025 02/19/2026 12 12 Reason for Visit * Reason Onset Date Comments Referral 02/17/2025 Encounter Details Date Type Department Care Team (Late st Contact Info) Description 02/17/2025 Telephone [facility] MEDICINE 230 [place], [place] [phone] Lizabeth Felder ANP 230 [place], [place] [phone] Referral Social History Tobacco Use Types Packs/Day [...] EDT Ah ok, will place referral to [facility] * Telephone Encounter - ABDIFATAH [...] PM EDT Telephone call returned to Héctor JOI from [facility]. She reports that pt has recurrent vascular [...] reoccurrence of vascular ulcer Contact héctor at [phone] documented in this encounter Plan of Treatment Upcoming Encounters Date Type Department Care Team (Late st Contact Info) Description 03/20/2025 11:15 AM EDT Office Visit [facility] MEDICINE [address] [place] [address] Lizabeth Felder ANP 230 [place] [address] Pending Results Name Type Priority Associated Diagnoses Date /Time Referral to Wound Clinic Outpatient Referral Routine Chronic ulcer of lower extremity, left, with unspecified severity (CMS/HCC) 02/19/2025 Scheduled Referrals Name Type Priority Associated Diagnoses [...] documented as of this encounter Care Teams Window Unit Air Conditioning Mechanic Relationship Specialty Start Date End Date Lizabeth Felder ANP 230 [place] [address] PCP - General Family Medicine 05/04/21 Home Care [facility] 08/22/24 documented as of this encounter
--- OUTSIDE RECORDS SUMMARY | 2025-02-23 12:45 | XMS_ITS | Encounter Summary ---
Author Organization [employer] Address 75 [facility] 7t [place] [address] Care Team Providers Care Trash Collector Supervisor Name Role Phone Mauricio Coulter Primary Care Provider [phone] Reason for Referral * Consultation (Routine) - Authorized Specialty Diagnoses / Procedures Referred By Aleksandr mcdowell Referred To Contact Vascular Surgery Diagnoses Vascular insufficiency Venous ulcer (CMS/HCC) Acute deep vein thrombosis (DVT) of left lower extremity, unspecified vein (CMS/HCC) Mauricio Coulter ANP 230 [place] [address] Phone: tel: fax: Prasanth Avila MD [address] [place] [address] Phone: tel: fax: Referral ID Status Reason Start Date Expiration Date Visits Requested Visits Authorized [id number] Authorized Specialty Services Required 02/20/2025 02/20/2026 6 6 Encounter Details Date Type Department Care Team (Late st Contact Info) Description 02/19/2025 Orders Only [facility] MEDICINE 230 [place], [place] [phone] Mauricio Coulter ANP 230 [place], [place] [phone] B12 deficiency (Primary Dx); Vascular insufficiency; Venous ulcer (CMS/HCC); Acute deep vein thrombosis (DVT) of right lower extremity, unspecified vein (CMS/HCC) Social History Tobacco Use Types Packs/Day Years [...] Progress Notes * ABDIFATAH Forde - 02/19/2025 4:53 PM EDT Future Appointments Date Time Provider Department Center 03/20/2025 11:15 AM ABDIFATAH Forde MEDICINE [facility] Anemia of chronic dz, watchful Folic acid, b12 is normal - low Spoke with heme/oncology TRUCK LOADER AND UNLOADER Ramona (Carina Jones) at [facility] who recommend B12 supplementation as well as reestablishing care with vascular specialist. Patient needs to see Dr. Eden in [place] as recently as 2020 but has not seen them since. Will send new referral to establish care with [facility] for ease of coordination of care between heme/onc our office and vascular. Dr. Avila was briefly consulted on pt's case in nov 2024 while he was at ED for DVT He has a hx of venous insufficiency and is s/p left LE laser therapy on varicose veins in 2019. He must remain on eliquis/anticoagulation lifelong. Per heme, do not need to switch to lovenox as clot is resolving. Has been referred to wound car for LLE vascular ulcer. Original US below, had repeat US w/ DVT 1.6cm, improved from previous Narrative & Impression [address] [address] Ultrasound Report Signed Patient: Jerome Ledezma MR#: [id number] : 1965 Acct:[id number] Age/Sex: 59 / M ADM Date: 11/11/24 Loc: .ED Attending Dr: Ordering Physician: Kimmy Lockwood Date of Service: 11/11/24 Procedure(s): US venous duplex LE RT Accession Number(s): [id number] cc: Kimmy Lockwood; MAURICIO COULTER NP EXAMINATION: [...] communicated to Kimmy Lockwood PA-C of the [facility] via secure text 5:08 PM, 11/11/2024. Electronically signed by: Akash Ellington MD 11/11/2024 05:09 PM EST documented in this encounter Plan of Treatment Upcoming Encounters Date Type Department Care Team (Late st Contact Info) Description 03/20/2025 11:15 AM EDT Office Visit [facility] MEDICINE 230 [place] [address] Mauricio Coulter ANP 230 [place] [address] Scheduled Referrals Name Type Priority Associated Diagnoses Orde r Schedule Referral to Vascular Surgery Outpatient Referral Routine Vascular insufficiency Venous ulcer (CMS/HCC) Acute deep vein thrombosis (DVT) of right lower extremity, unspecified vein (CMS/HCC) Expected: 02/19/2025 (Approximate), Expires: 02/19/2026 documented as of this encounter Visit Diagnoses Diagnosis B12 deficiency- Primary Vascular insufficiency Unspecified circulatory system disorder Venous ulcer (CMS/HCC) Chronic ulcer of unspecified site Acute deep vein thrombosis (DVT) of right lower extremity, unspecified vein (CMS/HCC) documented in this encounter Additional Health Concerns Assessment Noted Time PHQ-9 Depression Total Score: 0 12/17/19 25 11:38 AM EDT documented as of this encounter Care Teams Trash Collector Supervisor Relationship Specialty Start Date End Date Mauricio Coulter ANP [address] [place] [address] PCP - General Family Medicine 05/04/21 Home Care [facility] 08/22/24 documented as of this encounter
--- OUTSIDE RECORDS SUMMARY | 2025-02-23 12:45 | XMS_ITS | Encounter Summary ---
Author Organization [employer] Address 75 [facility] 7t [place] [address] Care Team Providers Care Marine Engineer Name Role Phone Lizabeth Felder Primary Care Provider [phone] Encounter Details Date Type Department Care Team (Late st Contact Info) Description 02/19/2025 Orders Only [facility] 230 [place] [address] Lizabeth Felder ANP 230 [place] [address] History of hepatitis C (Primary Dx) Social [...] Description 03/20/2025 11:15 AM EDT Office Visit [facility] [address] [place] [address] Lizabeth Felder ANP [address] [place] [address] Scheduled Orders Name Type Priority Associated Diagnoses [...] documented as of this encounter Care Teams Marine Engineer Relationship Specialty Start Date End Date Lizabeth Felder ANP [address] [place] [address] PCP - General Family Medicine 05/04/21 Home Care [facility] 08/22/24 documented as of this encounter
--- OUTSIDE RECORDS SUMMARY | 2025-02-23 12:45 | XMS_ITS | Encounter Summary ---
Author Organization [employer] Address 75 [facility] 7t [place] [address] Care Team Providers Care Florist Name Role Phone Lizabeth Felder Primary Care Provider [phone] Reason for Visit * Reason Onset Date Comments case delivery appt 07/24/2024 Encounter Details Date Type Department Care Team ([facility] st Contact Info) Description 07/24/2024 Telephone [facility] CHC ADULT DENTAL 505 [place], [place] [phone] Juan Carlos Mooney, DMD 505 [place], [place] [phone] case delivery appt Social History Tobacco Use [...] appt scheduled for 1pm. Upon confirming with [facility] front end engineer, it was explained that when case arrives [...] Description 03/20/2025 11:15 AM EDT Office Visit [facility] MEDICINE 230 [place] [address] Lizabeth Felder ANP 230 [place] [address] documented as of this encounter Visit Diagnoses Not on filedocumented in this encounter Additional Health Concerns Assessment Noted Time PHQ-9 Depression Total Score: 2 02/04/20 24 2:14 PM EDT documented as of this encounter Care Teams Florist Relationship Specialty Start Date End Date Lizabeth Felder ANP [address] [place] [address] PCP - General Family Medicine 05/04/21 Home Care [facility] 08/22/24 documented as of this encounter
--- OUTSIDE RECORDS SUMMARY | 2025-02-23 12:45 | XMS_ITS | Encounter Summary ---
Author Organization [employer] Address 75 [facility] 7t [place] [address] Care Team Providers Care Director Internal Communications Name Role Phone Lizabeth Felder Primary Care Provider [phone] Reason for Visit * Reason Comments Med Refill Encounter Details Date Type Department Care Team ([facility] st Contact Info) Description 08/01/2023 Refill [facility] MEDICINE 230 [place] [address] Lizabeth Felder ANP 230 [place] [address] Pain Social History Tobacco Use Types Packs/Day [...] the past 12 months, has t he [employer], gas, oil or water company threatened to [...] Description 03/20/2025 11:15 AM EDT Office Visit [facility] MEDICINE [address] [place] [address] Lizabeth Felder ANP [address] [place] [address] documented as of this encounter Visit Diagnoses Diagnosis Pain Generalized pain documented in this encounter Care Teams Director Internal Communications Relationship Specialty Start Date End Date Lizabeth Felder ANP [address] [place] [address] PCP - General Family Medicine 05/04/21 Home Care [facility] 08/22/24 documented as of this encounter
--- OUTSIDE RECORDS SUMMARY | 2025-02-23 12:45 | XMS_ITS ---
Author Organization [employer] Address 75 [facility] 7t [place] [address] Care Team Providers Care Correspondent Name Role Phone Lizabeth Felder Primary Care Provider [phone] CHW Complex Status:Outreach In Progress (Enrolling) Start date:01/28/2025 Enrollment reason:ADT Feed Overview ED- Pt went to [facility] ED on 01/27/25. Please outreach for enrollment. Case Team Name Relationship Phone Isadora Aburto(Responsible Staff) [phone] Continued Care and Services Coordination
--- OUTSIDE RECORDS SUMMARY | 2025-02-23 12:45 | XMS_ITS | Clinical Summary ---
Author Organization [employer] Address [address] [facility] 7t [place] [address] Care Team Providers Care Treasury Manager Name Role Phone Mauricio Coulter Primary Care Provider [phone] Allergies No known active allergies Medications fluticasone [...] FOOD 60 tablet 2 02/11/20 25 Active cyanocobalamin (Vitamin B-12) 1000 MCG tabletIndications :B12 deficiency Take 1 tablet (1,000 mcg) by mouth Once per day. 90 tablet 3 02/20/20 25 026 Active ibuprofen 800 MG tabletIndications :Pain TAKE [...] hypertensive heart disease. CTA was done at [facility] 04/30/24 and showed no hemodynamically significant CAD. [facility] cards will outreach pt for follow-up. High [...] in remission 07/08/2018 Deep venous thrombosis 07/08/2018 Overview (02/19/2025): Per heme, patient must remain on anticoagulation lifelong. 02/19/25 Heme onc recommend continuation of Eliquis and not switching to Lovenox as left lower extremity DVT is resolving. Epilepsy, not refractory 07/08/2018 Overview (04/17/2024): In [...] Department Care Team Description 02/19/2025 Orders Only [facility] [address] [place] [address] Mauricio Coulter ANP B12 deficiency (Primary Dx); Vascular insufficiency; Venous ulcer (CMS/HCC); Acute deep vein thrombosis (DVT) of right lower extremity, unspecified vein (CMS/HCC) 02/19/2025 Orders Only [address] [address] Mauricio Coulter ANP History of hepatitis C (Primary Dx) 02/18/2025 Telephone [facility] [address] [place] [address] Mauricio Coulter ANP 02/17/[address] [address] Mauricio Coulter ANP Referral 02/13/2025 Telephone [facility] [address] [place] [address] Mauricio Coulter ANP Follow-up 02/12/[address] [address] Shila Mckeon RN 02/11/2025 Patient Outreach [address] [address] Mauricio Coulter ANP 02/11/2025 Patient Outreach [address] [address] Mauricio Coulter ANP 02/09/[address] [address] Mauricio Coulter ANP Pain 02/04/2025 Patient Outreach [facility] [address] [place] [address] Mauricio Coulter ANP 02/04/2025 Patient Outreach [address] [address] Mauricio Coulter ANP 02/03/2025 Telephone [facility] [address] [place] [address] Mauricio Coulter ANP ultrasound report/ DVT 02/03/2025 Patient Outreach [address] [address] Mauricio Coulter ANP Care Coordination (CM/CHW outreach) 01/30/2025 11:30 AM EDT Office Visit [address] [address] Mauricio Coulter ANP Acute pain of right shoulder (Primary Dx); Edema of both legs; Daytime somnolence; Acute midline low back pain without sciatica; Onychomycosis 01/30/2025 11:15 AM EDT Office Visit [address] [address] Mauricio Coulter ANP Acute pain of right shoulder (Primary Dx); Acute midline low back pain without sciatica 01/30/2025 Travel 01/29/[address] [address] Kandy Flores [place] CHART PREP 01/29/[address] [address] Mauricio Coulter ANP 01/29/[address] [address] Mauricio Coulter ANP ER Follow-up 01/29/2025 Patient Outreach [address] [address] Mauricio Coulter ANP Care Coordination (CM/CHW outreach) 01/28/2025 Patient Outreach [address] [address] Mauricio Coulter ANP Care Coordination (CHW Chart Review) 01/28/2025 Patient Outreach [address] [address] Mauricio Coulter ANP Care Management (C3CM- chart review) 01/28/2025 Patient Outreach [address] [address] Mauricio Coulter ANP 01/16/2025 1:40 PM EDT Office Visit [facility] [address] [place] [address] [place] [address] Karyn Walker NP Left leg pain (Primary Dx); Cellulitis of left lower extremity 01/16/2025 Travel 01/09/2025 1:30 PM EDT Office Visit [facility] [address] [place] [address] YaimaElieser kimble, DDS 01/07/2025 9:00 AM EDT Office Visit [facility] [address] [place] [address] Christopher Patel, DMD 12/19/2024 Population Health Risk Score [facility] () Department [address] [place] [phone] Provider, Population Health Generic 12/16/2024 11:15 AM EDT Office Visit [facility] [address] [place] [address] Mauricio Coulter ANP Closed nondisplaced fracture of acromial end of right clavicle with routine healing, subsequent encounter (Primary Dx); Epilepsy, not refractory (CMS/HCC); Acute deep vein thrombosis (DVT) of distal vein of right lower extremity (CMS/HCC) 12/16/2024 Travel 12/08/2024 Telephone [facility] [address] [place] [address] Mauricio Coulter ANP FYI from Last 3 [...] Description 03/20/2025 11:15 AM EDT Office Visit [facility] [address] [place] [address] Mauricio Coulter ANP [address] [place] [address] Health Maintenance Due Date Last Done Comments [...] 04/2 06/2024 Depression Screening 12/16/2025 12/16/2024, 12/17/19 SDOH Screening 12/16/2025 12/16/2024 Tobacco Screening 01/30/2026 01/30/2025 Dental X-Ray: Full Mouth 06/13/2027 06/12/2024, 11/0 01/2020 Lipid Panel 10/13/2029 10/13/2024, 09/07, 02/04/2024, [...] Procedure Name Priority Date/Time Associated Diagnosis Comments [facility] LOWER EXTREMITY VENOUS DUPLEX BILATERAL Urgent 02/03/2025 [...] Recently Relevant to Health Maintenance Results * [facility] Lower Extremity Venous Duplex Bilateral (02/03/2025 1:33 PM EDT) 02/03/2025 1:33 PM EDT Narrative [facility] - 02/03/2025 3:46 PM EDT ? [facility] ?[address] ?[place] [address] ? Ultrasound Report ? Signed ? Patient: Naylor Cam,Jerome ?MR#: ?? [id number] ? : 1965 ?Acct:[id number] ? Age/Sex: 59 / M ?ADM Date: 04/29/25 ? Loc: HO.US ? Attending Dr: Mauricio Coulter NP ? Ordering Physician: MAURICIO COULTER NP ?? Date of Service: 02/03/25 ?? Procedure(s): US venous duplex LE BI ?? Accession Number(s): [id number] ? cc: MAURICIO COULTER NP ? EXAMINATION: [...] ? There is no Santamaria's cyst. ? US/ venous duplex LE BI ?? IMPRESSION: ?? [...] DD/ 1333 ? TD/TT: 02/03/25 1408 ? Stuffed Casing Tier: ? Procedure Note Teri López - 02/03/[address] [address] Ultrasound Report Signed Patient: Mukul Ledezma#: [id number] : 1965Acct:[id number] Age/Sex: 59 / MADM Date: 02/03/25 Loc: HO.US Attending Dr: Mauricio Coulter NP Ordering Physician: MAURICIO COULTER NP Date of Service: 02/03/25 Procedure(s): US venous duplex LE BI Accession Number(s): [id number] cc: COULTER,MAURICIO STUDENT DEVELOPMENT COORDINATOR EXAMINATION: US TRIPLEX LOWER EXTREMITY, BILATERAL CLINICAL [...] 02/03/2025 03:43 PM EDT RP Dictated By: Jsutus Duggan MD Signed By: <Electronically signed by Justus Solis MDin OV> 02/03/25 1543 DD/ 1333 TD/TT: 02/03/25 1408 Stuffed Casing Tier: us Mauricio Coulter ANP CV VASCULAR PROCEDURES Final Res ult [facility] [address] [place] [phone] * (ABNORMAL) Lipid Panel, Standard (10/13/2024 1:45 PM EST) Triglycerides 126 <150 mg/dL [facility] Comment:Desirable Triglyceri de: less than 150 mg/dLBorderline High Triglyceride 150-199 mg/dLHigh Triglyceride: 200-499 mg/dLVery High Triglyceride: greater than or equal to 5OO mg/dL Cholesterol 213(H) <200 mg/dL [facility] Comment:Desirable Cholestero l: less than 200 mg/dLBorderline High Cholesterol: 200-239 mg/dLHigh Cholesterol: greater than 239 mg/dL LDL Cholesterol Calculated 134(H) <100 mg/dL [facility] Comment:Desirable LDL: less than 100 mg/dLNear Optimal/Above Optimal LDL: 110- 129 mg/dLBorderline High LDL: 130-159 mg/dLHigh LDL: 160-189 mg/dLVery High LDL: greater than or equal to 190 mg/dL HDL Cholesterol 54 >40 mg/dL [facility] Comment:Desirable HDL: great er than 40 mg/dL Note: This HDL assay may give artificially low results in patients with liver disease. 10/13/2024 1:45 PM EST 10/13/2024 1:45 PM EST us Generic External Data Provider LAB BLOOD ORDERAB LES Final Result [facility] [address] [place] [phone] * HIV-1/2 Antigen and Antibodies, Fourth Generation, with Reflexes (09/22/2024 3:37 PM EST) HIV AB/AG Nonreactive Nonreactive [facility] Comment:HIV-1 p24 Ag and/or HIV-1/HIV-2 Ab not detected.A test result that is nonreactive does not exclude thepossibility of exposure to or infection with HIV-1 and/orHIV-2. Nonreactive results in this assay for individualswith prior exposure to HIV-1 and/or HIV-2 may be due toantigen and antibody levels that are below the limit ofdetection of this assay.The [facility] HIV Ag/Ab Combo assay result andsupplemental assay results should be interpreted inconjunction with the patient's clinical presentation,history and other laboratory results. If the results areinconsistent with clinical evidence, additional testing issuggested to confirm the result. Blood Venous blood specimen / Unknown 09/22/2024 3:37 PM EST 09/22/2024 4:23 PM EST Mauricio Coulter ANP LAB BLOOD ORDERABLES Final Resul t Performing Organization Address [facility]/ZIP Co de Phone Number [facility] [address] [place] [address] [phone] * Hemoglobin A1c (09/22/2024 3:37 PM EST) Hemoglobin A1c 5.9 <6.0 % [facility] Comment:Hemoglobin A1C Refer ence Range Adults: 4.8 - 6.0 % Non diabetic: < 6.0 % Goal: < 7.0 %Additional Action Suggested: > 8.0 %Note: Hemoglobin A1c results are invalid for patients with abnormal amounts of HbF. Blood transfusions may impact the HbA1c concentration in the patient sample. Estimated Average Glucose 123 mg/dL [facility] Comment:eAG = Estimated ave rage glucose which is %A1C expressed asaverage glucose, using the formula of the S9Z-[id number] Glucose study (ADAG), Diabetes Care, Vol.31,#8,May. 2007 Blood Venous blood specimen / Unknown 09/22/2024 3:37 PM EST 09/22/2024 4:23 PM EST Mauricio Coulter ANP LAB BLOOD ORDERABLES Final Resul t Performing Organization Address [facility] Co de Phone Number [facility] [address] [place] [address] [phone] * HM Fecal Immunochemical Test (09/21/2020) Fecal Immunochemical Test Nonreactive Borderline, Nonreactive , Weakly Reactive Stool Rectal contents / Unknown 09/21/2020 Historical Provider HEALTH MAINTENANCE Final Result from Last 3 Months or Most Recently Relevant to Health Maintenance Insurance [employer] [facility] MEDICAID STAND ADULT [place] Care Teams Treasury Manager Relationship Specialty Start Date End Date Mauricio Coulter ANP [address] [place] [address] PCP - General Family Medicine 05/04/21 Home Care [facility] 08/22/24
--- OUTSIDE RECORDS SUMMARY | 2025-02-23 12:45 | XMS_ITS | Encounter Summary ---
Author Organization [employer] Address [address] [facility] [address] [place] [address] Care Team Providers Care Hooker Laster Name Role Phone Lizabeth Felder Primary Care Provider [phone] Encounter Details Date Type Department Care Team (Late st Contact Info) Description 04/03/2024 Telephone [facility] [address] [place], [place] [phone] Lizabeth Felder ANP [address] [place] [address] Social History Tobacco Use Types Packs/Day Years [...] 11:15 AM EDT Office Visit [facility] [address] [place] [address] Lizabeth Felder ANP [address] [place] [address] documented as of this encounter Visit Diagnoses Not on filedocumented in this encounter Additional Health Concerns Assessment Noted Time PHQ-9 Depression Total Score: 2 02/04/20 24 2:14 PM EDT documented as of this encounter Care Teams Hooker Laster Relationship Specialty Start Date End Date Lizabeth Felder ANP [address] [place] [address] PCP - General Family Medicine 05/04/21 Home [facility] 08/22/24 documented as of this encounter
--- OUTSIDE RECORDS SUMMARY | 2025-02-23 12:45 | XMS_ITS | Encounter Summary ---
Author Organization [employer] Address [address] [facility] 7t [place] [address] Care Team Providers Care Tenant Coordinator Name Role Phone Lizabeth Felder Primary Care Provider [phone] Encounter Details Date Type Department Care Team (Late st Contact Info) Description 02/18/2025 Telephone [facility] [address] [place], [place] [phone] Lizabeth Felder ANP [address] [place] [address] Social History Tobacco Use Types Packs/Day Years [...] Telephone Encounter - ABDIFATAH Forde - 02/19/2025 4:41 PM EDT Called, did not get through yesterday. Sent tigertext today. * Telephone Encounter - Mary Watts - 02/18/2025 4:07 PM EDT Tc from [facility] regarding pt visit to [facility]. [facility] is requisting to speak with Lizabeth Felder abou pt visit. Contact at [phone] documented in this encounter Plan of Treatment Upcoming Encounters Date Type Department Care Team (Late st Contact Info) Description 03/20/2025 11:15 AM EDT Office Visit [facility] [address] [place] [address] Lizabeth Felder ANP [address] [place] [address] documented as of this encounter Visit Diagnoses Not on filedocumented in this encounter Additional Health Concerns Assessment Noted Time PHQ-9 Depression Total Score: 0 12/17/19 25 11:38 AM EDT documented as of this encounter Care Teams Tenant Coordinator Relationship Specialty Start Date End Date Lizabeth Felder ANP [address] [place] [address] PCP - General Family Medicine 05/04/21 Home Care [facility] 08/22/24 documented as of this encounter
--- OUTSIDE RECORDS SUMMARY | 2025-02-23 12:45 | XMS_ITS | Clinical Summary ---
Author Organization [facility] Address [address] [place] [address] Care Team Providers Care Teacher Of The Visually Impaired Name Role Phone Unavailable Primary Care Provider [...] - Td or Tdap) 11/03/2020 011, 11/03/2010 [id number] ( season) 2024 021, 01/25/2021 Imm-Influenza (#1) 2024 08/06/2020, 0 07/03/2019, 07/08/2018, Additional history exists Alcohol and Drug Screen 10/08/2024 Depression Annual Screen 10/08/[address] [employer]
--- OUTSIDE RECORDS SUMMARY | 2025-02-23 12:45 | XMS_ITS | Encounter Summary ---
Author Organization [employer] Address [address] [facility] 7t [place] [address] Care Team Providers Care Theatre Manager Name Role Phone Lizabeth Felder ABDIFATAH Primary Care Provider [phone] Reason for Visit * Reason Onset Date Comments returning call for os appt 10/29/2024 Encounter Details Date Type Department Care Team (Late st Contact Info) Description 10/29/2024 Telephone [facility] [address] [place], [place] [phone] Christopher Patel, DMD [address] [place], [place] [phone] returning call for os appt Social History [...] Description 03/20/2025 11:15 AM EDT Office Visit [facility] [address] [place] [address] Lizabeth Felder ANP [address] [place] [address] documented as of this encounter Visit Diagnoses Not on filedocumented in this encounter Additional Health Concerns Assessment Noted Time PHQ-9 Depression Total Score: 2 02/04/20 24 2:14 PM EDT documented as of this encounter Care Teams Theatre Manager Relationship Specialty Start Date End Date Lizabeth Felder ANP [address] [place] [phone] PCP - General Family Medicine 05/04/21 Home Care [facility] 08/22/24 documented as of this encounter
--- OUTSIDE RECORDS SUMMARY | 2025-02-23 12:45 | XMS_ITS ---
Author Organization [employer] Address [address] [facility] 7t [place] [address] Care Team Providers Care Police Communications Dispatcher Name Role Phone Lizabeth Felder Primary Care Provider [phone] CM Complex Status:Outreach In Progress (Enrolling) Start date:01/28/2025 Enrollment reason:ADT Feed Overview ED- Pt went to [facility] ED on 01/27/25. Case Team Name Relationship Phone Gail Mendes RN(Responsible Staff) Registered Nurse [phone] Continued Care and Services Coordination
== END 2025-02-19 12:19 | disposition home or self-care (01) ==
LOC: HO.HOSX 12:18
PROVIDERS: Visit Provider Physician Assistant
DX: S42.001A Fracture of unspecified part of right clavicle, initial encounter for closed fracture (principal); W18.30XA Fall on same level, unspecified, initial encounter; Y93.9 Activity, unspecified; Y92.9 Unspecified place or not applicable; Y99.9 Unspecified external cause status
CPT/HCPCS: 73000; 99212

== ENCOUNTER → 2025-02-25 19:30 | Outpatient (REF) | payer MEDICAID, SELFPAY ==
--- OUTSIDE RECORDS SUMMARY | 2025-02-25 21:32 | XMS_ITS | Clinical Summary ---
Author Organization [facility] Address [address] [place] [address] Care Team Providers Care Recruitment And Outreach Assistant Name Role Phone Unavailable Primary Care Provider [...] - Td or Tdap) 11/03/2020 011, 11/03/2010 [id number] ( season) 2024 021, 01/25/2021 Imm-Influenza (#1) 2024 08/06/2020, 0 07/03/2019, 07/08/2018, Additional history exists Alcohol and Drug Screen 10/08/2024 Depression Annual Screen 10/08/[address] A[employer]
--- OUTSIDE RECORDS SUMMARY | 2025-02-25 21:32 | XMS_ITS | Clinical Summary ---
Author Organization [employer] Address [address] [facility] 7t [place] [address] Care Team Providers Care Produce Sorter Name Role Phone Mauricio Coulter Primary Care Provider [phone] Allergies No known active allergies Medications fluticasone [...] 04/30/24 and showed no hemodynamically significant CAD. [facility] cards will outreach pt for follow-up. High [...] Department Care Team Description 02/19/2025 Orders Only [facility] [address] [place] [phone] Mauricio Coulter ANP B12 deficiency (Primary Dx); Vascular insufficiency; Venous ulcer (CMS/HCC); Acute deep vein thrombosis (DVT) of right lower extremity, unspecified vein (CMS/HCC) 02/19/2025 Orders Only [address] [address] Mauricio Coulter ANP History of hepatitis C (Primary Dx) 02/18/2025 Telephone [facility] [address] [place] [address] Mauricio Coulter ANP 02/17/[address] [address] Mauricio Coulter ANP Referral 02/13/2025 Telephone [facility] [address] [place] [address] Mauricio Coulter ANP Follow-up 02/12/[address] [address] Shila Mckeon RN 02/11/2025 Patient Outreach [address] [address] Mauricio Coulter ANP 02/11/2025 Patient Outreach [address] [address] Mauricio Coulter ANP 02/09/[address] [address] Mauricio Coulter ANP Pain 02/04/2025 Patient Outreach [address] [address] Mauricio Coulter ANP 02/04/2025 Patient Outreach [address] [address] Mauricio Coulter ANP 02/03/2025 Telephone [facility] [address] [place] [address] Mauricio Coulter ANP ultrasound report/ DVT 02/03/2025 Patient Outreach [address] [address] Mauricio Coulter ANP Care Coordination (CM/CHW outreach) 01/30/2025 11:30 AM EDT Office Visit [address] [address] Mauricio Coulter ANP Acute pain of right shoulder (Primary Dx); Edema of both legs; Daytime somnolence; Acute midline low back pain without sciatica; Onychomycosis 01/30/2025 11:15 AM EDT Office Visit [address] [address] Mauricio Coulter ANP Acute pain of right shoulder (Primary Dx); Acute midline low back pain without sciatica 01/30/2025 Travel 01/29/[address] [address] Kandy Flores MA CHART PREP 01/29/[address] [address] Mauricio Coulter ANP 01/29/[address] [address] Mauricio Coulter ANP ER Follow-up 01/29/2025 Patient Outreach [address] [address] Mauricio Coulter ANP Care Coordination (CM/CHW outreach) 01/28/2025 Patient Outreach [address] [address] Mauricio Coulter ANP Care Coordination (CHW Chart Review) 01/28/2025 Patient Outreach [address] [address] Mauricio Coulter ANP Care Management (C3CM- chart review) 01/28/2025 Patient Outreach [address] [address] Mauricio Coulter ANP 01/16/2025 1:40 PM EDT Office Visit [facility] [address] [place] [address] Karyn Walker NP Left leg pain (Primary Dx); Cellulitis of left lower extremity 01/16/2025 Travel 01/09/2025 1:30 PM EDT Office Visit [facility] [address] [place] [address] Elieser Erwin, DDS 01/07/2025 9:00 AM EDT Office Visit [facility] [address] [place] [address] Christopher Patel, DMD 12/19/2024 Population Health Risk Score [facility] () Department [address] [place] [phone] Provider, Population Health Generic 12/16/2024 11:15 AM EDT Office Visit [facility] [address] [place] [address] Mauricio Coulter ANP Closed nondisplaced fracture of acromial end of right clavicle with routine healing, subsequent encounter (Primary Dx); Epilepsy, not refractory (CMS/HCC); Acute deep vein thrombosis (DVT) of distal vein of right lower extremity (CMS/HCC) 12/16/2024 Travel 12/08/2024 Telephone [facility] [address] [place] [address] Mauricio Coulter ANP FYI from Last 3 [...] Description 03/20/2025 11:15 AM EDT Office Visit [facility] [address] [place] [address] Mauricio Coulter ANP [address] [place] [address] Health Maintenance Due Date Last Done Comments [...] 12/16/2025 12/16/2024, 12/17/19 SDOH Screening 12/16/2025 12/16/2024 Disability Screening 01/30/2026 01/30/2025 Tobacco Screening 01/30/2026 01/30/2025 Dental X-Ray: Full [...] Procedure Name Priority Date/Time Associated Diagnosis Comments [facility] LOWER EXTREMITY VENOUS DUPLEX BILATERAL Urgent 02/03/2025 [...] Recently Relevant to Health Maintenance Results * [facility] Lower Extremity Venous Duplex Bilateral (02/03/2025 1:33 PM EDT) 02/03/2025 1:33 PM EDT Narrative [facility] - 02/03/2025 3:46 PM EDT ? [facility] ?[address] ?[place] [address] ? Ultrasound Report ? Signed ? Patient: Naylor Cam,Jerome ?MR#: ?? [id number] ? : 1965 ?Acct:[id number] ? Age/Sex: 59 / M ?ADM Date: 04/29/25 ? Loc: HO.US ? Attending Dr: Mauricio Coulter NP ? Ordering Physician: MAURICIO COULTER NP ?? Date of Service: 02/03/25 ?? Procedure(s): US venous duplex LE BI ?? Accession Number(s): [id number] ? cc: MAURICIO COULTER NP ? EXAMINATION: [...] February 03, 2025. ? Electronically signed by: ??Justsu Lanier MD ??02/03/2025 03:43 PM ?? EDT ? Dictated By: ?Justus Duggan MD ? Signed By: ?<Electronically signed by Justus Solis MD in OV> ? 02/03/25 1543 ? DD/ 1333 ? TD/TT: 02/03/25 1408 ? Counterperson: ? Procedure Note Rene, Image - 02/03/[address] [address] Ultrasound Report Signed Patient: Mukul Ledezma#: [id number] : 1965Acct:[id number] Age/Sex: 59 / MADM Date: 02/03/25 Loc: JAYLEEN.US Attending Dr: Mauricio Coulter CANVASSING MANAGER Ordering Physician: MAURICIO COULTER NP Date of Service: 02/03/25 Procedure(s): US venous duplex LE BI Accession Number(s): [id number] cc: MAURICIO COULTER NP EXAMINATION: US TRIPLEX [...] 02/03/25 1543 DD/ 1333 TD/TT: 02/03/25 1408 Counterperson: us Mauricio Coulter ANP CV VASCULAR PROCEDURES Final Res ult [facility] [address] [place] [address] * (ABNORMAL) Lipid Panel, Standard (10/13/2024 1:45 PM EST) Triglycerides 126 <150 mg/dL [facility] Comment:Desirable Triglyceri de: less than 150 mg/dLBorderline High Triglyceride 150-199 mg/dLHigh Triglyceride: 200-499 mg/dLVery High Triglyceride: greater than or equal to 5OO mg/dL Cholesterol 213(H) <200 mg/dL [facility] Comment:Desirable Cholestero l: less than 200 mg/dLBorderline High Cholesterol: 200-239 mg/dLHigh Cholesterol: greater than 239 mg/dL LDL Cholesterol Calculated 134(H) <100 mg/dL [facility] Comment:Desirable LDL: less than 100 mg/dLNear Optimal/Above Optimal LDL: 110- 129 mg/dLBorderline High LDL: 130-159 mg/dLHigh LDL: 160-189 mg/dLVery High LDL: greater than or equal to 190 mg/dL HDL Cholesterol 54 >40 mg/dL [facility] Comment:Desirable HDL: great er than 40 mg/dL Note: This HDL assay may give artificially low results in patients with liver disease. 10/13/2024 1:45 PM EST 10/13/2024 1:45 PM EST us Generic External Data Provider LAB BLOOD ORDERAB LES Final Result [facility] [address] [place] [phone] * HIV-1/2 Antigen and Antibodies, Fourth Generation, with Reflexes (09/22/2024 3:37 PM EST) HIV AB/AG Nonreactive Nonreactive [facility] Comment:HIV-1 p24 Ag and/or HIV-1/HIV-2 Ab not detected.A test result that is nonreactive does not exclude thepossibility of exposure to or infection with HIV-1 and/orHIV-2. Nonreactive results in this assay for individualswith prior exposure to HIV-1 and/or HIV-2 may be due toantigen and antibody levels that are below the limit ofdetection of this assay.The Addictive HIV Ag/Ab Combo assay result andsupplemental assay results should be interpreted inconjunction with the patient's clinical presentation,history and other laboratory results. If the results areinconsistent with clinical evidence, additional testing issuggested to confirm the result. Blood Venous blood specimen / Unknown 09/22/2024 3:37 PM EST 09/22/2024 4:23 PM EST Mauricio Coulter ANP LAB BLOOD ORDERABLES Final Resul t Performing Organization Address [facility]/ZIP Co de Phone Number [facility] [address] [place] [address] [phone] * Hemoglobin A1c (09/22/2024 3:37 PM EST) Hemoglobin A1c 5.9 <6.0 % [facility] Comment:Hemoglobin A1C Refer ence Range Adults: 4.8 - 6.0 % Non diabetic: < 6.0 % Goal: < 7.0 %Additional Action Suggested: > 8.0 %Note: Hemoglobin A1c results are invalid for patients with abnormal amounts of HbF. Blood transfusions may impact the HbA1c concentration in the patient sample. Estimated Average Glucose 123 mg/dL [facility] Comment:eAG = Estimated ave rage glucose which is %A1C expressed asaverage glucose, using the formula of the M1E-CwoklrfUtmyjbs Glucose study (ADAG), Diabetes Care, Vol.31,#8,May. 2007 Blood Venous blood specimen / Unknown 09/22/2024 3:37 PM EST 09/22/2024 4:23 PM EST Mauricio Coulter ANP LAB BLOOD ORDERABLES Final Resul t Performing Organization Address [facility]/ZIP Co de Phone Number [facility] [address] [place] [address] [phone] * HM Fecal Immunochemical Test (09/21/2020) Fecal Immunochemical Test Nonreactive Borderline, Nonreactive , Weakly Reactive Stool Rectal contents / Unknown 09/21/2020 Historical Provider HEALTH MAINTENANCE Final Result from Last 3 Months or Most Recently Relevant to Health Maintenance Insurance [facility] C3 Care Teams Produce Sorter Relationship Specialty Start Date End Date Mauricio Coulter ANP [address] [place] [phone] PCP - General Family Medicine 05/04/21 Home Care [facility] 08/22/24
--- OUTSIDE RECORDS SUMMARY | 2025-02-25 21:32 | XMS_ITS | Encounter Summary ---
Author Organization [employer] Address [address] [facility] 7t [place] [address] Care Team Providers Care Speech And Language Tutor Name Role Phone Lizabeth Felder Primary Care Provider Reason for Visit * Reason Onset Date Comments case delivery appt 07/24/2024 Encounter Details Date Type Department Care Team ([facility] st Contact Info) Description 07/24/2024 Telephone [facility] [address] [place], [place] [phone] Juan Carlos Mooney, DMD [address] [place], [place] [phone] case delivery appt Social History Tobacco Use [...] appt scheduled for 1pm. Upon confirming with [facility] front end software developer, it was explained that when case [...] 11:15 AM EDT Office Visit [facility] [address] [place] [address] Lizabeth Felder ANP [address] [place] [address] documented as of this encounter Visit Diagnoses Not on filedocumented in this encounter Additional Health Concerns Assessment Noted Time PHQ-9 Depression Total Score: 2 02/04/20 24 2:14 PM EDT documented as of this encounter Care Teams Speech And Language Tutor Relationship Specialty Start Date End Date Lizabeth Felder ANP [address] [place] [phone] PCP - General Family Medicine 05/04/21 Home Care [facility] 08/22/24 documented as of this encounter
--- OUTSIDE RECORDS SUMMARY | 2025-02-25 21:32 | XMS_ITS ---
Author Organization [employer] Address [address] [facility] 7t [place] [address] Care Team Providers Care Cooker Sulfate Name Role Phone Lizabeth Felder Primary Care Provider [phone] CHW Complex Status:Outreach In Progress (Enrolling) Start date:01/28/2025 Enrollment reason:ADT Feed Overview ED- Pt went to [facility] ED on 01/27/25. Please outreach for enrollment. Case Team Name Relationship Phone Isadora Aburto(Responsible Staff) [phone] Continued Care and Services Coordination
--- OUTSIDE RECORDS SUMMARY | 2025-02-25 21:32 | XMS_ITS ---
Author Organization [employer] Address [address] [facility] 7t [place] [address] Care Team Providers Care Roof Assembler Name Role Phone Lizabeth Felder Primary Care Provider [phone] CM Complex Status:Outreach In Progress (Enrolling) Start date:01/28/2025 Enrollment reason:ADT Feed Overview ED- Pt went to [facility] ED on 01/27/25. Case Team Name Relationship Phone Gail Mendes RN(Responsible Staff) Registered Nurse [phone] Continued Care and Services Coordination
--- OUTSIDE RECORDS SUMMARY | 2025-02-25 21:33 | XMS_ITS | Encounter Summary ---
Author Organization [employer] Address [address] [facility] 7t [place] [address] Care Team Providers Care Meter Engineer Name Role Phone Lizabeth Felder Primary Care Provider [phone] Reason for Visit * Reason Onset Date Comments returning call for os appt 10/29/2024 Encounter Details Date Type Department Care Team (Late st Contact Info) Description 10/29/2024 Telephone [facility] [address] [place], [place] [phone] Christopher Patel, DMD [address] [place], [place] [phone] returning call for os appt Social History [...] Description 03/20/2025 11:15 AM EDT Office Visit [facility] [address] [place] [address] Lizabeth Felder ANP [address] [place] [address] documented as of this encounter Visit Diagnoses Not on filedocumented in this encounter Additional Health Concerns Assessment Noted Time PHQ-9 Depression Total Score: 2 02/04/20 24 2:14 PM EDT documented as of this encounter Care Teams Meter Engineer Relationship Specialty Start Date End Date Lizabeth Felder ANP [address] [place] [address] PCP - General Family Medicine 05/04/21 Home Care [facility] 08/22/24 documented as of this encounter
--- OUTSIDE RECORDS SUMMARY | 2025-02-25 21:33 | XMS_ITS | Encounter Summary ---
Author Organization [employer] Address [address] [facility] 7t [place] [address] Care Team Providers Care Pelt Inspector Name Role Phone Lizabeth Felder Primary Care Provider [phone] Reason for Visit * Reason Comments Med Refill Encounter Details Date Type Department Care Team ([facility] st Contact Info) Description 08/01/2023 Refill [facility] [address] [place] [address] Lizabeth Felder ANP [address] [place] [address] Pain Social History Tobacco Use Types Packs/Day Years Used Date Smoking Tobacco: Never Passive Smoke Exposure: Never Smokeless Tobacco: Never Alcohol Use Standard Drinks/Week Comments Not Currently 0 (1 standard drink = 0.6 oz pur e alcohol) PHQ-2 Answer Date Recorded Patient Health Questionnaire-2 Score 0 09/21/2022 Housing Stability Answer Date Recorded What is your housing situation today? I have bridgetterip mena 07/24/[address] you [...] the past 12 months, has t he [employer] oil or water company threatened to shut [...] 11:15 AM EDT Office Visit [facility] [address] [place] [address] Lizabeth Felder ANP [address] [place] [address] documented as of this encounter Visit Diagnoses Diagnosis Pain Generalized pain documented in this encounter Care Teams Pelt Inspector Relationship Specialty Start Date End Date Lizabeth Felder ANP [address] [place] [address] PCP - General Family Medicine 05/04/21 Home Care [facility] 08/22/24 documented as of this encounter
--- OUTSIDE RECORDS SUMMARY | 2025-02-25 21:33 | XMS_ITS | Encounter Summary ---
Author Organization [employer] Address [address] [facility] 7t [place] [address] Care Team Providers Care Certified Addiction Counselor Name Role Phone Lizabeth Felder Primary Care Provider [phone] Encounter Details Date Type Department Care Team (Late st Contact Info) Description 04/03/2024 Telephone [facility] [address] [place], [place] [phone] Lizabeth Felder ANP [address] [place], [place] [phone] Social History Tobacco Use Types Packs/Day Years [...] Description 03/20/2025 11:15 AM EDT Office Visit [facility] [address] [place] [address] Lizabeth Felder ANP [address] [place] [address] documented as of this encounter Visit Diagnoses Not on filedocumented in this encounter Additional Health Concerns Assessment Noted Time PHQ-9 Depression Total Score: 2 02/04/20 24 2:14 PM EDT documented as of this encounter Care Teams Certified Addiction Counselor Relationship Specialty Start Date End Date Lizabeth Felder ANP [address] [place] [address] PCP - General Family Medicine 05/04/21 Home Care [facility] 08/22/24 documented as of this encounter
== END ==
LOC: HO.SL 19:30
PROVIDERS: PCP Nurse Practitioner Primary Care; Visit Provider Nurse Practitioner Primary Care
DX: Z13.89 Encounter for screening for other disorder (principal)

== ENCOUNTER 2025-03-03 15:28 | Outpatient (AMB) | payer MEDICAID, SELFPAY ==
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
--- OUTSIDE RECORDS SUMMARY | 2025-03-03 15:31 | XMS_ITS | Encounter Summary ---
Author Organization [employer] Address [address] [facility] 7[address] [place] [address] Care Team Providers Care Hotel Breakfast Attendant Name Role Phone Lizabeth Felder Primary Care Provider [phone] Encounter Details Date Type Department Care Team (Late st Contact Info) Description 02/18/2025 Telephone [facility] [address] [place], [place] [phone] Lizabeth Felder ANP [address] [place], [place] [phone] Social History Tobacco Use Types Packs/Day Years [...] - 02/18/2025 4:07 PM EDT Tc from [facility] regarding pt visit to [facility]. [facility] is requisting to speak with Lizabeth Felder abou pt visit. Contact at [phone] documented in this encounter Plan of Treatment Upcoming Encounters Date Type Department Care Team (Late st Contact Info) Description 03/20/2025 11:15 AM EDT Office Visit [facility] [address] [place] [address] Lizabeth Felder ANP [address] [place] [address] documented as of this encounter Visit Diagnoses Not on filedocumented in this encounter Additional Health Concerns Assessment Noted Time PHQ-9 Depression Total Score: 0 12/17/19 25 11:38 AM EDT documented as of this encounter Care Teams Hotel Breakfast Attendant Relationship Specialty Start Date End Date Lizabeth Felder ANP [address] [place] [address] PCP - General Family Medicine 05/04/21 Home Care A 08/22/24 documented as of this encounter
== END 2025-03-03 15:42 | disposition home or self-care (01) ==
LOC: HO.HVS 15:29
PROVIDERS: PCP Nurse Practitioner Primary Care; Visit Provider Physician Assistant Surgical
DX: I83.11 Varicose veins of right lower extremity with inflammation (principal); I83.12 Varicose veins of left lower extremity with inflammation
CPT/HCPCS: 99204

== ENCOUNTER → 2025-03-03 15:28 | Outpatient (BNVA) | payer MEDICAID, SELFPAY | PROVIDERS: PCP Nurse Practitioner Primary Care; Visit Provider Physician Assistant Surgical | DX: I83.11 Varicose veins of right lower extremity with inflammation (principal); I83.12 Varicose veins of left lower extremity with inflammation | CPT/HCPCS: 99212 ==

== ENCOUNTER 2025-03-19 13:19 | Outpatient (REF) | payer MEDICAID, SELFPAY ==
--- NOTE | ~2025-03-19 | US_ITS ---
EXAMINATION: US LOWER EXTREMITY VENOUS (REFLUX EXAM), BILATERAL CLINICAL INFORMATION: Varices. COMPARISON: None. TECHNIQUE: Color flow triplex imaging and compression Doppler was performed to evaluate both the deep and the superficial systems bilaterally. To evaluate the superficial system, the examination was performed in the upright position. Color-flow Doppler ultrasound and compression ultrasound were utilized. In addition, maneuvers were utilized to demonstrate reflux. FINDINGS: 1. DEEP VENOUS ULTRASOUND OF THE RIGHT LOWER EXTREMITY: Common Femoral Vein: Compressible, normal respiratory variation and augmented flow. Femoral Vein: Compressible, normal color flow and augmentation. Popliteal Vein: There is an intraluminal isoechoic abnormality in the right popliteal vein with partial compressibility. Deep Reflux: There is no evidence of reflux in the deep system in either the common femoral vein, superficial femoral or the popliteal vein. There is no evidence of a Santamaria's cyst. 2. SUPERFICIAL ULTRASOUND WITH DOPPLER OF RIGHT LOWER EXTREMITY: GREAT SAPHENOUS VEIN: Saphenofemoral Junction: 0.3 cm; Reflux: 0 ms Proximal Thigh: 0.5 cm; Reflux: 0 ms Mid Thigh: 0.5 cm; Reflux: 0 ms Distal Thigh: 0.6 cm; Reflux: 0 ms At Knee: 0.5 cm; Reflux: 0 ms Proximal Calf: 0.5 cm; Reflux: 0 ms Mid Calf: 0.4 cm; Reflux: 508 ms Distal Calf: 0.4 cm; Reflux: 0 ms DUPLICATED MEDIAL GREAT SAPHENOUS VEIN: Diameter: None imaged Reflux: NA DUPLICATED LATERAL GREAT SAPHENOUS VEIN: Diameter: 0.2 cm. Reflux: NA SMALL SAPHENOUS VEIN: Saphenopopliteal Junction: 0.3 cm; Reflux: 2284 ms Proximal: 0.2 cm; Reflux: 0 ms Distal: 0.3 cm; Reflux: 0 ms VEIN OF GIACOMINI: Size: NA Reflux: NA PERFORATORS: Location: Great saphenous vein at the knee, proximal and mid calf segments. Size: 0.2-0.3 cm. Reflux: 2008 ms at the proximal calf and 1588 ms in the mid calf. VARICOSITIES: Location: Small saphenous vein mid segment and great saphenous vein proximal calf. Size: 0.4-0.6 cm. Reflux: NA 3. DEEP VENOUS ULTRASOUND OF THE LEFT LOWER EXTREMITY: Common Femoral Vein: Compressible, normal respiratory variation and augmented flow. Femoral Vein: Compressible, normal color flow and augmentation. Popliteal Vein: Compressible, normal augmentation. Deep Reflux: There is a 1724 ms reflux in the common femoral vein. There is no evidence of a Santamaria's cyst. 4. SUPERFICIAL ULTRASOUND WITH DOPPLER OF LEFT LOWER EXTREMITY: GREAT SAPHENOUS VEIN: Saphenofemoral Junction: 0.6 cm; Reflux: 0 ms Proximal Thigh: 0.3 cm; Reflux: 0 ms Mid Thigh: 0.3 cm; Reflux: 1316 ms Distal Thigh: 0.4 cm; Reflux: 976 ms At Knee: 0.5 cm; Reflux: 1132 ms Proximal Calf: 0.4 cm; Reflux: 692 ms Mid Calf: Not identified. Distal Calf: 0.2 cm; Reflux: 2768 ms DUPLICATED MEDIAL GREAT SAPHENOUS VEIN: Diameter: 0.4 cm. Reflux: NA DUPLICATED LATERAL GREAT SAPHENOUS VEIN: Diameter: None imaged. Reflux: NA SMALL SAPHENOUS VEIN: Saphenopopliteal Junction: 0.3 cm; Reflux: 0 ms Proximal: Not identified. Distal: 0.1 cm; Reflux: 0 ms VEIN OF GIACOMINI: Size: NA Reflux: NA PERFORATORS: Location: Great saphenous vein from the mid to the distal calf. Size: 0.1-0.2 cm. Reflux: NA VARICOSITIES: Location: Small saphenous vein, mid segment. Great saphenous vein at the proximal thigh and proximal calf segments. Size: 0.3-0.4 cm. Reflux: 508 ms in the small saphenous vein and great saphenous vein reflux in the range of 616-728 ms . US/US venous insuf bilat IMPRESSION: Right: . Nonocclusive thrombus, right popliteal vein. Venous insufficiency, great saphenous vein mid calf. Venous insufficiency, small saphenous vein at the junction. Perforators with reflux involving the proximal mid calf segments of the great saphenous vein. Varices without reflux. Left: Venous insufficiency, great saphenous vein from the mid thigh to the ankle. Venous insufficiency, involving common femoral vein (deep venous system). Varices with reflux involving small saphenous vein mid segment and the great saphenous vein from the proximal thigh to the proximal calf. Perforators without reflux. The positive findings were communicated to the ordering provider by the agricultural engineering technologist at the time of the examination on March 19, 2025. Electronically signed by: Justus Lanier MD 03/20/2025 07:57 AM EDT
--- OUTSIDE RECORDS SUMMARY | 2025-03-19 15:31 | XMS_ITS | Encounter Summary ---
Author Organization [employer] Address [address] [facility] 7[address] [place] [address] Care Team Providers Care Control System Manager Name Role Phone Lizabeth Felder Primary Care Provider [phone] Encounter Details Date Type Department Care Team (Late st Contact Info) Description 02/18/2025 Telephone [facility] [address] [place], [place] [phone] Lizabeth Felder ANP [address] [place], [place] [phone] Social History Tobacco Use Types Packs/Day Years [...] - 02/18/2025 4:07 PM EDT Tc from [facility] regarding pt visit to [facility]. [facility] is requisting to speak with Lizabeth Felder abou pt visit. Contact at [phone] documented in this encounter Plan of Treatment Upcoming Encounters Date Type Department Care Team (Late st Contact Info) Description 03/20/2025 11:15 AM EDT Office Visit [facility] [address] [place] [address] Lizabeth Felder ANP [address] [place] [address] documented as of this encounter Visit Diagnoses Not on filedocumented in this encounter Additional Health Concerns Assessment Noted Time PHQ-9 Depression Total Score: 0 12/17/19 25 11:38 AM EDT documented as of this encounter Care Teams Control System Manager Relationship Specialty Start Date End Date Lizabeth Felder ANP [address] [place] [address] PCP - General Family Medicine 05/04/21 Home Care A 08/22/24 documented as of this encounter
== END 2025-03-19 13:20 | disposition home or self-care (01) ==
LOC: HO.US 13:19
PROVIDERS: PCP Nurse Practitioner Primary Care; Visit Provider Physician Assistant Surgical
DX: I83.11 Varicose veins of right lower extremity with inflammation (principal); I83.12 Varicose veins of left lower extremity with inflammation
CPT/HCPCS: 93970

== ENCOUNTER → 2025-03-19 13:22 | Outpatient (BNV) | payer MEDICAID, SELFPAY | PROVIDERS: PCP Nurse Practitioner Primary Care; Visit Provider Radiology Diagnostic Radiology | DX: I87.2 Venous insufficiency (chronic) (peripheral) (principal) | CPT/HCPCS: 93970 ==

== ENCOUNTER 2025-04-09 13:12 | Outpatient (AMB) | payer MEDICAID, SELFPAY ==
--- OUTSIDE RECORDS SUMMARY | 2025-01-20 05:54 | XMS_ITS | Continuity of Care Document ---
Author Organization [facility] Address [address] [place] [address] Phone Care Team Providers Care Typing Bookkeeper Name Role Phone Mike QUILES, RVT, JERAMIE, [...] Providers Copied on Encounter [facility], [address] [place] [address] [address] [place] Shah [place], [id number], [place] tel:[phone] CVR - [place] No Information 5 Mike QUILES RVT, JERAMIE Rosa. [address] [place] [address], [place], [place], [id number] , [place]. tel:[phone] Office/Outpt E&M Established 25 Mins- CT & [place] [facility], [address] [place] [address] [address] [address], [id number], [place] tel:[phone] CVR - [place] Acute embolism and thrombosis of unspecified deep veins of right lower extremityEssent ial (primary) hypertension 5 Mike QUILES RVT, JERAMIE Rosa. [address] [place] [address], [place], [place], [id number] , [place]. tel:[phone] Referring Provider: Katherine Painter, [address] [place] [address], [place], [address]. tel:[phone] [facility], [address] [place] [address] [place] [address], [id number], [place] tel:[phone] CVR - [facility] Pain in right legCompression of vein 5 Mike QUILES RVT, JERAMIE Rosa. [address] [place] [address], [place], [place], [id number] , [place]. tel:[phone] Referring Provider: Katherine Painter, [address] [facility], [place], [address]. tel:[phone] Office/Outpt E&M Established 15 Mins [facility], [address] [place] [address] [address] [address] [place], [id number], [place] tel:[phone] CVR - [place] Body mass index (BMI) 33.0-33.9, adultChronic venous hypertension w oth comp of l low extrem 3 Meek QUILES FACS MULUGETA Metz. [address] [facility], [address], [facility] [place], [address], [place]. tel:[phone] Referring Provider: Katherine Painter, [address] [place] [address], [place], [address]. tel:[phone] Family History Family Member Type Diagnosis Age At Onset No Information Payers Payer name Insurance type Covered democrat ID Authoriza tiallan(s) Medical Assistance [facility] [id number] Social History Type Description Quantity Date Captured [...]
--- NOTE | 2025-04-09 13:14 | A.OFFVIS_ITS ---
Intake Visit Reasons: follow up s/p US 03/19/25 Intake Note: Patient presents for follow up US performed on 03/19/25. Patient states he has some swelling in both legs , primarily the left. Accompanied by: Spouse Allergies No Known Drug Allergies Allergy (Unknown, Verified 04/09/25 13:19) UNKNOWN HPI HPI follow up s/p US 03/19/25: Details: Very pleasant 60-year-old gentleman presents for follow-up regarding venous insufficiency. He has continued swelling and discomfort left more so than right. He has been compliant with his compression stockings which have provided minimal relief. He now presents for follow-up with venous insufficiency testing. [facility] Medical History Hyperlipemia Seizure disorder Surgical History No significant past surgical history Family History Family/Other Epilepsy Social History Household Members: None Housing: Apartment Are you a primary healthcare facility administrator to a significant other at home: No Do you presently have visiting nurse or other home services: No Alcohol intake: current Alcohol intake frequency: does not drink Patient Tobacco Use Status: Never used Tobacco service: No Current occupational status: disabled Current occupation: right hand dominant Review of Systems Const Reports as per HPI ENT Reports no additional complaints Card Denies chest pain, Denies chest pain at rest and Denies chest pain with activity Resp Denies chest congestion and Denies cough GI Reports no additional complaints Musc Details: pain over varicosities, aching of lower extremities, swelling, cramping, heaviness and tiredness, itching Denies abnormal gait Skin/Breast Reports pruritus and Denies wounds Neuro Reports no additional complaints and Denies abnormal gait Psych Denies no additional complaints Physical Exam Const General: cooperative, healthy appearing and comfortable Orientation/consciousness: oriented to person, oriented to place and oriented to time Neck Carotids: no bruits Chest Chest palpation & inspection: normal inspection of the chest and normal palpation of entire chest wall Resp Effort & Inspection: normal respiratory effort and able to speak in complete sentences Cardio Rate: regular rate Heart sounds: S1 normal heart sound present and S2 normal heart sound present Peripheral pulses: Peripheral pulses 2+ throughout GI Inspection: Yes normal to inspection Skin Other: +2 edema, large rope-like varicosities greater than 4 mm CEAP Classification C4 - skin color changes Ep - Etiology Primary As - superficial veins P - reflux General skin exam: dry skin Neuro General: oriented to person, oriented to place and oriented to time Extrem Right lower extremity: full ROM, normal capillary refill and edema Left lower extremity: full ROM, normal capillary refill and edema Psych Mental Status: mental status grossly normal Results Reviewed Results Reviewed: Brief summary of venous insufficiency testing is as follows: right great saphenous vein: Focally positive at calf right small saphenous vein: Positive right accessory vein: none present left great saphenous vein: Positive left small saphenous vein: negative left accessory vein: none present Please note there is no evidence of any venous aneurysms or significant tortuosity Assessment & Plan Assessment & Plan (1) Varicose veins of left lower extremity with inflammation: Code(s): I83.12 - Varicose veins of left lower extremity with inflammation Category: Medical Plan: This patient has varicose veins with inflammation. They continue to be a source of discomfort for the patient. The patient has tried conservative uche tment with compression, leg elevation and exercise program for over 3 months time. They have been compliant with all treatment. This has provided minimal relief for the patient. I do not anticipate this course of treatment will alter the underlying etiology. The patient has been scheduled for lower extremity venous treatment inclusive of --- left great saphenous vein Cyanoacralate ablation. Risks, benefits, and complications of this procedure has been discussed in detail with the patient including but not limited to bleeding, infection, and the development of a DVT. The patient has demonstrated a clear understanding and has consented. We will schedule the patient as soon as possible. Thank you for allowing us to participate in this patient's care. If there are any questions or concerns please do not hesitate to contact us. Coding Level of Care Code Est Pt Level 4 (27102) Complex EM visit Add On G2211 Diagnoses Varicose veins of left lower extremity with inflammation I83.12
--- OUTSIDE RECORDS SUMMARY | 2025-04-09 13:18 | XMS_ITS | Clinical Summary ---
Author Organization [address] [facility] Address [address] [place] [address] Phone Care Team Providers Care Project Management Professor Name Role Phone Unavailable Primary Care Provider Unavailabl e Social History Tobacco Use Types Packs/Day Years Used Date Smoking Tobacco: Never Assessed Sex and Gender Information Value Date Recorded Sex Assigned at Not on file Legal Sex Male 4:34 AM EST Gender Identity Not on file Sexual Orientation Not on file Plan of Treatment Upcoming Encounters Date Type Department Care Team ([facility] Contact Info) Description 05/07/2025 2:45 PM EDT Consult Orthopedic Surgery - [place] [id number] [phone] Daniel Kidd, DPM [address] [address] Health Maintenance Due Date Last Done Comments DTaP,Tdap,and Td Vaccines (1 - Tdap) 1986 Hepatitis B Vaccines (1 of 3 - 19+ 3-dose series) 1986 Pneumococcal Vaccine: 50+ Ye ars (1 of 1 - PCV) 2017 Zoster Vaccines (1 of 2) 2017 Cholesterol Screening (Lipid Panel) 10/12/2022 Colorectal Cancer Screening: Colonoscopy 10/12/2022 Depression Screening 10/12/2022 HIV Screening 10/12/2022 Hepatitis C Screening 10/12/2022 Social Influencers of Health Screening 10/12/2022 COVID-19 Vaccine ( - 2023-2 5 season) 2024 Influenza Vaccine (Season Ended) 2025 HIB Vaccines Aged Out No longer eligi ble based on patient's age to complete this topic HPV Vaccines Aged Out No longer eligi ble based on patient's age to complete this topic Hepatitis A Vaccines Aged Out No long er eligible based on patient's age to complete this topic IPV Vaccines Aged Out No longer eligi ble based on patient's age to complete this topic MMR Vaccines Aged Out No longer eligi ble based on patient's age to complete this topic Meningococcal ACWY Vaccine Aged Out N o longer eligible based on patient's age to complete this topic Meningococcal B Vaccine Aged Out No l onger eligible based on patient's age to complete this topic Pneumococcal Vaccine: Pediat rics (0 to 5 Years) and At-Risk Patients (6 to 64 Years) Aged Out No longer eligible b ased on patient's age to complete this topic RSV Immunization Patients Un brigida 20 months Aged Out No longer eligible b ased on patient's age to complete this topic Varicella Vaccines Aged Out No longer eligible based on patient's age to complete this topic Insurance MEDICAID - [place]
--- OUTSIDE RECORDS SUMMARY | 2025-04-09 13:18 | XMS_ITS | Patient Health Record ---
Author Organization [facility] Address [address] [place] [address] Care Team Providers Care Cook Dessert Name Role Phone Salbador QUILES, Antonietta Primary Care Provider Moe Irvin Unavailable [phone] Reason For Referral No Information Medications Medication SIG (Take, Route, Fr equency, Duration) Notes Start Date End Date Status Divalproex Sodium 500mg Active Keppra 750mg Active Propranolol HCl 10mg Active Loratadine 10 MG 1 tablet Orally Once a day Active PHENobarbital 60mg A ctive Spironolactone 100 MG 1 tablet Orally Once a day Active Invega 1.5mg Active Folic Acid 1mg Activ e Immunizations Vaccine Route Administration Date Status Comme nts Twinrix Unknown 06/12/2012 Administered Twinrix Unknown 07/25/2012 Administered Twinrix Unknown 01/01/2013 Administered Problems Problem Type SNOMED Code ICD Code Onset Dates Problem Status W/U Status Risk Notes Problem 513226125 Encounter for screening for malignant neoplasm of colon (Z12.11) Active confirmed Problem 141900518 Chronic hepatitis C without hepatic coma (B18.2) Active confirmed Problem 42268145012778 History of hepatitis C (Z86.19) Active confirmed Problem 13005350 Liver fibrosis (K74.0) Active confirmed Plan Of Treatment Pending Test Test Name Order Date LIVER PROFILE 11/05/2014 LIVER PROFILE 03/07/2015 LIVER PROFILE 12/28/2014 LIVER PROFILE 12/24/2018 CBC w DIFF 12/28/2014 CBC w DIFF 12/24/2018 CBC w DIFF 11/05/2014 CBC w DIFF 03/07/2015 PROTHROMBIN TIME (PT, INR) 12/24/2018 ALPHA-FETOPROTEIN,TUMOR MARKER 9 HEPATITIS C VIRAL LOAD 12/28/2014 HEPATITIS C VIRAL LOAD 11/05/2014 HEPATITIS C VIRAL LOAD 03/07/2015 MRI ABD W&WO CONTRAST 10/29/2014 MRI ABD W&WO CONTRAST 07/21/2012 US ABD 05/18/2016 Insurance Providers Payer Name Payer Address Payer Phone Subscriber Number Group Number Insured Name Patient Relationship to Insured Coverage Start Date Coverage End Date MEDICAID OF [employer] [address] [place] [id number] BLAKE MACE Self - patient is the insured Medical (General) History Medical History History ICD Code chronic hepatitis C-genotype 1-liver bx 09/2012 with Gr 3/4 and Stage II-III/IV--scant stainable iron noted on the biopsy; AFP 8.8 in 05/2012 and Neg. MRI of liver in 07/2012. He is status post vaccination for hepatitis A and B with the Twinrix. Treated with 3 months of Harvoni 11/2014-01/2015--he had a nondetectable hepatitis C viral load and a normal liver profile on December 25, 2014. His AFP was 16.7 in 10/2014 and he had a neg. MRI of the liver in 10/2014 as well. He had a nondetectable hepatitis C viral load and normal liver profile in February of 2015, 2015, 05/2017, 01/2018, and 08/2018 alcohol abuse-sober since approx 2010 substance abuse-sober since approx 2010 schizophrenia hx of pneumonia seizure disorder Denies NV,DM,CVA,Lung disease,renal dise ase Venous stasis of LE's Surgical History Surgery Date(Month/Year)
--- OUTSIDE RECORDS SUMMARY | 2025-04-09 13:18 | XMS_ITS | Clinical Summary ---
Author Organization [facility] Address [address] [place] [address] Care Team Providers Care Corner Cutter Name Role Phone Unavailable Primary Care Provider [...] - Td or Tdap) 11/03/2020 011, 11/03/2010 [id number] ( season) 2024 021, 01/25/2021 Alcohol and Drug Screen 10/08/2024 Depression Annual Screen 10/08/2024 Imm-Influenza (Season Ended) 2025, 07/03/2019, 07/08/2018, Additional history exists Insurance [id number] [facility]
--- OUTSIDE RECORDS SUMMARY | 2025-04-09 13:18 | XMS_ITS | Encounter Summary ---
Author Organization [employer] Address [address] [facility] 7t [place] [address] Care Team Providers Care Valet Cashier Name Role Phone Lizabeth Felder Primary Care Provider [phone] Encounter Details Date Type Department Care Team (Late st Contact Info) Description 02/18/[address] [facility] MEDICINE [address] [place], [place] [phone] Lizabeth Felder ANP [address] [place], [place] [phone] Social History Tobacco Use Types Packs/Day Years [...] - 02/18/2025 4:07 PM EDT Tc from [facility] with [facility] regarding pt visit to [facility]. [facility] is requisting to speak with Lizabeth Felder abou pt visit. Contact at [phone] documented in this encounter Plan of Treatment Not on file documented as of this encounter Visit Diagnoses Not on filedocumented in this encounter Additional Health Concerns Assessment Noted Time PHQ-9 Depression Total Score: 0 12/17/19 25 11:38 AM EDT documented as of this encounter Care Teams Valet Cashier Relationship Specialty Start Date End Date Lizabeth Felder ANP [address] [place] [id number] PCP - General Family Medicine 05/04/21 Home Care [facility] 08/22/24 documented as of this encounter
== END 2025-04-09 13:36 | disposition home or self-care (01) ==
LOC: HO.HVS 13:12
PROVIDERS: PCP Nurse Practitioner Primary Care; Visit Provider Surgery Vascular Surgery
DX: I83.12 Varicose veins of left lower extremity with inflammation (principal)
CPT/HCPCS: 99214

== ENCOUNTER → 2025-04-09 13:12 | Outpatient (BNVA) | payer MEDICAID, SELFPAY | PROVIDERS: PCP Nurse Practitioner Primary Care; Visit Provider Surgery Vascular Surgery | DX: Z71.2 Person consulting for explanation of examination or test findings (principal); I83.12 Varicose veins of left lower extremity with inflammation | CPT/HCPCS: 99212 ==

== ENCOUNTER 2025-05-08 11:06 | Outpatient (AMB) | payer MEDICAID, SELFPAY ==
[2025-05-08 11:06] VITALS: BMI 35.7
--- NOTE | 2025-05-08 11:06 | MHC.OFFVIS ---
Vital Signs 05/08/25 11:06 Height 5 ft 8 in Weight 235 lb BMI 35.7 Intake Visit Reasons: Left Venaseal Road Mechanic Required: No Accompanied by: Self / Same As Patient Allergies No Known Drug Allergies Allergy (Unknown, Verified 05/08/25 11:07) UNKNOWN [facility] Medical History Hyperlipemia Seizure disorder Surgical History No significant past surgical history Family History Family/Other Epilepsy Social History Household Members: None Housing: Apartment Are you a primary healthcare management consultant to a significant other at home: No Do you presently have visiting nurse or other home services: No Alcohol intake: current Alcohol intake frequency: does not drink Patient Tobacco Use Status: Never used Tobacco service: No Current occupational status: disabled Current occupation: right hand dominant Physical Exam Vital Signs: BMI result Body Mass Index 35.7 Office Procedures Vascular Office Procedure Details Details: Diagnosis: Left Leg varicose veins with inflammation Procedure: Endovenous Ablation of the left Great Saphenous Vein with VenaSeal Closure System Anesthesia: Local infiltration 5 cc, Healthcare Management Consultant: none Estimated Blood Loss: min Specimen: none Duplex ultrasound was used to map out the insufficient saphenous vein, and access was determined and marked on the overlying skin. The depth and diameter of the vein(s) to be treated was documented. The patient was placed supine on the procedure table and the leg was prepped and draped using sterile technique. Ultasound guidance was again used to localize the access site. 1% lidocaine was injected as a local anesthetic in the subcutaneous tissues at the target location in the GSV in the lower leg. Using ultrasound guidance, access was gained at this location with the 19 gauge thin walled access needle and followed by introduction of a short guidewire, location confirmed with ultrasound. A small, 3 mm incision was made at the access site to allow for introduction and placement of the 7 Fr x7cm introducer/dilator. The dilator and guidewire were removed. The 0.035 guidewire from the VenaSeal kit was then introduced and positioned at the saphenofemoral junction using ultrasound guidance. The 80 cm 7 Fr introducer sheath/dilator was positioned 5cm from the saphenofemoral junction. The guidewire and dilator were removed, and the remaining sheath was flushed with sterile saline, with the syringe remaining in place prior to the next steps. The cyanoacrylate adhesive was precisely primed into the 5 F delivery catheter and this catheter/syringe combination was attached within the dispenser gun. This assembly was introduced through the 7F sheath and positioned 5 cm caudal of the saphenofemoral junction under ultrasound guidance. The steps from the IFU were followed for dispensing amounts, locations and compression times, 2 aliquots proximally with 3 minutes of compression, and 1 aliquot every 3 cm distally with 30 sec of compression along the course of the vessel. Following the last injection and compression sequence, the catheter and introducer sheath were pulled out from the access site. Hemostasis was achieved with manual compression and an adhesive bandage was applied to the incision. Ultrasound confirmed complete coaptation and closure of the treated segments of the GSV, and the absence of any DVT at the saphenofemoral junction. Treatment time was approximately 4 minutes and the vein length treated was 8 cm. The drapes were removed and the patient cleaned and prepared for discharge. Post op ultrasound check is scheduled for 48-72 hours and the patient was given written post-op instructions. 07514 - Endoven Ther Chem Adhes 1st All charges added?: Procedure code (CPT) selection complete Assessment & Plan Assessment & Plan (1) Varicose veins of left lower extremity with inflammation: Comment: 05/08/2025 - left great saphenous vein Cyanoacralate ablation Code(s): I83.12 - Varicose veins of left lower extremity with inflammation Category: Medical Plan: See op note Coding Level of Care Code Procedure Only Diagnoses Varicose veins of left lower extremity with inflammation I83.12 CPT Codes Details - Vascular 3: 78166 - Endoven Ther Chem Adhes 1st ([id number])
--- OUTSIDE RECORDS SUMMARY | 2025-05-08 11:15 | XMS_ITS | Clinical Summary ---
Author Organization [facility] Address [address] [place] [address] Care Team Providers Care Logistics System Engineer Name Role Phone Unavailable Primary Care Provider [...] 01/01/2013 Imm-Zoster, Recombinant (1 of 2) 2017 Imm-Pneumococcal 50+ (3 of 3 - PCV20 or PCV21) 11/04/2018 11/04/2013, 11/04/2013 Imm-DTaP/Tdap/Td (3 - Td or Tdap) 11/03/2020 011, 11/03/2010 [id number] (3 - 2023- season) 2024 021, 01/25/2021 Alcohol and Drug Screen 10/08/2024 Depression Annual Screen 10/08/2024 Imm-Influenza (#1) 2025 08/06/2020, 0 07/03/2019, 07/08/2018, Additional history exists Insurance [facility]
--- OUTSIDE RECORDS SUMMARY | 2025-05-08 11:15 | XMS_ITS | Patient Health Record ---
Author Organization [facility] Address [address] [place] [address] Care Team Providers Care Salvage Mechanic Name Role Phone Salbador QUILES, Antonietta Primary Care Provider Moe Irvin Unavailable [phone] Reason For Referral No Information Medications Medication [...] Problem Status W/U Status Risk Notes Problem [id number] Encounter for screening for malignant neoplasm of colon (Z12.11) Active confirmed Problem 752461499 Chronic hepatitis C without hepatic coma (B18.2) Active confirmed Problem 02271380390248 History of hepatitis C (Z86.19) Active confirmed Problem 43031382 Liver fibrosis (K74.0) Active confirmed Plan Of Treatment Pending Test Test Name Order Date LIVER PROFILE 03/07/2015 LIVER PROFILE 12/28/2014 LIVER PROFILE 12/24/2018 LIVER PROFILE 11/05/2014 CBC w DIFF 03/07/2015 CBC w DIFF 12/28/2014 CBC w DIFF 12/24/2018 CBC w DIFF 11/05/2014 PROTHROMBIN TIME (PT, INR) 12/24/2018 ALPHA-FETOPROTEIN,TUMOR MARKER 9 HEPATITIS C VIRAL LOAD 11/05/2014 HEPATITIS C VIRAL LOAD 03/07/2015 HEPATITIS C VIRAL LOAD 12/28/2014 MRI ABD W&WO CONTRAST 07/21/2012 MRI ABD W&WO CONTRAST 10/29/2014 US ABD 05/18/2016 Insurance Providers Payer Name Payer Address Payer Phone Subscriber Number Group Number Insured Name Patient Relationship to Insured Coverage Start Date Coverage End Date MEDICAID OF [employer] [address] [place] [phone] [id number] BLAKE MACE Self - patient is the [...] schizophrenia hx of pneumonia seizure disorder Denies NM,DM,CVA,Lung disease,renal dise ase Venous stasis of LE's Surgical History Surgery Date(Month/Year)
--- OUTSIDE RECORDS SUMMARY | 2025-05-08 11:15 | XMS_ITS | Encounter Summary ---
Author Organization [employer] Address [address] [place] [address] Care Team Providers Care Granulating Machine Operator Name Role Phone Lizabeth Felder Primary Care Provider [phone] Encounter Details Date Type Department Care Team (Late st Contact Info) Description 02/18/2025 Telephone [facility] [address] [place], [place] [phone] Lizabeth Felder ANP [address] [place], [place] [phone] Social History Tobacco Use Types Packs/Day Years [...] - 02/18/2025 4:07 PM EDT Tc from [facility] with [facility] regarding pt visit to [facility]. [facility] is requisting to speak with Lizabeth Felder abou pt visit. Contact at [phone] documented in this encounter Plan of Treatment Upcoming Encounters Date Type Department Care Team ([facility] st Contact Info) Description 06/03/2025 10:30 AM EDT Office Visit [facility] [address] [place] [address] Christopher Patel, DMD [address] [place] [address] documented as of this encounter Visit Diagnoses Not on filedocumented in this encounter Additional Health Concerns Assessment Noted Time PHQ-9 Depression Total Score: 0 12/17/19 25 11:38 AM EDT documented as of this encounter Care Teams Granulating Machine Operator Relationship Specialty Start Date End Date Lizabeth Felder ANP [address] [place] [address] PCP - General Family Medicine 05/04/21 Home Care [facility] 08/22/24 documented as of this encounter
== END 2025-05-08 11:55 | disposition home or self-care (01) ==
LOC: HO.HVS 11:06
PROVIDERS: PCP Nurse Practitioner Primary Care; Visit Provider Surgery Vascular Surgery
DX: I83.12 Varicose veins of left lower extremity with inflammation (principal)
CPT/HCPCS: 36482

== ENCOUNTER → 2025-05-08 11:06 | Outpatient (BNVA) | payer MEDICAID, SELFPAY | PROVIDERS: PCP Nurse Practitioner Primary Care; Visit Provider Surgery Vascular Surgery | DX: I83.12 Varicose veins of left lower extremity with inflammation (principal); E78.5 Hyperlipidemia, unspecified; G40.909 Epilepsy, unspecified, not intractable, without status epilepticus | CPT/HCPCS: 36482; J2004 ==

== ENCOUNTER 2025-05-21 12:52 | Outpatient (AMB) | payer MEDICAID, SELFPAY ==
--- NOTE | 2025-05-21 13:04 | A.OFFVIS_ITS ---
Intake Visit Reasons: 2w follow up s/p L venaseal 04/24/25 Intake Note: Patient presents for follow up venaseal. Has some discomfort and brusing. No other complaints. Accompanied by: Self / Same As Patient Allergies No Known Drug Allergies Allergy (Unknown, Verified 05/21/25 13:07) UNKNOWN HPI HPI 2w follow up s/p L venaseal 04/24/25: Details: Patient for follow-up status post left great saphenous vein ablation. Reports he is doing fairly well postoperatively. Reports swelling and discomfort have improved. His only issue is some pretibial discoloration. Other than that reports he is doing significantly better. [facility] Medical History Hyperlipemia Seizure disorder Surgical History No significant past surgical history Family History Family/Other Epilepsy Social History Household Members: None Housing: Apartment Are you a primary vocational childcare teacher to a significant other at home: No Do you presently have visiting nurse or other home services: No Alcohol intake: current Alcohol intake frequency: does not drink Patient Tobacco Use Status: Never used Tobacco service: No Current occupational status: disabled Current occupation: right hand dominant Review of Systems Const All systems reviewed & are unremarkable except as noted in HPI and below Reports no additional complaints ENT Reports Normal hearing present Card Denies chest pain, Denies chest pain at rest, Denies chest pain with activity and Denies pedal edema Resp Denies cough GI Denies abdominal pain Musc Denies abnormal gait, Denies muscle cramps and Denies radiating pain into limb Skin/Breast Denies skin ulcer and Denies wounds Neuro Reports Normal hearing present and Denies abnormal gait Psych Reports no additional complaints Physical Exam Const General: cooperative, healthy appearing and comfortable Orientation/consciousness: oriented to person, oriented to place and oriented to time HEENT Head: Yes normal to inspection Neck Neck: Yes normal visual inspection Carotids: no bruits Chest Chest palpation & inspection: normal inspection of the chest Resp Effort & Inspection: normal respiratory effort and able to speak in complete sentences Auscultation: clear to auscultation bilaterally, no crackles, no rales, no rhonchi and no wheezes Cardio Rate: regular rate Rhythm: regular rhythm Heart sounds: S1 normal heart sound present and S2 normal heart sound present Bruits: no carotid bruits Peripheral pulses: Peripheral pulses 2+ throughout GI Inspection: Yes normal to inspection Skin Wounds: no wounds Hair: normal Neuro General: oriented to person, oriented to place and oriented to time Cranial nerves: Yes CN's II-XII intact bilaterally and Yes Normal hearing present Cognition (Neuro): normal cognition Motor exam (neuro): 5/5 motor strength present throughout Extrem Other: venous exam: No significant superficial varicosities or spider telangiectasias, minimal edema General: No clubbing, No cyanosis and No edema Psych Appearance: grossly normal Mental Status: mental status grossly normal Speech and movement: Normal speech and movement present Assessment & Plan Assessment & Plan (1) Varicose veins of left lower extremity with inflammation: Comment: 05/08/2025 - left great saphenous vein Cyanoacralate ablation Code(s): I83.12 - Varicose veins of left lower extremity with inflammation Category: Medical Plan: The patient has done extremely well with all venous treatments. Patient's may often experience postprocedure phlebitic episodes and I have discussed with the patient use of warm compresses and NSAIDS if tolerated for pain discomfort. In addition, I have discussed continued conservative measures including use of compression, leg elevation, and exercise. The patient was also given an information sheet regarding appropriate use of compression stockings and future purchases. Thank you for allowing us to care for your patient with venous disease. Coding Level of Care Code Est Pt Level 3 (19188) Diagnoses Varicose veins of left lower extremity with inflammation I83.12
--- OUTSIDE RECORDS SUMMARY | 2025-05-21 13:38 | XMS_ITS | Clinical Summary ---
Author Organization [facility] Address [address] [place] [address] Care Team Providers Care Evaporator Operator Name Role Phone Unavailable Primary Care Provider [...] - Td or Tdap) 11/03/2020 011, 11/03/2010 [id number] (3 - 2023- season) 2024 021, 01/25/2021 Alcohol and Drug Screen 10/08/2024 Depression Annual Screen 10/08/2024 Imm-Influenza (#1) 2025 08/06/2020, 0 07/03/2019, 07/08/2018, Additional history exists [facility]
--- OUTSIDE RECORDS SUMMARY | 2025-05-21 13:38 | XMS_ITS | Patient Health Record ---
Author Organization [facility] Address [address] [place] [address] Care Team Providers Care Screen Printing Machine Loader Unloader Name Role Phone Salbador QUILES, Antonietta Primary Care Provider Moe Irvin Unavailable [phone] Reason For Referral No Information Medications Medication [...] Problem Status W/U Status Risk Notes Problem [id number] Encounter for screening for malignant neoplasm of colon (Z12.11) Active confirmed Problem 587336972 Chronic hepatitis C without hepatic coma (B18.2) Active confirmed Problem 93069429369724 History of hepatitis C (Z86.19) Active confirmed Problem 61297066 Liver fibrosis (K74.0) Active confirmed Plan Of [...] Start Date Coverage End Date MEDICAID OF [employer] [address] [place] [id number] [id number] BLAKE MACE Self - patient is the [...] schizophrenia hx of pneumonia seizure disorder Denies [place],DM,CVA,Lung disease,renal dise ase Venous stasis of LE's Surgical History Surgery Date(Month/Year)
--- OUTSIDE RECORDS SUMMARY | 2025-05-21 13:38 | XMS_ITS | Encounter Summary ---
Author Organization [employer] Address [address] [facility] [place] [address] Care Team Providers Care Clinical Program Manager Name Role Phone Lizabeth Felder Primary Care Provider [phone] Encounter Details Date Type Department Care Team (Late st Contact Info) Description 02/18/2025 Telephone [facility] [address] [place], [place] [phone] Lizabeth Felder ANP [address] [place], [place] [phone] Social History Tobacco Use Types Packs/Day Years [...] - 02/18/2025 4:07 PM EDT Tc from [facility] with [facility] regarding pt visit to [facility]. [facility] is requisting to speak with Lizabeth Felder abou pt visit. Contact at [phone] documented in this encounter Plan of Treatment Upcoming Encounters Date Type Department Care Team ([facility] st Contact Info) Description 06/03/2025 10:30 AM EDT Office Visit [facility] [address] [place] [address] Christopher Patel, DMD [address] [place] [address] documented as of this encounter Visit Diagnoses Not on filedocumented in this encounter Additional Health Concerns Assessment Noted Time PHQ-9 Depression Total Score: 0 12/17/19 25 11:38 AM EDT documented as of this encounter Care Teams Clinical Program Manager Relationship Specialty Start Date End Date Lizabeth Felder ANP [address] [place] [address] PCP - General Family Medicine 05/04/21 Home Care [facility] 08/22/24 documented as of this encounter
== END 2025-05-21 13:30 | disposition home or self-care (01) ==
LOC: HO.HVS 12:53
PROVIDERS: PCP Nurse Practitioner Primary Care; Visit Provider Surgery Vascular Surgery
DX: I83.12 Varicose veins of left lower extremity with inflammation (principal)
CPT/HCPCS: 99213

== ENCOUNTER → 2025-05-21 12:52 | Outpatient (BNVA) | payer MEDICAID, SELFPAY | PROVIDERS: PCP Nurse Practitioner Primary Care; Visit Provider Surgery Vascular Surgery | DX: I83.12 Varicose veins of left lower extremity with inflammation (principal) | CPT/HCPCS: 99212 ==

== ENCOUNTER 2025-05-22 10:49 | Outpatient (AMB) | payer MEDICAID, SELFPAY ==
--- OUTSIDE RECORDS SUMMARY | 2025-05-22 10:57 | XMS_ITS | Patient Health Record ---
Author Organization [facility] Address [address] [place] [address] Care Team Providers Care Sprigger Name Role Phone Salbador QUILES, Antonietta Primary Care Provider Moe Irvin Unavailable [phone] Reason For Referral No Information Medications Medication [...] Problem Status W/U Status Risk Notes Problem [id number] Encounter for screening for malignant neoplasm of colon (Z12.11) Active confirmed Problem 244420213 Chronic hepatitis C without hepatic coma (B18.2) Active confirmed Problem 35510906131384 History of hepatitis C (Z86.19) Active confirmed Problem 82608868 Liver fibrosis (K74.0) Active confirmed Plan Of [...] Start Date Coverage End Date MEDICAID OF [employer] [address] [place] [phone] [id number] BLAKE MACE Self - patient is the [...] schizophrenia hx of pneumonia seizure disorder Denies CT,DM,CVA,Lung disease,renal dise ase Venous stasis of LE's Surgical History Surgery Date(Month/Year)
--- OUTSIDE RECORDS SUMMARY | 2025-05-22 10:57 | XMS_ITS | Encounter Summary ---
Author Organization [employer] Address [address] [place] [address] Care Team Providers Care Pediatric Assistant Name Role Phone Lizabeth Felder Primary Care Provider [phone] Encounter Details Date Type Department Care Team (Late st Contact Info) Description 02/18/2025 Telephone [facility] MEDICINE [address] [place], [place] [phone] Lizabeth Felder ANP [address] [place], [place] [phone] Social History Tobacco Use Types Packs/Day Years [...] - 02/18/2025 4:07 PM EDT Tc from [facility] with [facility] regarding pt visit to [facility]. [facility] is requisting to speak with Lizabeth Felder abou pt visit. Contact at [phone] documented in this encounter Plan of Treatment Upcoming Encounters Date Type Department Care Team ([facility] st Contact Info) Description 06/03/2025 10:30 AM EDT Office Visit [facility] [address] [place] [address] Christopher Patel, DMD [address] [place] [address] documented as of this encounter Visit Diagnoses Not on filedocumented in this encounter Additional Health Concerns Assessment Noted Time PHQ-9 Depression Total Score: 0 12/17/19 25 11:38 AM EDT documented as of this encounter Care Teams Pediatric Assistant Relationship Specialty Start Date End Date Lizabeth Felder ANP [address] [place] [address] PCP - General Family Medicine 05/04/21 Home Care [facility] 08/22/24 documented as of this encounter
--- OUTSIDE RECORDS SUMMARY | 2025-05-22 10:57 | XMS_ITS | Clinical Summary ---
Author Organization [facility] Address [address] [place] [address] Care Team Providers Care Mushroom Growing Supervisor Name Role Phone Unavailable Primary Care Provider [...] - Td or Tdap) 11/03/2020 011, 11/03/2010 [id number] (3 - 2023- season) 2024 021, 01/25/2021 Alcohol and Drug Screen 10/08/2024 Depression Annual Screen 10/08/2024 Imm-Influenza (#1) 2025 08/06/2020, 0 07/03/2019, 07/08/2018, Additional history exists Insurance [facility]
[2025-05-22 11:05] VITALS: BP 120/78; PULSE 72; O2SAT 95; BMI 34.1
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
== END 2025-05-22 12:10 | disposition home or self-care (01) ==
LOC: HO.HSMS 10:50
PROVIDERS: PCP Nurse Practitioner Primary Care; Visit Provider Physician Assistant Medical
DX: G47.33 Obstructive sleep apnea (adult) (pediatric) (principal); R53.83 Other fatigue; G25.81 Restless legs syndrome
CPT/HCPCS: 99204

== ENCOUNTER → 2025-05-22 10:49 | Outpatient (BNVA) | payer MEDICAID, SELFPAY | PROVIDERS: PCP Nurse Practitioner Primary Care; Visit Provider Physician Assistant Medical | DX: G47.33 Obstructive sleep apnea (adult) (pediatric) (principal); R53.83 Other fatigue; G25.81 Restless legs syndrome | CPT/HCPCS: 99212 ==

== ENCOUNTER 2025-05-26 19:29 | Emergency (ER) | payer MEDICAID, SELFPAY ==
--- OUTSIDE RECORDS SUMMARY | 2025-01-20 05:54 | XMS_ITS | Continuity of Care Document ---
Author Organization [facility] Address [address] [place] [address] Phone Care Team Providers Care Gis Instructor Name Role Phone Mike QUILES, RVT, JERAMIE, Moe Unavailable U navailable Allergies, Adverse Reactions, Alerts Substance Reaction Status Criticality No Known Allergies Active No Inform ation Medications Medication Instructions Dosage Effective Dates (start - stop) Status Comments Eliquis 5 mg tablet Take 1 tab by mouth twice a day for 3 months - Active spironolactone 100 mg tablet - Active levetiracetam 750 mg tablet - Active phenobarbital 97.2 mg tablet - Active Claritin Liqui-Gel 10 mg capsule - Active folic acid 1 mg tablet - Active divalproex 500 mg tablet,delayed release - Active Vitamin D2 1,250 mcg (50,000 unit) capsule - Active omeprazole 20 mg capsule,delayed release - Active prazosin 2 mg capsule - Active simethicone 180 mg capsule - Active docusate sodium 100 mg capsule - Active Maryana-floyd 8.6 mg tablet - Active Procedures Procedure Date Office/Outpt E&M Established 25 Mins- CT & [place] Duplex Scan-extrem Veins; Uni/ CT & [place] F Office/Outpt E&M Established 15 Mins Nov Advance Directives Directive Yes / No Effective Date File Name No Information Encounters Encounter Description Practice Location Reason(s) For Visit Diagnoses Date Provider Providers Copied on Encounter [facility], [address] [place] [address] Dr [address]Suite [place]ine Shah [place], [id number], [place] tel:[phone] [facility] - [place] No Information 5 Mike QUILES RVT, JERAMIE Rosa. [address] [place] [address], [place], [place], [id number] , [place]. tel:[phone] Office/Outpt E&M Established 25 Mins- CT & [place] [facility], [address] [place] [address] [address] [address], [id number], [place] tel:[phone] [facility] [place] Acute embolism and thrombosis of unspecified deep veins of right lower extremityEssent ial (primary) hypertension 5 Mike QUILES RVT, JERAMIE Rosa. [address] [place] [address], [place], [place], [id number] , [place]. tel:[phone] Referring Provider: Katherine Painter, [address] [place] [address], [place], [address]. tel:[phone] [facility], [address] [place] [address] [place] [address], [id number], [place] tel:[phone] CVR - [facility] Pain in right legCompression of vein 5 Mike QUILES RVT, JERAMIE Rosa. [address] [place] [address], [place], [place], [id number] , [place]. tel:[phone] Referring Provider: Katherine Painter, [address] [facility], [place], [address]. tel:[phone] Office/Outpt E&M Established 15 Mins [facility], [address] [place] [address] [address] [address], [id number], [place] tel:[phone] CVR - [place] Body mass index (BMI) 33.0-33.9, adultChronic venous hypertension w oth comp of l low extrem 3 Meek QUILES FACS MULUGETA Metz. [address] [facility], [address], [facility] [place], [address], [place]. tel:[phone] Referring Provider: Katherine Painter, [address] [place] [address], [place], [address]. tel:[phone] Family History Family Member Type Diagnosis Age At Onset No Information Payers Payer name Insurance type Covered alliance party ID Authoriza tiallan(s) Medical Assistance ON LICENSE OF [facility] [id number] Social History Type Description Quantity Date Captured Comments Sex Male Smoking Status No Information Chief Complaint And Reason For Visit No Information Reason For Referral Reason For Referral No Information Plan Of Treatment Date Type Action Status Goal Diet education completed Goal Weight-reducing diet educati on completed Referral Ordered: Weight management: Referral to physician timeframe: 3 Months (related to Body mass index (BMI) 32.0-32.9, adult) ordered History Of Present Illness Encounter Date Complaint History Of Prese nt Illness No Information Functional Status Date Functional Assessmen t No Information Instructions Date Instruction Additional Infor mation Diet education Related to Body mass index (BMI) 32.0-32.9, adult Giving Encouragement to exercise Related to Body mass index (BMI) 32.0-32.9, adult Lifestyle education Related to B mike mass index (BMI) 32.0-32.9, adult Patient education booklet given Related to Acute embolism and thrombosis of unspecified deep veins of right lower extremity Compression stocking usage as conservative measure Related to Acute embolism and thrombosis of unspecified deep veins of right lower extremity Weight-reducing diet education R elated to Body mass index [BMI] 33.0-33.9, adult Assessments Type Assessment Date No Information Patient Care Teams Name Effective Dates (start - stop) Status Members No Information
--- NOTE | ~2025-05-26 | US_ITS ---
CLINICAL HISTORY: pain swelling --- Additional Notes or Special Instructions: s p venaseal Venous duplex ultrasound left lower extremity Comparison: US/MT/SR - US VENOUS INSUFFICIENCY BILATERAL - 03/19/25 13:34 EDT Findings: The visualized deep veins are fully compressible with normal Doppler color flow and spectral tracings. No popliteal cyst. IMPRESSION: 1. Negative for left lower extremity deep vein thrombosis. This document has been electronically signed by: Mona An MD on 05/26/2025 21:40:34
[2025-05-26 19:46] VITALS: BP 134/77; PULSE 78; RESP 6; TEMP 36.3; O2SAT 100; BMI 34.2
--- NOTE | 2025-05-26 19:53 | ED.LOWEXIN ---
HPI - Extremity Injury (Lower) General Chief Complaint: Extremity Injury, Lower Stated Complaint: L LEG PAIN Time Seen by Provider: 05/26/25 23:45 Source: patient and old records reviewed Mode of arrival: ambulatory Limitations: language barrier History of Present Illness ED Provider: Dr. Grace Ly HPI Narrative: 60 year old male with history of Seizure disorder, recent varicose vein procedure on 05/04 presenting with continued pain and swelling in his left leg that has been ongoing since he had the procedure done nearly a month ago. He has been ambulatory without assistance despite the pain. In fact he admits that he was walking around quite a bit yesterday. The pain and swelling seemed to worsen today. Has been feeling well otherwise. No skin changes in the leg. No direct trauma. He has been taking all of his prescriptions including Eliquis as prescribed. No reported fever. Related Data Home Medications ?Medication ?Instructions ?Recorded ?Confirmed levetiracetam 750 mg tablet 750 mg PO BID 01/20/21 05/25/25 (Keppra) phenobarbital 97.2 mg tablet 97.2 mg PO BID 01/20/21 05/25/25 prazosin 2 mg capsule 2 mg PO BEDTIME 01/20/21 05/25/25 spironolactone 100 mg tablet 100 mg PO DAILY 01/20/21 05/25/25 divalproex 500 mg tablet,delayed 500 mg PO BID 09/19/22 05/25/25 release loratadine 10 mg tablet 10 mg PO DAILY PRN allergies 01/06/25 05/25/25 Previous Rx's ?Medication ?Instructions ?Recorded atorvastatin 20 mg tablet 20 mg PO BEDTIME #90 tabs 10/13/24 apixaban 5 mg (74 tabs) tablets in 5 mg PO BID #74 ea 11/11/24 a dose pack (Eliquis DVT-PE Treat 30D Start) bisacodyl 5 mg tablet,delayed 10 mg (2 x 5 mg) PO BEDTIME 2 days 01/06/25 release (Dulcolax (bisacodyl)) #4 tabs omeprazole 20 mg capsule,delayed 20 mg PO DAILY #30 caps 01/06/25 release peg 3350-electrolytes 236 240 ml PO Q10M 1 day #4,000 mL 01/06/25 gram-22.74 gram-6.74 gram-5.86 gram solution (Golytely) sennosides 8.6 mg tablet (senna) 17.2 mg (2 x 8.6 mg) PO BEDTIME 01/06/25 #60 tabs simethicone 180 mg capsule 180 mg PO TID 30 days #90 caps 01/06/25 magnesium oxide 400 mg PO DAILY 3 months #90 tabs 05/22/25 gabapentin 300 mg capsule 300 mg PO TID 7 days #21 caps 05/27/25 Allergies Allergy/AdvReac Type Severity Reaction Status Date / Time No Known Drug Allergies Allergy Unknown UNKNOWN Verified 05/26/25 19:55 Review of Systems Review of Systems: as per HPI, full review of systems performed and negative but for the above mentioned pertinent positives and negatives. [facility] Past Medical History Medical History Hyperlipemia Seizure disorder Surgical History No significant past surgical history Family History Family History Family/Other Epilepsy Social History Social History Household Members: None Housing: Apartment Are you a primary home health care respiratory therapist to a significant other at home: No Do you presently have visiting nurse or other home services: No Alcohol intake: current Alcohol intake frequency: does not drink Patient Tobacco Use Status: Never used Tobacco service: No Current occupational status: disabled Current occupation: right hand dominant Physical Exam Exam: Exam: GENERAL: Chronically ill-appearing, conversant, no acute distress. SKIN: Normal skin color for ethnicity, warm, dry, no rashes noted. HEENT: Normocephalic, atraumatic, no stridor, posterior oropharynx nonerythematous, EOMI. NECK: Soft, supple, full ROM, midline structures nontender, no step-offs, no deformities, no lymphadenopathy. CHEST: Heart regular rate and rhythm, no murmurs, symmetric chest rise and fall. PULMONARY: Clear to auscultation bilaterally, no labored breathing, no wheezes/rhales/ rhonchi. ABDOMINAL: Soft, nondistended, nontender, positive bowel sounds in all quadrants. : Deferred. MUSCULOSKELETAL: Normal tone, full range of motion, no deformities, LLE nonpitting edema > RLE, no crepitus, +DP/PT pulses, negative portia's sign bilaterally, neurovascularly intact distally. NEURO: Alert and oriented to person, CN II through XII intact, no focal neurologic deficits. PSYCHIATRIC: Flat affect, fluid speech, appropriate demeanor. Vital Signs: Vital Signs: Last Vital Signs Temp 97.6 F 05/27/25 00:57 Pulse 71 05/27/25 00:57 Resp 18 05/27/25 00:57 BP 136/77 05/27/25 00:57 Pulse Ox 100 05/27/25 00:57 O2 Del Method Room Air 05/27/25 00:57 BMI result Body Mass Index 34.2 Course Course Course Narrative: This is a Rapid Medical Examination (RME) performed by Shanika Lockwood PA-C in triage. Full HPI, ROS, assessment and treatment plan per primary provider in the Main ED. Hx: 60 yo M hx of GERD, DVT on eliquis, HLD, seizures, s/p left great saphenous vein ablation (venaseal) on 04/24/25, here w/ LLE pain/swelling. saw dr. mcallister for follow up on 05/21/25, was found to be healing well. since this time reports increasing pain to the left lower leg, worse w/ movement. overall, patient is poor historian. PE/vitals: pretibial discoloration to left lower leg w/ swelling Plan: labs, venous duplex Medications Administered Discontinued Medications Generic Name Dose Route Start Last Admin Trade Name Eduarda PRN Reason Stop Dose Admin Gabapentin 300 mg 05/27/25 00:35 05/27/25 00:43 Gabapentin 300 Mg Capsule PO 05/27/25 00:36 300 mg ONCE ONE Administration Medical Decision Making Medical Decision Making MDM Narrative: Patient presents today with lower extremity edema. Differential diagnosis includes heart failure, specifically right-sided heart failure, liver disease or renal dysfunction such as nephrotic syndrome, venous insufficiency, infection, blood clot, among others. ? No sign of infection on physical exam today.? White blood cell count is also negative.? Labs at this point are unremarkable. Kidney function is normal. DVT study is negative.? Exam and history consistent with plantar fasciitis due to overuse. The patient is stable for follow-up with vascular surgery as well as their regular physician for further evaluation of continued lower extremity edema. Differential Diagnosis Differential Diagnoses: The differential diagnosis associated with the presentation includes (as above) Admission/Observation Consideration of admission/observation: Escalation of care including admission/observation considered Lab Data MDM Lab Attestation statement: I reviewed the patient's lab results. 05/26/25 20:10 05/26/25 20:10 Labs: Lab Results 05/26/25 Range/Units 20:10 WBC 5.9 (4.8-10.8) X10*3/uL RBC 3.96 L (4.60-5.80) X10*6/uL Hgb 13.2 L (14.0-18.0) g/dl Hct 37.9 L (42.0-52.0) % MCV 95.7 (80.0-98.0) fL MCH 33.3 H (27.0-33.0) pg MCHC 34.8 (31.0-36.0) g/dl RDW 12.5 (11.0-16.0) % Plt Count 175 (160-400) X10*3/uL MPV 10.1 (9.4-12.4) fL Immature Gran % (Auto) 0.2 (0.0-0.4) % Neut % (Auto) 49.2 (45-73) % Lymph % (Auto) 37.5 (20-40) % [place] % (Auto) 11.2 H (2-11) % Eos % (Auto) 1.0 (0-4) % Baso % (Auto) 0.9 (0-2) % Lymph # (Auto) 2.2 (1.2-4.9) X10*3/uL [place] # (Auto) 0.7 (0.1-1.2) X10*3/uL Eos # (Auto) 0.1 (0.0-0.4) X10*3/uL Baso # (Auto) 0.1 (0.0-0.2) X10*3/uL Abs Immat Gran (auto) 0.01 (0.00-0.03) X10*3/uL Absolute Neuts (auto) 2.9 (2.0-8.3) x10*3/uL Absolute Nucleated RBC 0.000 (0.0-0.012) X10*3/uL Nucleated RBC % (auto) 0.0 (0.0-0.2) /100WBC Sodium 141 (135-145) mmol/L Potassium 4.2 (3.3-5.1) mmol/L Chloride 106 (96-108) mmol/L Carbon Dioxide 27 (22-29) mmol/L Anion Gap 12 (12-20) BUN 8 L (9-16) mg/dL Creatinine 1.09 (0.5-1.4) mg/dL Estim Creat Clear Calc 85.4 Estimated GFR > 60 Random Glucose 93 (60-115) mg/dL Calcium 8.6 (8.4-10.2) mg/dL Magnesium 1.9 (1.6-2.6) mg/dL Total Bilirubin 0.2 (0.0-1.0) mg/dL AST 19 (5-37) U/L ALT 17 (0-40) U/L Alkaline Phosphatase 74 (39-117) U/L Total Protein 7.9 (6.5-8.0) g/dL Albumin 4.4 (3.5-5.0) g/dL Radiology Impression Discussion of test interpretation with radiology: I have reviewed the radiologist's reading. Independent Historian Clinical information obtained from an independent historian. History obtained from or confirmed by: Other (family, sister) External Record Review External record reviewed: Inpatient record, Office record, Outpatient record and Prior outpatient labs Chronic Conditions Patient?s care impacted by: Other (seizure disorder) Social Determinants Patient?s care significantly limited by Social Determinants of Health including: Unemployment and Other Social Determinant of Health Discharge Plan Discharge Clinical Impression: Plantar fasciitis of left foot Patient Disposition: Home, Self-Care Instructions: Plantar Fasciitis (ED), Plantar Fasciitis Exercises (ED) Additional Instructions: Please follow up with your vascular surgeon within the next 24 hours. Be sure to mention your swelling and pain that has worsened since your visit on 05/21. Return to the emergency room with any new or worsening symptoms including: Worsening pain in your leg despite medications, fevers greater than 100?, redness that tracks away from your wound and into your groin, any new symptom that concerns you. Call 911 with any medical emergency. Por favor, consulte con ojeda cirujano vascular dentro de las pr?ximas 24 horas. Aseg?rese de mencionar ojeda hinchaz?n y dolor que diaz empeorado desde ojeda visita el 05/21. Regrese a la lori de emergencias con cualquier s?ntoma nuevo o que empeore, incluyendo: Empeoramiento del dolor en ojeda pierna a pesar de los medicamentos, fiebres mayores de 100 grados, enrojecimiento que se andre de ojeda herida y entra en ojeda toby, cualquier s?ntoma nuevo que le preocupe. Llame al 911 con cualquier emergencia m?dica. Prescriptions: New gabapentin 300 mg capsule 300 mg PO TID 7 Days Qty: 21 0RF No Action atorvastatin 20 mg tablet 20 mg PO BEDTIME Qty: 90 1RF divalproex 500 mg tablet,delayed release (DR/EC) 500 mg PO BID Eliquis DVT-PE Treat 30D Start 5 mg (74 tabs) tablets,dose pack 5 mg PO BID Qty: 74 0RF levetiracetam [Keppra] 750 mg tablet 750 mg PO BID phenobarbital 97.2 mg tablet 97.2 mg PO BID prazosin 2 mg capsule 2 mg PO BEDTIME spironolactone 100 mg tablet 100 mg PO DAILY magnesium oxide 400 mg magnesium tablet 400 mg PO DAILY MDD 400mg 90 Days Qty: 90 3RF loratadine 10 mg tablet 10 mg PO DAILY PRN (Reason: allergies) peg 3350-electrolytes [Golytely] 236-22.74-6.74 -5.86 gram recon soln 240 ml PO Q10M 1 Days Qty: 4000 0RF Rx Instructions: until fecal effluent is clear; do not exceed a total volume of 2,000 mL bisacodyl [Dulcolax (bisacodyl)] 5 mg tablet,delayed release (DR/EC) 10 mg PO BEDTIME 2 Days Qty: 4 0RF omeprazole 20 mg capsule,delayed release(DR/EC) 20 mg PO DAILY Qty: 30 6RF simethicone 180 mg capsule 180 mg PO TID 30 Days Qty: 90 6RF Rx Instructions: after meals sennosides [senna] 8.6 mg tablet 17.2 mg PO BEDTIME Qty: 60 6RF Interventions: ED Discharge Assessment Last Done: 05/27/25 00:57 Discharge Date/Time: 05/27/25 00:57 Print Language: Kiswahili
[2025-05-26 20:14] LABS: MANUAL DIFF FLAG NO
[2025-05-26 20:21] LABS: Hematocrit 37.9 % (42.0-52.0); Hemoglobin 13.2 g/dl (14.0-18.0); Imm Gran Abs Auto 0.01 X10*3/uL (0.00-0.03); Imm Gran Pct Auto 0.2 % (0.0-0.4); Lymphocytes Absolute Auto 2.2 X10*3/uL (1.2-4.9); Mean Corpuscular HGB Conc 34.8 g/dl (31.0-36.0); Mean Corpuscular Hemoglobin 33.3 pg (27.0-33.0); Mean Corpuscular Volume 95.7 fL (80.0-98.0); NRBC Abs Auto 0.000 X10*3/uL (0.0-0.012); NRBC Pct Auto 0.0 /100WBC (0.0-0.2); Platelet Count 175 X10*3/uL (160-400); Red Blood Count 3.96 X10*6/uL (4.60-5.80); White Blood Count 5.9 X10*3/uL (4.8-10.8)
[2025-05-26 20:29] LABS: Alanine Aminotransferase 17 U/L (0-40); Albumin Level 4.4 g/dL (3.5-5.0); Alkaline Phosphatase 74 U/L (39-117); Anion Gap 12 (12-20); Aspartate Amino Transferase 19 U/L (5-37); Blood Urea Nitrogen 8 mg/dL (9-16); Calcium 8.6 mg/dL (8.4-10.2); Carbon Dioxide 27 mmol/L (22-29); Chloride 106 mmol/L (96-108); Creatinine Clr Calc Pharmacy 85.4; Estimated Glomerular Filt Rate > 60; Magnesium 1.9 mg/dL (1.6-2.6); Potassium 4.2 mmol/L (3.3-5.1); Sodium 141 mmol/L (135-145); Total Protein 7.9 g/dL (6.5-8.0)
--- OUTSIDE RECORDS SUMMARY | 2025-05-26 23:18 | XMS_ITS | Clinical Summary ---
Author Organization [facility] Address [address] [place] [address] Care Team Providers Care Skip Locator Name Role Phone Unavailable Primary Care Provider [...] - Td or Tdap) 11/03/2020 011, 11/03/2010 [id number] (3 - 2023- season) 2024 021, 01/25/2021 Alcohol and Drug Screen 10/08/2024 Depression Annual Screen 10/08/2024 Imm-Influenza (#1) 2025 08/06/2020, 0 07/03/2019, 07/08/2018, Additional history exists [facility]
--- OUTSIDE RECORDS SUMMARY | 2025-05-26 23:18 | XMS_ITS | Patient Health Record ---
Author Organization [facility] Address [address] [place] [address] Care Team Providers Care Saxophone Teacher Name Role Phone Salbador QUILES, Antonietta Primary Care Provider Moe Irvin Unavailable [phone] Reason For Referral No Information Medications Medication [...] Problem Status W/U Status Risk Notes Problem 634121056 Encounter for screening for malignant neoplasm of colon (Z12.11) Active confirmed Problem 533860206 Chronic hepatitis C without hepatic coma (B18.2) Active confirmed Problem 49259058785217 History of hepatitis C (Z86.19) Active confirmed Problem [id number] Liver fibrosis (K74.0) Active confirmed Plan Of [...] Start Date Coverage End Date MEDICAID OF [place] [address] [place] [phone] [id number] BLAKE MACE Self - patient is the [...] schizophrenia hx of pneumonia seizure disorder Denies [place],DM,CVA,Lung disease,renal dise ase Venous stasis of LE's Surgical History Surgery Date(Month/Year)
[2025-05-27 00:57] VITALS: BP 136/77; PULSE 71; RESP 18; TEMP 36.4; O2SAT 100
== END 2025-05-27 00:57 | disposition home or self-care (01) ==
PROVIDERS: Physician Assistant Medical; Emergency Provider Emergency Medicine; PCP Nurse Practitioner Primary Care
DX: M72.2 Plantar fascial fibromatosis (principal); M79.605 Pain in left leg
CPT/HCPCS: 36415; 80053; 83735; 85025; 93971; 99282; 99284

== ENCOUNTER → 2025-05-26 19:55 | Outpatient (BNV) | payer MEDICAID, SELFPAY | PROVIDERS: PCP Nurse Practitioner Primary Care; Visit Provider Student in an Organized Health Care Education/Training Program | DX: R22.42 Localized swelling, mass and lump, left lower limb (principal) | CPT/HCPCS: 93971 ==

== ENCOUNTER 2025-06-18 11:18 | Outpatient (AMB) | payer MEDICAID, SELFPAY ==
[2025-06-18 11:22] VITALS: BMI 34.1
--- NOTE | 2025-06-18 11:22 | A.OFFVIS_ITS ---
Vital Signs 06/18/25 11:22 Height 5 ft 8 in Weight 224 lb BMI 34.1 Intake Visit Reasons: ED follow up for leg swelling s/p Venaseal 05/2025 Intake Note: Pt has ED follow up s/p Left LE Venaseal in May 2025. Pt states has LE swelling and discoloration Sword Swallower Required: No Accompanied by: Spouse Allergies No Known Drug Allergies Allergy (Unknown, Verified 06/18/25 11:24) UNKNOWN HPI HPI ED follow up for leg swelling s/p Venaseal 05/2025: Details: Pleasant 60-year-old gentleman presents for follow-up regarding left lower extremity pain. He had actually undergone left great saphenous vein ablation with us on 04/24/2025 with Cyanoacralate ablation. He had done well postoperatively. He then presented to the emergency room on 05/26/2025 with complaints of pain and discomfort in particular more the left ankle. At that time he had a repeat ultrasound which was negative for DVT. He now presents to us for follow-up evaluation. [facility] Medical History Hyperlipemia Seizure disorder Surgical History No significant past surgical history Family History Family/Other Epilepsy Social History Household Members: None Housing: Apartment Are you a primary daycare provider to a significant other at home: No Do you presently have visiting nurse or other home services: No Alcohol intake: current Alcohol intake frequency: does not drink Patient Tobacco Use Status: Never used Tobacco service: No Current occupational status: disabled Current occupation: right hand dominant Review of Systems Const All systems reviewed & are unremarkable except as noted in HPI and below Reports no additional complaints ENT Reports Normal hearing present Card Denies chest pain, Denies chest pain at rest, Denies chest pain with activity and Denies pedal edema Resp Denies cough GI Denies abdominal pain Musc Denies abnormal gait, Denies muscle cramps and Denies radiating pain into limb Skin/Breast Denies skin ulcer and Denies wounds Neuro Reports Normal hearing present and Denies abnormal gait Psych Reports no additional complaints Physical Exam Vital Signs: BMI result Body Mass Index 34.1 Const General: cooperative, healthy appearing and comfortable Orientation/consciousness: oriented to person, oriented to place and oriented to time HEENT Head: Yes normal to inspection Neck Neck: Yes normal visual inspection Carotids: no bruits Chest Chest palpation & inspection: normal inspection of the chest Resp Effort & Inspection: normal respiratory effort and able to speak in complete sentences Auscultation: clear to auscultation bilaterally, no crackles, no rales, no rhonchi and no wheezes Cardio Rate: regular rate Rhythm: regular rhythm Heart sounds: S1 normal heart sound present and S2 normal heart sound present Bruits: no carotid bruits Peripheral pulses: Peripheral pulses 2+ throughout GI Inspection: Yes normal to inspection Skin Wounds: no wounds Hair: normal Neuro General: oriented to person, oriented to place and oriented to time Cranial nerves: Yes CN's II-XII intact bilaterally and Yes Normal hearing present Cognition (Neuro): normal cognition Motor exam (neuro): 5/5 motor strength present throughout Extrem Other: venous exam: +1 to 2 edema. Skin discoloration left lower extremity. General: No clubbing, No cyanosis and Yes edema Psych Appearance: grossly normal Mental Status: mental status grossly normal Speech and movement: Normal speech and movement present Assessment & Plan Assessment & Plan (1) Varicose veins of left lower extremity with inflammation: Comment: 05/08/2025 - left great saphenous vein Cyanoacralate ablation Code(s): I83.12 - Varicose veins of left lower extremity with inflammation Category: Medical Plan: In short patient is stable status post left lower extremity ablation. I think more concerning is the pain in pinpoint tenderness in the left ankle and calf. I do believe this is more arthritic in nature. Patient is stable from a vascular perspective. Should pain and discomfort continue may benefit from orthopedic and/or podiatric evaluation. He will follow up with us on an as- needed basis. Thank you for allowing us to assist in his care. Coding Level of Care Code Est Pt Level 4 (45728) Diagnoses Varicose veins of left lower extremity with inflammation I83.12
--- OUTSIDE RECORDS SUMMARY | 2025-06-18 15:35 | XMS_ITS | Clinical Summary ---
Author Organization [facility] Address [address] [place] [address] Care Team Providers Care Electro Mechanic Name Role Phone Unavailable Primary Care Provider [...] - Td or Tdap) 11/03/2020 011, 11/03/2010 Alcohol and Drug Screen 10/08/2024 Depression Annual Screen 10/08/2024 [id number] ( - 2024- season) 2025 021, 01/25/2021 Imm-Influenza (#1) 2025 08/06/2020, 0 07/03/2019, 07/08/2018, Additional history exists [facility]
--- OUTSIDE RECORDS SUMMARY | 2025-06-18 15:35 | XMS_ITS | Clinical Summary ---
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 90 tablet 3 09/22/20 24 025 Active apixaban (Eliquis) 5 MG tabletIndication s:Acute deep vein thrombosis (DVT) of distal vein of right lower extremity (CMS/HCC) Take 1 tablet (5 mg) by mouth 2 times daily. 60 tablet 1 12/17/19 25 Active lidocaine (Lidoderm) 5 % patchIndications :Acute midline low back pain without sciatica Apply 1 patch topically Once per day. Remove & discard patch within 12 hours or as directed by MD. 30 patch 2 01/31/20 25 Active cyanocobalamin (Vitamin B-12) 1000 MCG tabletIndication s:B12 deficiency Take 1 tablet (1,000 mcg) by mouth Once per day. 90 tablet 3 02/20/20 25 026 Active spironolactone (Aldactone) 100 MG tabletIndication s:Venous insufficiency of lower extremity, unspecified laterality TAKE 1 TABLET BY MOUTH ONCE DAILY NEEDED 90 tablet 1 05/06/20 25 Active folic acid (Folvite) 1 MG tabletIndication s:Chronic alcoholism in remission (CMS/HCC) TAKE 1 TABLET BY MOUTH EVERY MORNING 90 tablet 1 05/06/20 25 Active loratadine (Claritin) 10 MG tabletIndication s:Seasonal allergies TAKE 1 TABLET BY MOUTH ONCE DAILY NEEDED FOR ALLERGY 90 tablet 1 05/18/20 25 Active prazosin (Minipress) 2 MG capsuleIndicatio ns:Benign hypertension TAKE 1 CAPSULE BY MOUTH EVERY NIGHT AT BEDTIME 90 capsule 1 05/27/20 25 Active acetaminophen (Tylenol 8 Hour) 650 MG ER tabletIndication s:Pain TAKE 1 or 2 TABLETS BY MOUTH EVERY 8 HOURS NEEDED, do not take more than 4 tablets per day 90 tablet 1 05/27/20 25 Active divalproex (Depakote) 500 MG EC tabletIndication s:Epilepsy, not refractory (CMS/HCC) TAKE 1 TABLET BY MOUTH two (2) times a day 60 tablet 2 06/02/20 25 Active PHENobarbital 97.2 MG tabletIndication s:Epilepsy, not refractory (CMS/HCC) Take 1 tablet by mouth once daily at bedtime 30 tablet 2 06/02/20 25 Active levETIRAcetam (Keppra) 750 MG tabletIndication s:Epilepsy, not refractory (CMS/HCC) Take 1 tablet (750 mg) by mouth 2 times daily. 60 tablet 2 06/02/20 25 Active Diclofenac Sodium (Voltaren) 1 % gelIndications:A cute left ankle pain Apply up to 4x/d to affected joint(s) for pain/swellin g 100 g 2 06/02/20 25 Active prazosin (Minipress) 2 MG capsuleIndicatio ns:Benign hypertension TAKE 1 CAPSULE BY MOUTH EVERY NIGHT AT BEDTIME 90 capsule 1 11/12/19 25 025 Discontinued divalproex (Depakote) 500 MG EC tabletIndication s:Epilepsy, not refractory (CMS/HCC) TAKE 1 TABLET BY MOUTH two (2) times a day 60 tablet 4 12/17/19 25 025 Discontinued(R eorder (will not trigger notification to Pharmacy)) levETIRAcetam (Keppra) 750 MG tabletIndication s:Epilepsy, not refractory (CMS/HCC) TAKE 1 TABLET BY MOUTH two (2) times a day 60 tablet 3 12/17/19 025 Discontinued PHENobarbital 97.2 MG tabletIndication s:Epilepsy, not refractory (CMS/HCC) Take 1 tablet by mouth once daily at bedtime 30 tablet 3 12/17/19 025 Discontinued(R eorder (will not trigger notification to Pharmacy)) acetaminophen (Tylenol 8 Hour) 650 MG ER tabletIndication s:Pain TAKE 1 or 2 TABLETS BY MOUTH EVERY 8 HOURS NEEDED, do not take more than 4 tablets per day 90 tablet 1 03/24/20 025 Discontinued levETIRAcetam (Keppra) 750 MG tabletIndication s:Epilepsy, not refractory (CMS/HCC) TAKE 1 TABLET BY MOUTH two (2) times a day 60 tablet 3 05/25/20 025 Discontinued(R eorder (will not trigger notification to Pharmacy)) amoxicillin (Amoxil) 500 MG capsuleIndicatio ns:History of tooth extraction, unspecified edentulism class Take 1 capsule (500 mg) by mouth every 8 (eight) hours for 7 days. 21 capsule 06/10/20 025 oxyCODONE (Roxicodone) 5 MG immediate release tabletIndication s:History of tooth extraction, unspecified edentulism class Take 1 tablet (5 mg) by mouth every 6 (six) hours if needed for severe pain for up to 5 days. 15 tablet 06/10/20 25 025 ibuprofen 600 MG tabletIndication s:History of tooth extraction, unspecified edentulism class Take 1 tablet (600 mg) by mouth 3 times daily for 7 days. 21 tablet 06/10/20 25 025 amoxicillin (Amoxil) 500 MG capsuleIndicatio ns:History of tooth extraction, unspecified edentulism class Take 1 capsule (500 mg) by mouth every 8 (eight) hours for 7 days. 21 capsule 06/10/20 25 025 Active Problems Problem Noted Date Diagnosed Date FARRAH (obstructive sleep apnea) 03/23/2025 Left leg pain 01/16/2025 Cellulitis of left [...] hypertensive heart disease. CTA was done at [facility] 04/30/24 and showed no hemodynamically significant CAD. [facility] cards will outreach pt for follow-up. High [...] Encounters Date Type Department Care Team Description 06/10/2025 10:15 AM EDT Office Visit [facility] [address] [place] [address] Christopher Patel, TATIANNA History of tooth extraction, unspecified edentulism class (Primary Dx) 06/03/2025 10:30 AM EDT Office Visit [facility] [address] [facility] [place] [facility] [place] [address] Christopher Patel, TATIANNA 06/02/2025 11:15 AM EDT Office Visit [facility] [address] [place] [address] Mauricio Coulter ANP Acute left ankle pain (Primary Dx); Epilepsy, not refractory (CMS/HCC); Left leg swelling 06/02/[address] [address] Mauricio Coulter ANP Call Back Request 06/02/2025 Travel 05/29/2025 Orders Only [facility] [address] [place] [phone] Mauricio Coulter ANP 05/28/[address] [address] Mauricio Coulter ANP verbal order needed 05/27/2025 Refill [facility] [address] [place] [phone] Mauricio Coulter ANP Benign hypertension; Pain 05/27/2025 Patient Outreach [facility] [address] [place] [phone] Mauricio Coulter ANP 05/26/2025 Orders Only GENERIC EXTERNAL DATA DEPARTMENT Provider, Generic External Data 05/23/2025 Refill [facility] [address] [place] [phone] Mauricio Coulter ANP Epilepsy, not refractory (CMS/HCC) 05/18/2025 Telephone [facility] [address] [place] [phone] Mauricio Coulter ANP Durable Medical Equipment 05/16/2025 Refill [facility] [address] [place] [phone] Mauricio Coulter ANP Seasonal allergies 05/07/2025 Telephone [facility] [address] [place] [address] NatyChristopher matthew, DMD SFS application 05/05/[address] [address] Mauricio Coulter ANP Venous insufficiency of lower extremity, unspecified laterality; Chronic alcoholism in remission ([facility]) 04/17/2025 Patient Outreach [address] [address] Mauricio Coulter ANP Care Coordination (CM/CHW outreach) 04/15/[address] [address] Mauricio Coulter ANP Durable Medical Equipment 04/08/[address] [address] Mauricio Coulter ANP Durable Medical Equipment (CPAP) 04/06/2025 Patient Outreach [address] [address] Mauricio Coulter ANP 03/27/2025 Telephone [facility] [address] [place] [address] Juan Carlos Mooney DMD 03/25/2025 Telephone [facility] [address] [place] [address] Juan Carlos Mooney, TATIANNA Broken Dentures 03/25/[address] [address] Mauricio Coulter ANP 03/24/2025 1:15 PM EDT Office Visit [address] [address] Mauricio Coulter ANP Acute midline thoracic back pain (Primary Dx); Pain 03/24/2025 Travel 03/19/2025 Orders Only [facility] External Provider, [facility] 03/19/[address] [phone] Mauricio Coulter ANP chart prep from Last 3 Months Immunizations Immunization Administration [...] Sign Reading Time Taken Comments Blood Pressure 110/68 06/03/2025 10:45 AM EDT Pulse 72 06/02/2025 11:22 AM EDT Temperature 36 C (96.8 F) 06/02/2025 11:22 AM EDT Respiratory Rate 14 06/02/2025 11:22 AM EDT Oxygen Saturation 98% 06/02/2025 11:22 AM EDT Inhaled Oxygen Concentration - - Weight 101 kg (222 lb 3.2 oz) 06/02/2025 11:22 A M EDT Height 167.6 cm (5' 6 ) 03/24/2025 1:13 PM EDT Body Mass Index 35.86 03/24/2025 1:13 PM EDT Plan of Treatment Upcoming Encounters Date Type Department Care Team (Late st Contact Info) Description 08/21/2025 10:30 AM EST Office Visit [facility] [address] [place] [phone] Loli Allred MD [address] [place] [address] Health Maintenance Due Date Last Done Comments CT Colonography 1965 Colonoscopy 1965 FIT DNA/Cologuard 1965 Sigmoidoscopy 1965 FOBT 09/21/2021 09/21/2020 Colorectal Cancer Screening 09/21/2024 FIT 09/21/2024 09/21/2020 Zoster Vaccines (2 of 2) 11/18/2024 09/23/2024 Dental Oral Exam 12/11/2024 06/12/2024, 08/11/2020 Dental Prophylaxis 12/11/2024 06/12/2024 Influenza Vaccine (#1) 2025 , 08/20/2023, 09/21/2022, Additional history exists Dental X-Ray: Bitewings 06/13/2025 06/12/20 24, 09/27/2023, 05/18/2021, Additional history exists Alcohol/Substance Use Screening 09/22/2025 09/22/2024 Diabetes: Hemoglobin A1C 09/22/2025 09/22/2024, 04/2 06/2024 Depression Screening 12/16/2025 12/16/2024, 12/17/19 25 SDOH Screening 12/16/2025 12/16/2024 Disability Screening 01/30/2026 01/30/2025 Tobacco Screening 06/03/2026 06/03/2025 Dental X-Ray: Full Mouth 06/13/2027 06/12/2024, 1101/2020 Lipid Panel 10/13/2029 10/13/2024, 09/07, 02/04/2024, Additional history exists DTaP/Tdap/Td Vaccines (4 - Td or Tdap) 05/03/2031 05/03/2021, 11/03/2010, 11/03/2010 RSV Patients and Patients Aged 60 years or older (1 - 1-dose 75+ series) 2042 Hepatitis A Vaccines Completed 07/08/2018, 06/03/2014, 01/01/2013, Additional history exists Hepatitis B Vaccines Completed 07/08/2018, 06/03/2014, 01/01/2013, Additional history exists Pneumococcal Vaccine: 50+ Years Completed 11/02/2023, 11/04/2013, 11/04/2013 COVID-19 Vaccine Completed 07/10/2024, , 07/28/2022, Additional history exists HIV Screening Completed 09/22/2024 [...] Procedure Name Priority Date/Time Associated Diagnosis Comments UL ALVEOLOPLASTY IN CONJ W/ EXTRACTIONS - 1-3 TEETH, PER QUAD Routine 06/10/2025 10:15 AM EDT UR ALVEOLOPLASTY IN CONJ W/ EXTRACTIONS - 1-3 TEETH, PER QUAD Routine 06/10/2025 10:15 AM EDT 3 EXTRACTION, ERUPTED TOOTH OR EXPOSED ROOT (ELEVATION/FORCEPS REMOVAL) Routine 06/10/2025 10:15 AM EDT 2 EXTRACTION, ERUPTED TOOTH OR EXPOSED ROOT (ELEVATION/FORCEPS REMOVAL) Routine 06/10/2025 10:15 AM EDT 6 EXTRACTION, ERUPTED TOOTH OR EXPOSED ROOT (ELEVATION/FORCEPS REMOVAL) Routine 06/10/2025 10:15 AM EDT 5 EXTRACTION, ERUPTED TOOTH OR EXPOSED ROOT (ELEVATION/FORCEPS REMOVAL) Routine 06/10/2025 10:15 AM EDT 10 EXTRACTION, ERUPTED TOOTH OR EXPOSED ROOT (ELEVATION/FORCEPS REMOVAL) Routine 06/10/2025 10:15 AM EDT 11 EXTRACTION, ERUPTED TOOTH OR EXPOSED ROOT (ELEVATION/FORCEPS REMOVAL) Routine 06/10/2025 10:15 AM EDT 13 EXTRACTION, ERUPTED TOOTH OR EXPOSED ROOT (ELEVATION/FORCEPS REMOVAL) Routine 06/10/2025 10:15 AM EDT 15 EXTRACTION, ERUPTED TOOTH OR EXPOSED ROOT (ELEVATION/FORCEPS REMOVAL) Routine 06/10/2025 10:15 AM EDT 14 EXTRACTION, ERUPTED TOOTH OR EXPOSED ROOT (ELEVATION/FORCEPS REMOVAL) Routine 06/10/2025 10:15 AM EDT 1 EXTRACTION, ERUPTED TOOTH OR EXPOSED ROOT (ELEVATION/FORCEPS REMOVAL) Routine 06/10/2025 10:15 AM EDT NO CHARGE PROCEDURE Routine 06/03/2025 1 0:30 AM EDT LOWER EXTREMITY VENOUS DUPLEX LEFT Routine 05/26/2025 9:40 PM EDT MAGNESIUM Routine 05/26/2025 8:10 PM EDT COMPREHENSIVE METABOLIC PANEL Routine 05/26/2025 8:10 PM EDT CBC WITH AUTO DIFFERENTIAL Routine 05/26/2025 8:10 PM EDT VASC US LOWER EXTREMITY VENOUS INSUFFICIENCY BILATERAL Routine 03/19/2025 1:46 PM EDT LIPID PANEL, STANDARD Routine 10/13/2024 1:45 [...] Recently Relevant to Health Maintenance Results * Lower Extremity Venous Duplex (05/26/2025 9:40 PM EDT) 05/26/2025 9:40 PM EDT Narrative [facility] - 05/26/2025 9:42 PM EDT [address] [address] Ultrasound Report Signed Patient: Jerome Ledezma MR#: [id number] : 1965 Acct:[id number] Age/Sex: 60 / M ADM Date: 05/26/25 Loc: HO.ED Attending Dr: Ordering Physician: Kimmy Lockwood Date of Service: 05/26/25 Procedure(s): US venous duplex LE LT Accession Number(s): [id number] cc: Kimmy Lockwood; MAURICIO COULTER NP CLINICAL HISTORY: pain swelling --- Additional Notes or Special Instructions: s p venaseal Venous duplex ultrasound left lower extremity Comparison: US/MS/SR - US VENOUS INSUFFICIENCY BILATERAL - 03/19/25 13:34 EDT Findings: The visualized deep veins are fully compressible with normal Doppler color flow and spectral tracings. No popliteal cyst. IMPRESSION: 1. Negative for left lower extremity deep vein thrombosis. This document has been electronically signed by: Mona An MD on 05/26/2025 21:40:34 Dictated By: Mona An MD Signed By: <Electronically signed by Mona An MD in OV> 05/26/252140 DD/ 39 TD/TT: 05/26/252139 Avid Editor: Procedure Note Donotuseinterpreter, Image - 05/26/[address] [address] Ultrasound Report Signed Patient: Tolu LedezmaR#: [id number] : 1965Acct:[id number] Age/Sex: 60 / MADM Date: 05/26/25 Loc: .ED Attending Dr: Ordering Physician: Kimmy Lockwood Date of Service: 05/26/25 Procedure(s): US venous duplex LE LT Accession Number(s): [id number] cc: Kimmy Lockwood; MAURICIO COULTER NP CLINICAL HISTORY: pain swelling --- Additional Notes or SpecialInstructions: s p venaseal Venous duplex ultrasound left lower extremity Comparison: US/MS/SR - US VENOUS INSUFFICIENCY BILATERAL - 03/19/25 13:34 EDT Findings: The visualized deep veins are fully compressible with normal Doppler color flow and spectral tracings. No popliteal cyst. IMPRESSION: 1. Negative for left lower extremity deep vein thrombosis. This document has been electronically signed by: Mona An MD on 05/26/2025 21:40:34 Dictated By: Mona An MD Signed By: <Electronically signed by Mona An MD in OV> 05/26/252140 DD/ 39 TD/TT: 05/26/252139 Avid Editor: us [facility] External Provider CV VASC ULAR PROCEDURES Final Result [facility] [address] [place] [phone] * (ABNORMAL) CBC auto differential (05/26/2025 8:10 PM EDT) White Blood Count 5.9 4.8 - 10.8 X10*3/uL [facility] Red Blood Count 3.96(L) 4.60 - 5.80 X10*6/uL [facility] Hemoglobin 13.2(L) 14.0 - 18.0 g/dl [facility] Hematocrit 37.9(L) 42.0 - 52.0 % [facility] Mean Corpuscular Volume 95.7 80.0 - 98.0 fL [facility] Mean Corpuscular Hemoglobin 33.3(H) 27.0 - 33.0 pg [facility] Mean Corpuscular HGB Conc 34.8 31.0 - 36.0 g/dl [facility] Red Cell Distribution Width 12.5 11.0 - 16.0 % [facility] Platelet Count 175 160 - 400 X10*3/uL [facility] Mean Platelet Volume 10.1 9.4 - 12.4 fL [facility] Neutrophils Percent Auto 49.2 45 - 73 % [facility] Imm Gran Pct Auto 0.2 0.0 - 0.4 % [facility] Lymphocytes Percent Auto 37.5 20 - 40 % [facility] Monocytes Percent Auto 11.2(H) 2 - 11 % [facility] Eosinophils Percent Auto 1.0 0 - 4 % [facility] Basophils Percent Auto 0.9 0 - 2 % [facility] NRBC Pct Auto 0.0 0.0 - 0.2 /100WBC [facility] Neutrophils Absolute Auto 2.9 2.0 - 8.3 x10*3/uL [facility] Imm Gran Abs Auto 0.01 0.00 - 0.03 X10*3/uL [facility] Lymphocytes Absolute Auto 2.2 1.2 - 4.9 X10*3/uL [facility] Monocytes Absolute Auto 0.7 0.1 - 1.2 X10*3/uL [facility] Eosinophils Absolute Auto 0.1 0.0 - 0.4 X10*3/uL [facility] Basophils Absolute Auto 0.1 0.0 - 0.2 X10*3/uL [facility] NRBC Abs Auto 0.000 0.0 - 0.012 X10*3/uL [facility] 05/26/2025 8:10 PM EDT 05/26/2025 8:13 PM EDT us Generic External Data Provider LAB BLOOD ORDERAB LES Final Result Performing Organization Address [facility]/ZIP Co de Phone Number [facility] [address] [place] [phone] * Magnesium (05/26/2025 8:10 PM EDT) Magnesium 1.9 1.6 - 2.6 mg/dL [facility] 05/26/2025 8:10 PM EDT 05/26/2025 8:13 PM EDT us Generic External Data Provider LAB BLOOD ORDERAB LES Final Result Performing Organization Address City/[facility]/ZIP Co de Phone Number [facility] [address] [place] [address] [phone] * (ABNORMAL) Comprehensive Metabolic Panel (05/26/2025 8:10 PM EDT) Sodium 141 135 - 145 mmol/L [facility] Potassium 4.2 3.3 - 5.1 mmol/L [facility] Chloride 106 96 - 108 mmol/L [facility] Carbon Dioxide 27 22 - 29 mmol/L [facility] Anion Gap 12 12 - 20 [facility] Urea Nitrogen (BUN) 8(L) 9 - 16 mg/dL [facility] Creatinine, Serum 1.09 0.5 - 1.4 mg/dL [facility] Creatinine Clr Calc Pharmacy 85.4 [facility] Comment:eGFR (calculated fro m the MDRD study equation) and eCrCl(calculated from the Cockcroft-Gault equation) are based ondifferent parameters and may not yield comparable results.If eCrCl result is absurd, please check patient'sheight/weight. Estimated Glomerular Filt Rate >60 [facility] Comment:Chronic Kidney Disea se: Estimated GFR < 60 mL/min/1.86c8Lohcno Kidney Disease: Estimated GFR < 15 mL/min/1.73m2 Glucose 93 60 - 115 mg/dL [facility] Calcium 8.6 8.4 - 10.2 mg/dL [facility] Bilirubin, Total 0.2 0.0 - 1.0 mg/dL [facility] Aspartate Amino Transferase 19 5 - 37 U/L [facility] Alanine Aminotransferase 17 0 - 40 U/L [facility] Total Protein 7.9 6.5 - 8.0 g/dL [facility] Albumin Level 4.4 3.5 - 5.0 g/dL [facility] Alkaline Phosphatase 74 39 - 117 U/L [facility] 05/26/2025 8:10 PM EDT 05/26/2025 8:13 PM EDT us Generic External Data Provider LAB BLOOD ORDERAB LES Final Result [facility] [address] [place] [phone] * VASC US Lower Extremity Venous Insufficiency Bilateral (03/19/2025 1:46 PM EDT) 03/19/2025 1:46 PM EDT Narrative [facility] - 03/20/2025 8:00 AM EDT [address] [address] Ultrasound Report Signed Patient: Jerome Ledezma MR#: [id number] : 1965 Acct:[id number] Age/Sex: 59 / M ADM Date: 03/19/25 Loc: .US Attending Dr: Bertha Tidwell PA-C Ordering Physician: Bertha Tidwell PA-C Date of Service: 03/19/25 Procedure(s): US venous insuf bilat Accession Number(s): [id number] cc: Bertha Tidwell PA-C; MAURICIO COULTER NP EXAMINATION: US LOWER EXTREMITY VENOUS (REFLUX EXAM), BILATERAL CLINICAL INFORMATION: Varices. COMPARISON: None. TECHNIQUE: Color flow triplex imaging and compression Doppler was performed to evaluate both the deep and the superficial systems bilaterally. To evaluate the superficial system, the examination was performed in the upright position. Color-flow Doppler ultrasound and compression ultrasound were utilized. In addition, maneuvers were utilized to demonstrate reflux. FINDINGS: 1. DEEP VENOUS ULTRASOUND OF THE RIGHT LOWER EXTREMITY: Common Femoral Vein: Compressible, normal respiratory variation and augmented flow. Femoral Vein: Compressible, normal color flow and augmentation. Popliteal Vein: There is an intraluminal isoechoic abnormality in the right popliteal vein with partial compressibility. Deep Reflux: There is no evidence of reflux in the deep system in either the common femoral vein, superficial femoral or the popliteal vein. There is no evidence of a Santamaria's cyst. 2. SUPERFICIAL ULTRASOUND WITH DOPPLER OF RIGHT LOWER EXTREMITY: GREAT SAPHENOUS VEIN: Saphenofemoral Junction: 0.3 cm; Reflux: 0 ms Proximal Thigh: 0.5 cm; Reflux: 0 ms Mid Thigh: 0.5 cm; Reflux: 0 ms Distal Thigh: 0.6 cm; Reflux: 0 ms At Knee: 0.5 cm; Reflux: 0 ms Proximal Calf: 0.5 cm; Reflux: 0 ms Mid Calf: 0.4 cm; Reflux: 508 ms Distal Calf: 0.4 cm; Reflux: 0 ms DUPLICATED MEDIAL GREAT SAPHENOUS VEIN: Diameter: None imaged Reflux: NA DUPLICATED LATERAL GREAT SAPHENOUS VEIN: Diameter: 0.2 cm. Reflux: NA SMALL SAPHENOUS VEIN: Saphenopopliteal Junction: 0.3 cm; Reflux: 2284 ms Proximal: 0.2 cm; Reflux: 0 ms Distal: 0.3 cm; Reflux: 0 ms VEIN OF GIACOMINI: Size: NA Reflux: NA PERFORATORS: Location: Great saphenous vein at the knee, proximal and mid calf segments. Size: 0.2-0.3 cm. Reflux: 2008 ms at the proximal calf and 1588 ms in the mid calf. VARICOSITIES: Location: Small saphenous vein mid segment and great saphenous vein proximal calf. Size: 0.4-0.6 cm. Reflux: NA 3. DEEP VENOUS ULTRASOUND OF THE LEFT LOWER EXTREMITY: Common Femoral Vein: Compressible, normal respiratory variation and augmented flow. Femoral Vein: Compressible, normal color flow and augmentation. Popliteal Vein: Compressible, normal augmentation. Deep Reflux: There is a 1724 ms reflux in the common femoral vein. There is no evidence of a Santamaria's cyst. 4. SUPERFICIAL ULTRASOUND WITH DOPPLER OF LEFT LOWER EXTREMITY: GREAT SAPHENOUS VEIN: Saphenofemoral Junction: 0.6 cm; Reflux: 0 ms Proximal Thigh: 0.3 cm; Reflux: 0 ms Mid Thigh: 0.3 cm; Reflux: 1316 ms Distal Thigh: 0.4 cm; Reflux: 976 ms At Knee: 0.5 cm; Reflux: 1132 ms Proximal Calf: 0.4 cm; Reflux: 692 ms Mid Calf: Not identified. Distal Calf: 0.2 cm; Reflux: 2768 ms DUPLICATED MEDIAL GREAT SAPHENOUS VEIN: Diameter: 0.4 cm. Reflux: NA DUPLICATED LATERAL GREAT SAPHENOUS VEIN: Diameter: None imaged. Reflux: NA SMALL SAPHENOUS VEIN: Saphenopopliteal Junction: 0.3 cm; Reflux: 0 ms Proximal: Not identified. Distal: 0.1 cm; Reflux: 0 ms VEIN OF GIACOMINI: Size: NA Reflux: NA PERFORATORS: Location: Great saphenous vein from the mid to the distal calf. Size: 0.1-0.2 cm. Reflux: NA VARICOSITIES: Location: Small saphenous vein, mid segment. Great saphenous vein at the proximal thigh and proximal calf segments. Size: 0.3-0.4 cm. Reflux: 508 ms in the small saphenous vein and great saphenous vein reflux in the range of 616-728 ms . US/US venous insuf bilat IMPRESSION: Right: . Nonocclusive thrombus, right popliteal vein. Venous insufficiency, great saphenous vein mid calf. Venous insufficiency, small saphenous vein at the junction. Perforators with reflux involving the proximal mid calf segments of the great saphenous vein. Varices without reflux. Left: Venous insufficiency, great saphenous vein from the mid thigh to the ankle. Venous insufficiency, involving common femoral vein (deep venous system). Varices with reflux involving small saphenous vein mid segment and the great saphenous vein from the proximal thigh to the proximal calf. Perforators without reflux. The positive findings were communicated to the ordering provider by the ophthalmic medical technologist at the time of the examination on March 19, 2025. Electronically signed by: Justus Lanier MD 03/20/2025 07:57 AM EDT Dictated By: Justus Duggan MD Signed By: <Electronically signed by Justus Solis MD in OV> 03/20/25 0757 DD/ 1346 TD/TT: 03/19/25 1509 Avid Editor: Procedure Note Donotuseinterpreter, Image - 03/20/[address] [address] Ultrasound Report Signed Patient: Mukul Ledezma#: [id number] : 1965Acct:[id number] Age/Sex: 59 / MADM Date: 03/19/25 Loc: HO.US Attending Dr: Bertha Tidwell PA-C Ordering Physician: Bertha Tidwell PA-C Date of Service: 03/19/25 Procedure(s): US venous insuf bilat Accession Number(s): [id number] cc: Bertha Tidwell PA-C; MAURICIO COULTER NP EXAMINATION: US LOWER EXTREMITY VENOUS (REFLUX EXAM), BILATERAL CLINICAL INFORMATION: Varices. COMPARISON: None. TECHNIQUE: Color flow triplex imaging and compression Doppler was performed to evaluate both the deep and the superficial systems bilaterally. To evaluate the superficial system, the examination was performed in the upright position. Color-flow Doppler ultrasound and compression ultrasound were utilized. In addition, maneuvers were utilized to demonstrate reflux. FINDINGS: 1. DEEP VENOUS ULTRASOUND OF THE RIGHT LOWER EXTREMITY: Common Femoral Vein: Compressible, normal respiratory variation and augmented flow. Femoral Vein: Compressible, normal color flow and augmentation. Popliteal Vein: There is an intraluminal isoechoic abnormality in the right popliteal vein with partial compressibility. Deep Reflux: There is no evidence of reflux in the deep system in either the common femoral vein, superficial femoral or the popliteal vein. There is no evidence of a Santamaria's cyst. 2. SUPERFICIAL ULTRASOUND WITH DOPPLER OF RIGHT LOWER EXTREMITY: GREAT SAPHENOUS VEIN: Saphenofemoral Junction: 0.3 cm; Reflux: 0 ms Proximal Thigh: 0.5 cm; Reflux: 0 ms Mid Thigh: 0.5 cm; Reflux: 0 ms Distal Thigh: 0.6 cm; Reflux: 0 ms At Knee: 0.5 cm; Reflux: 0 ms Proximal Calf: 0.5 cm; Reflux: 0 ms Mid Calf: 0.4 cm; Reflux: 508 ms Distal Calf: 0.4 cm; Reflux: 0 ms DUPLICATED MEDIAL GREAT SAPHENOUS VEIN: Diameter: None imaged Reflux: NA DUPLICATED LATERAL GREAT SAPHENOUS VEIN: Diameter: 0.2 cm. Reflux: NA SMALL SAPHENOUS VEIN: Saphenopopliteal Junction: 0.3 cm; Reflux: 2284 ms Proximal: 0.2 cm; Reflux: 0 ms Distal: 0.3 cm; Reflux: 0 ms VEIN OF GIACOMINI: Size: NA Reflux: NA PERFORATORS: Location: Great saphenous vein at the knee, proximal and mid calf segments. Size: 0.2-0.3 cm. Reflux: 2008 ms at the proximal calf and 1588 ms in the mid calf. VARICOSITIES: Location: Small saphenous vein mid segment and great saphenous vein proximal calf. Size: 0.4-0.6 cm. Reflux: NA 3. DEEP VENOUS ULTRASOUND OF THE LEFT LOWER EXTREMITY: Common Femoral Vein: Compressible, normal respiratory variation and augmented flow. Femoral Vein: Compressible, normal color flow and augmentation. Popliteal Vein: Compressible, normal augmentation. Deep Reflux: There is a 1724 ms reflux in the common femoral vein. There is no evidence of a Santamaria's cyst. 4. SUPERFICIAL ULTRASOUND WITH DOPPLER OF LEFT LOWER EXTREMITY: GREAT SAPHENOUS VEIN: Saphenofemoral Junction: 0.6 cm; Reflux: 0 ms Proximal Thigh: 0.3 cm; Reflux: 0 ms Mid Thigh: 0.3 cm; Reflux: 1316 ms Distal Thigh: 0.4 cm; Reflux: 976 ms At Knee: 0.5 cm; Reflux: 1132 ms Proximal Calf: 0.4 cm; Reflux: 692 ms Mid Calf: Not identified. Distal Calf: 0.2 cm; Reflux: 2768 ms DUPLICATED MEDIAL GREAT SAPHENOUS VEIN: Diameter: 0.4 cm. Reflux: NA DUPLICATED LATERAL GREAT SAPHENOUS VEIN: Diameter: None imaged. Reflux: NA SMALL SAPHENOUS VEIN: Saphenopopliteal Junction: 0.3 cm; Reflux: 0 ms Proximal: Not identified. Distal: 0.1 cm; Reflux: 0 ms VEIN OF GIACOMINI: Size: NA Reflux: NA PERFORATORS: Location: Great saphenous vein from the mid to the distal calf. Size: 0.1-0.2 cm. Reflux: NA VARICOSITIES: Location: Small saphenous vein, mid segment. Great saphenous vein at the proximal thigh and proximal calf segments. Size: 0.3-0.4 cm. Reflux: 508 ms in the small saphenous vein and great saphenous vein reflux in the range of 616-728 ms . US/US venous insuf bilat IMPRESSION: Right: . Nonocclusive thrombus, right popliteal vein. Venous insufficiency, great saphenous vein mid calf. Venous insufficiency, small saphenous vein at the junction. Perforators with reflux involving the proximal mid calf segments of the great saphenous vein. Varices without reflux. Left: Venous insufficiency, great saphenous vein from the mid thigh to the ankle. Venous insufficiency, involving common femoral vein (deep venous system). Varices with reflux involving small saphenous vein mid segment and the great saphenous vein from the proximal thigh to the proximal calf. Perforators without reflux. The positive findings were communicated to the ordering provider by the ophthalmic medical technologist at the time of the examination on March 19, 2025. Electronically signed by: Justus Lanier MD 03/20/2025 07:57 AM EDT Dictated By: Justus Duggan MD Signed By: <Electronically signed by Justus Solis MDin OV> 03/20/25 0757 DD/ 1346 TD/TT: 03/19/25 1509 Avid Editor: us [facility] External Provider CV VASC ULAR PROCEDURES Final Result Performing Organization Address City/[facility]/ZIP Co de Phone Number [facility] [address] [place] [address] [phone] * (ABNORMAL) Lipid Panel, Standard (10/13/2024 1:45 PM EST) Triglycerides 126 <150 mg/dL [facility] Comment:Desirable Triglyceri de: less than 150 mg/dLBorderline High Triglyceride 150-199 mg/dLHigh Triglyceride: 200-499 mg/dLVery High Triglyceride: greater than or equal to 5OO mg/dL Cholesterol 213(H) <200 mg/dL [facility] Comment:Desirable Cholestero l: less than 200 mg/dLBorderline High Cholesterol: 200-239 mg/dLHigh Cholesterol: greater than 239 mg/dL LDL Cholesterol Calculated 134(H) <100 mg/dL [facility] Comment:Desirable LDL: less than 100 mg/dLNear Optimal/Above Optimal LDL: 110- 129 mg/dLBorderline High LDL: 130-159 mg/dLHigh LDL: 160-189 mg/dLVery High LDL: greater than or equal to 190 mg/dL HDL Cholesterol 54 >40 mg/dL [facility] Comment:Desirable HDL: great er than 40 mg/dL Note: This HDL assay may give artificially low results in patients with liver disease. 10/13/2024 1:45 PM EST 10/13/2024 1:45 PM EST us Generic External Data Provider LAB BLOOD ORDERAB LES Final Result [facility] [address] [place] [address] [phone] * HIV-1/2 Antigen and Antibodies, Fourth Generation, with Reflexes (09/22/2024 3:37 PM EST) HIV AB/AG Nonreactive Nonreactive [facility] Comment:HIV-1 p24 Ag and/or HIV-1/HIV-2 Ab not detected.A test result that is nonreactive does not exclude thepossibility of exposure to or infection with HIV-1 and/orHIV-2. Nonreactive results in this assay for individualswith prior exposure to HIV-1 and/or HIV-2 may be due toantigen and antibody levels that are below the limit ofdetection of this assay.The [employer] HIV Ag/Ab Combo assay result andsupplemental assay results should be interpreted inconjunction with the patient's clinical presentation,history and other laboratory results. If the results areinconsistent with clinical evidence, additional testing issuggested to confirm the result. Blood Venous blood specimen / Unknown 09/22/2024 3:37 PM EST 09/22/2024 4:23 PM EST Mauricio [facility] LAB BLOOD ORDERABLES Final Resul t Performing Organization Address [facility] Co de Phone Number [facility] [address] [place] [address] [phone] * Hemoglobin A1c (09/22/2024 3:37 PM EST) Hemoglobin A1c 5.9 <6.0 % [facility] Comment:Hemoglobin A1C Refer ence Range Adults: 4.8 - 6.0 % Non diabetic: < 6.0 % Goal: < 7.0 %Additional Action Suggested: > 8.0 %Note: Hemoglobin A1c results are invalid for patients with abnormal amounts of HbF. Blood transfusions may impact the HbA1c concentration in the patient sample. Estimated Average Glucose 123 mg/dL [facility] Comment:eAG = Estimated ave rage glucose which is %A1C expressed asaverage glucose, using the formula of the G5R-DbothogKuchsrb Glucose study (ADAG), Diabetes Care, Vol.31,#8,May. 2007 Blood Venous blood specimen / Unknown 09/22/2024 3:37 PM EST 09/22/2024 4:23 PM EST Mauricio [facility] LAB BLOOD ORDERABLES Final Resul t [facility] [address] [place] [address] [phone] * Fecal Immunochemical Test (09/21/2020) Fecal Immunochemical Test Nonreactive Borderline, Nonreactive , Weakly Reactive Stool Rectal contents / Unknown 09/21/2020 Historical Provider HEALTH MAINTENANCE Final Result from Last 3 Months or Most Recently Relevant to Health Maintenance Insurance [facility] [place] Care Teams Carpet Loom Fixer Relationship Specialty Start Date End Date Mauricio Coulter ANP [address] [place] [phone] PCP - General Family Medicine 05/04/21 [facility] 08/22/24
--- OUTSIDE RECORDS SUMMARY | 2025-06-18 15:36 | XMS_ITS | Encounter Summary ---
Author Organization [employer] Address [address] [facility] [address]t [place] [address] Care Team Providers Care Spanish Medical Interpreter Name Role Phone Lizabeth Felder Primary Care Provider Reason for Visit * Reason Onset Date Comments returning call for os appt 10/29/2024 Encounter Details Date Type Department Care Team (Late st Contact Info) Description 10/29/2024 Telephone [facility] ADULT DENTAL [address] [place], [place] [phone] Christopher Patel, DMD [address] [place], [place] [phone] returning call for os appt Social History [...] [facility] [address] [place] [address] Loli Allred MD [address] [place] [address] documented as of this encounter Visit Diagnoses Not on filedocumented in this encounter Additional Health Concerns Assessment Noted Time PHQ-9 Depression Total Score: 2 02/04/20 24 2:14 PM EDT documented as of this encounter Care Teams Spanish Medical Interpreter Relationship Specialty Start Date End Date Lizabeth Felder ANP [address] [place] [address] PCP - General Family Medicine 7/28/21 [facility] 08/22/24 documented as of this encounter
--- OUTSIDE RECORDS SUMMARY | 2025-06-18 15:36 | XMS_ITS | Patient Health Record ---
Author Organization [facility] Address [address] [place] [address] Care Team Providers Care Registered Phlebotomist Part Time Name Role Phone Salbador QUILES, Antonietta Primary Care Provider Moe Irvin Unavailable [phone] Reason For Referral No Information Medications Medication [...] Problem Status W/U Status Risk Notes Problem [id number] Encounter for screening for malignant neoplasm of colon (Z12.11) Active confirmed Problem [id number] Chronic hepatitis C without hepatic coma (B18.2) Active confirmed Problem [id number] History of hepatitis C (Z86.19) Active confirmed Problem 16948903 Liver fibrosis (K74.0) Active confirmed Plan Of Treatment Pending Test Test Name Order Date LIVER PROFILE 03/07/2015 LIVER PROFILE 12/28/2014 LIVER PROFILE 12/24/2018 LIVER PROFILE 11/05/2014 CBC w DIFF 11/05/2014 CBC w DIFF 03/07/2015 CBC w DIFF 12/28/2014 CBC w DIFF 12/24/2018 PROTHROMBIN TIME (PT, INR) 12/24/2018 ALPHA-FETOPROTEIN,TUMOR MARKER 9 HEPATITIS C VIRAL LOAD 11/05/2014 HEPATITIS C VIRAL LOAD 03/07/2015 HEPATITIS C VIRAL LOAD 12/28/2014 MRI ABD W&WO CONTRAST 07/21/2012 MRI ABD W&WO CONTRAST 10/29/2014 US ABD 05/18/2016 Insurance Providers Payer Name Payer Address Payer Phone Subscriber Number Group Number Insured Name Patient Relationship to Insured Coverage Start Date Coverage End Date MEDICAID OF [facility] [address] [place] [phone] [id number] BLAKE MACE Self - patient is the [...] schizophrenia hx of pneumonia seizure disorder Denies GA,DM,CVA,Lung disease,renal dise ase Venous stasis of LE's Surgical History Surgery Date(Month/Year)
--- OUTSIDE RECORDS SUMMARY | 2025-06-18 15:36 | XMS_ITS ---
Author Organization [employer] Address [address] [facility] 7[address] [place] [address] Care Team Providers Care Tank Builder And Erector Name Role Phone Lizabeth Felder Primary Care Provider [phone] CHW Complex Status:Outreach In Progress (Enrolling) Start date:01/28/2025 Enrollment reason:ADT Feed Overview ED- Pt went to [facility] ED on 01/27/25. Please outreach for enrollment. Case Team Name Relationship Phone Isadora Aburto(Responsible Staff) [phone] Continued Care and Services Coordination
--- OUTSIDE RECORDS SUMMARY | 2025-06-18 15:36 | XMS_ITS | Encounter Summary ---
Author Organization [employer] Address [address] [facility] 7t [place] [address] Care Team Providers Care Aadc Plans Staff Officer Name Role Phone Lizabeth Felder Primary Care Provider [phone] Encounter Details Date Type Department Care Team (Late st Contact Info) Description 05/29/2025 Orders Only [facility] MEDICINE [address] [place], [place] [phone] Lizabeth Felder ANP [address] [place], [place] [phone] Social History Tobacco Use Types Packs/Day Years [...] Description 08/21/2025 10:30 AM EST Office Visit [facility] [address] [place] [address] Loli Allred MD [address] [place] [address] documented as of this encounter Visit Diagnoses Not on filedocumented in this encounter Additional Health Concerns Assessment Noted Time PHQ-9 Depression Total Score: 0 12/17/19 25 11:38 AM EDT documented as of this encounter Care Teams Aadc Plans Staff Officer Relationship Specialty Start Date End Date Lizabeth Felder ANP [address] [place] [address] PCP - General Family Medicine 05/04/21 [facility] 08/22/24 documented as of this encounter
--- OUTSIDE RECORDS SUMMARY | 2025-06-18 15:36 | XMS_ITS | Encounter Summary ---
Author Organization [employer] Address [address] [facility] [address] [place] [address] Care Team Providers Care Rn Float Name Role Phone Lizabeth Felder Primary Care Provider [phone] Reason for Visit * Reason Onset Date Comments Broken Dentures 03/25/2025 Encounter Details Date Type Department Care Team ([facility] st Contact Info) Description 03/25/2025 Telephone [facility] ADULT DENTAL [address] [place], [place] [phone] Juan Carlos Mooney, DMD [address] [place], [place] [phone] Broken Dentures Social History Tobacco Use Types Packs/Day Years [...] * Telephone Encounter - Saadia James - 03/25/2025 4:09 PM EDT Radha is calling in stating his partial is broken and he would like an appt for repair. Please reach out to patient for scheduling DR documented in this encounter Plan of Treatment Upcoming Encounters Date Type Department Care Team (Late st Contact Info) Description 08/21/2025 10:30 AM EST Office Visit [facility] MEDICINE [address] [place] [address] Loli Allred MD [address] [place] [address] documented as of this encounter Visit Diagnoses Not on filedocumented in this encounter Additional Health Concerns Assessment Noted Time PHQ-9 Depression Total Score: 0 12/17/19 25 11:38 AM EDT documented as of this encounter Care Teams Rn Float Relationship Specialty Start Date End Date Lizabeth Felder ANP [address] [place] [address] PCP - General Family Medicine 05/04/21 [facility] 08/22/24 documented as of this encounter
--- OUTSIDE RECORDS SUMMARY | 2025-06-18 15:36 | XMS_ITS ---
Author Organization [employer] Address [address] [facility] 7t [place] [address] Care Team Providers Care Buyer Assistant Name Role Phone Lizabeth Felder Primary Care Provider [phone] Complex Status:Outreach In Progress (Enrolling) Start date:01/28/2025 Enrollment reason:ADT Feed Overview ED- Pt went to [facility] ED on 01/27/25. Case Team Name Relationship Phone Gail Mendes RN(Responsible Staff) Registered Nurse [phone] Continued Care and Services Coordination
--- OUTSIDE RECORDS SUMMARY | 2025-06-18 15:36 | XMS_ITS | Encounter Summary ---
Author Organization [employer] Address [address] [facility] 7[address] [place] [address] Care Team Providers Care Geriatric Personal Care Aide Name Role Phone Lizabeth Felder Primary Care Provider [phone] Reason for Visit * Reason Onset Date Comments case delivery appt 07/24/2024 Encounter Details Date Type Department Care Team ([facility] st Contact Info) Description 07/24/2024 Telephone [facility] CHC ADULT DENTAL [address] [place], [place] [phone] Juan Carlos Mooney, DMD [address] [place], [place] [phone] case delivery appt Social History Tobacco Use [...] appt scheduled for 1pm. Upon confirming with [facility] front desk attendant, it was explained that when case arrives [...] Description 08/21/2025 10:30 AM EST Office Visit [facility] MEDICINE [address] [place] [address] Loli Allred MD [address] [place] [address] documented as of this encounter Visit Diagnoses Not on filedocumented in this encounter Additional Health Concerns Assessment Noted Time PHQ-9 Depression Total Score: 2 02/04/20 24 2:14 PM EDT documented as of this encounter Care Teams Geriatric Personal Care Aide Relationship Specialty Start Date End Date Lizabeth Felder ANP [address] [place] [address] PCP - General Family Medicine 05/04/21 [facility] 08/22/24 documented as of this encounter
--- OUTSIDE RECORDS SUMMARY | 2025-06-18 15:36 | XMS_ITS | Encounter Summary ---
Author Organization [employer] Address [address] [facility] 7t [place] [address] Care Team Providers Care Environmental Engineering Manager Name Role Phone Lizabeth Felder Primary Care Provider [phone] Reason for Visit * Reason Comments Med Refill Encounter Details Date Type Department Care Team ([facility] st Contact Info) Description 08/01/2023 Refill [facility] MEDICINE [address] [place] [address] Lizabeth Felder ANP [address] [place] [address] Pain Social History Tobacco Use Types Packs/Day [...] the past 12 months, has t he [employer], [employer], oil or water company threatened to shut [...] Description 08/21/2025 10:30 AM EST Office Visit [facility] MEDICINE [address] [place] [address] Loli Allred MD [address] [place] [address] documented as of this encounter Visit Diagnoses Diagnosis Pain Generalized pain documented in this encounter Care Teams Environmental Engineering Manager Relationship Specialty Start Date End Date Lizabeth Felder ANP [address] [place] [phone] PCP - General Family Medicine 05/04/21 [facility] 08/22/24 documented as of this encounter
--- OUTSIDE RECORDS SUMMARY | 2025-06-18 15:36 | XMS_ITS | Encounter Summary ---
Author Organization [employer] Address [address] [facility] [address] [place] [address] Care Team Providers Care Geoscience Laboratory Technician Name Role Phone Lizabeth Felder Primary Care Provider [phone] Encounter Details Date Type Department Care Team (Late st Contact Info) Description 04/03/2024 Telephone [facility] MEDICINE [address] [place], [place] [phone] Lizabeth Felder ANP [address] [place], [place] [phone] Social History Tobacco Use Types Packs/Day Years [...] Description 08/21/2025 10:30 AM EST Office Visit [facility] MEDICINE [address] [place] [address] Loli Allred MD [address] [place] [address] documented as of this encounter Visit Diagnoses Not on filedocumented in this encounter Additional Health Concerns Assessment Noted Time PHQ-9 Depression Total Score: 2 02/04/20 24 2:14 PM EDT documented as of this encounter Care Teams Geoscience Laboratory Technician Relationship Specialty Start Date End Date Lizabeth Felder ANP [address] [place] [address] PCP - General Family Medicine 05/04/21 [facility] 08/22/24 documented as of this encounter
== END 2025-06-18 11:47 | disposition home or self-care (01) ==
PROVIDERS: PCP Nurse Practitioner Primary Care; Visit Provider Surgery Vascular Surgery
DX: I83.12 Varicose veins of left lower extremity with inflammation (principal)
CPT/HCPCS: 99214

== ENCOUNTER → 2025-06-18 11:18 | Outpatient (BNVA) | payer MEDICAID, SELFPAY | PROVIDERS: PCP Nurse Practitioner Primary Care; Visit Provider Surgery Vascular Surgery | DX: I83.12 Varicose veins of left lower extremity with inflammation (principal) | CPT/HCPCS: 99212 ==

== ENCOUNTER 2025-07-08 11:49 | Outpatient (AMB) | payer MEDICAID, SELFPAY ==
[2025-07-08 11:53] VITALS: BP 101/65; PULSE 73; O2SAT 97; BMI 33.9
--- NOTE | 2025-07-08 11:53 | A.OFFVIS_ITS ---
Vital Signs 07/08/25 11:53 Height 5 ft 8 in Weight 223 lb BMI 33.9 BP 101/65 Blood Pressure Location Lt brachial Position Sitting Pulse 73 Pulse Oximetry (%) 97 Oxygen Delivery Method Room Air Intake Visit Reasons: 6 month follow up Discuss scope s/p DVT, GERD, Intake Note: Jerome presents in follow up of GERD. Patient denies any other GI issues. 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 Due for rescope in 2023. Delayed because of diagnose of DVT and on Eliquis Code(s): Z12.11 - Encounter for screening for malignant neoplasm of colon Category: Medical (4) Abdominal bloating: Code(s): R14.0 - Abdominal distension (gaseous) Category: Medical Plan [place] #AKOSUA live He tells me that he continues to do well with his GI regimen. He uses senna/colace for CIC bloating with simethicone and has had no subjective bloating. He takes omeprazole with good control of his GERD. He is due for a repeat colonoscopy this year. BUT he just was dx'ed with a DVT a few weeks ago and is on Eliquis. Since he needs to stay on this for 6 mos we will discuss this again later. It is prescribed by the ER so far as I can tell, the patient has seen his PCP after the clot so I assume they are the prescriber. ROV 6 mos. The patient has memory problems and has trouble with the history. Medications: New bisacodyl (Dulcolax (bisacodyl)) 10 mg (2 x 5 mg) PO BEDTIME 4 tabs 0RF 2 days sennosides (senna) 17.2 mg (2 x 8.6 mg) PO BEDTIME 60 tabs 6RF peg 3350-electrolytes 236-22.74-6.74 -5.86 gram (Golytely) until fecal effluent is clear; do not exceed a total volume of 2,000 mL 240 mL PO Q10M 4,000 mL 0RF 1 day Z12.11 - Encounter for screening for malignant neoplasm of colon Refilled omeprazole 20 mg PO DAILY 30 caps 6RF K21.9 - Gastro-esophageal reflux disease without esophagitis simethicone after meals 180 mg PO TID 90 caps 6RF 30 days R14.0 - Abdominal distension (gaseous) TODAY'S VISIT Albanian # PFSH Medical History Hyperlipemia Seizure disorder Surgical History (Reviewed 06/18/25 @ :25 by LETITIA Arciniega) No significant past surgical history Family History (Reviewed 06/18/25 @ : by LETITIA Arciniega) Family/Other Epilepsy Social History (Reviewed 06/18/25 @ : by LETITIA Arciniega) Household Members: None Housing: Apartment Are you a primary companion caregiver to a significant other at home: No Do you presently have visiting nurse or other home services: No Alcohol intake: current Alcohol intake frequency: does not drink Patient Tobacco Use Status: Never used Tobacco service: No Current occupational status: disabled Current occupation: right hand dominant Review of Systems Const Denies fatigue, Denies fever(s), Denies night sweats, Denies poor appetite and Denies weight loss ENT Reports Normal hearing present, Denies dental pain, Denies dysphagia, Denies hearing loss, Denies mouth pain, Denies odynophagia, Denies throat swelling, Denies tongue swelling and Reports other (Dentition adequate) Card Reports no additional complaints Resp Reports no additional complaints GI Details: Denies abdominal pain, Denies melena, Denies bloating, Denies hematochezia, Reports constipation, Denies GI cramping, Denies dysphagia, Denies excessive flatus, Denies early satiety, Reports heartburn, Denies diarrhea, Denies nausea, Denies odynophagia, Denies vomiting and Denies hematemesis Skin/Breast Denies pruritus, Denies lesions, Denies rash and Denies jaundice Neuro Reports Normal hearing present and Denies Abnormal speech present Endo Denies fatigue Aller/Immun Denies throat swelling and Denies tongue swelling Physical Exam Const General: cooperative, no acute distress, well developed and well groomed Nutritional Appearance: well nourished and obese centrally obese Orientation/consciousness: oriented to person, oriented to place and oriented to time Limitations: language barrier and other limitations (? Cognitive deficit cognitive deficit versus literacy/educational) HEENT Head: Yes normocephalic and Yes atraumatic Eyes General: appearance normal, both eyes and all related structures Pupils: Equal, round and reactive pupils present Neck Neck: Yes normal visual inspection and Yes no lymphadenopathy Thyroid: Thyroid normal Resp Effort & Inspection: normal respiratory effort and able to speak in complete sentences Auscultation: clear to auscultation bilaterally Cardio Rate: regular rate Rhythm: regular rhythm Heart sounds: Normal, physiologic split S2 sound present Peripheral pulses: radial pulses present and posterior tibial pulses present GI Inspection: No distended, No Abdominal panniculus present and Yes obesity Palpation (GI): Soft to palpation, nontender, no guarding, not rigid and No hepatosplenomegaly present Percussion: Yes normal to percussion Auscultation: normal bowel sounds Rectal Exam - Male: Yes deferred Skin General skin exam: no rashes or lesions noted, turgor normal, skin not dry, no jaundice, No spider nevi and no striae Rashes: no rashes Nails: normal Neuro General: oriented to person, oriented to place and oriented to time Cranial nerves: Yes Equal, round and reactive pupils present and Yes Normal hearing present Speech: No Abnormal speech present Extrem General: Yes normal to inspection, No clubbing, No cyanosis and No edema Psych Appearance: grossly normal and well kempt Mental Status: other Speech and movement: Normal speech and movement present Affect: normal affect Attitude: cooperative Thought process: not confabulating and Impoverished thought process present Thought content: Normal thought content present Insight: Limited insight present (Psych) Judgement: Limited judgement present (Psych) Results Reviewed Results Reviewed: Laboratory Tests 05/26/25 20:10 WBC 5.9 RBC 3.96 L Hgb 13.2 L Hct 37.9 L MCV 95.7 MCH 33.3 H Plt Count 175 Estimated GFR > 60 Total Bilirubin 0.2 AST 19 ALT 17 Alkaline Phosphatase 74 Assessment & Plan Assessment & Plan (1) GERD (gastroesophageal reflux disease): Code(s): K21.9 - Gastro-esophageal reflux disease without esophagitis Category: Medical (2) Constipation: Code(s): K59.00 - Constipation, unspecified Category: Medical (3) Abdominal bloating: Code(s): R14.0 - Abdominal distension (gaseous) Category: Medical (4) Colon cancer screening: Comment: FIT test was negative. Due for rescope in 2023. 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 Code(s): R41.841 - Cognitive communication deficit Category: Medical Plan [place]ian #Trina Thompson His current GI regimen consists of omeprazole 20 mg daily, senna and simethicone. He wants to try stopping the senna to see if he really needs it. This is okay. He seems concerned with his overall pill burden. There are no prior problems with anesthesia or sedation. He has FARRAH and a seizure disorder well controlled, and no cardiac conditions except for high cholesterol. He is on Eliquis for DVT. There are no infectious disease problems. Family history: No FHX crc or polyps. 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 Medications: Refilled peg 3350-electrolytes 236-22.74-6.74 -5.86 gram (Golytely) until fecal effluent is clear; do not exceed a total volume of 2,000 mL 240 mL PO Q10M 4,000 mL 0RF 1 day Z12.11 - Encounter for screening for malignant neoplasm of colon bisacodyl (Dulcolax (bisacodyl)) 10 mg (2 x 5 mg) PO BEDTIME 4 tabs 0RF 2 days omeprazole 20 mg PO DAILY 30 caps 6RF K21.9 - Gastro-esophageal reflux disease without esophagitis simethicone after meals 180 mg PO TID 90 caps 6RF 30 days R14.0 - Abdominal distension (gaseous) sennosides (senna) 17.2 mg (2 x 8.6 mg) PO BEDTIME 60 tabs 6RF Coding Level of Care Code Est Pt Level 4 (78447) Diagnoses GERD (gastroesophageal reflux disease) K21.9 Constipation K59.00 Abdominal bloating R14.0 Colon cancer screening Z12.11 Seizure R56.9 DVT (deep venous thrombosis) I82.409 FARRAH on CPAP G47.33 Chronic anticoagulation Z79.01 Cognitive communication deficit R41.841 Time Spent (min) 35
--- OUTSIDE RECORDS SUMMARY | 2025-07-08 13:24 | XMS_ITS | Clinical Summary ---
Author Organization [facility] Address [address] [place] [address] Care Team Providers Care Lens Coating Technician Name Role Phone Unavailable Primary Care Provider [...] Drug Screen 10/08/2024 Depression Annual Screen 10/08/2024 [id number] ( - 2024- season) 2025 021, 01/25/2021 Imm-Influenza (#1) 2025 08/06/2020, 0 07/03/2019, 07/08/2018, Additional history exists [facility]
--- OUTSIDE RECORDS SUMMARY | 2025-07-08 13:24 | XMS_ITS | Encounter Summary ---
Author Organization [employer] Address [address] [facility] [address] [place] [address] Care Team Providers Care Package Handler Name Role Phone Lizabeth Felder Primary Care Provider [phone] Reason for Visit * Reason Onset Date Comments [facility] 03/25/2025 Encounter Details Date Type Department Care Team ([facility] st Contact Info) Description 03/25/2025 Telephone [facility] [address] [place], [place] [id number] Juan Carlos Mooney, DMD [address] [place], [place] [id number] [facility] Social History Tobacco Use Types [...] Care Team (Late st Contact Info) Description 07/23/2025 2:00 PM EDT Office Visit [facility] [address] [place] [address] Juan Carlos Mooney, TATIANNA [address] [place] [address] 08/21/2025 10:30 AM EST Office Visit [facility] [address] [place] [address] Loli Allred MD [address] [place] [id number] 09/11/2025 9:15 AM EST Office Visit [address] [address] Lizabeth Felder ANP [address] [place] [address] documented as of this encounter Visit Diagnoses Not on filedocumented in this encounter Additional Health Concerns Assessment Noted Time PHQ-9 Depression Total Score: 0 12/17/19 25 11:38 AM EDT documented as of this encounter Care Teams Package Handler Relationship Specialty Start Date End Date Lizabeth Felder ANP [address] [place] [address] PCP - General Family Medicine 05/04/21 [facility] 08/22/24 documented as of this encounter
--- OUTSIDE RECORDS SUMMARY | 2025-07-08 13:24 | XMS_ITS | Clinical Summary ---
Author Organization [employer] Address [address] [facility] 7t [place] [address] Care Team Providers Care Under Ground Miner Name Role Phone Mauricio Coulter Primary Care Provider [phone] Allergies No known active allergies Medications fluticasone (Flonase) 50 MCG/ACT nasal spray 1 Active Simethicone Ultra Strength 180 MG capsule Active omeprazole (PriLOSEC) [address] capsuleIndication s:Heartburn TAKE 1 CAPSULE BY MOUTH ONCE DAILY 30 capsule 6 4 Active atorvastatin (Lipitor) 20 MG tabletIndications :High cholesterol,Cardi ovascular event risk Take 1 tablet (20 mg) by mouth Once per day. 90 tablet 3 4 09/22/20 25 Active apixaban (Eliquis) 5 MG tabletIndications :Acute deep vein thrombosis (DVT) of distal vein of right lower extremity (HCC) Take 1 tablet (5 mg) by mouth 2 times daily. 60 tablet 1 5 Active lidocaine (Lidoderm) 5 % patchIndications: Acute midline low back pain without sciatica Apply 1 patch topically Once per day. Remove & discard patch within 12 hours or as directed by MD. 30 patch 2 5 Active cyanocobalamin (Vitamin B-12) 1000 MCG tabletIndications :B12 deficiency Take 1 tablet (1,000 mcg) by mouth Once per day. 90 tablet 3 5 02/20/20 26 Active spironolactone (Aldactone) 100 MG tabletIndications :Venous insufficiency of lower extremity, unspecified laterality TAKE 1 TABLET BY MOUTH ONCE DAILY NEEDED 90 tablet 1 5 Active folic acid (Folvite) 1 MG tabletIndications :Chronic alcoholism in remission (CMS/HCC) ([facility]) TAKE 1 TABLET BY MOUTH EVERY MORNING 90 tablet 1 5 Active loratadine (Claritin) 10 MG tabletIndications :Seasonal allergies TAKE 1 TABLET BY MOUTH ONCE DAILY NEEDED FOR ALLERGY 90 tablet 1 5 Active prazosin (Minipress) 2 MG capsuleIndication s:Benign hypertension TAKE 1 CAPSULE BY MOUTH EVERY NIGHT AT BEDTIME 90 capsule 1 5 Active acetaminophen (Tylenol 8 Hour) 650 MG ER tabletIndications :Pain TAKE 1 or 2 TABLETS BY MOUTH EVERY 8 HOURS NEEDED, do not take more than 4 tablets per day 90 tablet 1 5 Active divalproex (Depakote) 500 MG EC tabletIndications :Epilepsy, not refractory (CMS/HCC) ([facility]) TAKE 1 TABLET BY MOUTH two (2) times a day 60 tablet 2 5 Active PHENobarbital 97.2 MG tabletIndications :Epilepsy, not refractory (CMS/HCC) ([facility]) Take 1 tablet by mouth once daily at bedtime 30 tablet 2 5 Active levETIRAcetam (Keppra) 750 MG tabletIndications :Epilepsy, not refractory (CMS/HCC) ([facility]) Take 1 tablet (750 mg) by mouth 2 times daily. 60 tablet 2 5 Active Diclofenac Sodium (Voltaren) 1 % gelIndications:Ac jamel left ankle pain Apply up to 4x/d to affected joint(s) for pain/swelling 100 g 2 5 Active amoxicillin (Amoxil) 500 MG capsuleIndication s:History of tooth extraction, unspecified edentulism class Take 1 capsule (500 mg) by mouth every 8 (eight) hours for 7 days. 21 capsule 5 06/17/20 25 oxyCODONE (Roxicodone) 5 MG immediate release tabletIndications :History of tooth extraction, unspecified edentulism class Take 1 tablet (5 mg) by mouth every 6 (six) hours if needed for severe pain for up to 5 days. 15 tablet 5 06/15/20 25 ibuprofen 600 MG tabletIndications :History of tooth extraction, unspecified edentulism class Take 1 tablet (600 mg) by mouth 3 times daily for 7 days. 21 tablet 5 06/17/20 25 amoxicillin (Amoxil) 500 MG capsuleIndication s:History of tooth extraction, unspecified edentulism class Take 1 capsule (500 mg) by mouth every 8 (eight) hours for 7 days. 21 capsule 5 06/17/20 25 Active Problems Problem Noted Date Diagnosed [...] hypertensive heart disease. CTA was done at [facility] 04/30/24 and showed no hemodynamically significant CAD. [facility] cards will outreach pt for follow-up. High cholesterol 02/04/2024 Cardiovascular event risk 05/07/2023 Overview (04/17/2024): ASCVD risk 10.6. Declined statin despite discussion and h/o positive stress test. Chronic GERD 01/30/2023 Class 1 obesity 01/30/2023 Drug therapy 09/09/2022 Overview (09/09/2022): Drug therapy finding per previous EHR 07/08/2018 Anticoagulated Acquired hypothyroidism 07/08/2018 Alcoholic cirrhosis (CMS/HCC) 07/08/2018 Primary hypertension 07/08/2018 Brain injury without open intracranial wound 10/2017 Chronic alcoholism in remission (CMS/HCC) 2017 Cocaine dependence in remission (CMS/HCC) 2017 Deep venous thrombosis 07/08/2018 Overview (02/19/2025): Per heme, patient must remain on anticoagulation lifelong. 02/19/25 Heme onc recommend continuation of Eliquis and not switching to Lovenox as left lower extremity DVT is resolving. Epilepsy, not refractory (CMS/HCC) 07/08/2018 Overview (04/17/2024): In context of TBI. [...] Encounters Date Type Department Care Team Description 07/01/2025 2:30 PM EDT Immunization [address] [address] Esthela Avalos, KENIA Encounter for immunization; Encounter for vaccination 07/01/2025 Travel 06/22/[address] [address] Mauricio Coulter ANP nov recall 06/10/2025 10:15 AM EDT Office Visit [facility] [address] [place] [address] Christopher Patel DMD History of tooth extraction, unspecified edentulism class (Primary Dx) 06/03/2025 10:30 AM EDT Office Visit [facility] [address] [place] [address] Christopher Patel DMD 06/02/2025 11:15 AM EDT Office Visit [address] [address] Mauricio Coulter ANP Acute left ankle pain (Primary Dx); Epilepsy, not refractory (CMS/[facility]); Left leg swelling 06/02/[address] [address] Mauricio Coulter ANP Call Back Request 06/02/2025 Travel 05/29/2025 Orders Only [facility] [address] [place] [address] Mauricio Coulter ANP 05/28/[address] [address] Mauricio Coulter ANP verbal order needed 05/27/[address] [address] Mauricio Coulter ANP Benign hypertension; Pain 05/27/2025 Patient Outreach [address] [address] Mauricio Coulter ANP 05/26/2025 Orders Only GENERIC EXTERNAL DATA DEPARTMENT Provider, Generic External Data 05/23/2025 Refill [facility] [address] [place] [address] Mauricio Coulter ANP Epilepsy, not refractory ([facility]) 05/18/[address] [address] Mauricio Coulter ANP Durable Medical Equipment 05/16/[address] [address] Mauricio Coulter ANP Seasonal allergies 05/07/2025 Telephone [facility] [address] [place] [address] Christopher Patel, DMD SFS application 05/05/2025 Refill [facility] [address] [place] [address] Mauricio Coulter ANP Venous insufficiency of lower extremity, unspecified laterality; Chronic alcoholism in remission ([facility]) 04/17/2025 Patient Outreach [address] [address] Mauricio Coulter ANP Care Coordination (CM/CHW outreach) 04/15/[address] [address] Mauricio Coulter ANP Durable Medical Equipment 04/08/[address] [address] Mauricio Coulter ANP Durable Medical Equipment (CPAP) from Last 3 Months Immunizations Immunization Administration [...] 07/17/2017,07/09/2014 Influenza, seasonal, injecta ble, preservative free 07/01/2025,07/10/2024,07/17/2017,07/09 Moderna Covid-19 Vaccine 12+ 10/18/2021, 02/22/2021,01/25/2021,12/06 Pfizer Covid-19 Vaccine 12+ 07/01/2025,,08/20/2023 Pfizer Covid-19 Vaccine 12+ Bivalent 07/28/2022 Pneumococcal [...] Upcoming Encounters Date Type Department Care Team ([facility] st Contact Info) Description 07/23/2025 2:00 PM EDT Office Visit [facility] [address] [place] [address] Juan Carlos Mooney, DMD [address] [place] [address] 08/21/2025 10:30 AM EST Office Visit [address] [address] Loli Allred MD [address] [place], [place] [phone] 09/11/2025 9:15 AM EST Office Visit [facility] [address] [place], [place] [phone] Mauricio Coulter ANP [address] [place], [place] [phone] Health Maintenance Due Date Last Done Comments [...] 06/03/2025 Dental X-Ray: Full Mouth 06/13/2027 06/12/2024, 01/2020 [...] Vaccine: 50+ Years Completed 11/02/2023, 11/04/2013, 11/04/2013 HIV Screening Completed 09/22/2024 COVID-19 Vaccine Completed 07/01/2025, 12/2023, 08/20/2023, Additional history exists Influenza Vaccine Completed 07/01/2025, , 08/20/2023, Additional history exists HIB Vaccines Aged Out No longer eligi [...] AUTO DIFFERENTIAL Routine 05/26/2025 8:10 PM EDT LIPID PANEL, STANDARD Routine 10/13/2024 [...] PM EDT) 05/26/2025 9:40 PM EDT Narrative [facility] - 05/26/2025 9:42 PM EDT [address] [address] Ultrasound Report Signed Patient: Jerome Ledezma MR#: [id number] : 1965 Acct:[id number] Age/Sex: 60 / M ADM Date: 05/26/25 Loc: HO.ED Attending Dr: Ordering Physician: Kimmy Lockwood Date of Service: 05/26/25 Procedure(s): US venous duplex LE Accession Number(s): [id number] cc: Kimmy Lockwood; MAURICIO COULTER NP CLINICAL HISTORY: pain swelling --- Additional Notes or Special Instructions: s p venaseal Venous duplex ultrasound left lower extremity Comparison: [place]/SR - US VENOUS INSUFFICIENCY BILATERAL - 03/19/25 [...] in OV> 05/26/252140 DD/ 39 TD/TT: 05/26/252139 Auditing Clerk: Procedure Note Donotuseinterpreter, Image - 05/26/[address] [address] Ultrasound Report Signed Patient: Tolu LedezmaR#: [id number] : 1965Acct:[id number] Age/Sex: 60 / MADM Date: 05/26/25 Loc: HO.ED Attending Dr: Ordering Physician: Kimmy Lockwood Date of Service: 05/26/25 Procedure(s): US venous duplex LE LT Accession Number(s): [id number] cc: Kimmy Lockwood; MAURICIO COULTER NP CLINICAL HISTORY: pain swelling --- Additional Notes or SpecialInstructions: s p venaseal Venous duplex ultrasound left lower extremity Comparison: US/[place]/SR - US VENOUS INSUFFICIENCY BILATERAL - 03/19/25 [...] in OV> 05/26/252140 DD/ 39 TD/TT: 05/26/252139 Auditing Clerk: us [facility] External Provider CV VASC ULAR PROCEDURES Final Result [facility] [address] [place] [address] [phone] * (ABNORMAL) CBC auto differential (05/26/2025 8:10 PM EDT) White Blood Count 5.9 4.8 - 10.8 X10*3/uL [facility] Red Blood Count 3.96(L) 4.60 - 5.80 X10*6/uL [facility] Hemoglobin 13.2(L) 14.0 - 18.0 g/dl [facility] Hematocrit 37.9(L) 42.0 - 52.0 % [facility] Mean Corpuscular Volume 95.7 80.0 - 98.0 fL [facility] Mean Corpuscular Hemoglobin 33.3(H) 27.0 - 33.0 pg [facility] Mean Corpuscular HGB Conc 34.8 31.0 - 36.0 g/dl [facility] Red Cell Distribution Width 12.5 11.0 - 16.0 % [facility] Platelet Count 175 160 - 400 X10*3/uL [facility] Mean Platelet Volume 10.1 9.4 - 12.4 fL [facility] Neutrophils Percent Auto 49.2 45 - 73 % [facility] Imm Gran Pct Auto 0.2 0.0 - 0.4 % [facility] Lymphocytes Percent Auto 37.5 20 - 40 % [facility] Monocytes Percent Auto 11.2(H) 2 - 11 % [facility] Eosinophils Percent Auto 1.0 0 - 4 % [facility] Basophils Percent Auto 0.9 0 - 2 % [facility] NRBC Pct Auto 0.0 0.0 - 0.2 /100WBC [facility] Neutrophils Absolute Auto 2.9 2.0 - 8.3 x10*3/uL [facility] Imm Gran Abs Auto 0.01 0.00 - 0.03 X10*3/uL [facility] Lymphocytes Absolute Auto 2.2 1.2 - 4.9 X10*3/uL [facility] Monocytes Absolute Auto 0.7 0.1 - 1.2 X10*3/uL [facility] Eosinophils Absolute Auto 0.1 0.0 - 0.4 X10*3/uL [facility] Basophils Absolute Auto 0.1 0.0 - 0.2 X10*3/uL [facility] NRBC Abs Auto 0.000 0.0 - 0.012 X10*3/uL [facility] 05/26/2025 8:10 PM EDT 05/26/2025 8:13 PM EDT us Generic External Data Provider LAB BLOOD ORDERAB LES Final Result [facility] [address] [place] [phone] [phone] * Magnesium (05/26/2025 8:10 PM EDT) Magnesium 1.9 1.6 - 2.6 mg/dL [facility] 05/26/2025 8:10 PM EDT 05/26/2025 8:13 PM EDT us Generic External Data Provider LAB BLOOD ORDERAB LES Final Result [facility] [address] [place] [phone] * (ABNORMAL) Comprehensive Metabolic Panel (05/26/2025 8:10 PM EDT) Sodium 141 135 - 145 mmol/L [facility] Potassium 4.2 3.3 - 5.1 mmol/L [facility] Chloride 106 96 - 108 mmol/L [facility] Carbon Dioxide 27 22 - 29 mmol/L [facility] Anion Gap 12 12 - 20 [facility] Urea Nitrogen (BUN) 8(L) 9 - 16 mg/dL [facility] Creatinine, Serum 1.09 0.5 - 1.4 mg/dL [facility] Creatinine Clr Calc Pharmacy 85.4 [facility] Comment:eGFR (calculated fro m the MDRD study equation) and eCrCl(calculated from the Cockcroft-Gault equation) are based ondifferent parameters and may not yield comparable results.If eCrCl result is absurd, please check patient'sheight/weight. Estimated Glomerular Filt Rate >60 [facility] Comment:Chronic Kidney Disea se: Estimated GFR < 60 mL/min/1.34n7Yapxcx Kidney Disease: Estimated GFR < 15 mL/min/1.73m2 Glucose 93 60 - 115 mg/dL [facility] Calcium 8.6 8.4 - 10.2 mg/dL [facility] Bilirubin, Total 0.2 0.0 - 1.0 mg/dL [facility] Aspartate Amino Transferase 19 5 - 37 U/L [facility] Alanine Aminotransferase 17 0 - 40 U/L [facility] Total Protein 7.9 6.5 - 8.0 g/dL [facility] Albumin Level 4.4 3.5 - 5.0 g/dL [facility] Alkaline Phosphatase 74 39 - 117 U/L [facility] 05/26/2025 8:10 PM EDT 05/26/2025 8:13 PM EDT Generic External Data Provider LAB BLOOD ORDERAB LES Final Result Performing Organization Address [facility] Co de Phone Number [facility] [address] [place] [address] [phone] * (ABNORMAL) Lipid Panel, Standard (10/13/2024 1:45 PM EST) Triglycerides 126 <150 mg/dL [facility] Comment:Desirable Triglyceri de: less than 150 mg/dLBorderline High Triglyceride 150-199 mg/dLHigh Triglyceride: 200-499 mg/dLVery High Triglyceride: greater than or equal to 5OO mg/dL Cholesterol 213(H) <200 mg/dL [facility] Comment:Desirable Cholestero l: less than 200 mg/dLBorderline High Cholesterol: 200-239 mg/dLHigh Cholesterol: greater than 239 mg/dL LDL Cholesterol Calculated 134(H) <100 mg/dL [facility] Comment:Desirable LDL: less than 100 mg/dLNear Optimal/Above Optimal LDL: 110- 129 mg/dLBorderline High LDL: 130-159 mg/dLHigh LDL: 160-189 mg/dLVery High LDL: greater than or equal to 190 mg/dL HDL Cholesterol 54 >40 mg/dL [facility] Comment:Desirable HDL: great er than 40 mg/dL Note: This HDL assay may give artificially low results in patients with liver disease. 10/13/2024 1:45 PM EST 10/13/2024 1:45 PM EST us Generic External Data Provider LAB BLOOD ORDERAB LES Final Result Performing Organization Address City/[facility]/ZIP Co de Phone Number [facility] [address] [place] [address] [phone] * HIV-1/2 Antigen and Antibodies, Fourth Generation, with Reflexes (09/22/2024 3:37 PM EST) HIV AB/AG Nonreactive Nonreactive [facility] Comment:HIV-1 p24 Ag and/or HIV-1/HIV-2 Ab not detected.A test result that is nonreactive does not exclude thepossibility of exposure to or infection with HIV-1 and/orHIV-2. Nonreactive results in this assay for individualswith prior exposure to HIV-1 and/or HIV-2 may be due toantigen and antibody levels that are below the limit ofdetection of this assay.The [employer] HIV Ag/Ab Combo assay result andsupplemental assay results should be interpreted inconjunction with the patient's clinical presentation,history and other laboratory results. If the results areinconsistent with clinical evidence, additional testing issuggested to confirm the result. Blood Venous blood specimen / Unknown 09/22/2024 3:37 PM EST 09/22/2024 4:23 PM EST [facility] LAB BLOOD ORDERABLES Final Resul t [facility] [address] [place] [phone] * Hemoglobin A1c (09/22/2024 3:37 PM EST) Hemoglobin A1c 5.9 <6.0 % [facility] Comment:Hemoglobin A1C Refer ence Range Adults: 4.8 - 6.0 % Non diabetic: < 6.0 % Goal: < 7.0 %Additional Action Suggested: > 8.0 %Note: Hemoglobin A1c results are invalid for patients with abnormal amounts of HbF. Blood transfusions may impact the HbA1c concentration in the patient sample. Estimated Average Glucose 123 mg/dL [facility] Comment:eAG = Estimated ave rage glucose which is %A1C expressed asaverage glucose, using the formula of the B9Q-EyrohoqBahvbah Glucose study (ADAG), Diabetes Care, Vol.31,#8,2007 Blood Venous blood specimen / Unknown 09/22/2024 3:37 PM EST 09/22/2024 4:23 PM EST Mauricio GARDINER LAB BLOOD ORDERABLES Final Resul t [facility] [address] [place] [phone] [phone] * Fecal Immunochemical Test (09/21/2020) Fecal Immunochemical Test Nonreactive Borderline, Nonreactive , Weakly Reactive Stool Rectal contents / Unknown 09/21/2020 Historical Provider HEALTH MAINTENANCE Final Result from Last 3 Months or Most Recently Relevant to Health Maintenance Insurance [facility] C3 DENTAL-[facility] MEDICAID STAND ADULT [place] Care Teams Under Ground Miner Relationship Specialty Start Date End Date Mauricio Coulter ANP [address] [place] [phone] PCP - General Family Medicine 05/04/21 [facility] 08/22/24
--- OUTSIDE RECORDS SUMMARY | 2025-07-08 13:24 | XMS_ITS | Encounter Summary ---
Author Organization [employer] Address [address] [facility] 7t [place] [address] Care Team Providers Care Milk Bottling Machine Operator Name Role Phone Lizabeth Felder Primary Care Provider [phone] Encounter Details Date Type Department Care Team (Late st Contact Info) Description 05/29/[address] [facility] [address] [place], [place] [phone] Lizabeth Felder ANP [address] [place], [place] [phone] Social History Tobacco Use Types Packs/Day Years [...] Description 07/23/2025 2:00 PM EDT Office Visit [facility] [address] [place] [address] Juan Carlos Mooney, DMD [address] [place] [address] 08/21/2025 10:30 AM EST Office Visit [facility] [address] [place] [address] Loli Allred MD [address] [place] [phone] 09/11/2025 9:15 AM EST Office Visit [facility] [address] [place] [address] Lizabeth Felder ANP [address] [place] [phone] documented as of this encounter Visit Diagnoses Not on filedocumented in this encounter Additional Health Concerns Assessment Noted Time PHQ-9 Depression Total Score: 0 12/17/19 25 11:38 AM EDT documented as of this encounter Care Teams Milk Bottling Machine Operator Relationship Specialty Start Date End Date Lizabeth Felder ANP [address] [place] [phone] PCP - General Family Medicine 7/28/21 [facility] 08/22/24 documented as of this encounter
--- OUTSIDE RECORDS SUMMARY | 2025-07-08 13:24 | XMS_ITS | Encounter Summary ---
Author Organization [employer] Address 75 [facility] 7t [place] [address] Care Team Providers Care Harness Rigger Name Role Phone Lizabeth Felder Primary Care Provider Encounter Details Date Type Department Care Team (Late st Contact Info) Description 04/03/2024 Telephone [facility] [address] [place], [place] [phone] Lizabeth Felder ANP [address] [place], [place] [phone] Social History Tobacco Use Types Packs/Day Years [...] Description 07/23/2025 2:00 PM EDT Office Visit [facility] ADULT DENTAL [address] [place] [address] Juan Carlos Mooney, DMD [address] [place] [address] 08/21/2025 10:30 AM EST Office Visit [facility] [address] [place] [phone] Loli Allred MD [address] [place] [phone] 09/11/2025 9:15 AM EST Office Visit [address] [address] Lizabeth Felder ANP [address] [place] [address] documented as of this encounter Visit Diagnoses Not on filedocumented in this encounter Additional Health Concerns Assessment Noted Time PHQ-9 Depression Total Score: 2 02/04/20 24 2:14 PM EDT documented as of this encounter Care Teams Harness Rigger Relationship Specialty Start Date End Date Lizabeth Felder ANP [address] [place] [phone] PCP - General Family Medicine 05/04/21 [facility] 08/22/24 documented as of this encounter
--- OUTSIDE RECORDS SUMMARY | 2025-07-08 13:24 | XMS_ITS | Encounter Summary ---
Author Organization [employer] Address [address] [facility] 7t [place] [address] Care Team Providers Care Mail Processing Equipment Mechanic Name Role Phone Lizabeth Felder Primary Care Provider [phone] Reason for Visit * Reason Onset Date Comments case delivery appt 07/24/2024 Encounter Details Date Type Department Care Team ([facility] st Contact Info) Description 07/24/2024 Telephone [facility] CH[facility] ADULT DENTAL [address] [place], [place] [phone] Juan Carlos Mooney, DMD [address] [place], [place] [phone] case delivery appt Social History Tobacco Use [...] appt scheduled for 1pm. Upon confirming with [facility] manager front, it was explained that when case arrives [...] Description 07/23/2025 2:00 PM EDT Office Visit [facility] [address] [place] [address] Juan Carlos Mooney, DMD [address] [place] [address] 08/21/2025 10:30 AM EST Office Visit [facility] [address] [place] [address] Loli Allred MD [address] [place] [address] 09/11/2025 9:15 AM EST Office Visit [address] [address] Lizabeth Felder ANP [address] [place] [address] documented as of this encounter Visit Diagnoses Not on filedocumented in this encounter Additional Health Concerns Assessment Noted Time PHQ-9 Depression Total Score: 2 02/04/20 24 2:14 PM EDT documented as of this encounter Care Teams Mail Processing Equipment Mechanic Relationship Specialty Start Date End Date Lizabeth Felder ANP [address] [place] [address] PCP - General Family Medicine 05/04/21 [facility] 08/22/24 documented as of this encounter
--- OUTSIDE RECORDS SUMMARY | 2025-07-08 13:24 | XMS_ITS | Encounter Summary ---
Author Organization [employer] Address 75 [facility] 7t [place] [address] Care Team Providers Care Customer Professional Name Role Phone Lizabeth Felder Primary Care Provider [phone] Reason for Visit * Reason Onset Date Comments returning call for os appt 10/29/2024 Encounter Details Date Type Department Care Team (Late st Contact Info) Description 10/29/2024 Telephone [facility] ADULT DENTAL [address] [place], [place] [phone] Christopher Patel, DMD [address] [place], [place] [phone] returning call for os appt Social History [...] Upcoming Encounters Date Type Department Care Team ([facility] st Contact Info) Description 07/23/2025 2:00 PM EDT Office Visit [facility]ULT [facility] [address] [place] [address] Juan Carlos Mooney, DMD [address] [place] [address] 08/21/2025 10:30 AM EST Office Visit [facility] [address] [place] [address] Loli Allred MD [address] [place] [phone] 09/11/2025 9:15 AM EST Office Visit [address] [address] Lizabeth Felder ANP [address] [place] [address] documented as of this encounter Visit Diagnoses Not on filedocumented in this encounter Additional Health Concerns Assessment Noted Time PHQ-9 Depression Total Score: 2 02/04/20 24 2:14 PM EDT documented as of this encounter Care Teams Customer Professional Relationship Specialty Start Date End Date Lizabeth Felder ANP [address] [place] [address] PCP - General Family Medicine 05/04/21 [facility] 08/22/24 documented as of this encounter
--- OUTSIDE RECORDS SUMMARY | 2025-07-08 13:24 | XMS_ITS | Encounter Summary ---
Author Organization [employer] Address [address] [facility] [address] [place] [address] Care Team Providers Care Insurance Underwriting Assistant Name Role Phone Lizabeth Felder Primary Care Provider [phone] Reason for Visit * Reason Comments Med Refill Encounter Details Date Type Department Care Team ([facility] st Contact Info) Description 08/01/2023 Refill [facility] [address] [place] [address] Lizabeth Felder ANP [address] [place] [address] Pain Social History Tobacco Use Types Packs/Day [...] the past 12 months, has t he [employer], [employer], oil or water [employer] threatened to shut off services in your [...] Description 07/23/2025 2:00 PM EDT Office Visit [facility] [address] [place] [address] Juan Carlos Mooney, DMD [address] [place] [address] 08/21/2025 10:30 AM EST Office Visit [facility] [address] [place] [address] Loli Allred MD [address] [place] [address] 09/11/2025 9:15 AM EST Office Visit [address] [address] Lizabeth Felder ANP [address] [place] [address] documented as of this encounter Visit Diagnoses Diagnosis Pain Generalized pain documented in this encounter Care Teams Insurance Underwriting Assistant Relationship Specialty Start Date End Date Lizabeth Felder ANP [address] [place] [id number] PCP - General Family Medicine 05/04/21 Home [facility] 08/22/24 documented as of this encounter
== END 2025-07-08 13:27 | disposition home or self-care (01) ==
LOC: HO.HGI 11:49
PROVIDERS: PCP Nurse Practitioner Primary Care; Visit Provider Nurse Practitioner
DX: K21.9 Gastro-esophageal reflux disease without esophagitis (principal); K59.00 Constipation, unspecified; R14.0 Abdominal distension (gaseous); R56.9 Unspecified convulsions; I82.409 Acute embolism and thrombosis of unspecified deep veins of unspecified lower extremity; G47.33 Obstructive sleep apnea (adult) (pediatric); Z79.01 Long term (current) use of anticoagulants; R41.841 Cognitive communication deficit
CPT/HCPCS: 99214

== ENCOUNTER → 2025-07-08 11:49 | Outpatient (BNVA) | payer MEDICAID, SELFPAY | PROVIDERS: PCP Nurse Practitioner Primary Care; Visit Provider Nurse Practitioner | DX: Z12.11 Encounter for screening for malignant neoplasm of colon (principal); K21.9 Gastro-esophageal reflux disease without esophagitis; K59.00 Constipation, unspecified; R14.0 Abdominal distension (gaseous); R56.9 Unspecified convulsions; G47.33 Obstructive sleep apnea (adult) (pediatric); I82.409 Acute embolism and thrombosis of unspecified deep veins of unspecified lower extremity; R41.841 Cognitive communication deficit; Z79.01 Long term (current) use of anticoagulants | CPT/HCPCS: 99212 ==